=== PATIENT | female | born 1940 | race Caucasian/White ===

== ENCOUNTER → 2016-07-20 | Outpatient (CLI) | payer MEDICARE ==
--- NOTE | 2016-07-20 09:31 | REPMRS ---
Patient History The patient states she has not had a clinical breast exam in over a year. Patient is postmenopausal and is nulliparous. Family history of breast cancer in sister at age 63. Digital Woman Screen Mammo: July 20, 2016 - Exam #: [id number] Bilateral CC and MLO view(s) were taken. Technologist: Azra Louis, Technologist Prior study comparison: July 12, 2015, digital woman screen mammo performed at [facility]. July 16, 2014, digital woman screen mammo performed at [facility]. July 16, 2013, digital bilateral screening mammo, performed at [facility]. June 16, 2012, digital woman screen mammo performed at [facility]. May 04, 2011, bilateral bilat screen digital mammo performed at [facility]. March 24, 2010, bilateral bilat screen digital mammo performed at [facility]. FINDINGS: There are scattered fibroglandular densities. There has been no change in the appearance of the mammogram from the prior studies. There is a mild amount of residual fibroglandular tissue which is fairly symmetric. There is no interval development of dominant mass, architectural distortion, or clustered microcalcification suggestive of malignancy. There are benign arterial calcifications noted. There are scattered, small, benign calcifications of doubtful clinical significance. Large coarse benign appearing calcifications are present. Scattered lymph nodes are seen in the axilla. Stable minor areas of tissue asymmetry in right breast again seen and not changed over several years. No significant changes when compared with prior studies. ASSESSMENT: BI-RADS/ACR category 2 mammogram. Benign finding(s). Recommendation Routine screening mammogram in 1 year (for women over age 40). This mammogram was interpreted with the aid of an FDA-approved computer-aided dectection system. A. Negative x-ray reports should not delay biopsy if a dominant or clinically suspicious mass is present. B. Four to eight percent of cancers are not identified by mammography. C. Adenosis and dense breast may obscure an underlying neoplasm. Electronically Signed By: David Arevalo MD 07/20/16 [id number]
== END ==
LOC: M WHC 08:22
PROVIDERS: ATTEND Internal Medicine
DX: Z12.31 Encounter for screening mammogram for malignant neoplasm of breast (principal); Z78.0 Asymptomatic menopausal state; R92.8 Other abnormal and inconclusive findings on diagnostic imaging of breast

== ENCOUNTER 2017-02-01 13:35 | Emergency (ER) | payer MEDICARE ==
[2017-02-01] MEDS ORDERED: ALEV220C2 PO (13:53)
[2017-02-01] MEDS ORDERED: AMLO10TA2 PO (13:53)
[2017-02-01] MEDS ORDERED: ASPI325T PO (13:53)
[2017-02-01] MEDS ORDERED: DRIS50002 PO (14:03)
[2017-02-01] MEDS ORDERED: PHEN100C PO (14:03)
[2017-02-01] MEDS ORDERED: CALC600T9 PO (14:03)
[2017-02-01] MEDS ORDERED: HYDR12.55 PO (14:03)
[2017-02-01] MEDS ORDERED: OMEP20CA3 PO (14:03)
[2017-02-01] MEDS ORDERED: echinacea PO (14:03)
[2017-02-01] MEDS ORDERED: METO1TAB32 PO (14:03)
[2017-02-01] MEDS ORDERED: FOSA70TA PO (14:03)
[2017-02-01] MEDS ORDERED: ATOR80TA59 PO (14:03)
[2017-02-01] MEDS ORDERED: MULTLIQ7 PO (14:03)
[2017-02-01] MEDS ORDERED: FLUTISP (14:03)
[2017-02-01] MEDS ORDERED: PREVINJ2 IM (14:04)
[2017-02-01] MEDS ORDERED: REFR1DRO8 OP (14:04)
[2017-02-01] MEDS ORDERED: VITA200016 PO (14:04)
[2017-02-01] MEDS ORDERED: ZETI10TA30 PO (14:04)
[2017-02-01] MEDS ORDERED: RALO1TAB PO (14:04)
[2017-02-01 15:16] LABS: BASO # 0.1 K/mm3 (0.0-0.2); BASO % 0.6 % (0.0-1.0); EOS # 0.1 K/mm3 (0.0-0.50); EOS % 1.3 % (0.0-3.0); LARGE UNSTAINED CELL # 0.3 K/mm3 (0.0-0.4); LARGE UNSTAINED CELL % 2.6 % (0.0-4.0); LYMPH # 1.5 K/mm3 (1.5-4.5); LYMPH % 13.7 % (24.0-44.0); MEAN CORPUSCULAR HEMOGLOBIN 30.7 pg (27.0-33.0); MEAN CORPUSCULAR HGB CONC 34.9 g/dl (32.0-36.5); MONO # 1.1 K/mm3 (0.0-0.8); MONO % 9.9 % (0.0-5.0); NEUTROPHILS # 7.7 K/mm3 (1.8-7.7); NEUTROPHILS % 71.8 % (36.0-66.0); PLATELET COUNT, AUTOMATED 391 k/mm3 (150-450); RED CELL DISTRIBUTION WIDTH 12.4 % (11.5-14.5); WHITE BLOOD COUNT 10.8 K/mm3 (4.0-10.0)
[2017-02-01 15:24] LABS: ANION GAP 10 MEQ/L (8-16); BLOOD UREA NITROGEN 16 MG/DL (7-18); CARBON DIOXIDE LEVEL 27 MEQ/L (21-32); CHLORIDE LEVEL 101 MEQ/L (98-107); CREATININE FOR GFR 0.71 MG/DL (0.55-1.02); GLOMERULAR FILTRATION RATE > 60.0 (>39); GLUCOSE, FASTING 98 MG/DL (83-110); SODIUM LEVEL 138 MEQ/L (136-145)
--- NOTE | 2017-02-01 15:55 | REP ---
Chest two views HISTORY: Chest pain Comparison: None The lungs are clear. The heart is normal in size. The pulmonary vasculature is normal in appearance. The bony structure is intact. IMPRESSION: No acute disease. Signed by Remington Sin MD 02/01/2017 03:46 P
[2017-02-01 16:04] VITALS: BP 146/70
--- NOTE | 2017-02-05 05:58 | ECGEPIP ---
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
== END 2017-02-01 16:17 | disposition home or self-care (01) ==
LOC: M ED 13:35 → EDBD 13:35 → M ED 16:17
DX: M94.0 Chondrocostal junction syndrome [Tietze] (principal); E11.9 Type 2 diabetes mellitus without complications; I10 Essential (primary) hypertension; E78.5 Hyperlipidemia, unspecified; Z79.899 Other long term (current) drug therapy; Z79.82 Long term (current) use of aspirin; Z79.51 Long term (current) use of inhaled steroids

== ENCOUNTER → 2017-07-18 | Outpatient (CLI) | payer MEDICARE | LOC: M WHC 08:13 | DX: Z12.31 Encounter for screening mammogram for malignant neoplasm of breast (principal) | CPT/HCPCS: 77067 ==

== ENCOUNTER 2018-05-31 23:26 | Inpatient (IN) | payer MEDICARE, MEDICAID, BC ==
[~2018-05-31] VITALS: Ht 157.5 cm; Wt 56.5 kg
[~2018-05-31 23:26] MED LIST: ALEV220C2 PO; AMLO10TA5 PO; ASPI325T PO; ATOR80TA59 PO; CALC600T9 PO; DRIS50003 PO; FLUTISP; FOSA70TA PO; HYDR12.55 PO; METO1TAB32 PO; MULTLIQ7 PO; OMEP20CA3 PO; PHEN100C PO; PREVINJ2 IM; RALO1TAB PO; REFR1DRO8 OU; VITA200016 PO; ZETI10TA30 PO; echinacea PO
[2018-06-01 00:51] LABS: BASO # 0.1 10^3/uL (0.0-0.2); BASO % 0.4 % (0.0-1.0); EOS # 0.2 10^3/uL (0.0-0.50); EOS % 0.6 % (0.0-3.0); HEMATOCRIT 35.3 % (36.0-47.0); HEMOGLOBIN 12.2 g/dl (12.0-15.5); LYMPH # 1.2 10^3/uL (1.5-4.5); LYMPH % 4.5 % (24.0-44.0); MEAN CORPUSCULAR HEMOGLOBIN 29.4 pg (27.0-33.0); MEAN CORPUSCULAR HGB CONC 34.6 g/dl (32.0-36.5); MEAN CORPUSCULAR VOLUME 85.1 fl (80.0-96.0); MONO % 8.7 % (0.0-5.0); NEUTROPHILS # 22.5 10^3/uL (1.8-7.7); NEUTROPHILS % 83.1 % (36.0-66.0); PLATELET COUNT, AUTOMATED 365 10^3/uL (150-450); RED BLOOD COUNT 4.15 10^6/uL (4.00-5.40)
[2018-06-01 01:17] LABS: MONO # 2.4 10^3/uL (0.0-0.8)
[2018-06-01 01:27] LABS: ALBUMIN 1.9 GM/DL (3.2-5.2); BILIRUBIN,DIRECT 0.4 MG/DL (0.0-0.2); BILIRUBIN,TOTAL 0.7 MG/DL (0.2-1.0); CALCIUM LEVEL 8.2 MG/DL (8.8-10.2); CREATININE FOR GFR 4.84 MG/DL (0.55-1.30); GLOMERULAR FILTRATION RATE 9.3 (>39); PHENYTOIN (DILANTIN) 3.8 UG/ML (10.0-20.0); POTASSIUM SERUM 4.6 MEQ/L (3.5-5.1); THYROID STIMULATING HORMONE 2.9 uIU/ML (0.358-3.740); THYROXINE (T4) 7.8 UG/DL (4.5-12.0); TOTAL PROTEIN 5.9 GM/DL (6.4-8.2)
[2018-06-01] MEDS ORDERED: NS 1,000 ML IV ONE ×2 (03:45→19:30)
[2018-06-01] MEDS ORDERED: CALC500C16 PO (04:01)
[2018-06-01] MEDS ORDERED: PATIENT COMMENTS (04:23)
[2018-06-01] MEDS ORDERED: PHENYTOIN ER 100 MG CAP PO ONE (04:45)
--- NOTE | 2018-06-01 07:02 | REPVR ---
EXAM: US Right Duplex Extracranial Arteries, Unilateral EXAM DATE/TIME: 06/01/2018 4:52 AM CLINICAL HISTORY: 77 years old, female; Pain and condition or disease; Other: S/P endartectomy ~2 years and recent lump in neck; Neck pain; Prior surgery; Surgery date: 6+ months; Surgery type: RT endartectomy approx. 2 years ago, now pain and large palp area; Patient HX: Patient poor historian d/t AMS; Additional info: Eval r carotid TECHNIQUE: Real-time Duplex ultrasound scan of the Right carotid, 2-D kemp scale, with color Doppler flow and spectral waveform analysis. A limited examination was performed, focused on the right carotid artery in the area of pain. COMPARISON: CR Soft Tissue Neck 06/01/2018 3:52 AM FINDINGS: Right common carotid: The right common carotid artery is patent. There is irregular echogenic plaque through the right common carotid artery. There is aneurysmal dilation of the mid right common carotid artery, measuring approximate 2.0 x 1.6 cm in diameter. They right common carotid artery is patent. Normal arterial waveforms are seen with sharp upstrokes. The peak systolic velocity in the proximal right common carotid artery is 70 cm/s. The peak systolic velocity is in the mid right common carotid artery is 59 cm/s. The peak systolic velocity in the distal right common carotid artery is 53 cm/s. On color flow imaging, turbulent flow is seen in the mid common carotid artery. Right internal carotid artery: The carotid bulb and carotid bifurcation could not be visualized. Soft tissues: No masses are seen adjacent to the carotid artery and the right side of the neck. IMPRESSION: 1. 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 2. Patency of the right common carotid artery, with no stenosis. COMMENT: Carotid Stenosis Reference using SRU criteria: Mild: <50% stenosis. ICA PSV is less than 125 cm/second and plaque or intimal thickening is visible. Moderate: 50-69% stenosis. ICA PSV is 125 to 230 cm/second and plaque is visible. Severe: 70-94% stenosis. ICA PSV is more than 230 cm/second and visible plaque and lumen narrowing are seen. Near occlusion: 95-99% stenosis. ICA PSV is variable and significant plaque and luminal narrowing are seen. Occluded: 100% stenosis. No flow identified. Electronically signed by: Ivette Rajan On 06/01/2018 07:02:37 AM
--- NOTE | 2018-06-01 08:13 | REP ---
Chest two views HISTORY: Neck pain Comparison: 02/01/2017 The lungs are clear. The heart is normal in size. The pulmonary vasculature is normal in appearance. The bony structure is intact. IMPRESSION: No acute disease. Electronically Signed by Remington Sin MD 06/01/2018 08:04 A
--- NOTE | 2018-06-01 08:50 | REP ---
SOFT TISSUE NECK, THREE VIEWS: HISTORY: Neck pain. There is no acute fracture or subluxation. The C4-5 through C6-7 intervertebral discs are decreased in height consistent with disc degeneration. Osteophytes are present on C4 through C7. Soft tissues of the neck are unremarkable. Surgical clips are present in the right neck at the C2-3 level. IMPRESSION: Degenerative change, as described above. Electronically Signed by Remington Sin MD 06/01/2018 08:59 A
[2018-06-01] MEDS: SENOKOT S TAB PO SCH ×2 (09:00→20:44)
[2018-06-01] MEDS ORDERED: METOPROLOL SUCC *XL* 25MG TAB (TopROL *XL*) PO SCH (09:00)
--- NOTE | 2018-06-01 09:36 | REP ---
CT ABDOMEN AND PELVIS WITHOUT CONTRAST: HISTORY: Pyelonephritis. The right adrenal gland is calcified. Several calcifications are present in the left adrenal gland. Calcification is present in the left kidney, consistent with nephrolithiasis. A small amount of edema or scarring is present surrounding the left kidney. The liver, gallbladder, pancreas, spleen, and right kidney are normal in appearance. There is no mass or adenopathy. The visualized lungs are clear. The urinary bladder and uterus are normal in appearance. Diverticula are present in the descending, sigmoid, and ascending colons. Degenerative change is present in the spine. IMPRESSION: 1. The right adrenal gland is calcified. Several calcifications are present in the left adrenal gland. This may be secondary to previous trauma. 2. Left nephrolithiasis. 3. There is a small amount of edema or scarring surrounding the left kidney. 4. Diverticulosis. Electronically Signed by Remington Sin MD 06/01/2018 09:38 A
--- NOTE | 2018-06-01 10:40 | REP ---
MRA CAROTIDS WITHOUT AND WITH CONTRAST: HISTORY: Aneurysm. Unenhanced 2D and 3D [id number] MR angiography were performed at the level of the carotid bifurcations. The examination is very limited secondary to motion. The patient is status post right carotid endarterectomy. Surgical clips are present. Metal artifact obscures the distal right common carotid artery and origins of the right external and internal carotid artery. There is mild stenosis of 25% of the left internal carotid artery at its origin. The origin of the left external carotid artery is normal. The vertebral arteries are equal in size and patent. IMPRESSION: 1. The patient is status post right carotid endarterectomy. The right common carotid bifurcation and origins of the right external and internal carotid artery are not seen secondary to metal artifact. 2. Mild stenosis of 25% of the left internal carotid artery at its origin. Electronically Signed by Remington Sin MD 06/01/2018 11:15 A
[2018-06-01] MEDS ORDERED: VANCOMYCIN HCL 1,000 MG, VIAL MATE ADAPTER 1 EACH in D5W 250 ML IV ONE (12:15)
[2018-06-01] MEDS ORDERED: NS 1,000 ML IV SCH (12:30)
--- NOTE | 2018-06-01 12:34 | REP ---
CT Head without contrast HISTORY: Altered mental status COMPARISON: None Areas of decreased attenuation are present in the periventricular white matter. This represents small-vessel ischemic disease. There is no intraparenchymal hemorrhage, acute infarct, mass or midline shift. The ventricular system and cortical sulci are dilated consistent with minimal volume loss. There is no extra cerebral collection. There is no fracture. The visualized sinuses are clear. IMPRESSION: 1. Small vessel ischemic disease. 2. Minimal volume loss. Electronically Signed by Remington Sin MD 06/01/2018 12:26 P
[2018-06-01] MEDS ORDERED: ONDANSETRON 4MG/2ML VIAL (J2405) IV PRN (12:45)
[2018-06-01] MEDS ORDERED: CEFEPIME HCL 1 GM in D5W MINI-BAG PLUS 50 ML IV SCH (13:00)
[2018-06-01 13:07] LABS: CPK CREATINE PHOSPHOKINASE 53 U/L (26-192); MB/CK RELATIVE INDEX 6.23 (< OR =4); TROPONIN I < 0.02 NG/ML (< 0.10)
[2018-06-01 13:15] LABS: CREATININE,RANDOM URINE 64.9 MG/DL; TOTAL PROTEIN,RANDOM URINE 106.6 MG/DL (0.0-12.0)
[2018-06-01] MEDS ORDERED: LORazepam 2 MG/ML VIAL (J2060) As Ordered ONE (15:14)
[2018-06-01] MEDS ORDERED: LORazepam 2 MG/ML VIAL (J2060) IV STA ×2 (15:27→17:03)
[2018-06-01 15:43] LABS: CALCIUM LEVEL 8.5 MG/DL (8.8-10.2); CREATININE FOR GFR 4.5 MG/DL (0.55-1.30); GLOMERULAR FILTRATION RATE 10.1 (>39); POTASSIUM SERUM 4.4 MEQ/L (3.5-5.1)
[2018-06-01] MEDS: EZETIMIBE 10 MG TAB (ZETIA) PO SCH (16:00)
[2018-06-01] MEDS: OMEPRAZOLE 20 MG CAP PO SCH ×2 (16:00→20:43)
[2018-06-01] MEDS: CALCIUM CARBONATE 500 MG CHEW U/D PO SCH (16:00)
[2018-06-01] MEDS: CLOPIDOGREL 75 MG TAB PO SCH (16:00)
[2018-06-01] MEDS: amLODIPine 10 MG TAB PO SCH (16:00)
[2018-06-01] MEDS ORDERED: PHENYTOIN ER 100 MG CAP PO SCH (16:00)
[2018-06-01] MEDS: POLYVINYL ALCOHOL OPHTH SOLN 15 ML(LIQUITEARS) OU SCH (16:00)
[2018-06-01] MEDS: FLUTICASONE PROP 0.05% NASAL SPRAY 16 GM (FLONASE) SCH (16:00)
[2018-06-01] MEDS: ASPIRIN 81 MG ENTERIC TAB PO SCH (16:00)
[2018-06-01] MEDS: ATORVASTATIN 20 MG TAB PO SCH (16:00)
[2018-06-01 16:25] LABS: APPEARANCE, CSF CLEAR (CLEAR); COLOR, CSF COLORLESS (COLORLESS); CSF TUBE# CELL CNT TUBE 1; CSF TUBE# GLU TUBE 2; CSF TUBE# TP TUBE 2; GLUCOSE CSF 57 MG/DL (40-75); TOTAL PROTEIN,CSF 48 MG/DL (15-45)
[2018-06-01 16:27] LABS: APPEARANCE, CSF CLEAR (CLEAR); COLOR, CSF COLORLESS (COLORLESS); CSF TUBE# CELL CNT TUBE 4
[2018-06-01] MEDS ORDERED: HALOPERIDOL 5 MG/ML VIAL (J1630) IM PRN (16:45)
[2018-06-01] MEDS ORDERED: HALOPERIDOL 5 MG/ML VIAL (J1630) IV ONE (17:15)
[2018-06-01] MEDS ORDERED: LORazepam 2 MG/ML VIAL (J2060) IM ONE (17:30)
[2018-06-01] MEDS ORDERED: HALOPERIDOL 5 MG/ML VIAL (J1630) IM ONE (17:30)
--- NOTE | 2018-06-01 17:44 | REPVR ---
EXAM: US Bilateral Duplex Bilateral Extracranial Arteries EXAM DATE/TIME: 06/01/2018 2:45 PM CLINICAL HISTORY: 77 years old, female; Pain; Other: RT neck pain; Prior surgery; Surgery date: 6+ months; Surgery type: RT endarterectomy TECHNIQUE: Bilateral Real-time Duplex ultrasound scan of the carotid and vertebral arteries combining kemp scale, color Doppler and spectral waveform analysis. COMPARISON: Thyroid, ST head+neck US 06/01/2018 4:39 AM FINDINGS: There is very severe irregular atherosclerotic plaque formation throughout the right and left ICA, carotid bifurcation and right and left CCA. There is prominent aneurysmal dilatation of the right common carotid artery measuring 2.2 CM in greatest transverse dimension. The length of this aneurysmal segment is 3.7 CM. Right-sided: The right ratio is 0.80 and the peak velocity of the right internal carotid artery 87. The amount of narrowing would be less than 50%. The right vertebral artery is antegrade. Left-sided: The ratio on the left is 0.9 with a peak velocity of 98. There was one reading of the left internal carotid artery at 123 cm/s. The amount of narrowing of the left internal carotid artery may be 50-69%. There is mild narrowing of the left external carotid artery. The left vertebral artery is antegrade. IMPRESSION: 1. Aneurysmal dilatation of the right common carotid artery with the lumen 2.2 CM. No significant stenosis right internal carotid artery. 2. 50-69% narrowing of the left internal carotid artery. 3. There is severe irregular atherosclerotic plaque formation at both the right and left carotid bifurcations. COMMENT: Carotid Stenosis Reference using SRU criteria: Mild: <50% stenosis. ICA PSV is less than 125 cm/second and plaque or intimal thickening is visible. Moderate: 50-69% stenosis. ICA PSV is 125 to 230 cm/second and plaque is visible. Severe: 70-94% stenosis. ICA PSV is more than 230 cm/second and visible plaque and lumen narrowing are seen. Near occlusion: 95-99% stenosis. ICA PSV is variable and significant plaque and luminal narrowing are seen. Occluded: 100% stenosis. No flow identified. Electronically signed by: Clifton Mcgrath On 06/01/2018 17:44:05 PM
[2018-06-01] MEDS ORDERED: HALOPERIDOL 5 MG/ML VIAL (J1630) IM STA (17:49)
[2018-06-01] MEDS ORDERED: LORazepam 2 MG/ML VIAL (J2060) IM STA (17:49)
[2018-06-01] MEDS ORDERED: diphenhydrAMINE INJ 50MG/ML VIAL (J1200) IM ONE (18:00)
--- NOTE | 2018-06-01 18:01 | HPE ---
DATE OF ADMISSION: 06/01/2018 PRIMARY CARE PROVIDER: Dr. Johnson Valdovinos CHIEF COMPLAINT: Neck pain and altered mental status. HISTORY OF PRESENT ILLNESS: This is a 77-year-old female patient with underlying medical history of hiatal hernia, gastroesophageal reflux disease (GERD), dyslipidemia, hypertension, seizure disorder, osteopenia, from [facility] who presented with a 3 day history of neck pain, was seen at [facility], discharged on ibuprofen. Patient has been taking ibuprofen every 3-4 hours, 400 mg, presented to the hospital with worsening pain. Patient is a very poor historian. Denies any vision change or hearing change. Denies any chest pain, coughing. No other complaints. Patient's history is extremely limited, at baseline patient has dementia, is a very poor historian. PAST MEDICAL HISTORY: Patient has history of hiatal hernia, dementia, dyslipidemia, hypertension, seizure disorder, osteopenia. ALLERGIES: LEVAQUIN causes nausea and vomiting and leg muscle pain. PAST SURGICAL HISTORY: Appendectomy, left foot and left knee surgery, bilateral carotid endarterectomy many years ago. SOCIAL HISTORY: Patient does not drink and does not smoke cigarettes, works as [employer] before she retired. FAMILY HISTORY: Father at age 48 from heart disease. Mother at age 65 from lung cancer and emphysema. REVIEW OF SYSTEMS: Reported neck pain, altered mental status as noted above, dementia. All other review of systems are negative. HOME MEDICATIONS: - hydrochlorothiazide 12.5 mg by mouth daily - vitamin D 50,000 units by mouth weekly - alendronate 70 mg by mouth weekly - Refresh eye drops four times a day as needed - raloxifene 60 mg by mouth daily - Norvasc 10 mg by mouth daily - aspirin 325 mg by mouth daily - Lipitor 80 mg by mouth daily - calcium bicarbonate 1500 mg by mouth daily - Zetia 10 mg by mouth daily - fluticasone nasal spray daily - metoprolol succinate 25 mg by mouth daily - omeprazole 20 mg by mouth twice a day - phenytoin 100 mg by mouth three times a day PHYSICAL EXAMINATION: VITAL SIGNS: Temperature 99.1, pulse 73, respirations 18, blood pressure 138/62, pulse oximetry 98% on room air. GENERAL: Patient alert, agitated, in no acute distress. HEENT: Normocephalic, atraumatic. NECK: Tenderness to palpation, pulsatile mass right side of the neck. Cervical lymphadenopathy. PULMONARY: Bilateral clear. CARDIAC: Regular, S1, S2. ABDOMEN: Soft, nontender, positive bowel sounds. EXTREMITIES: No clubbing, cyanosis, or edema. NEUROLOGIC: Patient confused, agitated, not cooperating with exam. Able to move bilateral upper and lower extremities symmetrically. Pupils bilaterally equal, round, and reactive. Facial muscles symmetrical. LABORATORY DATA: WBC 27, hemoglobin and hematocrit 12.2/35.3, platelets 365. Chemistry: Sodium 134, potassium 4.4, chloride 101, bicarbonate 16, BUN 77, creatinine 4.5, cardiac enzymes negative times one, C-reactive protein 49. ASSESSMENT AND PLAN: This is a 77-year-old female patient with underlying medical history of dementia, hiatal hernia, dyslipidemia, hypertension, seizure disorder, osteopenia, presented with neck pain, acute renal failure, confusion. 1. Altered mental status, possibly encephalopathy due to underlying infection. One-to-one sitter. Supportive care. Will get MRI of the brain and EEG. Neurology on consult. Frequent neurologic checks. 2. Neck pain. Patient has a right neck aneurysm, likely incidental finding, vascular surgery has been consulted. Possible infectious source cannot be excluded. Will get CT of the neck. Ear, nose, and throat (ENT) consultation. Broad-spectrum antibiotics escalated to meropenem and vancomycin. Followup blood cultures. Lumbar puncture has been done to exclude meningitis which preliminarily has been negative. 3. Leukocytosis, likely secondary to underlying infection, unknown origin. CT of the abdomen appreciated. Urinalysis (UA) appreciated. CT of the head appreciated. Lumbar puncture has been done. Patient on meropenem and vancomycin. Consider infectious disease consultation. Ear, nose, and throat (ENT) has been consulted. 4. Right neck carotid artery aneurysm. Consulted vascular surgery. Likely incidental finding. Recommending baby aspirin and Plavix as per Dr. Whitehead. Will monitor closely. 5. Acute renal failure, likely secondary to ibuprofen overdose. Patient has been taking ibuprofen every 3-4 hours for the last 3 days. Consulted nephrology. IV fluids. Urine study. Renal ultrasound has been done. Will monitor kidney function. Avoid nephrotoxic agents. Avoid nonsteroidal anti-inflammatory drugs (NSAIDs). 6. History of seizure. Neurology consulted. EEG ordered. Seizure precautions. Dilantin switched to IV given patient is not tolerating much oral. 7. Hypertension. Blood pressure medication as tolerated. Followup blood pressure. Holding hydrochlorothiazide given patient is in renal failure. Will continue Norvasc and metoprolol as tolerated. Will switch to IV if patient does not tolerate oral. 8. Dyslipidemia. Statin as tolerated. Zetia as tolerated. 9. Deep venous thrombosis (DVT) prophylaxis. Heparin subcutaneous. DISPOSITION: Possible infectious disease consultation tomorrow. Ear, nose, and throat (ENT) has been consulted. Clinical improvement. Patient with multiple comorbidities and severe disease. Prognosis guarded. Case discussed with patient's health care proxy. As per health care proxy, patient does not want extraordinary measures but wants to be certain if patient's condition is terminal or not. If so, then the patient will be made comfort care, but if not the health care proxy will continue to want to pursue aggressive treatment at this point given uncertain whether the underlying disease is reversible. Will continue to monitor.
[2018-06-01 18:10] LABS: MONO SCRN NEGATIVE (NEGATIVE)
[2018-06-01 18:11] LABS: CPK CREATINE PHOSPHOKINASE 83 U/L (26-192); MB/CK RELATIVE INDEX 4.82 (< OR =4); TROPONIN I < 0.02 NG/ML (< 0.10)
[2018-06-01] MEDS ORDERED: VANCOMYCIN INTERMITTENT/PULSE DOSING BY CLINICAL PHARMACIST PER DOSING PROTOCOL XX SCH (18:30)
--- NOTE | 2018-06-01 18:52 | RO ---
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 POSTPROCEDURE DIAGNOSIS: Laminitis encephalopathy and leukocytosis. PHYSICIAN PERFORMING PROCEDURE: Dr. Geni Brennan LEASING DIRECTOR: Dr. Mikayla Salcido PROCEDURE PERFORMED: Diagnostic lumbar puncture. SEDATION: 2 mg of IV Ativan. Anesthetic was 1% local lidocaine. ESTIMATED BLOOD LOSS: Minimal. VENTILATION: None. CONSENT: Obtained from patient's healthcare proxy. Risks and benefits had been explained. DESCRIPTION OF PROCEDURE: Time-out was done. The patient was placed in right lateral decubitus position. Nursing assistance was elicited to hold the patient in place. [place] was palpated, including the patient's superior iliac crest and spinous process region, between patient's L4-5 was palpated. The patient was cleaned with Betadine three times. Site was covered in the usual manner. 1% lidocaine was injected subcutaneously and then deep. Lumbar puncture needle was inserted between the patient's L4-5, checking for fluid return every time the needle was advanced. Fluid was collected and needle was removed. A total of around 10 mL of fluid was collected. Needle was removed. Dressing was placed. The patient tolerated the procedure with no complications.
[2018-06-01] MEDS: PHENYTOIN 100 MG/2 ML VIAL (J1165) IV SCH (19:05)
[2018-06-01] MEDS ORDERED: METOPROLOL 5 MG/5 ML VIAL As Ordered ONE (19:55)
[2018-06-01] MEDS: METOPROLOL 5 MG/5 ML VIAL IV SCH ×3 (20:05→20:24)
--- NOTE | 2018-06-01 20:29 | REPVR ---
EXAM: CT Neck Without Contrast EXAM DATE/TIME: 06/01/2018 7:47 PM CLINICAL HISTORY: 77 years old, female; Pain; Neck pain TECHNIQUE: Axial computed tomography images of the neck without contrast. All CT scans at this facility use at least one of these dose optimization techniques: automated exposure control; mA and/or kV adjustment per patient size (includes targeted exams where dose is matched to clinical indication); or iterative reconstruction. Coronal and sagittal reformatted images were created and reviewed. COMPARISON: CR Soft Tissue Neck 06/01/2018 3:52 AM FINDINGS: The cervical vertebra appear in alignment. There is no evidence of fracture. There is anterior osteophyte formation mid cervical region. There is moderate narrowing of the disc spaces C4 through C7. The dens appears intact and the lateral masses of C1 appear symmetric. Right carotid artery There are multiple surgical clips along the anterior surface of the right carotid artery aneurysm. There is severe calcification of the margins of the aneurysmal segment of the common carotid artery. This aneurysm measures approximately 2.2 CM in greatest transverse dimension. If there is pain specifically in this area correlation with a CT angiogram should be considered. The apical portions of the lung appear clear. There is calcification of the carotid siphon and consistent with atherosclerotic change there is severe calcification also of the left carotid bifurcation. There is no evidence of retropharyngeal soft tissue swelling. There is a moderate central posterior osteophyte C4-C5 causing moderate impression on the thecal sac. There is a left paracentral posterior osteophyte C5-C6 causing impression on the thecal sac and severe left C6 neural foramina narrowing. IMPRESSION: 1. Aneurysmal dilatation of the right common carotid artery measuring 2.2 CM in transverse dimension with surgical clips superiorly. If there is localized pain to this area correlation with a CT angiogram or MRI angiogram should be considered. 2. Degenerative changes of the cervical spine with posterior osteophyte formation at C4-C5 and C5-C6 and also neural foramina narrowing. Electronically signed by: Clifton Mcgrath On 06/01/2018 20:29:21 PM
[2018-06-01] MEDS: MEROPENEM INJ 1 GM in APPROPRIATE DILUENT 1 EA IV SCH (20:53)
[2018-06-01] MEDS: SODIUM BICARBONATE 75 MEQ in NS 0.45% 1,000 ML IV SCH (20:54)
[2018-06-01 22:00] VITALS: BP 157/90
[2018-06-01 23:26] LABS: ABG HCO3 15.7 MEQ/L (22.0-26.0); ABG O2 SATURATION 97.3 % (95.0-99.0); ABG PARTIAL PRESSURE CO2 26.9 mmHg (35.0-45.0); ABG PARTIAL PRESSURE O2 93.3 mmHg (75.0-100.0); ABG TOTAL CO2 16.5 MEQ/L (23.0-31.0); ABG pH (ARTERIAL) 7.383 UNITS (7.350-7.450)
[2018-06-02] VITALS: BP 113/59
[2018-06-02 00:47] LABS: CPK CREATINE PHOSPHOKINASE 117 U/L (26-192); MB/CK RELATIVE INDEX 3.16 (< OR =4); TROPONIN I < 0.02 NG/ML (< 0.10)
[2018-06-02] MEDS: HEPARIN SOD (PORCINE) 5000 UNITS/ML VIAL SQ SCH ×3 (00:54→21:29)
[2018-06-02] MEDS: POLYVINYL ALCOHOL OPHTH SOLN 15 ML(LIQUITEARS) OU SCH ×4 (00:57→21:28)
[2018-06-02] MEDS: PHENYTOIN 100 MG/2 ML VIAL (J1165) IV SCH ×3 (02:44→18:25)
[2018-06-02 04:00] VITALS: BP 140/65
[2018-06-02 05:23] LABS: BASO # 0.1 10^3/uL (0.0-0.2); BASO % 0.3 % (0.0-1.0); EOS # 0.1 10^3/uL (0.0-0.50); EOS % 0.3 % (0.0-3.0); HEMATOCRIT 33.7 % (36.0-47.0); HEMOGLOBIN 11.8 g/dl (12.0-15.5); LYMPH # 0.7 10^3/uL (1.5-4.5); LYMPH % 3.2 % (24.0-44.0); MEAN CORPUSCULAR HEMOGLOBIN 29.4 pg (27.0-33.0); MEAN CORPUSCULAR VOLUME 83.8 fl (80.0-96.0); MONO # 1.9 10^3/uL (0.0-0.8); MONO % 8.7 % (0.0-5.0); NEUTROPHILS # 19.1 10^3/uL (1.8-7.7); NEUTROPHILS % 85.7 % (36.0-66.0); PLATELET COUNT, AUTOMATED 359 10^3/uL (150-450); RED BLOOD COUNT 4.02 10^6/uL (4.00-5.40); WHITE BLOOD COUNT 22.3 10^3/uL (4.0-10.0)
[2018-06-02] MEDS: METOPROLOL 5 MG/5 ML VIAL IV SCH ×4 (05:43→18:25)
[2018-06-02 05:44] LABS: ALBUMIN 1.8 GM/DL (3.2-5.2); BILIRUBIN,TOTAL 0.5 MG/DL (0.2-1.0); C REACTIVE PROTEIN QUANTITATIV 40.3 MG/DL (0.00-0.30); CALCIUM LEVEL 8.2 MG/DL (8.8-10.2); CREATININE FOR GFR 3.34 MG/DL (0.55-1.30); GLOMERULAR FILTRATION RATE 14.3 (>39); MAGNESIUM LEVEL 2.4 MG/DL (1.8-2.4); POTASSIUM SERUM 4.2 MEQ/L (3.5-5.1); TOTAL PROTEIN 5.5 GM/DL (6.4-8.2); VANCOMYCIN RANDOM 12.6 UG/ML
--- NOTE | 2018-06-02 05:57 | PHACANCOPD ---
PHARMACY VANCOMYCIN DOSING Pt Demographics Demographics Patient Age:77 , Weight:72.730 , Gender: female Adjusted Body Weight Date: 06/02/18, Adjusted Body Weight: [72] Kg Events Past 24 Hours Events Past 24 Hours: NO: Dialysis, Diuretic Therapy, Change in CrCl, Fever, Elevation in WBC, Pending Diagnostics, Pending Procedures, Other Vancomycin Vancomycin indication: SEPSIS Vancomycin Target Ranges: 15-20 mcg/ml Vancomycin Load Y/N: No Load Dose Date Time Vancomycin Load Dose: Date: Time: Vancomycin Dose Date: 06/02/18. Current Vancomycin Dose: [1G IV @ 07] Intermittent Dosing?: Yes Labs Labs Item Value Date Time White Blood Count 27.0 10^3/uL H 06/01/18 0037 White Blood Count 22.3 10^3/uL H 06/02/18 0421 Creatinine 4.50 MG/DL H 06/01/18 1505 Creatinine 3.34 MG/DL H 06/02/18 0421 Random Vancomycin Level 12.6 UG/ML 06/02/18 0421 Vital Signs Label Value Date Time Patient Temperature 98.4 degrees F 06/01/18 2200 Temperature Source Temporal 06/01/18 2200 Patient Temperature 98.8 degrees F 06/02/18 0000 Temperature Source Temporal 06/02/18 0000 Patient Temperature 99.9 degrees F 06/02/18 0400 Temperature Source Temporal 06/02/18 0400 Micro Microbiology 06/01/18 Blood Culture, Received Pending 06/01/18 Blood Culture, Received Pending 06/01/18 Gram Stain - Final, Resulted 06/01/18 CSF Culture, Resulted Pending 06/01/18 - Final, Complete 06/01/18 Urine Culture, Received Pending Creatinine Clearance Date:06/02/18. Creatinine Clearance: [12.2ML/MIN]. Pending Labs VANCOMYCIN LEVEL 06/03/18 AM Assessment and Plan Maintaining Current Dose?: Yes Reason for dose change: No Dose Change Pharmacist Note Pharmacist Note Date: 06/02/18. Pharmacist note: PT is a 77 year old female being intermittently dosed with vancomycin for sepsis. Vancomycin level came in this am @ 12.6mcg/ml. A 1g vancomycin dose is scheduled today at 07:00. Another vancomycin level will be drawn 06/03/18 with am labs. We will continue to monitor and adjust the dose as needed. [facility] Jun 02, 2018 05:57
--- NOTE | 2018-06-02 06:28 | REP ---
RENAL ULTRASOUND: HISTORY: Acute kidney disease. The kidneys are hyperechoic. The right kidney measures 5.4 cm in transverse by 4.8 cm in AP by 10.3 cm in cephalocaudal dimensions. The left kidney measures 5.1 cm in transverse by 4.7 cm in AP by 11 cm in cephalocaudal dimensions. There is no hydronephrosis or mass. There are no filling defects in the urinary bladder. Pre-void bladder volume is 180.7 cubic centimeters. IMPRESSION: The kidneys are hyperechoic consistent with medical renal disease. Electronically Signed by Remington Sin MD 06/02/2018 08:40 A
[2018-06-02] MEDS ORDERED: VANCOMYCIN HCL 1,000 MG, VIAL MATE ADAPTER 1 EACH in D5W 250 ML IV ONE (07:00)
[2018-06-02] MEDS: SODIUM BICARBONATE 75 MEQ in NS 0.45% 1,000 ML IV SCH (07:08)
--- NOTE | 2018-06-02 07:13 | CR ---
DATE OF CONSULTATION: 06/01/2018 REASON FOR ADMISSION: Altered mental status. The patient is a 77-year-old female with underlying medical history of gastroesophageal reflux disease, hiatal hernia, dyslipidemia, hypertension, seizure disorder, osteopenia. The patient presents with a three day history of neck pain and confusion. The patient in the emergency department was noted to have an elevated white count of 27.0. The patient is afebrile. The patient did not have a source of infection. Urinalysis was negative. Dilantin level was 3.8. It is unclear if the patient is noncompliant or has had a seizure. The patient did have a head CT which was negative. There is evidence of small vessel ischemic disease and interval volume loss. The patient is quite agitated and aggressive in the emergency department. She was reported by nursing staff to try to bite them. The patient has received Haldol and Ativan. She is quite obtunded and lethargic and sleepy. At one point she had to have four-point restraints. 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 Dr. Whitehead has been asked for consultation it seems. The patient was using aspirin 325 mg every day but has now been asked to increase that to 81 mg aspirin plus Plavix 75 mg daily. The patient is unable to provide any history. REVIEW OF SYSTEMS: Unable to pay to obtained as the patient is quite obtunded. SOCIAL HISTORY: The patient does not use tobacco, alcohol or illicit drugs. PAST SURGICAL HISTORY: 1. Appendectomy. 2. Left foot and left knee surgery. 3. Bilateral carotid endarterectomy seven years ago. ALLERGIES: LEVAQUIN. PAST MEDICAL HISTORY: 1. Hypertension. 2. Hyperlipidemia. 3. Seizure disorder. 4. Osteopenia. 5. Hiatal hernia. 6. Dementia. FAMILY HISTORY: Noncontributory. HOME MEDICATIONS: - hydrochlorothiazide - vitamin D - alendronate - Refresh - raloxifene - Norvasc - aspirin - Lipitor - calcium bicarbonate - Zetia - fluticasone - metoprolol - omeprazole - phenytoin 100 mg three times daily PHYSICAL EXAMINATION: Vital signs: Blood pressure is 127/62, pulse rate is 145, respiratory rate is 19, oxygenation is 95% on room air, temperature is 98.4 degrees Fahrenheit. Current height is 5 foot 2 inches, current weight is 72 kilograms. The patient is unable to provide any history. She is unable to wake up. She opens her eyes very briefly. She responds by withdrawing all four extremities to noxious stimuli. Pupils appear to be reactive, doll's eye is present. The tongue appears to be midline. The patient has a cough. She can speak some words. She does have normal tone of the arms and legs. The patient has deep tendon reflexes that are 2+ in all four extremities. Babinski signs are absent. No nuchal rigidity is present. ASSESSMENT: 1. Altered mental status likely delirium with baseline dementia. 2. Elevated white blood cell count suspect underlying infection, unknown source. 3. Cerebrospinal fluid (CSF) analysis does not reveal central nervous system ([employer]) etiology. 4. Obtain electroencephalogram (EEG) rule out seizures. 5. The patient is now on Dilantin 100 mg intravenous at every eight hour periods. Recommend checking Dilantin level and recommend obtaining EEG.
[2018-06-02 08:00] VITALS: BP 161/74
[2018-06-02 08:04] LABS: PHENYTOIN (DILANTIN) 5.6 UG/ML (10.0-20.0)
--- NOTE | 2018-06-02 08:56 | CR ---
DATE OF CONSULTATION: 06/01/2018 CONSULTATION REPORT FOR: Geni Brennan MD REASON FOR CONSULTATION: Acute renal failure. 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, who presented with a 3-day history of neck pain. She was prior to this seen at [facility] and was discharged on ibuprofen. She did have a CT scan there and was told about aneurysm in right carotid artery. Apparently, she was taking ibuprofen 400 mg every 4 hours, though she is a poor historian and very weak in answering questions. Her friend from [employer] is present on the bedside at the time of my visit and she reported that patient was not eating or drinking for last couple of days and was taking her pain pills frequently. In any event, at presentation to emergency room at [facility] today, her creatinine was found to be significantly elevated 4.5 and BUN was 77 while she is known to have normal kidney function at baseline. A nephrology consultation was requested and patient is seen in the emergency room. PAST MEDICAL AND SURGICAL HISTORY: Significant for: 1. History of hypertension. 2. Seizure disorder. 3. History of hyperlipidemia. 4. Gastroesophageal reflux disease. 5. History of hiatal hernia. 6. History of osteopenia. 7. History of dementia. Past surgical history is significant for appendectomy, left foot surgery and left knee surgery, bilateral carotid endarterectomy many years ago. PERSONAL AND SOCIAL HISTORY: Patient has no history of smoking, alcohol or drug use. MEDICATIONS: Her home medications included: - hydrochlorothiazide 12.5 mg daily - vitamin D 50,000 units weekly - Fosamax 70 mg weekly - raloxifene 60 mg daily - Norvasc 10 mg daily - aspirin 325 mg daily - Lipitor 80 mg daily - calcium carbonate 1500 mg daily - Zetia 10 mg daily - metoprolol 25 mg daily - omeprazole 20 mg twice a day - Dilantin 100 mg three times a day ALLERGIES: She has allergy to LEVAQUIN, which causes nausea and vomiting. FAMILY HISTORY: Father at age 48 from heart disease and mother at age 65 from lung cancer and emphysema. REVIEW OF SYSTEMS: Patient is quite vague and somewhat confused at times. She is complaining of pain and difficulty swallowing in her neck. She denies any fever or chills. There is no history of nosebleed or ear problems. She does complain of sore throat. Cardiovascular system is significant for hypertension. She denies any chest pain, palpitations or leg edema. Respiratory system is negative for cough or hemoptysis. Gastrointestinal (GI) system is significant for poor oral intake for a few days. She denies any abdominal pain, vomiting or diarrhea. Genitourinary () system is negative for dysuria or hematuria. She denies any history of kidney stones. Musculoskeletal system is significant for chronic degenerative arthritis and osteopenia. She is complaining of pain in her neck. Endocrine system is negative for diabetes or thyroid problems. Hematological system is negative for anticoagulation. She has no known history of anemia. Psychosocial system is negative for depression or anxiety. She does have some dementia. Neurological system is significant for seizure disorder. Skin is negative for rash or ulcers. PHYSICAL EXAMINATION: At the time of my visit, patient is lying in the stretcher in the emergency room. Blood pressure 130/66 mmHg and heart rate about 80 per minute. Temperature is 98.5 degrees Fahrenheit and oxygen saturation 94% on room air. Her head is atraumatic. Pupils are equal and reactive to light and sclera is anicteric. There is no oral thrush or ulcers. Her oral mucosa somewhat dry. Nose and throat are unremarkable. She has tenderness in the right side of her neck. I do not hear a carotid bruit. Thyroid is not abnormally enlarged. Heart sounds are regular. Lungs have good bilateral air entry without any wheezing or rales. Abdomen: Soft and nontender. Bowel sounds are normal. Extremities have no leg edema, cyanosis or clubbing. Neurologically, she is confused and somewhat vague in answering questions. She is moving all her four limbs. LABORATORY DATA: Her WBC count is 27,000, hemoglobin 12.2 and hematocrit 35.3. Platelets 365. Sodium 135, potassium 4.6, CO2 18, BUN 71 and creatinine 4.84. Calcium is 8.2, AST 27, ALT 22 and alkaline phosphatase 319. A repeat chemistry this afternoon showed BUN of 77 and creatinine 4.5. CO2 is now 16 and sodium 134. Ammonia level was less than 10. Urinalysis showed 2+ protein and 1+ blood. 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 CT scan of abdomen and pelvis is done without IV contrast which showed calcification of right adrenal gland and several calcifications in the left adrenal gland also. There were kidney stones in the left kidney without any hydronephrosis. Diverticulosis was also noted. PROBLEMS: 1. Acute renal failure. Probably a combination of dehydration and acute analgesic nephropathy. She has been taking ibuprofen for the last few days every 3-4 hours. She was not on any nephrotoxic antibiotic at home and has not been on angiotensin-converting enzyme (YUE) inhibitor or angiotensin receptor andreas. At present, I would recommend to start with IV fluid hydration and hydrate her aggressively. Her ibuprofen has already been stopped. 2. Metabolic acidosis related to acute renal failure and patient is being switched to sodium bicarbonate infusion in half normal saline. Her chemistry should be repeated again tomorrow morning. 3. Hypertension. She was taking hydrochlorothiazide at home, which should be stopped and [id number] or beta-andreas will be appropriate for use as needed. I would suggest and recommend to avoid blood pressure below 120 mmHg. Thank you for involving me in the care of Ms. Bunch. I will follow her along with you.
[2018-06-02] MEDS: amLODIPine 10 MG TAB PO SCH (09:46)
[2018-06-02] MEDS: CLOPIDOGREL 75 MG TAB PO SCH (09:53)
[2018-06-02] MEDS: EZETIMIBE 10 MG TAB (ZETIA) PO SCH (09:53)
[2018-06-02] MEDS: ASPIRIN 81 MG ENTERIC TAB PO SCH (09:58)
[2018-06-02] MEDS: ATORVASTATIN 20 MG TAB PO SCH (09:59)
[2018-06-02] MEDS: OMEPRAZOLE 20 MG CAP PO SCH ×3 (10:03→21:28)
[2018-06-02] MEDS: SENOKOT S TAB PO SCH ×3 (10:05→21:28)
[2018-06-02] MEDS: CALCIUM CARBONATE 500 MG CHEW U/D PO SCH (10:06)
[2018-06-02] MEDS: FLUTICASONE PROP 0.05% NASAL SPRAY 16 GM (FLONASE) SCH (10:06)
--- NOTE | 2018-06-02 12:03 | IPN ---
DATE OF VISIT: 06/02/2018 Ms. Bunch is seen this morning on her bedside. She has a sitter on the bedside and currently sleeping. Sitter reports that patient did not wakeup and has been somewhat confused and moaning at times. We woke her up and she complained of back pain, but not fully awake. There is no vomiting or diarrhea reported. She has been receiving IV fluid and there is no dyspnea or leg edema. PHYSICAL EXAMINATION: Temperature 99 degrees Fahrenheit, heart rate is 74 per minute, and respiratory rate 18 per minute. Blood pressure 161/74 mmHg and oxygen saturation 95% on room air. Head is atraumatic. Oral mucosa is somewhat dry. Neck is supple and jugular venous distention (JVD) is minimally elevated. Heart sounds are regular and lungs with slightly diminished breath sounds. There is no wheezing or rales. Abdomen and mild tenderness in lower abdomen. Bowel sounds are normal. Extremities have no cyanosis or clubbing. Neurologically she is lethargic and sleepy and had difficulty waking up. Today's lab show a WBC count down to 22.3, hemoglobin 11.8, and hematocrit 33.7. Sodium 141, potassium 4.2, CO2 19, BUN 71, and creatinine 3.34. C reactive protein was 49.1 yesterday and it is down to 40.3 today. PROBLEMS: 1. Acute renal failure. Kidney function has started to improve. We will continue with IV fluid at present and monitor her renal function on a daily basis. She was taking frequent nonsteroidal anti-inflammatory drugs (NSAIDs) at home which have already been stopped. 2. Metabolic acidosis related to acute renal failure and seems to be improving. We will continue with current sodium bicarbonate. 3. Hyponatremia. Her sodium level has already improved with current IV fluid and will continue with same. 4. Sepsis with leukocytosis. She is to remain antibiotics and cultures are negative so far. There is no obvious source. All other issues are being addressed by the hospitalist service.
[2018-06-02 13:20] VITALS: BP 159/72
--- NOTE | 2018-06-02 14:21 | REP ---
MR CERVICAL SPINE WITHOUT CONTRAST: HISTORY: Neck pain. The examination is limited and incomplete secondary to motion as only sagittal T1- and T2-weighted sequences were obtained. Disc bulges are present at the C4-5 through C6-7 levels. There is no definite spinal cord compression. The C4-5 through C6-7 intervertebral discs are decreased in height consistent with disc degeneration. Normal signal intensity is present in the cervical vertebral bodies. IMPRESSION: Limited incomplete examination with degenerative change as described above. Electronically Signed by Remington Sin MD 06/02/2018 02:49 P
[2018-06-02] MEDS: ACETAMINOPHEN TAB 650MG DOSE (2X325MG) PO PRN (14:27)
[2018-06-02] MEDS ORDERED: LIDOCAINE 1% MDV 20ML VIAL As Ordered ONE (14:31)
--- NOTE | 2018-06-02 14:35 | REP ---
MR BRAIN WITHOUT CONTRAST: HISTORY: Altered mental status. COMPARISON CT: 06/01/2018. The examination is very limited secondary to motion. Areas of increased signal intensity on T2 weighted images are present in the periventricular and subcortical white matter. This represents small vessel ischemic disease. There is no intraparenchymal hemorrhage, mass, or midline shift. The ventricular system and cortical sulci are dilated consistent with minimal volume loss. There is no extracerebral collection. Mucosal thickening is present in the maxillary sinuses. IMPRESSION: 1. Limited examination demonstrating small vessel ischemic disease. 2. Minimal volume loss. Electronically Signed by Remington Sin MD 06/02/2018 02:49 P
[2018-06-02 16:00] VITALS: BP 142/77
[2018-06-02] MEDS: ACETAMINOPHEN 650 MG SUPP PR PRN (16:40)
--- NOTE | 2018-06-02 17:20 | CR ---
DATE OF CONSULTATION: 06/02/2018 REQUESTING PHYSICIAN: Geni Brennan MD Initially Dr. Akhil Li was consulted on 06/01/2016; he asked me to see this patient on his behalf on June 02, 2018. 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 Apparently she has a history of hiatal hernia, gastroesophageal reflux disease, dyslipidemia, hypertension, seizure disorder, osteopenia. She apparently reported a 3-day history of neck pain and was seen at [facility], was discharged on ibuprofen. The patient started taking ibuprofen every 3-4 hours 400 mg and presented to the hospital with worsening pain. The patient has dementia, according to previous notes, she is a very poor historian, unable to get any significant information from her at this time. She had what seems to be an altered mental status as well. She does have an underlying medical history of dementia, but it appears that her confusion may have gotten worse. She was noted on admission to have an elevated white count but unable to find the source. She is unable to give any useful information and most of the information is obtained from the chart and other consultants. The nursing notes and other doctor's notes yesterday noted that the patient had pain on the right side of the neck. Today when she has come back from MRI, she is complaining to the nurse about pain on the left side of the neck. She does seem to respond, but does not open her eyes, does localize to sound if you try to get her to move. She does appear to be moving all four extremities. Again, the rest of a history is documented in the chart and was reviewed. PAST MEDICAL HISTORY: As mentioned above. SOCIAL HISTORY: No history of tobacco, alcohol or illicit drug use. 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 REVIEW OF SYSTEMS: Unobtainable. CURRENT MEDICATIONS: Include vancomycin, which was initially started but then discontinued, changed to meropenem. Sodium bicarbonate, metoprolol, phenytoin 100 mg every 8 hours, acetaminophen, Norvasc, Lipitor, Flonase, Zetia, Plavix. PHYSICAL EXAMINATION: The patient had just come back to her room in room 3230, bed 1 in progressive care. She does appear to be slightly obtunded but is responding to stimulus. The pinna, external canals, tympanic membranes are unremarkable bilaterally. External nasal pyramid is unremarkable. Nasal exam and mucosa shows no purulent discharge. No inflammation, no erythema. Oral exam reveals dry oral mucosa. There is no obvious dental abscess or dental lesions noted. Floor of the mouth is soft and supple. Tongue is dry. Posterior oropharynx is dry but no lesions. No erythema. No signs of infection. Posterior oropharynx is clear. Neck is supple. Today she has more tenderness on the left lower portion of the neck but is nonerythematous, nonindurated. The right internal carotid aneurysm is palpable. She is slightly tender to palpation in that area as well. The rest of the neck exam is unremarkable. She had multiple imaging studies that were performed, including a CT of the neck, which did not show any signs of cellulitis or abscess. She also has had head CT scan, which did not show any significant lesions. She did have a brain MRI, and she also had cerebrospinal fluid (CSF) spinal tap last night. Currently no significant findings were noted to suggest why the patient would have an elevated white count for source of infection. Thyroid ultrasound showed no evidence of any significant thyroid lesion as well as a CT scan; however, again she does have significant plaque in both internal carotid arteries, more on the right than the left, and there is aneurysmal dilation of the right common carotid artery, which is also noted on the CT scan. IMPRESSION: Patient with neck pain, also patient with failure to thrive, dementia, acute renal failure likely secondary to use of ibuprofen, currently managed by the truck hop and the hospitalist. Also, I have been told that the vascular surgeon has seen the patient, does not feel there is any indications for any vascular surgery for the carotid aneurysm at this time. Currently no signs or sources of infections have been identified. The head and neck in the anterior regions appear to be clear of any nidus or source of infections. She does have finding of aneurysm - the right internal carotid artery. She does have MRI of the cervical spine that does show disc bulges at C4-C5 and C6-C7. No definite spinal cord compression. Also, the intervals between C4-C5 through C6-C7 the intervertebral discs are decreased in height consistent with disc degeneration but was reported as limited and incomplete evaluation with degenerative changes as described. PLAN: At this point, from an Ear, Nose and Throat (ENT) point of view, there is no obvious source of infection but if one certainly develops, we will be happy to help with this patient with regards to that. At this point, however, no source of infection can be identified. Hopefully the patient's mental status will improve, and she could be a little bit more helpful with locating other sources, but at this time, no signs of infection or sources are identified. Thank you for involving the ENT service in the care of this patient. If there are any other issues, feel free to reconsult us and we will be happy to help.
--- NOTE | 2018-06-02 17:41 | IPNPDOC ---
Text Note Date of Service The patient was seen on 06/02/18. NOTE patient sedated. history not obtainable. withdrawal from pain. confused. irritable when aroused. GENERAL: Patient alert, agitated, in no acute distress. HEENT: Normocephalic, atraumatic. NECK: Left neck tenderness to palpation, pulsatile mass right side of the neck. Cervical lymphadenopathy. PULMONARY: Bilateral clear. CARDIAC: Regular, S1, S2. ABDOMEN: Soft, nontender, positive bowel sounds. EXTREMITIES: No clubbing, cyanosis, or edema. NEUROLOGIC: Patient confused, agitated, not cooperating with exam. Able to move bilateral upper and lower extremities symmetrically. Pupils bilaterally equal, round, and reactive. Facial muscles symmetrical. ASSESSMENT AND PLAN: This is a 77-year-old female patient with underlying medical history of dementia, hiatal hernia, dyslipidemia, hypertension, seizure disorder, osteopenia, presented with neck pain, acute renal failure, confusion. 1. Altered mental status, possibly encephalopathy due to underlying infection. One-to-one sitter. Supportive care. MRI of the brain and EEG. Neurology on consult. Frequent neurologic checks. 2. Neck pain. Patient has a right neck aneurysm, likely incidental finding, vascular surgery has been consulted. Possible infectious source cannot be excluded. Will get CT of the neck. MRI cervical spine. Ear, nose, and throat (ENT) consultation. Broad-spectrum antibiotics escalated to meropenem and vancomycin. Followup blood cultures. Lumbar puncture neg. ID consulted. 3. Leukocytosis, likely secondary to underlying infection, unknown origin. CT of the abdomen appreciated. Urinalysis (UA) appreciated. CT of the head appreciated. Lumbar puncture has been done. Patient on meropenem and vancomycin. ID consulted. Ear, nose, and throat (ENT) has been consulted. f/u cultures 4. Right neck carotid artery aneurysm. Consulted vascular surgery. Likely incidental finding. Recommending baby aspirin and Plavix as per Dr. Whitehead. Will monitor closely. 5. Acute renal failure, likely secondary to ibuprofen overdose. Patient has been taking ibuprofen every 3-4 hours for the last 3 days. Consulted nephrology. IV fluids. Urine study. Renal ultrasound has been done. Will monitor kidney function. Avoid nephrotoxic agents. Avoid nonsteroidal anti-inflammatory drugs (NSAIDs). Torres I and O 6. History of seizure. Neurology consulted. EEG ordered. Seizure precautions. Dilantin switched to IV given patient is not tolerating much oral. 7. Hypertension. Blood pressure medication as tolerated. Followup blood pressure. Holding hydrochlorothiazide given patient is in renal failure. Will continue Norvasc , Lopressor IV 8. New onset a fib. tele thyroid function. TTE. cardiology consulted lorpessor IV. avoid anticoagulation until further diagnosis is made. back in sinus. likely 2/2 acute illness 9. Dyslipidemia. Statin as tolerated. Zetia as tolerated. 10. Deep venous thrombosis (DVT) prophylaxis. Heparin subcutaneous. DISPOSITION: further ID workup. Neurology workup, clinical improvement. cardiology consult. VS,Fishbone, I+O VS, Fishbone, I+O Laboratory Tests 06/02/18 04:21 Red Blood Count 4.02, Mean Corpuscular Volume 83.8, Mean Corpuscular Hemoglobin 29.4, Mean Corpuscular Hemoglobin Concent 35.0, Red Cell Distribution Width 14.6 H, Neutrophils (%) (Auto) 85.7 H, Lymphocytes (%) (Auto) 3.2 L, Monocytes (%) (Auto) 8.7 H, Eosinophils (%) (Auto) 0.3, Basophils (%) (Auto) 0.3, Neutrophils # (Auto) 19.1 H, Lymphocytes # (Auto) 0.7 L, Monocytes # (Auto) 1.9 H, Eo sinophils # (Auto) 0.1, Basophils # (Auto) 0.1, Calcium Level 8.2 L, Aspartate Amino Transf (AST/SGOT) 31, Alanine Aminotransferase (ALT/SGPT) 20, Alkaline Phosphatase 278 H, Total Bilirubin 0.5, Total Protein 5.5 L, Albumin 1.8 L Vital Signs Date Time Temp Pulse Resp B/P (MAP) Pulse Ox O2 Delivery O2 Flow Rate FiO2 06/02/18 16:00 100.7 105 18 142/77 (98) 95 Room Air I&O- Last 24 Hours up to 6 AM 06/02/18 06:00 Intake Total 1579 ml Output Total 1575 ml Balance 4 ml TRACY DOWNS MD Jun 02, 2018 17:41
[2018-06-02] MEDS: SODIUM CHLORIDE 0.9% INJ 10 ML SYR IV SCH (18:26)
--- NOTE | 2018-06-02 19:25 | REP ---
Procedure: Midline catheter insertion with Site-Rite The procedure was performed under the direct supervision of Dr. Matos. The risks and benefits of the procedure were explained to the patient and informed consent was obtained by the healthcare proxy. The right basilic vein was localized using ultrasound guidance. The skin was prepped and draped in a sterile fashion. 1% lidocaine was used as a local anesthetic. Using ultrasound guidance the basilic vein was cannulated and a 0.018 guidewire was inserted. The needle was removed and a 4.5 Cypriot dilator and peel-away sheath was inserted over the guide wire. A 4.5 Cypriot single lumen catheter was left at a length of 16.5 cm. The dilator was removed and the catheter was inserted over the guide wire. The peel-away sheath was removed and the catheter was flushed with heparinized saline as per Hospital protocol. The catheter was affixed to the skin and a sterile dressing was applied. The patient tolerated the procedure well and there were no immediate complications. Reviewed by ODNYA Nunez 06/02/2018 03:53 P Electronically Signed by Juan Matos MD 06/02/2018 07:16 P
[2018-06-02 20:00] VITALS: BP 109/55
--- NOTE | 2018-06-02 20:32 | ECGEPIP ---
Stationary ECG Study 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
[2018-06-02] MEDS: MEROPENEM INJ 1 GM in APPROPRIATE DILUENT 1 EA IV SCH (21:28)
[2018-06-03] VITALS: BP 140/70
[2018-06-03] MEDS: ACETAMINOPHEN 650 MG SUPP PR PRN ×3 (00:12→19:35)
[2018-06-03] MEDS: METOPROLOL 5 MG/5 ML VIAL IV SCH ×2 (00:12→06:09)
--- NOTE | 2018-06-03 00:27 | ECHO ---
DATE OF PROCEDURE: 06/02/2018 REFERRING PHYSICIAN: Dr. Geni Brennan INDICATION: Syncope. HEIGHT: 158 cm WEIGHT: 73 kg 2D MEASUREMENTS: Aortic root: 3.3 cm Ventricular septum: 1.02 cm Posterior wall: 1.06 cm Left ventricle diastole: 4.8 cm Left atrium: 3.6 cm Inferior vena cava: 2.5 cm with marked reduction of respiratory variation. DOPPLER MEASUREMENTS: Aortic valve velocity: 136 cm/s LVOT velocity: 73.9 cm/s LVOT VTI: 18.0 cm Very mild mitral regurgitation. Mitral E velocity: 94.6 cm/s Mitral A velocity: 65.0 cm/s Mitral deceleration time: 151 ms Very mild tricuspid regurgitation. Estimated right ventricle systolic pressure: At least 53 mmHg assuming a right atrial pressure of at least 20 mmHg based on a dilated inferior vena cava with marked reduction of respiratory variation. MITRAL ANNULAR TISSUE DOPPLER: E prime septal: 8.3 cm/s DESCRIPTION: Rhythm was sinus with frequent PACs. Image quality was fair. This was a 2D, M-mode, color flow Doppler and pulse wave Doppler examination and included mitral annular tissue Doppler. CONCLUSIONS: 1. Normal left ventricle internal dimensions and wall thickness. Normal regional left ventricular (LV) wall motion and wall thickening. Normal LV systolic function. Left ventricular ejection fraction (LVEF) 65%. Normal LV diastolic function. 2. Suggestive of moderate elevation of estimated right ventricle systolic pressure (at least 53 mmHg). Normal right ventricle size and systolic function. Very mild tricuspid regurgitation. 3. Inferior vena cava plethora. Suggestive of elevated central venous pressure of at least 20 mmHg. 4. Moderate aortic valve sclerosis of a 3-cusp aortic valve. No aortic stenosis or regurgitation. 5. Mild mitral annular calcification. Very mild mitral regurgitation. 6. Tiny pericardial effusion.
[2018-06-03] MEDS: SODIUM BICARBONATE 75 MEQ in NS 0.45% 1,000 ML IV SCH (01:37)
[2018-06-03] MEDS: PHENYTOIN 100 MG/2 ML VIAL (J1165) IV SCH ×3 (02:12→17:31)
[2018-06-03] MEDS: SODIUM CHLORIDE 0.9% INJ 10 ML SYR IV SCH ×2 (03:50→17:31)
[2018-06-03 04:00] VITALS: BP 153/74
[2018-06-03 06:46] LABS: ALBUMIN 1.6 GM/DL (3.2-5.2); BILIRUBIN,TOTAL 0.7 MG/DL (0.2-1.0); C REACTIVE PROTEIN QUANTITATIV 32.9 MG/DL (0.00-0.30); CALCIUM LEVEL 8.1 MG/DL (8.8-10.2); CREATININE FOR GFR 1.61 MG/DL (0.55-1.30); GLOMERULAR FILTRATION RATE 33.1 (>39); MAGNESIUM LEVEL 2.1 MG/DL (1.8-2.4); PHENYTOIN (DILANTIN) 4.8 UG/ML (10.0-20.0); POTASSIUM SERUM 3.7 MEQ/L (3.5-5.1); TOTAL PROTEIN 5.4 GM/DL (6.4-8.2); VANCOMYCIN RANDOM 13.7 UG/ML
[2018-06-03 06:58] LABS: BASO # 0.1 10^3/uL (0.0-0.2); BASO % 0.5 % (0.0-1.0); EOS # 0.1 10^3/uL (0.0-0.50); EOS % 0.7 % (0.0-3.0); HEMATOCRIT 31.3 % (36.0-47.0); HEMOGLOBIN 11.3 g/dl (12.0-15.5); LYMPH # 1.2 10^3/uL (1.5-4.5); LYMPH % 5.5 % (24.0-44.0); MEAN CORPUSCULAR HEMOGLOBIN 29.8 pg (27.0-33.0); MEAN CORPUSCULAR VOLUME 82.6 fl (80.0-96.0); MONO % 10.7 % (0.0-5.0); NEUTROPHILS # 16.7 10^3/uL (1.8-7.7); NEUTROPHILS % 78.7 % (36.0-66.0); PLATELET COUNT, AUTOMATED 383 10^3/uL (150-450); RED BLOOD COUNT 3.79 10^6/uL (4.00-5.40); WHITE BLOOD COUNT 21.3 10^3/uL (4.0-10.0)
[2018-06-03 06:59] LABS: MEAN CORPUSCULAR HGB CONC 36.1 g/dl (32.0-36.5); MONO # 2.3 10^3/uL (0.0-0.8)
--- NOTE | 2018-06-03 07:25 | PHACANCOPD ---
PHARMACY VANCOMYCIN DOSING Pt Demographics Demographics Patient Age:77 , Weight:57.600 , Gender: female Adjusted Body Weight Date: 06/02/18, Adjusted Body Weight: [72] Kg Vancomycin Vancomycin indication: SEPSIS Vancomycin Target Ranges: 15-20 mcg/ml Vancomycin Load Y/N: No Load Dose Date Time Vancomycin Load Dose: Date: Time: Vancomycin Dose Date: 06/02/18. Current Vancomycin Dose: [1G IV @ 07] Intermittent Dosing?: Yes Labs Micro Microbiology 06/01/18 Blood Culture - Preliminary, Resulted No growth after 24 hours . All specim... 06/01/18 Blood Culture - Preliminary, Resulted No growth after 24 hours . All specim... 06/01/18 Gram Stain - Final, Complete 06/01/18 CSF Culture - Final, Complete 06/01/18 - Final, Complete 06/02/18 Respiratory Virus Panel (PCR) ([facility]) - Final, Complete 06/01/18 Urine Culture - Final, Complete Creatinine Clearance Date:06/02/18. Creatinine Clearance: [12.2ML/MIN]. Pending Labs VANCOMYCIN LEVEL 06/03/18 AM Assessment and Plan Maintaining Current Dose?: Yes Reason for dose change: No Dose Change Pharmacist Note Pharmacist Note 06/03/18: Day #3 vancomycin therapy. Random level this morning resulted at 13.7mcg/ml after 2 doses. We will re-dose with another 1g dose today, followed by another random level tomorrow morning. The patient's renal function appears to have improved greatly since start of therapy (scr 1.61 today vs 4.84 on admit) (BUN 54 today vs 77 on admit). WBC remains elevated but trending down (21.3 today from 27 on admit) as does CRP (32.9 today from 49 on admit). The patient has still been having fevers. A follow-up random level has been scheduled to be drawn tomorrow with morning labs. If tomorrow morning's random level and pts renal function remain ideal tomorrow will change from intermittent dosing to an Q24H regimen. We will continue to monitor and make further dose adjustments accordingly. Date: 06/02/18. Pharmacist note: PT is a 77 year old female being intermittently dosed with vancomycin for sepsis. Vancomycin level came in this am @ 12.6mcg/ml. A 1g vancomycin dose is scheduled today at 07:00. Another vancomycin level will be drawn 06/03/18 with am labs. We will continue to monitor and adjust the dose as needed. FREDI CROOK [facility]ARMAC[facility] Jun 03, 2018 07:25
[2018-06-03 08:00] VITALS: BP 148/68
[2018-06-03] MEDS ORDERED: VANCOMYCIN HCL 1,000 MG, VIAL MATE ADAPTER 1 EACH in D5W 250 ML IV ONE (08:00)
[2018-06-03] MEDS: ATORVASTATIN 20 MG TAB PO SCH (08:23)
[2018-06-03] MEDS: CALCIUM CARBONATE 500 MG CHEW U/D PO SCH (08:23)
[2018-06-03] MEDS: amLODIPine 10 MG TAB PO SCH (08:23)
[2018-06-03] MEDS: HEPARIN SOD (PORCINE) 5000 UNITS/ML VIAL SQ SCH ×2 (08:24→20:57)
[2018-06-03] MEDS: ASPIRIN 81 MG ENTERIC TAB PO SCH (08:24)
[2018-06-03] MEDS: FLUTICASONE PROP 0.05% NASAL SPRAY 16 GM (FLONASE) SCH (08:24)
[2018-06-03] MEDS: EZETIMIBE 10 MG TAB (ZETIA) PO SCH (08:24)
[2018-06-03] MEDS: OMEPRAZOLE 20 MG CAP PO SCH ×2 (08:24→20:56)
[2018-06-03] MEDS: CLOPIDOGREL 75 MG TAB PO SCH (08:24)
[2018-06-03] MEDS: SENOKOT S TAB PO SCH ×2 (08:24→20:56)
[2018-06-03] MEDS: POLYVINYL ALCOHOL OPHTH SOLN 15 ML(LIQUITEARS) OU SCH ×3 (08:25→20:57)
[2018-06-03] MEDS: METOPROLOL SUCC *XL* 25MG TAB (TopROL *XL*) PO SCH (09:44)
--- NOTE | 2018-06-03 10:43 | CR ---
DATE OF CONSULTATION: 06/02/2018 Asked to consult by hospitalist for evaluation of fever and confusion of unknown origin associated with leukocytosis. 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 The patient has not been feeling well for the past 3 days and complaining of neck pain. She went to the emergency room in [place] where she usually resides and was given ibuprofen with a diagnosis of musculoskeletal pain. The patient was taking ibuprofen every 4 hours 400 mg with worsening neck pain. She was having fever and had worsening confusion. They transferred her from her [place] home to [facility] where there is an [facility] to be closely monitored but she progressively got worse and therefore came to the hospital. The patient denies having any headache, visual changes. No chest pain, cough. Her only complaint is her neck pain and it is bilateral left as well as right. She is confused normally at baseline. Even though she has some dementia, she is very active. 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 PAST MEDICAL HISTORY: Significant for: Hiatus hernia. Dementia. Dyslipidemia. Hypertension. Seizure disorder. Osteopenia. ALLERGIES: LEVAQUIN causes nausea and vomiting. PAST SURGICAL HISTORY: Appendectomy. Foot surgery. Left knee surgery. Bilateral carotid endarterectomy. SOCIAL HISTORY: She does not drink, smoke. 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 FAMILY HISTORY: Father of heart disease in 48. Mother at 65 from lung cancer and emphysema. REVIEW OF SYSTEMS: Could not be obtained but the only complaint that she really had was neck pain. She is confused but follows commands appropriately. MEDICATIONS: - hydrochlorothiazide 12.5 mg daily - vitamin D 50,000 units daily - alendronate 70 mg weekly - raloxifene 60 mg daily - Norvasc 10 mg daily - aspirin 325 mg daily - Lipitor 80 mg daily - calcium 1500 mg daily - Zetia 10 mg daily - fluticasone nasal spray daily - metoprolol 25 mg daily - omeprazole 20 mg twice a day - Dilantin 100 mg by mouth three times a day - vancomycin 1 gram IV per renal dose - metoprolol 5 mg IV every 6 hours - meropenem 1 gram IV every 24 hours - bicarb drip - artificial tears 2 drops both eyes three times daily - amlodipine 10 mg by mouth daily -- Plavix 75 mg daily PHYSICAL EXAMINATION: She is a sick looking lady in no acute distress. Temperature is 100.7, pulse 105, respirations 18, blood pressure 142/77, O2 sat 95% on room air. Neck is supple. No JVD. No bruits. No adenopathy. She has severe tenderness along her carotids bilaterally. Oropharynx dry mucosa. Mild erythema of the pharynx. No adenopathy appreciated. Heart: Normal S1, S2 irregular with a systolic ejection murmur 2/6. Lungs: Clear. No wheezes, rales or rhonchi. Abdomen is soft, mildly tender in the right lower quadrant but no rebound. Back: No CVA tenderness. She has minimal tenderness along the lumbar spine where her LP was done but no significant point tenderness. Neck: Cervical area. No tenderness. Good range of motion. Neurologic exam: She is lethargic, confused but she follows commands appropriately. She has a difficulty to understanding command, but once she is asked to open her mouth, she does close her mouth. She swallowed her ice cream without aspiration. Moves all extremities. Musculoskeletal: Knees normal range of motion. Hips normal range of motion. No evidence of infection. LABORATORY DATA: White count was 27,000 yesterday. Today 22.3, hemoglobin 11.8, hematocrit 33.7, platelets 359, 85% neutrophils, 3% lymphocytes, 8% monocytes. Sodium 141, potassium 4.2, chloride 107, bicarb 19, BUN 71, creatinine 3.34 down from 4.8, calcium 8.2, magnesium 2.4, bilirubin 0.5, AST 31, ALT 20, alkaline phos 78, CPK 117, CRP 49.1 down to 40.3, albumin 1.8. TSH 2.9. Dilantin level was 5.6. Vancomycin level 12.6. Urinalysis had 30 white cells, five red cells. CSF 6 white cells, less than 2 red cells, glucose 57, total protein 48 which is slightly elevated with a normal being 45. Mclean screen was negative. Blood cultures on 06/01 two sets were negative. Urine culture is pending. CSF culture is pending. CSF multiplex PCR was negative for E-coli Haemophilus, Listeria, Neisseria, enterovirus, herpes simplex 1-2, HSV 6. Respiratory panel done tonight at 6:00 p.m. was also negative. IMAGING STUDIES: Chest x-ray showed no acute disease. Thyroid ultrasound shows aneurysmal dilatation of the right common carotid artery measuring 2 x 1.6 cm. Patency of the right carotid. Carotid artery MRI without and with contrast: Mild stenosis 25% of the left internal carotid artery status post right carotid endarterectomy with surgical clips present. CT abdomen and pelvis: Small amount of edema, scarring around the left kidney. Left nephrolithiasis. Right adrenal gland is calcified and several calcifications present in the left adrenal may be related to previous trauma. Neck CT soft tissue without contrast: Degenerative changes of the cervical spine with posterior osteophytes C4, C5 and C6. No evidence of retropharyngeal soft tissue swelling. Calcification of the carotid siphon consistent with atherosclerosis. Severe calcification around the aneurysm. PICC line was placed on June 02. Cervical spine MRI with limited brain MRI no acute changes. Minimal volume loss. No acute disease. 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 She has an aneurysm which does not seem to be the problem per se. She has evidence of infection based on leukocytosis, elevated CRP but bacterial workup so far has been negative. Viral PCR by multiplex is negative. There is no evidence of abscess by CT or MRI. ENT to see the patient and they did not see anything specific to explain the source of the fever. Lumbar puncture ruled out meningitis. The patient has developed acute renal failure secondary to ibuprofen over use and probably dehydration. Kidney function is improving. The patient has a history of seizure, although seizure seems to be under control. There has not been any recurrence. PLAN: Will continue with current antibiotic, IV vancomycin and meropenem. ENT note has been reviewed. There is no obvious source of infection there. Will continue to monitor and adjust antibiotics appropriately. Will review the images with Dr. Matos in the morning. ELIAZAR
[2018-06-03] MEDS ORDERED: FUROSEMIDE 40 MG/4 ML VIAL (J1940) IV ONE (10:45)
[2018-06-03 13:00] VITALS: BP 120/60
[2018-06-03] MEDS: ACETAMINOPHEN TAB 650MG DOSE (2X325MG) PO PRN (14:13)
--- NOTE | 2018-06-03 14:39 | IPNPDOC ---
Text Note Date of Service The patient was seen on 06/03/18. NOTE Subjective: Patient is more awake today, states that she has a left jaw pain, that is reproducible on palpation, and left lower tooth pain, that has been present for weeks. Patient knows that this is why she was taking ibuprofen. Objective: Vitals: (see below) General: No acute distress, laying comfortably in bed. HEENT: Moist mucous membranes. Left mandibular region tender to palpation. Left lower teeth with poor dentition and tender to palpation. No further signs of ab scess. Neck: No JVD or lymphadenopathy Cardiac: RRR, No murmurs Pulm: Clear to auscultation b/l. No wheezing, rhonchi Abd: NT/ND + BS Ext: No edema or cyanosis Labs (see below) CT head/neck reviewed. Assessment/Plan 1. Metabolic encephalopathy likely secondary to underlying infection, improving. ? Secondary to oral infection with mandibular pain and poor dentition. Antibiotics per Dr. Burrell. Dr Miles has reviewed the CT of the neck imaging, and does not believe that there is any significant changes in the left mandibular region, and does not recommend further imaging of the region. Patient is on meropenem/vanoco and improving., Leukocytosis trending down. Appreciate ENT input. 2. Right carotid aneurysm- appreciate Dr. Whitehead's input. On aspirin and Plavix. 3. Acute renal failure likely secondary to ibuprofen. Improving. Avoid nephrotoxins. Appreciate nephro input. 4. HTN controlled continue current meds. Hold HCTZ. 5. New onset AF - TTE. lopressor IV. Converted back to SSS. Likely 2/2 above. Cont to monitor. High risk for bleeding, especially in setting of carotid aneurysm. Cardiology consulted. 6. Hyperlipidemia statin DVT prophy: Heparin subcutaneous Overall prognosis guarded VS,Fishbone, I+O VS, Fishbone, I+O Laboratory Tests 06/03/18 05:40 Red Blood Count 3.79 L, Mean Corpuscular Volume 82.6, Mean Corpuscular Hemoglobin 29.8, Mean Corpuscular Hemoglobin Concent 36.1, Red Cell Distribution Width 14.2, Neutrophils (%) (Auto) 78.7 H, Lymphocytes (%) (Auto) 5.5 L, Monocytes (%) (Auto) 10.7 H, Eosinophils (%) (Auto) 0.7, Basophils (%) (Auto) 0.5, Neutrophils # (Auto) 16.7 H, Lymphocytes # (Auto) 1.2 L, Monocytes # (Auto) 2.3 H, Eosinophils # (Auto) 0.1, Basophils # (Auto) 0.1, Calcium Level 8.1 L, Aspartate Amino Transf (AST/SGOT) 58 H, Alanine Aminotransferase (ALT/SGPT) 25, Alkaline Phosphatase 280 H, Total Bilirubin 0.7, Total Protein 5.4 L, Albumin 1.6 L Vital Signs Date Time Temp Pulse Resp B/P (MAP) Pulse Ox O2 Delivery O2 Flow Rate FiO2 06/03/18 13:00 98.9 83 18 120/60 (80) 94 Room Air I&O- Last 24 Hours up to 6 AM 06/03/18 06:00 Intake Total 1680 ml Output Total 1875 ml Balance -195 ml RANCHO RICH MD Jun 03, 2018 14:39
[2018-06-03 16:00] VITALS: BP 144/70
[2018-06-03] MEDS: traMADol 50 MG TAB PO PRN (17:30)
--- NOTE | 2018-06-03 18:11 | IPN ---
DATE: 06/03/2018 SUBJECTIVE: The patient is much more awake and alert today. She is seen at bedside. She is pleasant and conversive and keeps pointing to her throat and saying that it hurts. She points to both sides, and when asked where the worst of her pain is she actually points to the anterior part of her left ear along the hairline. She denies nausea, vomiting, diarrhea, fever, or chills. She states that home is [place], however, she is currently living in [place]. OBJECTIVE: Vitals: Temperature 99.4, pulse 76, respiratory rate 20, blood pressure 144/70, 94% on room air. General: Pleasant, awake and alert. HEENT: The patient has slightly dry mucous membranes. Palpation of the floor of the mouth reveals tenderness along the left side of the floor of the mouth. She is tender to palpation of the anterior part of the left ear up along the forehead. She has tenderness to palpation of the superior neck bilaterally just inferior to the jaw. No adenopathy is appreciated, however she does have significant pain to palpation of these areas. Heart: Irregular rhythm, rate controlled. Systolic ejection murmur 2/6 heard. No rubs or gallops. Lungs: Clear to auscultation bilaterally. No wheezes, rhonchi or rales. Abdomen: Soft, no tenderness to palpation. Back: No CVA tenderness. LABORATORY DATA: CBC: WBC 21.3, hemoglobin 11.3, hematocrit 31.3, platelets 383, neutrophils 79%, lymphocytes 6%, monocytes 11%. Chemistry: Sodium 146, potassium 3.7, chloride 110, carbon dioxide 25, BUN 54, creatinine 1.61, fasting glucose 116, calcium 8.1, magnesium 2.1, total bilirubin 0.7, AST 58, ALT 25, alkaline phosphatase 280, total protein 5.4, albumin 1.6. CRP is trending down and is now 32.90 instead of 40.30, this was 49.10 on admission. Microbiology: Blood cultures times two have been negative, urine cultures negative. CSF PCR was negative, CSF gram stain and culture was negative, and respiratory virus panel was negative. 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 Bacterial workup for her elevated C-reactive protein (CRP) and leukocytosis has been negative thus far. There is no evidence of abscess by CT or MRI. Today on physical exam, the patient was much more alert and oriented and was able to vocalize more where her pain was. Because she pointed to the area of the left temporal artery, I think that temporal arteritis should be considered in our differential. She will be evaluated by oral surgery for a painful tooth, and ENT is on board as well. We have ordered an ESR for the morning. At this point as there is no identifiable bacterial source of infection, I have stopped her antibiotics. My faculty preceptor for this patient encounter was physically present during the encounter and was fully available. All aspects of the patient interview, examination, medical decision making process, and medical care plan development were reviewed and approved by the faculty preceptor. The faculty preceptor is aware and concurs with the plan as stated in the body of this note and will attest to such by his/her cosignature. ELIAZAR
[2018-06-03 20:00] VITALS: BP 110/56
--- NOTE | 2018-06-03 21:35 | IPN ---
DATE: 06/03/2018 Mrs. Bunch is seen this morning on her bedside. She remains confused, though she is much more awake today and able to answer questions. She still has a sitter in the room. Yesterday she was very sleepy and more confused. She has been receiving intravenous (IV) sodium bicarbonate drip due to acute renal failure and metabolic acidosis. She has a Torres catheter, which is draining clear urine. She reports improved back pain, and she is able to turn in the bed and sit up. PHYSICAL EXAMINATION: Temperature 98.9 degrees Fahrenheit, heart rate 83 per minute, respiratory rate 18 per minute, blood pressure 148/68 mm of mercury, and oxygen saturation 94% on room air. Head is atraumatic. She has no oral thrush or ulcers. Neck is supple, and she complains of pain and tenderness in right side of her neck. Neck veins are moderately distended today. Heart sounds are regular, and lungs with slightly diminished breath sounds at bases. Abdomen is soft and nontender. Bowel sounds are present. Extremities have no cyanosis or clubbing. Neurologically, she is much more alert and able to answer questions. Today's labs show WBC count down to 21.3, hemoglobin 11.3, hematocrit 31.3. Sodium 146, potassium 3.7, CO2 of 25, BUN 54, and creatinine 1.61. Calcium is 8.1. Her C-reactive protein is down to 32.9 from 40.3 yesterday. PROBLEMS: 1. Acute renal failure. Kidney function has improved significantly with intravenous (IV) fluid hydration. She took multiple doses of ibuprofen over several days but was also dehydrated. 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 In any event, her kidney function is improving nicely, and she is now very well hydrated or slightly overhydrated. I am going to stop her IV fluid today, and we will monitor her kidney function. 2. Metabolic acidosis. Acidosis has corrected, and sodium bicarbonate drip is being stopped. Her kidney function is improving, so we hope that she will not have recurrence of metabolic acidosis. 3. Hypernatremia. Sodium level is slightly higher than normal range. This is related to IV fluids given. Currently her IV fluid is being stopped. She had no oral intake for a couple of days, and now she is able to swallow and drink, so her hypernatremia is likely to correct over next 24 hours. 4. Leukocytosis and neck pain. She is being treated with antibiotics, though I am not sure about the source of her leukocytosis. 5. Right carotid artery aneurysm. The patient will need vascular surgery evaluation once she is medically improved.
[2018-06-03] MEDS: MORPHINE 4 MG/ML 1ML VIAL/SYRINGE (J2270) IV PRN (22:35)
[2018-06-04] VITALS: BP_SYST 144; BP_SYST 150; BP_DIAS 70; BP_DIAS 71
--- NOTE | 2018-06-04 00:38 | CR ---
DATE OF CONSULTATION: 06/03/2018 REFERRING PHYSICIAN: Dr. Brennan INDICATION: Atrial fibrillation. HISTORY OF THE PRESENT ILLNESS: Ms. Bunch is previously unknown to me. 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 The diagnosis so far has been elusive. She has very elevated WBC count but a lumbar puncture and numerous imaging techniques failed to reveal any obvious source of fever. She has been treated with wide-spectrum antibiotics, and it looks like her condition is slowly improving. She was taking high doses of Motrin for pain and fever control and probably as a consequence of this administration, developed acute renal failure that is improving as well. I was asked to see Ms. Bunch by Dr. Brennan because she developed episodes of paroxysmal atrial fibrillation and during the episode of tachycardia, her heart rate was relatively fast. I initially attempted to see the patient on 06/02/2018, but when I entered the room, she was completely confused and no history was possible to obtain. This morning she was better but still only limited history was provided. To best of her recollection, she does not have any history of cardiac problems. She denies any sensation of palpitations or chest discomfort, and the only significant complaint she had is some back localized to the posterior and both sides of her neck, and to a lesser degree to the posterior aspects of her head. PAST MEDICAL HISTORY: 1. Hypertension. 2. Dyslipidemia. 3. Osteopenia. 4. History of carotid disease with right carotid endarterectomy. She has been followed in [place]. 5. History of seizure disorder, chronically on phenytoin. 6. Dementia. 7. Hiatal hernia. SURGICAL HISTORY: Positive for appendectomy, left knee surgery and right carotid endarterectomy. ALLERGIES: She has allergies to levofloxacin. OUTPATIENT MEDICATIONS: She has been on Fosamax 70 mg once a week, amlodipine 10 mg a day, aspirin 325 mg a day, calcium carbonate 500 mg three pills a day, ezetimibe 10 mg a day, fluticasone nasal spray, hydrochlorothiazide 12.5 mg a day, metoprolol succinate 25 mg a day, omeprazole 20 mg daily, phenytoin 100 mg, three times a day, raloxifene 60 mg a day, vitamin B 50,000 units once a week. CURRENT MEDICATIONS: Include morphine 2 mg as needed for pain, tramadol 50 mg as needed for pain, metoprolol succinate 25 mg daily, heparin for flushing her line and 5000 units twice a day, phenytoin 100 mg every 8 hours, Tylenol as needed for pain control, amlodipine 10 mg a day, atorvastatin 80 mg a day, ezetimibe 10 mg a day, omeprazole 20 mg twice a day, aspirin 81 mg a day, Senokot as needed and Plavix 75 mg daily. FAMILY HISTORY: Positive for coronary artery disease. Her father of myocardial infarction relatively young. Her mother of lung cancer. 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 There is no history of alcohol and smoking. Apparently at her baseline she has been quite active. REVIEW OF SYSTEMS: Very limited due to her mental status but basically is addressed in the HPI and otherwise negative. 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 She is alert. She is oriented times two. She was not oriented with time, but she realizes that she is in the hospital and named the location accurately. Her jugular venous pressure (JVP) is not high. There is a scar after right carotid endarterectomy. There are faint bruits on both sides of her neck. Lungs are clear. Her neck is supple and I do not appreciate any rigidity. Heart: Exam reveals regular rhythm. There is a murmur over the aortic valve that is not overly impressive, maybe 1/6 intensity, radiates towards her neck. I do not appreciate any diastolic murmur. Abdomen is soft. No tenderness. I do not appreciate any hepatosplenomegaly. Extremities are free of edema. Peripheral pulses are palpable on both sides. Neurologically, her speech is intact even though it is somewhat hesitant. There is relatively limited information provided; I suspect mostly due to underlying dementia. I do not appreciate any motor deficit or sensory deficit. LABORATORY DATA: Her CBC as of today revealed WBC count 21.3 thousand, which is down from 27,000 on admission, hemoglobin 11.3, hematocrit 31, platelet count 383,000. Differential: On admission, there were 83% neutrophils, 4.5 lymphocytes and 8.7 monocytes; this is automatic not manual differential. Basic metabolic panel: As of today, sodium 146, potassium 3.7, BUN 54, creatinine 1.6, GFR 33 and glucose 116. Essentially normal liver function test other than mildly elevated alkaline phosphatase. Troponin has been negative and her protein is 5.4, albumin 1.6. Thyroid tests were normal. Phenytoin level is on the low side 4.8 as of today. Urinalysis revealed 2+ protein, otherwise was unremarkable, and serology mono screen was negative. CSF analysis revealed very marginally elevated protein. All the cultures have been negative. 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 An ECG on admission revealed presence of atrial fibrillation with ventricular rate 109 beats per minute, somewhat borderline R-wave progression in leads V1- V3, and borderline left axis deviation. An echocardiogram was interpreted by Dr. Piedra revealed preserved left ventricular systolic function, but elevated central venous pressure and elevated pulmonary artery pressure and aortic sclerosis. The echocardiogram was performed the day after admission in the setting of acute renal failure, which likely reflects this abnormality. 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 With just low dose beta-andreas, it looks like the frequency of episodes is decreasing and her heart rate is better controlled. At this point, I believe that the management of atrial fibrillation should remain the same. If she continues to have episodes in spite of otherwise improving status, she will need to be chronically anticoagulated and my choice would be one of the NOACs. It should be done at the point where there is a reasonable certainty that she will not need any further invasive procedures that requires punctures and stopping anticoagulation. Otherwise, if she continues to have episodes of atrial fibrillation after several more days, we can consider giving her some antiarrhythmics, but at this point I do not believe it is necessary. As far as the evidence for volume overloaded state on echocardiogram, I believe it is most likely related to her acute renal failure and I do expect spontaneous resolution with recovery of her renal function, which is already occurring. Obviously she should stay away from nonsteroidal anti-inflammatory drugs (NSAIDS) for near future. As far as the etiology of her central symptoms of fever and elevated white count, that remains mysterious. I will leave the evaluation to numerous other physicians involved in her care, but I would consider in differential diagnosis also drug-induced fever related to phenytoin. Even though she apparently has been on medication for a long time; theoretically the reaction can occur even after longer exposure even though it is certainly not common. But if there is no alternative, I think we should consider that, and I would make an argument to discontinue the medication. I will follow the patient with you. ELIAZAR
[2018-06-04] MEDS: PHENYTOIN 100 MG/2 ML VIAL (J1165) IV SCH ×3 (02:48→17:21)
[2018-06-04] MEDS: MORPHINE 4 MG/ML 1ML VIAL/SYRINGE (J2270) IV PRN ×2 (04:02→14:28)
[2018-06-04] MEDS: SODIUM CHLORIDE 0.9% INJ 10 ML SYR IV SCH ×2 (04:02→17:22)
[2018-06-04 06:10] LABS: HEMATOCRIT 32.2 % (36.0-47.0); HEMOGLOBIN 11.3 g/dl (12.0-15.5); MEAN CORPUSCULAR HGB CONC 35.1 g/dl (32.0-36.5); MEAN CORPUSCULAR VOLUME 82.8 fl (80.0-96.0); PLATELET COUNT, AUTOMATED 393 10^3/uL (150-450); RED BLOOD COUNT 3.89 10^6/uL (4.00-5.40); WHITE BLOOD COUNT 19.3 10^3/uL (4.0-10.0)
[2018-06-04 06:26] LABS: ALBUMIN 1.7 GM/DL (3.2-5.2); BILIRUBIN,TOTAL 0.7 MG/DL (0.2-1.0); C REACTIVE PROTEIN QUANTITATIV 36.6 MG/DL (0.00-0.30); CALCIUM LEVEL 8.1 MG/DL (8.8-10.2); GLOMERULAR FILTRATION RATE 57.4 (>39); MAGNESIUM LEVEL 1.8 MG/DL (1.8-2.4); PHENYTOIN (DILANTIN) 5.8 UG/ML (10.0-20.0); POTASSIUM SERUM 3.3 MEQ/L (3.5-5.1); TOTAL PROTEIN 5.7 GM/DL (6.4-8.2)
[2018-06-04 07:22] LABS: EOSINOPHILS 3 % (0-5); LYMPHOCYTES 6 % (16-52); MONOCYTES 14 % (0-8); NEUTROPHILS 77 % (35-75); PLATELET ESTIMATE NORMAL (NORMAL)
[2018-06-04] MEDS ORDERED: POTASSIUM CHLORIDE 10 MEQ SR TABLET PO ONE (07:45)
[2018-06-04 08:00] VITALS: BP 155/71
[2018-06-04 08:05] LABS: ERYTHROCYTE SEDIMENTATION RATE > 140 mm/hr (0-30)
[2018-06-04] MEDS: ATORVASTATIN 20 MG TAB PO SCH (08:28)
[2018-06-04] MEDS: CLOPIDOGREL 75 MG TAB PO SCH (08:29)
[2018-06-04] MEDS: SENOKOT S TAB PO SCH ×2 (08:29→21:08)
[2018-06-04] MEDS: OMEPRAZOLE 20 MG CAP PO SCH ×2 (08:29→21:06)
[2018-06-04] MEDS: ASPIRIN 81 MG ENTERIC TAB PO SCH (08:29)
[2018-06-04] MEDS: CALCIUM CARBONATE 500 MG CHEW U/D PO SCH (08:29)
[2018-06-04] MEDS: traMADol 50 MG TAB PO PRN ×2 (08:30→22:12)
[2018-06-04] MEDS: METOPROLOL SUCC *XL* 25MG TAB (TopROL *XL*) PO SCH (08:31)
[2018-06-04] MEDS: amLODIPine 10 MG TAB PO SCH (08:31)
[2018-06-04] MEDS: FLUTICASONE PROP 0.05% NASAL SPRAY 16 GM (FLONASE) SCH (08:34)
[2018-06-04] MEDS: POLYVINYL ALCOHOL OPHTH SOLN 15 ML(LIQUITEARS) OU SCH ×3 (08:34→21:09)
[2018-06-04] MEDS: HEPARIN SOD (PORCINE) 5000 UNITS/ML VIAL SQ SCH ×2 (08:36→21:16)
[2018-06-04] MEDS: EZETIMIBE 10 MG TAB (ZETIA) PO SCH (08:36)
--- NOTE | 2018-06-04 12:22 | IPNPDOC ---
Text Note Date of Service The patient was seen on 06/04/18. NOTE Subjective: Patient notes she has pain with swallowing solids. Has neck pain l eft greater than the right, point tenderness. No chest pain or palpitations. No shortness of breath. Objective: Vitals: (see below) General: No acute distress, laying comfortably in bed. HEENT: Moist mucous membranes. Left mandibular region tender to palpation. Left lower teeth with poor dentition and tender to palpation. No further signs of abscess. Neck: No JVD. + tender cervical lymphadenopathy Cardiac: RRR, No murmurs Pulm: Clear to auscultation b/l. No wheezing, rhonchi Abd: NT/ND + BS Ext: No edema or cyanosis Labs (see below) CT head/neck reviewed. Assessment/Plan 1. Metabolic encephalopathy likely secondary to underlying infection, improving. ? Secondary to oral infection with mandibular pain and poor dentition. Antibiotics per Dr. Burrell. Dr Miles has reviewed the CT of the neck imaging, and does not believe that there is any significant changes in the left mandibular region, and does not recommend further imaging of the region. Patient was on meropenem/vanoco and improving; defer abx to Dr. Burrell., Leukocytosis trending down. Appreciate ENT input. 2. Right carotid aneurysm- appreciate Dr. Whitehead's input. On aspirin and Plavix. 3. Acute renal failure likely secondary to ibuprofen. Improving. Avoid nephrotoxins. Appreciate nephro input. 4. HTN controlled continue current meds. Hold HCTZ. 5. New onset AF - TTE. lopressor IV. Converted back to SSS. Likely 2/2 above. Cont to monitor. Cardiology consulted. 6. Hyperlipidemia statin 7. Dysphagia/odynophagia- esophagram pending DVT prophy: Heparin subcutaneous Overall prognosis guarded VS,Fishbone, I+O VS, Fishbone, I+O Laboratory Tests 06/04/18 05:20 Red Blood Count 3.89 L, Mean Corpuscular Volume 82.8, Mean Corpuscular Hemoglobin 29.0, Mean Corpuscular Hemoglobin Concent 35.1, Red Cell Distribution Width 14.4, Monocytes # (Auto) , Calcium Level 8.1 L, Aspartate Amino Transf (AST/SGOT) 73 H, Alanine Aminotransferase (ALT/SGPT) 30, Alkaline Phosphatase 282 H, Total Bilirubin 0.7, Total Protein 5.7 L, Albumin 1.7 L Vital Signs Date Time Temp Pulse Resp B/P (MAP) Pulse Ox O2 Delivery O2 Flow Rate FiO2 06/04/18 09:00 18 Room Air 06/04/18 08:31 73 155/71 06/04/18 08:00 99.2 96 I&O- Last 24 Hours up to 6 AM 06/04/18 06:00 Intake Total 1130 ml Output Total 2425 ml Balance -1295 ml RANCHO RICH MD Jun 04, 2018 12:22
--- NOTE | 2018-06-04 13:46 | IPN ---
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 As per Dr. Burrell of Infectious Disease yesterday felt that the patient had some specific tenderness in the temporal artery and asked for me to reassess for possible biopsy in the area. 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 Last night I was consulted by Dr. Burrell over the phone stating that the patient had discrete pain over the temporalis artery. Today the patient reports no pain in this area. Nurse who was present also notes that she has not been complaining of that area all and now is complaining of both sides of the neck inferiorly more in the supraclavicular area as opposed to the sides of the neck at this time where as before it has been in the right midneck. The first day and then the left lower portion of the neck the second day. Today she is not complaining of any pain in the left or right temporal artery regions of the temporalis muscles regions but she is not feeling comfortable. There is no further subjective information that can be obtained from the patient has she his demented. She seems more alert today than she has been previously. OBJECTIVE: Currently her temperature this morning was 99.2, blood pressure is 125/71, respiration rate is 18 on room air. Head at this point there is absolutely no tenderness on palpation of the left temporal artery region or the right temporal artery region. She does not respond and she continues to complain of pain in the lower aspect supraclavicular regions on both sides of the neck even when palpating the temporal artery regions. The pinna are within normal limits. External canals are within normal limits. TMs show no evidence of any inflammation or fluid behind them. External nasal pyramid is unremarkable. Intranasal exam shows no signs of purulent discharge or inflammation. Lips are less dried than before. Oral cavity is less dry than before but still dry. No evidence of any issues with dental disease or posterior oropharynx with inflammation or redness is present. She does have some tenderness on palpation of the right carotid aneurysm. She also reports of a little tenderness inferiorly at the base of the neck in the supraclavicular region and also inferiorly on the base of neck on the left side as well. She is not complaining of any pain in any other aspect of the area but she is not focused, it is more of a generalized waving of the hands overlying the generalized pain but not specifically any particular place. It is unfortunate that a given her neurological status we could not be a little bit more specific. White count has significantly decreased, it is down to 19 as opposed to 3 days ago of 27. Her CT showed no significant issues except for mild inflammation of the sinus mucosa which is extremely mild which is nonocclusive and is not the source of any infection or inflammation at this magnitude. ASSESSMENT/PLAN: 1. According to the history the patient has had a history of dementia, may have been exacerbated by metabolic encephalopathy with acute renal failure. 2. Right carotid aneurysm. The patient is on aspirin and Plavix there seems to be consistent tenderness to palpation on the side but not always the focus of the patient's reported pain as this seems to rotate from the right lower neck to the left lower neck and apparently last night to the temporal artery with Dr. Burrell's assessment. There was the possibility that the patient may be having some carotidynia and we will defer that to the vascular surgeon. 3. CT scan of the head showed minimal maxillary inflammation and no other nidus or source of infection noted. 4. Acute renal failure being followed by nephrology. 5. Dysphagia / without aphagia. The patient already had an esophagram pending. At this point it appears from the neck point of view and the patient's pain this may be present and may be her way of communicating discomfort as it goes from right to left inferiorly to superiorly and according to the history of the sisters in the [facility] states that this has been going on for a long period time that it had randomly goes this may be her way of communicating that she does not feel well. I believe that the pain is likely real however, the focus of the infection may not be in this area. She does have other reasons to potentially explain some of pain including carotidynia, possible chance of dissection of the carotid also possibly ear thrombus formation on the right side but does not explain why she would have the same were rotating inflammation present. At this point I would doubt that the patient requires a biopsy of the superficial temporal artery as she has absolutely no tenderness to this area today and with the history obtained from the nuns, it appears that her complaints of pain kind of rotate consistently for quite sometime and do not stay in one area. At this point unfortunately I do not find a source of potential infection but other potential sources could be osteomyelitis of some of the cervical discs but another possibility could be sub carotidynia with thrombus and potentially embolus that may be a source of the fevers. At this point I will be happy to assist but will sign off again, please feel free to contact me if there is any other issues present. ELIAZAR
[2018-06-04] MEDS: ACETAMINOPHEN TAB 650MG DOSE (2X325MG) PO PRN ×2 (14:28→23:44)
[2018-06-04 16:00] VITALS: BP 120/58
[2018-06-04 20:00] VITALS: BP 102/66
--- NOTE | 2018-06-04 20:23 | IPN ---
DATE: 06/04/2018 I saw Mrs. Bunch during my rounds this morning. This morning she looks much more alert and appropriate. She was able to get small history but unfortunately her memory remains rather poor. She denies any chest pain or shortness of breath and she does not recall any awareness of palpitations. Vital signs: Blood pressure 155/71, heart rate has been mostly in 70s. She is afebrile. Saturation 96% on room air. Her fluid balance yesterday was about 1300 negative. Review of telemetry tracing reveals ongoing maintenance of sinus rhythm in last 24 hours. She is alert and oriented times three and her jugular venous pressure is not up. Lungs are clear. Heart: Exam reveals regular rhythm. I do not appreciate any gallop. Abdomen is soft, nontender. Extremities are free of edema. Neurologically she seems rather intact. I do not appreciate any focal symptoms. LABORATORY WBC count 98.3, hemoglobin 11.3, hematocrit 32, platelet count 393,000. Basic metabolic panel: Sodium 142, potassium 3.3, BUN 40, creatinine 1 and glucose 126. 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 The etiology of her principal problem remains undetermined. I was asked to see her because of initially paroxysmal atrial fibrillation. On small dose of beta-andreas, she currently has been maintaining sinus rhythm for at least 24 hours. Her echocardiogram reveals preserved left ventricular systolic function. I have to assume that the atrial fibrillation was triggered by her current illness. Encouragingly she has been in sinus rhythm consistently for last approximately 24 hours. If that continue I would not pursue any further evaluation and leave her on beta-blockers only if there is additional recurrence. I think she will need to be chronically anticoagulated as per my prior note my choice would be probably Ta. As far as the etiology of her principal presentation with fever, elevated white count and altered mental status, I do not have much to contribute. I still would like to point out though that drug reaction should be considered in differential diagnosis. Please contact me if you desire further assistance. I am going to sign off her care.
--- NOTE | 2018-06-04 23:08 | IPN ---
DATE: 06/04/2018 Ms. Bunch is seen this morning on her bedside. She is sitting in the bed and feels much better. She still has a sitter in the room. The patient has no fever, chills, dyspnea or chest pain at the time of my visit. PHYSICAL EXAMINATION Temperature 98.2 degrees Fahrenheit, heart rate 72 per minute and respiratory rate 18 per minute. Blood pressure 155/70 mmHg and oxygen saturation 96%. Head is atraumatic. Neck is supple and jugular venous distention (JVD) is not elevated today. Heart: Sounds are regular. Lungs: Clear to auscultation. Abdomen: Soft and benign and bowel sounds are present. Extremities: Have no cyanosis or clubbing. Neurologically, she is awake and almost at her baseline mentation today. Today's labs show WBC count 19.3, hemoglobin 11.3 and hematocrit 32.2. Sodium 142, potassium 3.3, BUN 40 and creatinine 1.0. PROBLEMS: 1. Acute renal failure superimposed on chronic kidney disease. She probably has mild chronic kidney disease at baseline. Kidney function has improved significantly. She is not currently receiving any IV fluid and I have encouraged for her to take oral intake. 2. Hypokalemia. This is related to IV fluids and poor oral intake. She is being given one dose of potassium chloride 40 mEq and electrolytes will be checked again tomorrow morning. 3. Leukocytosis and possible infection. The patient has been on broad-spectrum antibiotics empirically. Being investigated further by hospitalist service. From a renal standpoint, the patient is doing well with improved kidney function and I am signing off her case. Please do not hesitate to call me should you need any further assistance.
[2018-06-05] VITALS: BP 153/76
[2018-06-05] MEDS: PHENYTOIN 100 MG/2 ML VIAL (J1165) IV SCH ×3 (02:33→18:56)
[2018-06-05 06:19] LABS: HEMATOCRIT 31.8 % (36.0-47.0); HEMOGLOBIN 11.1 g/dl (12.0-15.5); MEAN CORPUSCULAR HEMOGLOBIN 28.9 pg (27.0-33.0); MEAN CORPUSCULAR HGB CONC 34.9 g/dl (32.0-36.5); MEAN CORPUSCULAR VOLUME 82.8 fl (80.0-96.0); PLATELET COUNT, AUTOMATED 353 10^3/uL (150-450); RED BLOOD COUNT 3.84 10^6/uL (4.00-5.40); WHITE BLOOD COUNT 18.9 10^3/uL (4.0-10.0)
[2018-06-05] MEDS: SODIUM CHLORIDE 0.9% INJ 10 ML SYR IV SCH ×2 (06:33→18:57)
[2018-06-05] MEDS: MORPHINE 4 MG/ML 1ML VIAL/SYRINGE (J2270) IV PRN (06:34)
[2018-06-05 06:50] LABS: ALBUMIN 1.6 GM/DL (3.2-5.2); ALT/SGPT 33 U/L (12-78); BILIRUBIN,TOTAL 0.6 MG/DL (0.2-1.0); BLOOD UREA NITROGEN 35 MG/DL (7-18); CALCIUM LEVEL 8.3 MG/DL (8.8-10.2); CARBON DIOXIDE LEVEL 26 MEQ/L (21-32); CHLORIDE LEVEL 102 MEQ/L (98-107); CPK CREATINE PHOSPHOKINASE 56 U/L (26-192); CREATININE FOR GFR 0.92 MG/DL (0.55-1.30); GLOMERULAR FILTRATION RATE > 60.0 (>39); GLUCOSE, FASTING 120 MG/DL (70-100); MAGNESIUM LEVEL 1.7 MG/DL (1.8-2.4); MB/CK RELATIVE INDEX 2.14 (< OR =4); POTASSIUM SERUM 3.4 MEQ/L (3.5-5.1); SODIUM LEVEL 137 MEQ/L (136-145); TOTAL PROTEIN 6.6 GM/DL (6.4-8.2); TROPONIN I < 0.02 NG/ML (< 0.10)
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
[2018-06-05 07:17] LABS: BASOPHILS 2 % (0-4); EOSINOPHILS 2 % (0-5); LYMPHOCYTES 7 % (16-52); METAMYELOCYTES 2 % (0-0); MONOCYTES 7 % (0-8); NEUTROPHILS 79 % (35-75); PLATELET ESTIMATE NORMAL (NORMAL)
[2018-06-05 08:00] VITALS: BP 154/72
[2018-06-05] MEDS ORDERED: POTASSIUM CHLORIDE 10 MEQ SR TABLET PO ONE (08:15)
[2018-06-05] MEDS ORDERED: MAG SULF 1GM/100ML (MAG RUN) 1 GM in APPROPRIATE DILUENT 1 EA IV ONE (08:15)
[2018-06-05] MEDS ORDERED: E-Z-PAQUE 96% w/w SUSP 176GM BTL As Ordered ONE (08:41)
[2018-06-05] MEDS ORDERED: E-Z-HD 98% w/w 340GM SUSP BTL As Ordered ONE (08:41)
[2018-06-05] MEDS: CALCIUM CARBONATE 500 MG CHEW U/D PO SCH (09:10)
[2018-06-05] MEDS: ATORVASTATIN 20 MG TAB PO SCH (09:10)
[2018-06-05] MEDS: ASPIRIN 81 MG ENTERIC TAB PO SCH (09:11)
[2018-06-05] MEDS: METOPROLOL SUCC *XL* 25MG TAB (TopROL *XL*) PO SCH (09:11)
[2018-06-05] MEDS: EZETIMIBE 10 MG TAB (ZETIA) PO SCH (09:11)
[2018-06-05] MEDS: CLOPIDOGREL 75 MG TAB PO SCH (09:11)
[2018-06-05] MEDS: amLODIPine 10 MG TAB PO SCH (09:11)
[2018-06-05] MEDS: SENOKOT S TAB PO SCH ×2 (09:11→20:03)
[2018-06-05] MEDS: traMADol 50 MG TAB PO PRN ×2 (09:11→17:44)
[2018-06-05] MEDS: OMEPRAZOLE 20 MG CAP PO SCH ×2 (09:12→20:03)
[2018-06-05] MEDS: HEPARIN SOD (PORCINE) 5000 UNITS/ML VIAL SQ SCH ×2 (09:13→20:03)
[2018-06-05] MEDS: POLYVINYL ALCOHOL OPHTH SOLN 15 ML(LIQUITEARS) OU SCH ×3 (09:13→20:04)
[2018-06-05] MEDS: FLUTICASONE PROP 0.05% NASAL SPRAY 16 GM (FLONASE) SCH (09:17)
[2018-06-05] MEDS ORDERED: PILL CRUSHER/CUTTER 1 EACH XX PRN (09:30)
[2018-06-05] MEDS: SODIUM CHLORIDE 0.9% INJ 10 ML SYR IV PRN (10:55)
[2018-06-05 12:00] VITALS: BP 159/69
[2018-06-05] MEDS ORDERED: methylPREDNISolone INJ 125 MG/2 ML VIAL (J2930) IV SCH (13:00)
--- NOTE | 2018-06-05 13:48 | IPNPDOC ---
Text Note Date of Service The patient was seen on 06/05/18. NOTE Subjective: Patient notes she dysphagia to solids. Has neck pain left greater than the right, point tenderness unchanged. No chest pain or palpitations. No shortness of breath. Objective: Vitals: (see below) General: No acute distress, laying comfortably in bed. HEENT: Moist mucous membranes. Tenderness to palpation of neck bilateral. Neck: No JVD. Cardiac: RRR, No murmurs Pulm: Clear to auscultation b/l. No wheezing, rhonchi Abd: NT/ND + BS Ext: No edema or cyanosis Labs (see below) CT head/neck reviewed. Assessment/Plan 1. Metabolic encephalopathy ? Etiology. improving. ? Secondary to oral infection with mandibular pain and poor dentition. Antibiotics per Dr. Burrell. Dr Miles has reviewed the CT of the neck imaging, and does not believe that there is any significant changes in the left mandibular region, and does not recommend further imaging of the region. Patient was on meropenem/vanoco and improving; defer abx to Dr. Burrell., Leukocytosis trending down. Appreciate ENT input. 2. Neck pain- patient gives a limited history however this looks like it's been progressive over the last few months to obtain a year, and his periodic. Patient had extensive workup, including MRI cervical spine, MRA carotids, CT neck, LP, MRI brain, evaluation by ENT/infectious disease/vascular surgery/cardiology. At this time, given the patient's ESR greater than 140, there is suspicion of vasculitis, especially in the setting of carotid aneurysm. I have started the patient on Solu-Medrol, sent for vasculitis workup including complements, SAGAR, ANCA, and rheumatology has been consulted. ENT has recommended carotidynia as a possible diagnosis. Patient is currently on metoprolol. Esophagram pending. 3. Right carotid aneurysm- appreciate Dr. Whitehead's input. On aspirin and Plavix. 4. Acute renal failure likely secondary to ibuprofen. Improving. Avoid nephrotoxins. Appreciate nephro input. 5. New onset AF - TTE. lopressor IV. Converted back to SSS. Likely 2/2 above. Cont to monitor. Cardiology consulted. 6. Hyperlipidemia statin 7. Dysphagia/odynophagia- esophagram pending 8. HTN controlled continue current meds. Hold HCTZ. DVT prophy: Heparin subcutaneous Overall prognosis guarded VS,Fishbone, I+O VS, Fishbone, I+O Laboratory Tests 06/05/18 05:58 Red Blood Count 3.84 L, Mean Corpuscular Volume 82.8, Mean Corpuscular Hemoglobin 28.9, Mean Corpuscular Hemoglobin Concent 34.9, Red Cell Distribution Width 14.5, Monocytes # (Auto) , Calcium Level 8.3 L, Aspartate Amino Transf (AST/SGOT) 80 H, Alanine Aminotransferase (ALT/SGPT) 33, Total Creatine Kinase 56, Alkaline Phosphatase 259 H, Total Bilirubin 0.6, Total Protein 6.6, Albumin 1.6 L Vital Signs Date Time Temp Pulse Resp B/P (MAP) Pulse Ox O2 Delivery O2 Flow Rate FiO2 06/05/18 10:00 20 06/05/18 09:11 Room Air 06/05/18 09:11 71 129/69 06/05/18 08:00 98.5 97 I&O- Last 24 Hours up to 6 AM 06/05/18 06:00 Intake Total 3200 ml Output Total 2925 ml Balance 275 ml RANCHO RICH MD Jun 05, 2018 13:48
[2018-06-05] MEDS: ACETAMINOPHEN TAB 650MG DOSE (2X325MG) PO PRN ×2 (13:51→20:10)
[2018-06-05] MEDS: MAGIC MOUTHWASH SUSPENSION BTL SS PRN (13:59)
[2018-06-05 16:00] VITALS: BP 128/68
--- NOTE | 2018-06-05 16:32 | IPN ---
DATE: 06/05/2018 SUBJECTIVE: Patient is seen at bedside. She is much more awake and alert today. She is alert and oriented to her self and the state that she lives in, however, it not certain of the year. She thinks that Remington Botello II is still the beebe and does know that it is winter outside. She denies any fever, chills, diarrhea, nausea, or vomiting. She still says that she has got pain in her neck, today it is more the right side. OBJECTIVE: VITAL SIGNS: Temperature 98.5, pulse 71, respiratory rate 20, pulse oximetry 97% on room air. Blood pressure 129/69. GENERAL: Pleasant, awake, conversant. HEENT: Patient has slightly dry mucous membranes. NECK: Tenderness to palpation of the right side of her neck just inferior to the jaw. No adenopathy is appreciated. However, she does have a little bit of swelling just over the right carotid. HEART: Irregular rhythm, rate controlled. Systolic ejection murmur 2/6 heard. No rubs or gallops. LUNGS: Clear to auscultation bilaterally in the apices with faint crackles in the bases. No wheezes or rhonchi. ABDOMEN: Soft. No tenderness to palpation. BACK: No costovertebral angle (CVA) tenderness. LABORATORY DATA: CBC: WBC 18.9, hemoglobin 11.1, hematocrit 31.8, platelets 353. Erythrocyte sedimentation rate from yesterday was over 140. Chemistry: Sodium 137, potassium 3.4, chloride 102. Carbon dioxide 26. BUN 35, creatinine 0.92. Fasting glucose 120. Calcium 8.3. Magnesium 1.7. Total bilirubin 0.6. AST 80, ALT 33, alkaline phosphatase 259. Total creatine kinase 56. CK-MB 1.0. Troponin less than 0.02. CRP 32.4. Total protein 6.6. Albumin 1.6. 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 Bacterial workup has been negative thus far. She does have elevated inflammatory markers. At this point there is no identifiable bacterial source of infection. Rheumatology will be doing further workup. My faculty preceptor for this patient encounter was physically present during the encounter and was fully available. All aspects of the patient interview, examination, medical decision making process, and medical care plan development were reviewed and approved by the faculty preceptor. The faculty preceptor is aware and concurs with the plan as stated in the body of this note and will attest to such by his/her co-signature.
--- NOTE | 2018-06-05 16:37 | REP ---
Esophagram The procedure was performed under the direct supervision of Dr. Matos. The images were reviewed with Dr. Matos. A single view PA chest x-ray is submitted as a silver plater film. The silver plater film was done supine on the table. There is poor inspiratory effort. Otherwise essentially unchanged from the previous chest x-ray performed on 06/01/2018. Liquid barium was given in the supine oblique position. Exam is limited due to patient mobility and cooperation. The esophagus is grossly normal. There is no evidence of laryngeal penetration or aspiration. There is free flow of contrast into the stomach. There is no evidence of stricture or mass effect on the esophagus. Impression: Limited exam due to patient condition. The esophagus is grossly normal. There is no evidence of laryngeal penetration or aspiration. 1.5 minutes of fluoro time was utilized for this procedure. Reviewed by DONYA Nunez 06/05/2018 03:58 P Electronically Signed by Juan Matos MD 06/05/2018 04:28 P
[2018-06-05 20:00] VITALS: BP 128/60
[2018-06-06] VITALS (7 sets, daily range): BP systolic 116–190; BP diastolic 58–83
[2018-06-06] MEDS: PHENYTOIN 100 MG/2 ML VIAL (J1165) IV SCH ×3 (01:44→18:43)
[2018-06-06] MEDS: SODIUM CHLORIDE 0.9% INJ 10 ML SYR IV PRN (01:49)
[2018-06-06] MEDS: ACETAMINOPHEN TAB 650MG DOSE (2X325MG) PO PRN ×4 (02:23→20:18)
[2018-06-06] MEDS: MAGIC MOUTHWASH SUSPENSION BTL SS PRN ×4 (02:28→18:42)
[2018-06-06 02:31] LABS: APPEARANCE, URINE HAZY (CLEAR); BACTERIA, URINE AUTO NEGATIVE (NEGATIVE); BILIRUBIN, URINE AUTO NEGATIVE (NEGATIVE); BLOOD, URINE BLOOD NEGATIVE (NEGATIVE); COLOR, URINE YELLOW (YELLOW); GLUCOSE, URINE (UA) AUTO NEGATIVE (NEGATIVE); KETONE, URINE AUTO NEGATIVE (NEGATIVE); LEUKOCYTE ESTERASE, URINE AUTO NEGATIVE (NEGATIVE); NITRITE, URINE AUTO NEGATIVE (NEGATIVE); PROTEIN, URINE AUTO NEGATIVE (NEGATIVE); RBC, URINE AUTO 2 /HPF (0-3); SPECIFIC GRAVITY URINE AUTO 1.019 (1.002-1.035); SQUAMOUS EPITHELIAL CELL UR AU 2 /HPF (0-6); UROBILINOGEN, URINE AUTO 0.2 mg/dL (0.0-2.0); WBC, URINE AUTO 9 /HPF (0-3)
[2018-06-06 02:44] LABS: TOTAL PROTEIN,RANDOM URINE 40.4 MG/DL (0.0-12.0)
[2018-06-06] MEDS: SODIUM CHLORIDE 0.9% INJ 10 ML SYR IV SCH ×2 (05:04→18:43)
[2018-06-06 06:39] LABS: HEMATOCRIT 27.4 % (36.0-47.0); HEMOGLOBIN 9.8 g/dl (12.0-15.5); MEAN CORPUSCULAR HEMOGLOBIN 29.3 pg (27.0-33.0); MEAN CORPUSCULAR HGB CONC 35.8 g/dl (32.0-36.5); PLATELET COUNT, AUTOMATED 329 10^3/uL (150-450); RED BLOOD COUNT 3.34 10^6/uL (4.00-5.40); WHITE BLOOD COUNT 18.7 10^3/uL (4.0-10.0)
[2018-06-06 07:11] LABS: ALBUMIN 1.6 GM/DL (3.2-5.2); ALT/SGPT 32 U/L (12-78); BILIRUBIN,TOTAL 0.5 MG/DL (0.2-1.0); BLOOD UREA NITROGEN 32 MG/DL (7-18); CALCIUM LEVEL 8.1 MG/DL (8.8-10.2); CARBON DIOXIDE LEVEL 27 MEQ/L (21-32); CHLORIDE LEVEL 103 MEQ/L (98-107); CREATININE FOR GFR 0.87 MG/DL (0.55-1.30); GLOMERULAR FILTRATION RATE > 60.0 (>39); GLUCOSE, FASTING 99 MG/DL (70-100); MAGNESIUM LEVEL 1.9 MG/DL (1.8-2.4); POTASSIUM SERUM 3.4 MEQ/L (3.5-5.1); SODIUM LEVEL 139 MEQ/L (136-145); TOTAL PROTEIN 6.4 GM/DL (6.4-8.2); URIC ACID 5.3 MG/DL (2.6-6.0)
[2018-06-06 07:13] LABS: ERYTHROCYTE SEDIMENTATION RATE 106 mm/hr (0-30)
[2018-06-06] MEDS: traMADol 50 MG TAB PO PRN ×2 (07:46→15:55)
[2018-06-06 08:06] LABS: ATYPICAL LYMPH 4 % (0-5); BASOPHILS 2 % (0-4); LYMPHOCYTES 8 % (16-52); MONOCYTES 5 % (0-8); NEUTROPHILS 74 % (35-75)
[2018-06-06 08:08] LABS: PLATELET ESTIMATE NORMAL (NORMAL); TARGET CELLS 1+
[2018-06-06] MEDS ORDERED: POTASSIUM CHLORIDE 10 MEQ SR TABLET PO ONE (10:00)
[2018-06-06] MEDS: ATORVASTATIN 20 MG TAB PO SCH (10:02)
[2018-06-06] MEDS: SENOKOT S TAB PO SCH ×2 (10:02→20:13)
[2018-06-06] MEDS: CALCIUM CARBONATE 500 MG CHEW U/D PO SCH (10:02)
[2018-06-06] MEDS: EZETIMIBE 10 MG TAB (ZETIA) PO SCH (10:03)
[2018-06-06] MEDS: amLODIPine 10 MG TAB PO SCH (10:03)
[2018-06-06] MEDS: CLOPIDOGREL 75 MG TAB PO SCH (10:03)
[2018-06-06] MEDS: MORPHINE 4 MG/ML 1ML VIAL/SYRINGE (J2270) IV PRN ×3 (10:03→18:42)
[2018-06-06] MEDS: OMEPRAZOLE 20 MG CAP PO SCH ×2 (10:03→20:13)
[2018-06-06] MEDS: ASPIRIN 81 MG ENTERIC TAB PO SCH (10:03)
[2018-06-06] MEDS: POLYVINYL ALCOHOL OPHTH SOLN 15 ML(LIQUITEARS) OU SCH ×3 (10:04→20:14)
[2018-06-06] MEDS: METOPROLOL SUCC *XL* 25MG TAB (TopROL *XL*) PO SCH (10:04)
[2018-06-06] MEDS: HEPARIN SOD (PORCINE) 5000 UNITS/ML VIAL SQ SCH ×2 (10:04→20:13)
[2018-06-06] MEDS: FLUTICASONE PROP 0.05% NASAL SPRAY 16 GM (FLONASE) SCH (10:05)
[2018-06-06 12:45] LABS: CRYOGLOBULINS NEGATIVE (NEGATIVE)
--- NOTE | 2018-06-06 13:14 | CR.PDOC ---
General Date of Consultation: Jun 05, 2018 Referring Provider: RANCHO RICH MD Consultation REASON FOR CONSULTATION/CHIEF COMPLAINT: Dr. Rich is requesting consult to evaluate for suspecting vasculitis. 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 Patient has been admitted for fever, and altered mental status on 06/01/18. Patient reports she has not been feeling well for at least few weeks, then 3 days prior to this admission, she has increased anterior neck pain especially the right side. She was prescribed ibuprofen from emergency room in [place], for musculoskeletal pain. The patient was taking ibuprofen 400 mg every 4 hours with worsening neck pain. Then, she had fevers and altered mental status. Patient progressively got worse and therefore came to [facility]. She was found to have acute renal injury, with proteinuria, leukocytosis, elevated inflammatory markers. Patient has been confused and unable to provide any history since admission. Extensive infectious work up has been done including negative cultures and lumbar puncture. She has been evaluated by ENT, neurology, infectious diseases and nephrology services. Patient had MRI, MRA brain and carotid arteries, vascular ultrasound, showing right common carotid aneurysm dilatation of 2.2cm with a length of 3.7cm. Patient denies having any headache, visual changes, jaw claudication, chest pain, shortness of breath, joint pain, rash, pain, cough. Her only complaint is her neck pain and it is bilateral per primary team and other doctors who have seen her day prior, but today (06/05/18) she is only complaining of her right side. As per nurse, patient has been confused and today is the first time seeing her alert. She has dementia at baseline, but she is usually very active as per the other sisters who have lived with her. PAST MEDICAL HISTORY: Significant for: Hiatus hernia. Dementia. Dyslipidemia. Hypertension. Seizure disorder. Osteopenia. ALLERGIES: LEVAQUIN causes nausea and vomiting. PAST SURGICAL HISTORY: Appendectomy. Foot surgery. Left knee surgery. Bilateral carotid endarterectomy. SOCIAL HISTORY: She does not drink, smoke. 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 FAMILY HISTORY: Father of heart disease in 48. Mother at 65 from lung cancer and emphysema. MEDICATIONS: - hydrochlorothiazide 12.5 mg daily - vitamin D 50,000 units daily - alendronate 70 mg weekly - raloxifene 60 mg daily - Norvasc 10 mg daily - aspirin 325 mg daily - Lipitor 80 mg daily - calcium 1500 mg daily - Zetia 10 mg daily - fluticasone nasal spray daily - metoprolol 25 mg daily - omeprazole 20 mg twice a day - Dilantin 100 mg by mouth three times a day. REVIEW OF SYSTEMS: Constitutional: Denies fever or weight loss. + fatigue Eyes: Denies acute vision changes, eye pain, dry eyes or red eyes. ENT: Denies hearing changes, dysphagia, sore throat, runny nose, dry mouth. Cardiac: Denies chest pain, edema or orthopnea. Respiratory: Denies dyspnea, cough or wheeze. Gastroenterology: Denies abdominal pain, nausea and vomiting. Genitourinary: Denies dysuria or hematuria. Neurologic: Denies seizures, blackout, numbness or focal weakness. Psychiatric: No depression, denies confusion. Endocrine: Denies polyuria or polydipsia. Hematologic: Denies blood clots or easy bleeding. Skin: no rash. Musculoskeletal: See HPI. PHYSICAL EXAMINATION: VITAL SIGNS: Please see below. GENERAL: The patient was lying in bed without acute distress, was able to answer all questions, holding her hands around her neck. HEENT: Normocephalic, atraumatic. Extraocular movements intact. No sinus tenderness. Oropharynx clear. Mucous membranes are moist. NECK: Supple without lymph node. Right neck with palpable nodule, soft, tender CHEST: +rales both bases. No wheezing. No rhonchi. HEART: S1, S2. Regular rate and rhythm. ABDOMEN: Soft, nontender. No organomegaly. EXTREMITIES: No clubbing, cyanosis or edema. NEUROLOGIC: Patient is alert and oriented x2. No gross focal deficit. No sensory deficit. PSYCHOSOCIAL: Patient is in a good mood. INTEGUMENT: Moist mucous membranes. Good skin turgor, intact. No visible active rash. MUSCULOSKELETAL: Hands: There is no synovitis and no swelling with full range of motion in the hands, no deformities. Wrist: There is full range of motion with no tender points or instability in both wrists. Elbows: Full range of motion no synovitis and no pain on extension in both elbows. Shoulders: Full range of motion without the discomfort including abduction and internal rotation in both shoulders. Knees: There is no tenderness to palpation along the joint line in both knees with full range of motion and no effusion or palpable synovitis. Hips: There is no pain in the groin with internal or external rotation. Legs: no pain and swelling. Ankles: Full range of motion with no tenderness or swelling in the ankles Feet: no pain and swelling of toes with normal range of motion. Back: no tenderness in the spine and paraspinal muscles, straight leg raise negative. LABORATORY DATA: Please see below. Remarkable for ESR 140 down 106, CRP 40 down to 32, Cr 3.34 down to 0.92, Alk phos 259, Albumin 1.6 ASSESSMENT/PLAN: Neck pain: previous endarterectomy right carotid artery. The diagnosis of giant cell arthritis to be considered in this patient was over 89 years old and is complaining of "not feeling well", low grade fevers since admission, high ESR and CRP, negative infectious work up. Recommendations: She has received steroids yesterday. I would recommend to decrease dose of steroids. To give prednisone 60 mg daily if patient is able to swallow. Otherwise, Solu- Medrol 50 mg IV daily is enough. I discussed with Dr. Miles to see if we can repeat MRA or MRI to assess temporal and carotid arteries for vasculitis, but he says it's very low yield. Atypical presentation of GCA can have no temporal pain, nor headaches. If there is an alternative to explain her symptoms, then I would not do biopsy. However, she has had an extensive work up and multiple services consultation, and there is no actual answers of her symptoms. I would recommend to get a temporal artery biopsy as soon as possible. Monitor ESR and CRP every 3 days Get procalcitonin to make sure no underlying infection is present even cultures are negative. Follow up the rest of the vasculitis panel. Please let me know if any new events. Thank you for the consult request. Vital Signs/I&O Vital Signs Date Time Temp Pulse Resp B/P (MAP) Pulse Ox O2 Delivery O2 Flow Rate FiO2 06/05/18 10:00 20 06/05/18 09:11 Room Air 06/05/18 09:11 71 129/69 06/05/18 08:00 98.5 97 I&O- Last 24 Hours up to 6 AM 06/05/18 06:00 Intake Total 3200 ml Output Total 2925 ml Balance 275 ml Laboratory Data Labs 24H Laboratory Tests 2 06/05/18 05:58: Immature Granulocyte % (Auto) , White Blood Count 18.9H, Red Blood Count 3.84L, Hemoglobin 11.1L, Hematocrit 31.8L, Mean Corpuscular Volume 82.8, Mean Corpuscular Hemoglobin 28.9, Mean Corpuscular Hemoglobin Concent 34.9, Red Cell Distribution Width 14.5, Platelet Count 353, Monocytes # (Auto) , Nucleated Red Blood Cells % (auto) 0.0, Neutrophils 79H, Band Neutrophils 1, Lymphocytes (Manual) 7L, Monocytes (Manual) 7, Eosinophils (Manual) 2, Basophils (Manual) 2, Metamyelocytes 2H, Platelet Estimate NORMAL, Red Blood Cell Morphology NORMAL, Anion Gap 9, Glomerular Filtration Rate > 60.0, Blood Urea Nitrogen 35H, C reatinine 0.92, Sodium Level 137, Potassium Level 3.4L, Chloride Level 102, Carbon Dioxide Level 26, Calcium Level 8.3L, Aspartate Amino Transf (AST/SGOT) 80H, Alanine Aminotransferase (ALT/SGPT) 33, Total Creatine Kinase 56, Alkaline Phosphatase 259H, Total Bilirubin 0.6, Total Protein 6.6, Albumin 1.6L, Magnesium Level 1.7L, Creatine Kinase MB 1.0, Creatine Kinase MB Relative Index 2.14, Troponin I < 0.02, C-Reactive Protein, Quantitative 32.40H, Albumin/Globulin Ratio 0.32L, Phenytoin (Dilantin) Level 6.0L 06/05/18 12:19: CBC/BMP Laboratory Tests 06/05/18 05:58 Red Blood Count 3.84 L, Mean Corpuscular Volume 82.8, Mean Corpuscular Hemoglobin 28.9, Mean Corpuscular Hemoglobin Concent 34.9, Red Cell Distribution Width 14.5, Monocytes # (Auto) , Calcium Level 8.3 L, Aspartate Amino Transf (AST/SGOT) 80 H, Alanine Aminotransferase (ALT/SGPT) 33, Total Creatine Kinase 56, Alkaline Phosphatase 259 H, Total Bilirubin 0.6, Total Protein 6.6, Albumin 1.6 L Microbiology Microbiology 06/01/18 Blood Culture - Preliminary, Resulted No Growth after 72 hours. All specime... 06/01/18 Blood Culture - Preliminary, Resulted No Growth after 72 hours. All specime... 06/01/18 Gram Stain - Final, Complete 06/01/18 CSF Culture - Final, Complete 06/01/18 - Final, Complete 06/04/18 Group A Streptococcus Screen ([facility]) - Final, Complete 06/04/18 Group A Streptococcus Screen ([facility]) - Final, Complete 06/02/18 Respiratory Virus Panel (PCR) ([facility]) - Final, Complete 06/01/18 Urine Culture - Final, Complete Allergies Coded Allergies: Levofloxacin (Verified Adverse Reaction, Unknown, NAUSEA, VOMITING, LEG MUSCLE PAIN, 06/02/18) Home Medications Scheduled Alendronate Sodium (Fosamax) 70 Mg Tab, 70 MG PO 1XWK, (Reported) Amlodipine Besylate (Amlodipine Besylate) 10 Mg Tab, 10 MG PO DAILY, (Reported) Aspirin (Aspirin) 325 Mg Tab, 325 MG PO DAILY, (Reported) Atorvastatin Calcium (Atorvastatin Calcium) 80 Mg Tab, 80 MG PO DAILY, (Reported) Calcium Carbonate (Calcium Carbonate) 500 Mg Chw, 1,500 MG PO DAILY, (Reported) Ezetimibe (Zetia) 10 Mg Tab, 10 MG PO DAILY, (Reported) Fluticasone Propionate (Fluticasone Propionate) 50 Mcg/Act Spr, 1 SPRAY NA DAILY, (Reported) Hydrochlorothiazide (Hydrochlorothiazide) 12.5 Mg Tab, 12.5 MG PO DAILY, (Reported) Metoprolol Succinate (Metoprolol Succinate ER) 25 Mg Tab, 25 MG PO DAILY, (Rep orted) Omeprazole (Omeprazole) 20 Mg Cap, 20 MG PO BID, (Reported) Phenytoin Sodium (Phenytoin Sodium Extended) 100 Mg Cap, 100 MG PO TID, (Reported) Raloxifene Hydrochloride (Raloxifene Hydrochloride) 60 Mg Tab, 60 MG PO DAILY, (Reported) Vitamin D (Drisdol) 50,000 Unit Cap, 50,000 UNIT PO 1XWK, (Reported) Scheduled PRN Carboxymethylcellulose Sod (Refresh 1.4-0.6 %) 1 Ea Stacy, 1 DROP OU QID PRN for DRY EYES, (Reported) Miscellaneous Medications [Patient Comments] , (Reported) PATIENT IS UNABLE TO SUPPLY ANY INFORMATION TO WHEN SHE LAST TOOK ANY OF HER MEDICATIONS. MEDICATIONS LISTED ARE TAKEN MOST RECENT D[facility] OFFICE VISIT 05/26/2018. FAMILY MEMBERS PRESENT ARE NOT ABLE TO TTELL WHETHER SHE TOOK ANY MEDICATIONS YESTERDAY. AUDREY CHU MD Jun 05, 2018 16:18
[2018-06-06] MEDS ORDERED: predniSONE 20 MG TAB PO ONE (13:15)
[2018-06-06] MEDS ORDERED: **hydrALAZINE HCL** 25 MG TAB PO ONE (13:15)
[2018-06-06 13:49] LABS: HEPATITIS A ANTIBODY IGM NEGATIVE (NEGATIVE); HEPATITIS B CORE ANTIBODY IGM NEGATIVE (NEGATIVE); HEPATITIS B SURFACE ANTIGEN NEGATIVE (NEGATIVE); HEPATITIS C VIRUS ABY INDEX 0.2 INDEX (<0.8)
[2018-06-06 14:43] LABS: COMPLEMENT C3 85 MG/DL (90-180); COMPLEMENT C4 6 MG/DL (10-40)
--- NOTE | 2018-06-06 15:07 | IPNPDOC ---
Text Note Date of Service The patient was seen on 06/06/18. NOTE Subjective: Patient notes she dysphagia to solids. Has neck pain left greater than the right, point tenderness improved. No chest pain or palpitations. No shortness of breath. Objective: Vitals: (see below) General: No acute distress, laying comfortably in bed. HEENT: Moist mucous membranes. Tenderness to palpation of neck bilateral. Neck: No JVD. Cardiac: RRR, No murmurs Pulm: Clear to auscultation b/l. No wheezing, rhonchi Abd: NT/ND + BS Ext: No edema or cyanosis Labs (see below) CT head/neck reviewed. Assessment/Plan 1. s/p Metabolic encephalopathy resolved. ?2/2 initial renal failure. Antibiotics per Dr. Burrell. Dr Miles has reviewed the CT of the neck imaging, and does not believe that there is any significant changes in the left mandibular region, and does not recommend further imaging of the region. Patient was on meropenem/vanoco and improving; defer abx to Dr. Burrell., Leukocytosis trending down. Appreciate ENT input. 2. Neck pain- patient gives a limited history however this looks like it's been progressive over the last few months to obtain a year, and his periodic. Patient had extensive workup, including MRI cervical spine, MRA carotids, CT neck, LP, MRI brain, evaluation by ENT/infectious disease/vascular surgery/cardiology. At this time, given the patient's ESR greater than 140, there is suspicion of vasculitis, especially in the setting of carotid aneurysm.Pt on prednisone with vasculitis workup pending, including complements, SAGAR, ANCA, and rheumatology has been consulted. ENT has recommended carotidynia as a possible diagnosis. Patient is currently on metoprolol. Esophagram wnl. 3. Right carotid aneurysm- appreciate Dr. Whitehead's input. On aspirin and Plavix. Dr. Whitehead does not believe that the carotid disease is a cause of neck pain. 4. s/p Acute renal failure likely secondary to ibuprofen. Improving. Avoid nephrotoxins. Appreciate nephro input. 5. New onset AF - TTE. lopressor IV. Converted back to SSS. Likely 2/2 above. Cont to monitor. Cardiology consulted. 6. Hyperlipidemia statin 7. Dysphagia/odynophagia- esophagram pending 8. HTN controlled continue current meds. Hold HCTZ. DVT prophy: Heparin subcutaneous Overall prognosis guarded VS,Fishbone, I+O VS, Fishbone, I+O Laboratory Tests 06/06/18 06:21 Red Blood Count 3.34 L, Mean Corpuscular Volume 82.0, Mean Corpuscular Hemoglobin 29.3, Mean Corpuscular Hemoglobin Concent 35.8, Red Cell Distribution Width 14.8 H, Calcium Level 8.1 L, Aspartate Amino Transf (AST/SGOT) 79 H, Alanine Aminotransferase (ALT/SGPT) 32, Alkaline Phosphatase 246 H, Total Bilirubin 0.5, Uric Acid 5.3, Total Protein 6.4, Albumin 1.6 L Vital Signs Date Time Temp Pulse Resp B/P (MAP) Pulse Ox O2 Delivery O2 Flow Rate FiO2 06/06/18 13:47 18 06/06/18 13:24 190/81 06/06/18 12:00 98.2 67 95 Room Air I&O- Last 24 Hours up to 6 AM 06/06/18 06:00 Intake Total 720 ml Output Total 800 ml Balance -80 ml RANCHO RICH MD Jun 06, 2018 15:07
[2018-06-06] MEDS: **hydrALAZINE HCL** 25 MG TAB PO SCH (20:13)
--- NOTE | 2018-06-06 21:32 | ECGEPIP ---
Stationary ECG Study [facility] Test Date: 2018-06-05 Pat Name: RHETT SHIELDS Department: Room: [place] [address] Gender: F Service Support Representative: : 1940 Requested By: SOREN Shaw Order Number: [id number] Reading MD: Sundeep Piedra Measurements Intervals [place] Rate: 94 P: [place]: 0 QRS: -28 QRSD: 90 T: -1 QT: 372 QTc: 465 Interpretive Statements ATRIAL FIBRILLATION Poor R wave progression Leftward axis POSSIBLE INFERIOR MYOCARDIAL INFARCTION, PROBABLY OLD Nonspecific ST-T abnormalities. Decrease heart rate compared with 06/01/2018. Electronically Signed On 06-06-2018 21:32:28 EST by Sundeep Piedra
--- NOTE | 2018-06-06 21:35 | ECGEPIP ---
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 No longer in atrial fibrillation compared with 06/05/2018 at 00:14 hours Electronically Signed On 06-06-2018 21:35:02 EST by Sundeep Piedra
[2018-06-07] MEDS: PHENYTOIN 100 MG/2 ML VIAL (J1165) IV SCH ×3 (01:23→17:26)
[2018-06-07] MEDS: MORPHINE 4 MG/ML 1ML VIAL/SYRINGE (J2270) IV PRN ×4 (01:24→17:26)
[2018-06-07] MEDS: SODIUM CHLORIDE 0.9% INJ 10 ML SYR IV PRN (01:24)
[2018-06-07] MEDS: MAGIC MOUTHWASH SUSPENSION BTL SS PRN ×2 (01:24→06:21)
[2018-06-07 04:00] VITALS: BP 131/65
[2018-06-07 05:28] LABS: BASO # 0.1 10^3/uL (0.0-0.2); BASO % 0.4 % (0.0-1.0); EOS # 0.1 10^3/uL (0.0-0.50); EOS % 0.7 % (0.0-3.0); HEMOGLOBIN 10.2 g/dl (12.0-15.5); LYMPH # 2.1 10^3/uL (1.5-4.5); LYMPH % 11.1 % (24.0-44.0); MEAN CORPUSCULAR HEMOGLOBIN 28.9 pg (27.0-33.0); MEAN CORPUSCULAR HGB CONC 35.2 g/dl (32.0-36.5); MEAN CORPUSCULAR VOLUME 82.2 fl (80.0-96.0); MONO # 1.7 10^3/uL (0.0-0.8); MONO % 8.9 % (0.0-5.0); NEUTROPHILS # 14.1 10^3/uL (1.8-7.7); NEUTROPHILS % 74.7 % (36.0-66.0); PLATELET COUNT, AUTOMATED 367 10^3/uL (150-450); RED BLOOD COUNT 3.53 10^6/uL (4.00-5.40); WHITE BLOOD COUNT 18.8 10^3/uL (4.0-10.0)
[2018-06-07] MEDS: SODIUM CHLORIDE 0.9% INJ 10 ML SYR IV SCH ×2 (05:42→17:25)
[2018-06-07 06:03] LABS: ALBUMIN 1.7 GM/DL (3.2-5.2); ALT/SGPT 31 U/L (12-78); BILIRUBIN,TOTAL 0.4 MG/DL (0.2-1.0); BLOOD UREA NITROGEN 28 MG/DL (7-18); CALCIUM LEVEL 8.3 MG/DL (8.8-10.2); CARBON DIOXIDE LEVEL 25 MEQ/L (21-32); CHLORIDE LEVEL 104 MEQ/L (98-107); CREATININE FOR GFR 0.77 MG/DL (0.55-1.30); GLOMERULAR FILTRATION RATE > 60.0 (>39); GLUCOSE, FASTING 78 MG/DL (70-100); POTASSIUM SERUM 3.6 MEQ/L (3.5-5.1); SODIUM LEVEL 140 MEQ/L (136-145); TOTAL PROTEIN 6.6 GM/DL (6.4-8.2)
[2018-06-07] MEDS: traMADol 50 MG TAB PO PRN ×2 (06:17→14:05)
[2018-06-07] MEDS: ACETAMINOPHEN TAB 650MG DOSE (2X325MG) PO PRN (07:36)
[2018-06-07 07:39] VITALS: BP 148/96
[2018-06-07] MEDS: predniSONE 20 MG TAB PO SCH (08:44)
[2018-06-07] MEDS: CLOPIDOGREL 75 MG TAB PO SCH (08:44)
[2018-06-07] MEDS: OMEPRAZOLE 20 MG CAP PO SCH ×2 (08:44→21:17)
[2018-06-07] MEDS: METOPROLOL SUCC *XL* 25MG TAB (TopROL *XL*) PO SCH (08:44)
[2018-06-07] MEDS: EZETIMIBE 10 MG TAB (ZETIA) PO SCH (08:44)
[2018-06-07] MEDS: ASPIRIN 81 MG ENTERIC TAB PO SCH (08:44)
[2018-06-07] MEDS: ATORVASTATIN 20 MG TAB PO SCH (08:45)
[2018-06-07] MEDS: SENOKOT S TAB PO SCH ×2 (08:45→21:17)
[2018-06-07] MEDS: **hydrALAZINE HCL** 25 MG TAB PO SCH ×3 (08:45→21:18)
[2018-06-07] MEDS: amLODIPine 10 MG TAB PO SCH (08:45)
[2018-06-07] MEDS: HEPARIN SOD (PORCINE) 5000 UNITS/ML VIAL SQ SCH ×2 (09:00→21:17)
[2018-06-07] MEDS: CALCIUM CARBONATE 500 MG CHEW U/D PO SCH (09:00)
[2018-06-07 11:53] VITALS: BP 136/63
[2018-06-07] MEDS: FLUTICASONE PROP 0.05% NASAL SPRAY 16 GM (FLONASE) SCH (13:29)
[2018-06-07] MEDS: POLYVINYL ALCOHOL OPHTH SOLN 15 ML(LIQUITEARS) OU SCH ×3 (13:29→21:18)
[2018-06-07 14:00] VITALS: BP 130/61
[2018-06-07] MEDS ORDERED: GABAPENTIN 100 MG CAP PO ONE (14:00)
--- NOTE | 2018-06-07 17:20 | IPNPDOC ---
Text Note Date of Service The patient was seen on 06/07/18. NOTE Subjective: Patient notes she dysphagia to solids. Has neck pain left greater than the right, point tenderness improved. No chest pain or palpitations. No shortness of breath. Objective: Vitals: (see below) General: No acute distress, laying comfortably in bed. HEENT: Moist mucous membranes. Tenderness to palpation of neck bilateral. Neck: No JVD. Cardiac: RRR, No murmurs Pulm: Clear to auscultation b/l. No wheezing, rhonchi Abd: NT/ND + BS Ext: No edema or cyanosis Labs (see below) CT head/neck reviewed. Assessment/Plan 1. s/p Metabolic encephalopathy resolved. ?2/2 initial renal failure. Antibiotics per Dr. Burrell. Dr Miles has reviewed the CT of the neck imaging, and does not believe that there is any significant changes in the left mandibular region, and does not recommend further imaging of the region. Patient was on meropenem/vanoco and improving; defer abx to Dr. Burrell., Leukocytosis trending down. Appreciate ENT input. 2. Neck pain- patient gives a limited history however this looks like it's been progressive over the last few months to obtain a year, and his periodic. Patient had extensive workup, including MRI cervical spine, MRA carotids, CT neck, LP, MRI brain, evaluation by ENT/infectious disease/vascular surgery/cardiology. At this time, given the patient's ESR greater than 140, there is suspicion of vasculitis, especially in the setting of carotid aneurysm.Pt on prednisone with vasculitis workup pending, including complements, SAGAR, ANCA, and rheumatology has been consulted. ENT has recommended carotidynia as a possible diagnosis. Patient is currently on metoprolol. Esophagram wnl. I discussed with Dr. Tamez, who believes the patient is high risk to be taken off her Plavix for temporal artery biopsy, and the patient is unlikely to have this given the absence of pain in the region. Patient has also been started on gabapentin. 3. Right carotid aneurysm- appreciate Dr. Whitehead's input. On aspirin and Plavix. Dr. Whitehead does not believe that the carotid disease is a cause of neck pain. 4. s/p Acute renal failure likely secondary to ibuprofen. Improving. Avoid nephrotoxins. Appreciate nephro input. 5. New onset AF - TTE. lopressor IV. Converted back to SSS. Likely 2/2 above. Cont to monitor. Cardiology consulted, no recommendations for anti-coagulation at this time. 6. Hyperlipidemia statin 7. Dysphagia/odynophagia- esophagram pending 8. HTN controlled continue current meds. Hold HCTZ. 9. Underlying dementia DVT prophy: Heparin subcutaneous Overall prognosis guarded Patient is DNR/DNI. MOLST form updated. Will likely need halfway placement. VS,Fishbone, I+O VS, Fishbone, I+O Laboratory Tests 06/07/18 04:34 Red Blood Count 3.53 L, Mean Corpuscular Volume 82.2, Mean Corpuscular Hemoglobin 28.9, Mean Corpuscular Hemoglobin Concent 35.2, Red Cell Distribution Width 15.1 H, Neutrophils (%) (Auto) 74.7 H, Lymphocytes (%) (Auto) 11.1 L, Monocytes (%) (Auto) 8.9 H, Eosinophils (%) (Auto) 0.7, Basophils (%) (Auto) 0.4, Neutrophils # (Auto) 14.1 H, Lymphocytes # (Auto) 2.1, Monocytes # (Auto) 1.7 H, Eosinophils # (Auto) 0.1, Basophils # (Auto) 0.1, Calcium Level 8.3 L, Aspartate Amino Transf (AST/SGOT) 67 H, Alanine Aminotransferase (ALT/SGPT) 31, Alkaline Phosphatase 246 H, Total Bilirubin 0.4, Total Protein 6.6, Albumin 1.7 L Vital Signs Date Time Temp Pulse Resp B/P (MAP) Pulse Ox O2 Delivery O2 Flow Rate FiO2 06/07/18 16:51 122/59 06/07/18 14:35 17 06/07/18 14:00 98.0 62 96 Room Air I&O- Last 24 Hours up to 6 AM 06/07/18 06:00 Intake Total 800 ml Output Total 1425 ml Balance -625 ml RANCHO RICH MD Jun 07, 2018 17:20
[2018-06-07 18:21] LABS: ANCA-ATYPICAL <1:20 titer (Neg:<1:20); ANTINUCLEAR ANTIBODIES DIRECT Negative (Negative); CYTOPLASMIC NEUTROP AB ANCA-C <1:20 titer (Neg:<1:20); PERINUCLEAR AB ANCA-P <1:20 titer (Neg:<1:20)
[2018-06-07 20:00] VITALS: BP 111/58
[2018-06-07] MEDS: GABAPENTIN 100 MG CAP PO SCH (21:18)
[2018-06-07 23:59] VITALS: BP 123/58
[2018-06-08] MEDS: SODIUM CHLORIDE 0.9% INJ 10 ML SYR IV PRN (02:03)
[2018-06-08] MEDS: PHENYTOIN 100 MG/2 ML VIAL (J1165) IV SCH ×3 (02:03→18:26)
[2018-06-08] MEDS: traMADol 50 MG TAB PO PRN ×3 (02:04→18:26)
[2018-06-08] MEDS: MORPHINE 4 MG/ML 1ML VIAL/SYRINGE (J2270) IV PRN ×4 (03:21→15:16)
[2018-06-08] MEDS: SODIUM CHLORIDE 0.9% INJ 10 ML SYR IV SCH ×2 (03:22→18:27)
[2018-06-08 04:00] VITALS: BP 131/60
[2018-06-08 05:32] LABS: BASO # 0.1 10^3/uL (0.0-0.2); BASO % 0.4 % (0.0-1.0); EOS # 0.1 10^3/uL (0.0-0.50); EOS % 0.6 % (0.0-3.0); HEMATOCRIT 27.2 % (36.0-47.0); HEMOGLOBIN 9.6 g/dl (12.0-15.5); LYMPH % 11.5 % (24.0-44.0); MEAN CORPUSCULAR HEMOGLOBIN 29.4 pg (27.0-33.0); MEAN CORPUSCULAR HGB CONC 35.3 g/dl (32.0-36.5); MEAN CORPUSCULAR VOLUME 83.2 fl (80.0-96.0); MONO # 1.6 10^3/uL (0.0-0.8); MONO % 9.3 % (0.0-5.0); NEUTROPHILS % 75.6 % (36.0-66.0); PLATELET COUNT, AUTOMATED 372 10^3/uL (150-450); RED BLOOD COUNT 3.27 10^6/uL (4.00-5.40); WHITE BLOOD COUNT 17.2 10^3/uL (4.0-10.0)
[2018-06-08 06:10] LABS: ALBUMIN 1.7 GM/DL (3.2-5.2); ALT/SGPT 34 U/L (12-78); BILIRUBIN,TOTAL 0.4 MG/DL (0.2-1.0); BLOOD UREA NITROGEN 28 MG/DL (7-18); CALCIUM LEVEL 8.1 MG/DL (8.8-10.2); CARBON DIOXIDE LEVEL 25 MEQ/L (21-32); CHLORIDE LEVEL 106 MEQ/L (98-107); CREATININE FOR GFR 0.79 MG/DL (0.55-1.30); GLOMERULAR FILTRATION RATE > 60.0 (>39); GLUCOSE, FASTING 84 MG/DL (70-100); MAGNESIUM LEVEL 1.9 MG/DL (1.8-2.4); POTASSIUM SERUM 3.5 MEQ/L (3.5-5.1); SODIUM LEVEL 140 MEQ/L (136-145); TOTAL PROTEIN 6.6 GM/DL (6.4-8.2)
[2018-06-08 08:00] VITALS: BP 128/66
[2018-06-08] MEDS: CALCIUM CARBONATE 500 MG CHEW U/D PO SCH (09:00)
[2018-06-08 09:09] LABS: ERYTHROCYTE SEDIMENTATION RATE 126 mm/hr (0-30)
[2018-06-08] MEDS: GABAPENTIN 100 MG CAP PO SCH ×2 (09:57→20:16)
[2018-06-08] MEDS: ASPIRIN 81 MG ENTERIC TAB PO SCH (09:57)
[2018-06-08] MEDS: EZETIMIBE 10 MG TAB (ZETIA) PO SCH (09:57)
[2018-06-08] MEDS: CLOPIDOGREL 75 MG TAB PO SCH (09:57)
[2018-06-08] MEDS: HEPARIN SOD (PORCINE) 5000 UNITS/ML VIAL SQ SCH ×2 (09:58→20:17)
[2018-06-08] MEDS: SENOKOT S TAB PO SCH ×2 (09:58→20:16)
[2018-06-08] MEDS: FLUTICASONE PROP 0.05% NASAL SPRAY 16 GM (FLONASE) SCH (09:58)
[2018-06-08] MEDS: predniSONE 20 MG TAB PO SCH (09:58)
[2018-06-08] MEDS: ATORVASTATIN 20 MG TAB PO SCH (09:58)
[2018-06-08] MEDS: **hydrALAZINE HCL** 25 MG TAB PO SCH ×3 (09:58→20:17)
[2018-06-08] MEDS: POLYVINYL ALCOHOL OPHTH SOLN 15 ML(LIQUITEARS) OU SCH ×3 (09:58→20:16)
[2018-06-08] MEDS: amLODIPine 10 MG TAB PO SCH (09:59)
[2018-06-08] MEDS: METOPROLOL SUCC *XL* 25MG TAB (TopROL *XL*) PO SCH (09:59)
[2018-06-08] MEDS: OMEPRAZOLE 20 MG CAP PO SCH ×2 (09:59→20:16)
[2018-06-08] MEDS: MAGIC MOUTHWASH SUSPENSION BTL SS PRN (10:00)
--- NOTE | 2018-06-08 11:30 | IPNPDOC ---
Text Note Date of Service The patient was seen on 06/08/18. NOTE Subjective: No dysphagia. Neck pain improved, patient denies any pain today. No chest pain or palpitations. No shortness of breath. Objective: Vitals: (see below) General: No acute distress, laying comfortably in bed. HEENT: Moist mucous membranes. No tenderness on palpation. Neck: No JVD. Cardiac: RRR, No murmurs Pulm: Clear to auscultation b/l. No wheezing, rhonchi Abd: NT/ND + BS Ext: No edema or cyanosis Labs (see below) CT head/neck reviewed. Assessment/Plan 1. s/p Metabolic encephalopathy resolved. ?2/2 initial renal failure. Antibiotics per Dr. Burrell. Dr Miles has reviewed the CT of the neck imaging, and does not believe that there is any significant changes in the left mandibular region, and does not recommend further imaging of the region. Patient was on meropenem/vanoco and improving; defer abx to Dr. Burrell., Leukocytosis trending down. Appreciate ENT input. 2. Neck pain- improved. patient gives a limited history however this looks like it's been progressive over the last few months to obtain a year, and his periodic. Patient had extensive workup, including MRI cervical spine, MRA carotids, CT neck, LP, MRI brain, evaluation by ENT/infectious disease/vascular surgery/cardiology. At this time, given the patient's ESR greater than 140, the re is suspicion of vasculitis, especially in the setting of carotid aneurysm.Pt on prednisone with vasculitis workup pending, including complements, SAGAR, ANCA, and rheumatology has been consulted. ENT has recommended carotidynia as a possible diagnosis. Patient is currently on metoprolol. Esophagram wnl. I discussed with Dr. Tamez, who believes the patient is high risk to be taken off her Plavix for temporal artery biopsy, and the patient is unlikely to have this given the absence of pain in the region. Patient has also been started on gabapentin, which has helped with her pain. 3. Right carotid aneurysm- appreciate Dr. Whitehead's input. On aspirin and Plavix. Dr. Whitehead does not believe that the carotid disease is a cause of neck pain. 4. s/p Acute renal failure likely secondary to ibuprofen. Improving. Avoid nephrotoxins. Appreciate nephro input. 5. New onset AF - TTE. lopressor IV. Converted back to SSS. Likely 2/2 above. Cont to monitor. Cardiology consulted, no recommendations for anti-coagulation at this time. 6. Hyperlipidemia statin 7. Dysphagia/odynophagia- esophagram pending 8. HTN controlled continue current meds. Hold HCTZ. 9. Underlying dementia DVT prophy: Heparin subcutaneous Overall prognosis guarded Patient is DNR/DNI. MOLST form updated. Will likely need residential placement. VS,Fishbone, I+O VS, Fishbone, I+O Laboratory Tests 06/08/18 05:17 Red Blood Count 3.27 L, Mean Corpuscular Volume 83.2, Mean Corpuscular Hemoglobin 29.4, Mean Corpuscular Hemoglobin Concent 35.3, Red Cell Distribution Width 15.4 H, Neutrophils (%) (Auto) 75.6 H, Lymphocytes (%) (Auto) 11.5 L, Monocytes (%) (Auto) 9.3 H, Eosinophils (%) (Auto) 0.6, Basophils (%) (Auto) 0.4, Neutrophils # (Auto) 13.0 H, Lymphocytes # (Auto) 2.0, Monocytes # (Auto) 1.6 H, Eosinophils # (Auto) 0.1, Basophils # (Auto) 0.1, Calcium Level 8.1 L, Aspartate Amino Transf (AST/SGOT) 71 H, Alanine Aminotransferase (ALT/SGPT) 34, Alkaline Phosphatase 274 H, Total Bilirubin 0.4, Total Protein 6.6, Albumin 1.7 L Vital Signs Date Time Temp Pulse Resp B/P (MAP) Pulse Ox O2 Delivery O2 Flow Rate FiO2 06/08/18 11:01 20 06/08/18 09:59 67 128/66 06/08/18 08:00 97.4 96 Room Air I&O- Last 24 Hours up to 6 AM 06/08/18 06:00 Intake Total 480 ml Output Total 600 ml Balance -120 ml RANCHO RICH MD Jun 08, 2018 11:30
[2018-06-08 12:00] VITALS: BP 164/86
[2018-06-08 16:00] VITALS: BP 130/66
[2018-06-08] MEDS: ACETAMINOPHEN TAB 650MG DOSE (2X325MG) PO PRN (16:44)
[2018-06-08 20:00] VITALS: BP 136/62
[2018-06-08 23:59] VITALS: BP 145/70
[2018-06-09 00:06] LABS: ANA (HEP2) Negative (.); ANTI DOUBLE STRAND-DNA AB 1 IU/mL (0-9); CYCLIC CITRULLINATED PEPTIDE 8 units (0-19); RNP ANTIBODY < 0.2 AI (0.0-0.9); SMITHS ANTIBODY 0.2 AI (0.0-0.9); SSA SJOGRENS A <0.2 AI (0.0-0.9); SSB SJOGRENS B <0.2 AI (0.0-0.9)
[2018-06-09] MEDS: PHENYTOIN 100 MG/2 ML VIAL (J1165) IV SCH ×3 (03:06→18:48)
[2018-06-09] MEDS: SODIUM CHLORIDE 0.9% INJ 10 ML SYR IV PRN (03:07)
[2018-06-09 04:00] VITALS: BP 150/72
[2018-06-09] MEDS: ACETAMINOPHEN TAB 650MG DOSE (2X325MG) PO PRN ×2 (04:21→13:34)
[2018-06-09] MEDS: SODIUM CHLORIDE 0.9% INJ 10 ML SYR IV SCH ×2 (05:32→18:48)
[2018-06-09 08:00] VITALS: BP 133/62
[2018-06-09 08:29] LABS: BASO # 0.1 10^3/uL (0.0-0.2); BASO % 0.5 % (0.0-1.0); EOS # 0.1 10^3/uL (0.0-0.50); HEMATOCRIT 30.8 % (36.0-47.0); HEMOGLOBIN 10.4 g/dl (12.0-15.5); LYMPH # 2.1 10^3/uL (1.5-4.5); MEAN CORPUSCULAR HEMOGLOBIN 29.5 pg (27.0-33.0); MEAN CORPUSCULAR HGB CONC 33.8 g/dl (32.0-36.5); MEAN CORPUSCULAR VOLUME 87.3 fl (80.0-96.0); MONO # 1.4 10^3/uL (0.0-0.8); MONO % 9.8 % (0.0-5.0); NEUTROPHILS # 10.1 10^3/uL (1.8-7.7); NEUTROPHILS % 71.5 % (36.0-66.0); PLATELET COUNT, AUTOMATED 440 10^3/uL (150-450); RED BLOOD COUNT 3.53 10^6/uL (4.00-5.40); WHITE BLOOD COUNT 14.1 10^3/uL (4.0-10.0)
[2018-06-09] MEDS: predniSONE 20 MG TAB PO SCH (08:29)
[2018-06-09] MEDS: amLODIPine 10 MG TAB PO SCH (08:30)
[2018-06-09] MEDS: HEPARIN SOD (PORCINE) 5000 UNITS/ML VIAL SQ SCH ×2 (08:30→21:01)
[2018-06-09] MEDS: ASPIRIN 81 MG ENTERIC TAB PO SCH (08:30)
[2018-06-09] MEDS: CLOPIDOGREL 75 MG TAB PO SCH (08:31)
[2018-06-09] MEDS: OMEPRAZOLE 20 MG CAP PO SCH ×2 (08:31→21:01)
[2018-06-09] MEDS: METOPROLOL SUCC *XL* 25MG TAB (TopROL *XL*) PO SCH (08:31)
[2018-06-09] MEDS: ATORVASTATIN 20 MG TAB PO SCH (08:32)
[2018-06-09] MEDS: POLYVINYL ALCOHOL OPHTH SOLN 15 ML(LIQUITEARS) OU SCH ×3 (08:32→21:01)
[2018-06-09] MEDS: CALCIUM CARBONATE 500 MG CHEW U/D PO SCH (08:32)
[2018-06-09] MEDS: **hydrALAZINE HCL** 25 MG TAB PO SCH ×3 (08:32→21:00)
[2018-06-09] MEDS: FLUTICASONE PROP 0.05% NASAL SPRAY 16 GM (FLONASE) SCH (08:33)
[2018-06-09] MEDS: EZETIMIBE 10 MG TAB (ZETIA) PO SCH (08:34)
[2018-06-09] MEDS: GABAPENTIN 100 MG CAP PO SCH ×2 (08:34→21:01)
[2018-06-09] MEDS: SENOKOT S TAB PO SCH ×2 (08:35→21:01)
[2018-06-09 08:46] LABS: ALBUMIN 1.9 GM/DL (3.2-5.2); ALT/SGPT 38 U/L (12-78); BILIRUBIN,TOTAL 0.4 MG/DL (0.2-1.0); BLOOD UREA NITROGEN 21 MG/DL (7-18); CALCIUM LEVEL 8.4 MG/DL (8.8-10.2); CARBON DIOXIDE LEVEL 26 MEQ/L (21-32); CHLORIDE LEVEL 105 MEQ/L (98-107); CREATININE FOR GFR 0.84 MG/DL (0.55-1.30); GLOMERULAR FILTRATION RATE > 60.0 (>39); GLUCOSE, FASTING 100 MG/DL (70-100); POTASSIUM SERUM 3.6 MEQ/L (3.5-5.1); SODIUM LEVEL 140 MEQ/L (136-145); TOTAL PROTEIN 6.9 GM/DL (6.4-8.2)
[2018-06-09 09:05] LABS: ERYTHROCYTE SEDIMENTATION RATE > 140 mm/hr (0-30)
--- NOTE | 2018-06-09 10:59 | IPNPDOC ---
Text Note Date of Service The patient was seen on 06/09/18. NOTE Subjective: No dysphagia. Neck pain improving after steroids/gabapentin started. No chest pain or palpitations. No shortness of breath. Objective: Vitals: (see below) General: No acute distress, laying comfortably in bed. HEENT: Moist mucous membranes. No tenderness on palpation. Neck: No JVD. Cardiac: RRR, No murmurs Pulm: Clear to auscultation b/l. No wheezing, rhonchi Abd: NT/ND + BS Ext: No edema or cyanosis Labs (see below) CT head/neck reviewed. Assessment/Plan 1. s/p Metabolic encephalopathy resolved. ?2/2 initial renal failure. Antibiotics per Dr. Burrell. Dr Miles has reviewed the CT of the neck imaging, and does not believe that there is any significant changes in the left mandibular region, and does not recommend further imaging of the region. Patient was on meropenem/vanoco and improving; defer abx to Dr. Burrell., Leukocytosis trending down. Appreciate ENT input. 2. Neck pain- improved. patient gives a limited history however this looks like it's been progressive over the last few months to obtain a year, and his periodic. Patient had extensive workup, including MRI cervical spine, MRA carotids, CT neck, LP, MRI brain, evaluation by ENT/infectious disease/vascular surgery/cardiology. At this time, given the patient's ESR greater than 140, there is suspicion of vasculitis, especially in the setting of carotid aneurysm.Pt on prednisone with vasculitis workup pending, including complements, SAGAR, ANCA, and rheumatology has been consulted. ENT has recommended carotidynia as a possible diagnosis. Patient is currently on metoprolol. Esophagram wnl. I discussed with Dr. Tamez, who believes the patient is high risk to be taken off her Plavix for temporal artery biopsy, and the patient is unlikely to have this given the absence of pain in the region. Patient has also been started on gabapentin, which has helped with her pain. Discussed with Dr. Whitehead who will set her up for a temporal artery biopsy. Cont steroids in the meantime. 3. Right carotid aneurysm- appreciate Dr. Whitehead's input. On aspirin and Plavix. Dr. Whitehead does not believe that the carotid disease is a cause of neck pain. 4. s/p Acute renal failure likely secondary to ibuprofen. Improving. Avoid nephrotoxins. Appreciate nephro input. 5. New onset AF - TTE. lopressor IV. Converted back to SSS. Likely 2/2 above. Cont to monitor. Cardiology consulted, no recommendations for anti-coagulation at this time. 6. Hyperlipidemia statin 7. Dysphagia/odynophagia- esophagram pending 8. HTN controlled continue current meds. Hold HCTZ. 9. Underlying dementia DVT prophy: Heparin subcutaneous Overall prognosis guarded Patient is DNR/DNI. MOLST form updated. Will likely need fpc placement. VS,Fishbone, I+O VS, Fishbone, I+O Laboratory Tests 06/09/18 08:02 Red Blood Count 3.53 L, Mean Corpuscular Volume 87.3, Mean Corpuscular Hemoglobin 29.5, Mean Corpuscular Hemoglobin Concent 33.8, Red Cell Distribution Width 15.3 H, Neutrophils (%) (Auto) 71.5 H, Lymphocytes (%) (Auto) 15.0 L, Monocytes (%) (Auto) 9.8 H, Eosinophils (%) (Auto) 1.0, Basophils (%) (Auto) 0.5, Neutrophils # (Auto) 10.1 H, Lymphocytes # (Auto) 2.1, Monocytes # (Auto) 1.4 H, Eosinophils # (Auto) 0.1, Basophils # (Auto) 0.1, Calcium Level 8.4 L, Aspartate Amino Transf (AST/SGOT) 71 H, Alanine Aminotransferase (ALT/SGPT) 38, Alkaline Phosphatase 294 H, Total Bilirubin 0.4, Total Protein 6.9, Albumin 1.9 L Vital Signs Date Time Temp Pulse Resp B/P (MAP) Pulse Ox O2 Delivery O2 Flow Rate FiO2 06/09/18 08:31 66 133/62 06/09/18 08:00 98.5 18 99 Room Air I&O- Last 24 Hours up to 6 AM 06/09/18 05:59 Intake Total 960 ml Output Total 1700 ml Balance -740 ml RANCHO RICH MD Jun 09, 2018 10:59
[2018-06-09] MEDS: traMADol 50 MG TAB PO PRN (11:21)
[2018-06-09 12:00] VITALS: BP 160/73
[2018-06-09 13:08] LABS: GAMMA GLUTAMYLTRANSPEPTIDASE 354 U/L (5-55)
[2018-06-09 15:40] VITALS: BP 130/62
[2018-06-09 20:00] VITALS: BP 123/60
--- NOTE | 2018-06-09 21:04 | IPN ---
DATE: 06/09/2018 Ms. Bunch is irritable this afternoon. She wants to go home. She does not understand why we are keeping her against she wishes. She feels well. She has had no fever or chills. No nausea, vomiting, or diarrhea. This morning she was complaining of some neck pain but this afternoon she feels better. She has no headache, no neck stiffness, no joint pain, no temporal headaches. Temperature is 98.1, pulse 65, respirations 20, blood pressure 130/62, oxygen saturation 100% on room air. Heart normal S1, S2, no murmurs. Lungs are clear, no wheezes, rales, or rhonchi. Abdomen is soft, nontender. Extremities: No edema. Joints nontender. No temporal artery tenderness on exam. LABORATORY DATA: White count is 14.1, hemoglobin 10.4, hematocrit 30.8, platelets 440, ESR more than 140, sodium 140, potassium 3.6, chloride 105, bicarbonate 26, BUN 21, creatinine 0.84, glucose 100, calcium 8.4, GGT 354, AST 71, ALT 38, alkaline phosphatase 294, CRP 16.9 down from 49. Cultures have all been negative; blood cultures, urine cultures, throat culture, respiratory panel, lumbar puncture. IMPRESSION: 1. Neck pain of unclear etiology. Work of vasculitis so far complement level C3 and C4 have been low, erythrocyte sedimentation rate (ESR) elevated, C-reactive protein (CRP) improving on steroids. Antinuclear antibodies (SAGAR), antineutrophil cytoplasmic antibody (ANCA) have been negative. Temporal artery biopsy was not done due to the fact that she is on Plavix. At this point, patient is being empirically treated with prednisone 60 mg daily with improvement. 2. Right carotid aneurysm, not the cause of pain. 3. Acute renal failure, has resolved, that was related to ibuprofen. PLAN: At this point, patient would like to be discharged home. I do not see any indication for her to stay in the hospital at this point. Infectious diseases have been ruled out. Infectious disease (ID) signing off. Case has been discussed with Dr. Jhaveri who felt if she is being treated with prednisone, she should have a temporal artery biopsy done to rule out that diagnosis. [facility]
[2018-06-09 23:59] VITALS: BP 140/65
[2018-06-10] MEDS: PHENYTOIN 100 MG/2 ML VIAL (J1165) IV SCH (03:37)
[2018-06-10] MEDS: traMADol 50 MG TAB PO PRN (03:47)
[2018-06-10 04:00] VITALS: BP 136/64
[2018-06-10] MEDS: MORPHINE 4 MG/ML 1ML VIAL/SYRINGE (J2270) IV PRN (05:08)
[2018-06-10] MEDS: SODIUM CHLORIDE 0.9% INJ 10 ML SYR IV SCH ×2 (05:08→17:23)
[2018-06-10 05:43] LABS: BASO # 0.1 10^3/uL (0.0-0.2); BASO % 0.5 % (0.0-1.0); EOS # 0.1 10^3/uL (0.0-0.50); EOS % 0.7 % (0.0-3.0); HEMATOCRIT 30.2 % (36.0-47.0); HEMOGLOBIN 10.2 g/dl (12.0-15.5); LYMPH # 2.9 10^3/uL (1.5-4.5); LYMPH % 19.4 % (24.0-44.0); MEAN CORPUSCULAR HEMOGLOBIN 28.6 pg (27.0-33.0); MEAN CORPUSCULAR HGB CONC 33.8 g/dl (32.0-36.5); MEAN CORPUSCULAR VOLUME 84.6 fl (80.0-96.0); MONO # 1.6 10^3/uL (0.0-0.8); MONO % 10.5 % (0.0-5.0); NEUTROPHILS # 10.2 10^3/uL (1.8-7.7); NEUTROPHILS % 67.4 % (36.0-66.0); PLATELET COUNT, AUTOMATED 521 10^3/uL (150-450); RED BLOOD COUNT 3.57 10^6/uL (4.00-5.40); WHITE BLOOD COUNT 15.1 10^3/uL (4.0-10.0)
[2018-06-10 06:11] LABS: ALBUMIN 2.1 GM/DL (3.2-5.2); ALT/SGPT 37 U/L (12-78); BILIRUBIN,TOTAL 0.4 MG/DL (0.2-1.0); BLOOD UREA NITROGEN 17 MG/DL (7-18); CALCIUM LEVEL 8.3 MG/DL (8.8-10.2); CARBON DIOXIDE LEVEL 23 MEQ/L (21-32); CHLORIDE LEVEL 109 MEQ/L (98-107); GLOMERULAR FILTRATION RATE > 60.0 (>39); GLUCOSE, FASTING 98 MG/DL (70-100); POTASSIUM SERUM 3.7 MEQ/L (3.5-5.1); SODIUM LEVEL 142 MEQ/L (136-145); TOTAL PROTEIN 7.3 GM/DL (6.4-8.2)
[2018-06-10] MEDS: ACETAMINOPHEN TAB 650MG DOSE (2X325MG) PO PRN (07:22)
[2018-06-10 08:00] VITALS: BP 172/71
[2018-06-10] MEDS: GABAPENTIN 100 MG CAP PO SCH ×2 (09:47→20:15)
[2018-06-10] MEDS: SENOKOT S TAB PO SCH ×2 (09:47→20:16)
[2018-06-10] MEDS: ATORVASTATIN 20 MG TAB PO SCH (09:47)
[2018-06-10] MEDS: ASPIRIN 81 MG ENTERIC TAB PO SCH (09:47)
[2018-06-10] MEDS: CALCIUM CARBONATE 500 MG CHEW U/D PO SCH (09:47)
[2018-06-10] MEDS: predniSONE 20 MG TAB PO SCH (09:47)
[2018-06-10] MEDS: EZETIMIBE 10 MG TAB (ZETIA) PO SCH (09:47)
[2018-06-10] MEDS: OMEPRAZOLE 20 MG CAP PO SCH ×2 (09:48→20:15)
[2018-06-10] MEDS: amLODIPine 10 MG TAB PO SCH (09:48)
[2018-06-10] MEDS: **hydrALAZINE HCL** 25 MG TAB PO SCH ×3 (09:48→20:15)
[2018-06-10] MEDS: METOPROLOL SUCC *XL* 25MG TAB (TopROL *XL*) PO SCH (09:48)
[2018-06-10] MEDS: FLUTICASONE PROP 0.05% NASAL SPRAY 16 GM (FLONASE) SCH (09:49)
[2018-06-10] MEDS: POLYVINYL ALCOHOL OPHTH SOLN 15 ML(LIQUITEARS) OU SCH ×3 (09:49→20:16)
[2018-06-10] MEDS: HEPARIN SOD (PORCINE) 5000 UNITS/ML VIAL SQ SCH ×2 (09:49→20:16)
[2018-06-10] MEDS: PHENYTOIN ER 100 MG CAP PO SCH ×3 (10:00→22:00)
[2018-06-10 12:00] VITALS: BP 130/61
[2018-06-10 17:20] VITALS: BP 153/71
--- NOTE | 2018-06-10 18:36 | IPN ---
DATE: 06/10/2018 Patient seen and examined. No acute events overnight. Reported right-sided neck pain with no exacerbating or relieving factor. Denies any chest pain, pressure, or discomfort. VITAL SIGNS: Temperature 98.4, pulse 72, respirations 18, blood pressure 153/71, pulse oximetry 97% on room air. LABORATORY DATA: WBC 15.1, hemoglobin and hematocrit 10.2 over 30.2, platelets 521. Chemistry: Sodium 142, potassium 3.7, chloride 109, bicarbonate 23, BUN 17, creatinine 0.9. PHYSICAL EXAMINATION: GENERAL: Patient comfortable, in no acute distress. HEENT: Normocephalic, atraumatic. Moist mucous membranes. NECK: Pulsating right carotid aneurysm palpated. CARDIAC: Regular, S1, S2. PULMONARY: Bilaterally clear. ABDOMEN: Soft, nontender. Positive bowel sounds. EXTREMITIES: No clubbing, cyanosis or edema. ASSESSMENT AND PLAN: This is a 77-year-old female patient with underlying medical history of dementia, hiatal hernia, dyslipidemia, hypertension, seizure disorder, osteopenia, presented with altered mental status, acute renal failure, and neck pain. PROBLEMS: 1. Acute metabolic encephalopathy, resolving, secondary to renal failure versus worsening dementia, versus underlying infection. Patient was treated with meropenem, vancomycin. Infectious disease was consulted. Currently back to baseline. Supportive care. Workup including MRIs and EEG were done. 2. Neck pain, improved. Extensive workup including MRIs, MRI of the carotids, CT of the neck, lumbar puncture, MRI of the brain, Ear, Nose, Throat (ENT) consult, infectious disease (ID) consult, vascular consult and cardiology consult was done. Given significantly elevated ESR and CRP, suspicion for vasculitis. Rheumatology was consulted, especially with carotid aneurysm. Patient placed on prednisone pending vasculitis workup including complements, SAGAR, ANCA. Patient will need a temporal artery biopsy by vascular. Esophagram was within normal limits. Plavix on hold for temporal artery biopsy. Continue gabapentin. Continue steroid. 3. Right carotid aneurysm. Vascular consulted, initially on aspirin, Plavix initially has been added. Will restart Plavix after temporal artery biopsy. Vascular surgery does not believe the carotid artery disease is the cause of the patient's neck pain. 3. Acute renal failure, resolved. Likely secondary to nonsteroidal anti-inflammatory drug (NSAID). Avoid nephrotoxic agent. Nephrology input appreciated. 4. New onset atrial fibrillation. Echo appreciated. Currently back to sinus rhythm. Cardiology consulted. Not recommending anticoagulation at this time. Continue beta andreas as ordered. 5. History of seizure. Continue current medication. 6. Dyslipidemia. Continue statin. 7. Dysphagia. Esophagram appreciated. 8. Hypertension. Continue metoprolol, Norvasc. Continue aspirin. Hydralazine 25 mg by mouth three times a day. Adjust medication as needed. 9. Leukocytosis. Possibly steroid induced. Culture has been appreciated. Will continue to monitor. Follow CRP. 10. Dementia. Supportive care. Likely need placement. 11. Deep vein thrombosis (DVT) prophylaxis. Heparin subcu. DISPOSITION: Pending usp placement as well as temporal artery biopsy.
[2018-06-10 19:43] VITALS: BP 158/78
[2018-06-10 23:22] VITALS: BP 152/71
[2018-06-11 00:09] LABS: ANTI-MITOCHONDRIAL ANTIBODY 18.6 Units (0.0-20.0)
[2018-06-11 03:36] VITALS: BP 158/64
[2018-06-11] MEDS: ACETAMINOPHEN TAB 650MG DOSE (2X325MG) PO PRN (03:47)
[2018-06-11] MEDS: traMADol 50 MG TAB PO PRN ×2 (04:30→20:10)
[2018-06-11] MEDS: SODIUM CHLORIDE 0.9% INJ 10 ML SYR IV SCH ×2 (05:29→18:47)
[2018-06-11] MEDS: SODIUM CHLORIDE 0.9% INJ 10 ML SYR IV PRN (08:09)
[2018-06-11 08:28] LABS: BASO # 0.1 10^3/uL (0.0-0.2); BASO % 0.8 % (0.0-1.0); EOS # 0.1 10^3/uL (0.0-0.50); EOS % 0.9 % (0.0-3.0); HEMATOCRIT 30.2 % (36.0-47.0); LYMPH % 21.4 % (24.0-44.0); MEAN CORPUSCULAR HEMOGLOBIN 29.2 pg (27.0-33.0); MEAN CORPUSCULAR HGB CONC 33.1 g/dl (32.0-36.5); MONO # 1.5 10^3/uL (0.0-0.8); MONO % 10.4 % (0.0-5.0); NEUTROPHILS # 9.1 10^3/uL (1.8-7.7); NEUTROPHILS % 65.1 % (36.0-66.0); PLATELET COUNT, AUTOMATED 544 10^3/uL (150-450); RED BLOOD COUNT 3.43 10^6/uL (4.00-5.40); WHITE BLOOD COUNT 14.1 10^3/uL (4.0-10.0)
[2018-06-11 08:44] VITALS: BP 134/64
[2018-06-11] MEDS: CALCIUM CARBONATE 500 MG CHEW U/D PO SCH (08:48)
[2018-06-11] MEDS: PHENYTOIN ER 100 MG CAP PO SCH ×3 (08:48→20:10)
[2018-06-11] MEDS: HEPARIN SOD (PORCINE) 5000 UNITS/ML VIAL SQ SCH ×2 (08:48→20:11)
[2018-06-11] MEDS: FLUTICASONE PROP 0.05% NASAL SPRAY 16 GM (FLONASE) SCH (08:48)
[2018-06-11] MEDS: ASPIRIN 81 MG ENTERIC TAB PO SCH (08:49)
[2018-06-11] MEDS: predniSONE 20 MG TAB PO SCH (08:50)
[2018-06-11] MEDS: SENOKOT S TAB PO SCH ×2 (08:50→20:11)
[2018-06-11] MEDS: EZETIMIBE 10 MG TAB (ZETIA) PO SCH (08:51)
[2018-06-11] MEDS: GABAPENTIN 100 MG CAP PO SCH ×2 (08:51→20:11)
[2018-06-11] MEDS: ATORVASTATIN 20 MG TAB PO SCH (08:51)
[2018-06-11] MEDS: OMEPRAZOLE 20 MG CAP PO SCH ×2 (08:51→20:11)
[2018-06-11] MEDS: METOPROLOL SUCC *XL* 25MG TAB (TopROL *XL*) PO SCH (08:52)
[2018-06-11] MEDS: POLYVINYL ALCOHOL OPHTH SOLN 15 ML(LIQUITEARS) OU SCH ×3 (08:52→20:12)
[2018-06-11] MEDS: amLODIPine 10 MG TAB PO SCH (08:52)
[2018-06-11] MEDS: **hydrALAZINE HCL** 25 MG TAB PO SCH ×3 (08:53→20:11)
[2018-06-11 08:57] LABS: ALBUMIN 2.1 GM/DL (3.2-5.2); ALT/SGPT 39 U/L (12-78); BILIRUBIN,TOTAL 0.3 MG/DL (0.2-1.0); BLOOD UREA NITROGEN 15 MG/DL (7-18); C REACTIVE PROTEIN QUANTITATIV 9.57 MG/DL (0.00-0.30); CALCIUM LEVEL 8.5 MG/DL (8.8-10.2); CARBON DIOXIDE LEVEL 24 MEQ/L (21-32); CHLORIDE LEVEL 110 MEQ/L (98-107); CREATININE FOR GFR 0.87 MG/DL (0.55-1.30); GLOMERULAR FILTRATION RATE > 60.0 (>39); GLUCOSE, FASTING 130 MG/DL (70-100); MAGNESIUM LEVEL 1.6 MG/DL (1.8-2.4); POTASSIUM SERUM 3.6 MEQ/L (3.5-5.1); SODIUM LEVEL 142 MEQ/L (136-145); TOTAL PROTEIN 6.9 GM/DL (6.4-8.2)
[2018-06-11] MEDS ORDERED: POTASSIUM CHLORIDE 10 MEQ SR TABLET PO ONE (10:00)
[2018-06-11] MEDS ORDERED: MAG SULF 1GM/100ML (MAG RUN) 1 GM in APPROPRIATE DILUENT 1 EA IV ONE (10:00)
[2018-06-11 16:00] VITALS: BP 125/61
--- NOTE | 2018-06-11 18:01 | IPNPDOC ---
Text Note Date of Service The patient was seen on 06/11/18. NOTE Patient seen and examined. No acute events overnight. Reported right-sided neck pain with no exacerbating or relieving factor. Denies any chest pain, pressure, or discomfort. PHYSICAL EXAMINATION: GENERAL: Patient comfortable, in no acute distress. HEENT: Normocephalic, atraumatic. Moist mucous membranes. NECK: Pulsating right carotid aneurysm palpated. CARDIAC: Regular, S1, S2. PULMONARY: Bilaterally clear. ABDOMEN: Soft, nontender. Positive bowel sounds. EXTREMITIES: No clubbing, cyanosis or edema. ASSESSMENT AND PLAN: This is a 77-year-old female patient with underlying medical history of dementia, hiatal hernia, dyslipidemia, hypertension, seizure disorder, osteopenia, presented with altered mental status, acute renal failure, and neck pain. PROBLEMS: 1. Acute metabolic encephalopathy, resolving, secondary to renal failure versus worsening dementia, versus underlying infection. Patient was treated with meropenem, vancomycin. Infectious disease was consulted. Currently back to baseline. Supportive care. Workup including MRIs and EEG were done. 2. Neck pain, improved. Extensive workup including MRIs, MRI of the carotids, CT of the neck, lumbar puncture, MRI of the brain, Ear, Nose, Throat (ENT) consult, infectious disease (ID) consult, vascular consult and cardiology consult was done. Given significantly elevated ESR and CRP, suspicion for vasculitis. Rheumatology was consulted, especially with carotid aneurysm. Patient placed on prednisone pending vasculitis workup including complements, SAGAR, ANCA. Patient will need a temporal artery biopsy by vascular, schedule for 06/12. Esophagram was within normal limits. Plavix on hold for temporal artery biopsy, restart tomorrow. Continue gabapentin. Continue steroid. 3. Right carotid aneurysm. Vascular consulted, initially on aspirin, Plavix initially has been added. Will restart Plavix after temporal artery biopsy. Vascular surgery does not believe the carotid artery disease is the cause of the patient's neck pain. 3. Acute renal failure, resolved. Likely secondary to nonsteroidal anti-inflammatory drug (NSAID). Avoid nephrotoxic agent. Nephrology input appreciated. 4. New onset atrial fibrillation. Echo appreciated. Currently back to sinus rhythm. Cardiology consulted. Not recommending anticoagulation at this time. Continue beta andreas as ordered. 5. History of seizure. Continue current medication. 6. Dyslipidemia. Continue statin. 7. Dysphagia. Esophagram appreciated. 8. Hypertension. Continue metoprolol, Norvasc. Continue aspirin. Hydralazine 25 mg by mouth three times a day. Adjust medication as needed. 9. Leukocytosis. Possibly steroid induced. Culture has been appreciated. Will continue to monitor. Follow CRP. 10. Dementia. Supportive care. Likely need placement. 11. Deep vein thrombosis (DVT) prophylaxis. Heparin subcu. DISPOSITION: Pending snf placement as well as temporal artery biopsy. VS,Fishbone, I+O VS, Fishbone, I+O Laboratory Tests 06/11/18 08:08 Red Blood Count 3.43 L, Mean Corpuscular Volume 88.0, Mean Corpuscular Hemoglobin 29.2, Mean Corpuscular Hemoglobin Concent 33.1, Red Cell Distribution Width 15.7 H, Neutrophils (%) (Auto) 65.1, Lymphocytes (%) (Auto) 21.4 L, Monocytes (%) (Auto) 10.4 H, Eosinophils (%) (Auto) 0.9, Basophils (%) (Auto) 0.8, Neutrophils # (Auto) 9.1 H, Lymphocytes # (Auto) 3.0, Monocytes # (Auto) 1.5 H, Eosinophils # (Auto) 0.1, Basophils # (Auto) 0.1, Calcium Level 8.5 L, Aspartate Amino Transf (AST/SGOT) 50 H, Alanine Aminotransferase (ALT/SGPT) 39, Alkaline Phosphatase 255 H, Total Bilirubin 0.3, Total Protein 6.9, Albumin 2.1 L Vital Signs Date Time Temp Pulse Resp B/P (MAP) Pulse Ox O2 Delivery O2 Flow Rate FiO2 06/11/18 16:06 130/60 06/11/18 08:52 77 06/11/18 08:44 98.8 18 98 Room Air I&O- Last 24 Hours up to 6 AM 06/11/18 06:00 Intake Total 2190 ml Output Total 3600 ml Balance -1410 ml TRACY DOWNS MD Jun 11, 2018 18:01
[2018-06-11 20:00] VITALS: BP 121/58
[2018-06-11 23:59] VITALS: BP 138/62
[2018-06-12] MEDS: MORPHINE 4 MG/ML 1ML VIAL/SYRINGE (J2270) IV PRN ×2 (01:47→06:44)
[2018-06-12 04:00] VITALS: BP 143/65
[2018-06-12] MEDS: SODIUM CHLORIDE 0.9% INJ 10 ML SYR IV SCH ×2 (06:02→18:31)
[2018-06-12 06:10] LABS: BASO # 0.1 10^3/uL (0.0-0.2); BASO % 0.5 % (0.0-1.0); EOS # 0.2 10^3/uL (0.0-0.50); EOS % 1.4 % (0.0-3.0); HEMOGLOBIN 9.1 g/dl (12.0-15.5); LYMPH # 3.7 10^3/uL (1.5-4.5); LYMPH % 27.8 % (24.0-44.0); MEAN CORPUSCULAR HEMOGLOBIN 28.9 pg (27.0-33.0); MEAN CORPUSCULAR HGB CONC 33.7 g/dl (32.0-36.5); MEAN CORPUSCULAR VOLUME 85.7 fl (80.0-96.0); MONO # 1.4 10^3/uL (0.0-0.8); MONO % 10.4 % (0.0-5.0); NEUTROPHILS # 7.7 10^3/uL (1.8-7.7); NEUTROPHILS % 58.8 % (36.0-66.0); PLATELET COUNT, AUTOMATED 530 10^3/uL (150-450); RED BLOOD COUNT 3.15 10^6/uL (4.00-5.40); WHITE BLOOD COUNT 13.1 10^3/uL (4.0-10.0)
[2018-06-12 06:26] LABS: ALBUMIN 1.9 GM/DL (3.2-5.2); ALT/SGPT 33 U/L (12-78); BILIRUBIN,TOTAL 0.2 MG/DL (0.2-1.0); BLOOD UREA NITROGEN 15 MG/DL (7-18); C REACTIVE PROTEIN QUANTITATIV 5.96 MG/DL (0.00-0.30); CALCIUM LEVEL 7.7 MG/DL (8.8-10.2); CARBON DIOXIDE LEVEL 24 MEQ/L (21-32); CHLORIDE LEVEL 111 MEQ/L (98-107); CREATININE FOR GFR 0.74 MG/DL (0.55-1.30); GLOMERULAR FILTRATION RATE > 60.0 (>39); GLUCOSE, FASTING 88 MG/DL (70-100); MAGNESIUM LEVEL 1.9 MG/DL (1.8-2.4); POTASSIUM SERUM 4.2 MEQ/L (3.5-5.1); SODIUM LEVEL 145 MEQ/L (136-145)
[2018-06-12 08:00] VITALS: BP 138/77
[2018-06-12] MEDS: traMADol 50 MG TAB PO PRN ×2 (08:28→18:30)
[2018-06-12] MEDS: EZETIMIBE 10 MG TAB (ZETIA) PO SCH (08:28)
[2018-06-12] MEDS: amLODIPine 10 MG TAB PO SCH (08:28)
[2018-06-12] MEDS: SENOKOT S TAB PO SCH ×2 (08:29→20:10)
[2018-06-12] MEDS: predniSONE 20 MG TAB PO SCH (08:29)
[2018-06-12] MEDS: GABAPENTIN 100 MG CAP PO SCH ×2 (08:29→20:09)
[2018-06-12] MEDS: METOPROLOL SUCC *XL* 25MG TAB (TopROL *XL*) PO SCH (08:29)
[2018-06-12] MEDS: ASPIRIN 81 MG ENTERIC TAB PO SCH (08:29)
[2018-06-12] MEDS: OMEPRAZOLE 20 MG CAP PO SCH ×2 (08:30→20:09)
[2018-06-12] MEDS: **hydrALAZINE HCL** 25 MG TAB PO SCH ×3 (08:30→20:10)
[2018-06-12] MEDS: ATORVASTATIN 20 MG TAB PO SCH (08:30)
[2018-06-12] MEDS: CALCIUM CARBONATE 500 MG CHEW U/D PO SCH (08:30)
[2018-06-12] MEDS: FLUTICASONE PROP 0.05% NASAL SPRAY 16 GM (FLONASE) SCH (08:31)
[2018-06-12] MEDS: HEPARIN SOD (PORCINE) 5000 UNITS/ML VIAL SQ SCH ×2 (08:31→20:09)
[2018-06-12] MEDS: POLYVINYL ALCOHOL OPHTH SOLN 15 ML(LIQUITEARS) OU SCH ×3 (08:32→20:10)
[2018-06-12] MEDS: PHENYTOIN ER 100 MG CAP PO SCH ×3 (08:34→20:09)
[2018-06-12] MEDS ORDERED: LIDOCAINE 2% INJ 100 MG/5 ML SDV (FOR ANES.) As Ordered ONE (12:37)
[2018-06-12] MEDS ORDERED: MIDAZOLAM INJ 2 MG/2 ML VIAL (J2250) As Ordered ONE (12:37)
[2018-06-12] MEDS ORDERED: PROPOFOL 200 MG/20 ML VIAL As Ordered ONE (12:37)
[2018-06-12] MEDS ORDERED: ONDANSETRON 4MG/2ML VIAL (J2405) As Ordered ONE (12:37)
[2018-06-12] MEDS ORDERED: fentaNYL 100 MCG/2 ML INJECTION (J3010) As Ordered ONE (12:37)
[2018-06-12] MEDS ORDERED: LIDOCAINE 1% SDV INJ 30 ML VIAL As Ordered ONE (13:03)
[2018-06-12] MEDS ORDERED: BUPIVACAINE HCL 0.5% 30 ML VIAL As Ordered ONE (13:03)
[2018-06-12] MEDS ORDERED: PERCOCET 5MG/325MG TAB PO PRN (14:15)
[2018-06-12] MEDS ORDERED: ONDANSETRON 4MG/2ML VIAL (J2405) IV PRN (14:15)
[2018-06-12] MEDS ORDERED: LR 1,000 ML IV SCH (14:15)
[2018-06-12 14:50] VITALS: BP 149/68
[2018-06-12] MEDS: SODIUM CHLORIDE 0.9% INJ 10 ML SYR IV PRN (15:11)
--- NOTE | 2018-06-12 18:02 | IPNPDOC ---
Text Note Date of Service The patient was seen on 06/12/18. NOTE Patient seen and examined. No acute events overnight. Reported right-sided neck pain with no exacerbating or relieving factor. Denies any chest pain, pressure, or discomfort. poor historian. asked same questions multiple times. PHYSICAL EXAMINATION: GENERAL: Patient comfortable, in no acute distress. HEENT: Normocephalic, atraumatic. Moist mucous membranes. NECK: Pulsating right carotid aneurysm palpated. CARDIAC: Regular, S1, S2. PULMONARY: Bilaterally clear. ABDOMEN: Soft, nontender. Positive bowel sounds. EXTREMITIES: No clubbing, cyanosis or edema. ASSESSMENT AND PLAN: This is a 77-year-old female patient with underlying medical history of dementia, hiatal hernia, dyslipidemia, hypertension, seizure disorder, osteopenia, presented with altered mental status, acute renal failure, and neck pain. PROBLEMS: 1. Acute metabolic encephalopathy, resolving, secondary to renal failure versus worsening dementia, versus underlying infection. Patient was treated with meropenem, vancomycin. Infectious disease was consulted. Currently back to baseline. antibiotics stopped Supportive care. Workup including MRIs and EEG were done. 2. Neck pain, improved. Extensive workup including MRIs, MRI of the carotids, CT of the neck, lumbar puncture, MRI of the brain, Ear, Nose, Throat (ENT) consult, infectious disease (ID) consult, vascular consult and cardiology consult was done. Given significantly elevated ESR and CRP, suspicion for vasculitis. Rheumatology was consulted, especially with carotid aneurysm. Patient placed on prednisone pending vasculitis workup including complements, SAGAR, ANCA. Patient temporal artery biopsy by vascular, schedule for 06/12. Esophagram was within normal limits. aspirin and plavix. Continue gabapentin. Continue steroid. 3. Right carotid aneurysm. Vascular consulted, initially on aspirin, Plavix f/u vascular surgery 4. Acute renal failure, resolved. Likely secondary to nonsteroidal anti-inflammatory drug (NSAID). Avoid nephrotoxic agent. Nephrology input appreciated. 4. New onset atrial fibrillation. Echo appreciated. Currently back to sinus rhythm. Cardiology consulted. Not recommending anticoagulation at this time. Continue beta andreas as ordered. 5. History of seizure. Continue current medication. 6. Dyslipidemia. Continue statin. 7. Dysphagia. Esophagram appreciated. 8. Hypertension. Continue metoprolol, Norvasc. Continue aspirin. Hydralazine 25 mg by mouth three times a day. Adjust medication as needed. 9. Leukocytosis. Possibly steroid induced. Culture has been appreciated. Will continue to monitor. Follow CRP. 10. Dementia. Supportive care. Likely need placement. 11. Deep vein thrombosis (DVT) prophylaxis. Heparin subcu. DISPOSITION: Pending halfway placement as well as temporal artery biopsy. VS,Fishbone, I+O VS, Fishbone, I+O Laboratory Tests 06/12/18 05:49 Red Blood Count 3.15 L, Mean Corpuscular Volume 85.7, Mean Corpuscular Hemoglobin 28.9, Mean Corpuscular Hemoglobin Concent 33.7, Red Cell Distribution Width 15.9 H, Neutrophils (%) (Auto) 58.8, Lymphocytes (%) (Auto) 27.8, Monocytes (%) (Auto) 10.4 H, Eosinophils (%) (Auto) 1.4, Basophils (%) (Auto) 0.5, Neutrophils # (Auto) 7.7, Lymphocytes # (Auto) 3.7, Monocytes # (Auto) 1.4 H, Eosinophils # (Auto) 0.2, Basophils # (Auto) 0.1, Calcium Level 7.7 L, Aspartate Amino Transf (AST/SGOT) 36, Alanine Aminotransferase (ALT/SGPT) 33, Alkaline Phosphatase 217 H, Total Bilirubin 0.2, Total Protein 6.0 L, Albumin 1.9 L Vital Signs Date Time Temp Pulse Resp B/P (MAP) Pulse Ox O2 Delivery O2 Flow Rate FiO2 06/12/18 14:50 99.3 69 20 149/68 (95) 96 Room Air 06/12/18 14:00 2 I&O- Last 24 Hours up to 6 AM 06/12/18 05:59 Intake Total 1180 ml Output Total 2000 ml Balance -820 ml TRACY DOWNS MD Jun 12, 2018 18:02
[2018-06-12] MEDS: CLOPIDOGREL 75 MG TAB PO SCH (18:29)
[2018-06-12 20:00] VITALS: BP 139/64
[2018-06-12] MEDS: ACETAMINOPHEN TAB 650MG DOSE (2X325MG) PO PRN (23:17)
[2018-06-12 23:59] VITALS: BP 123/60
[2018-06-13 06:00] LABS: BASO # 0.1 10^3/uL (0.0-0.2); BASO % 0.9 % (0.0-1.0); EOS # 0.2 10^3/uL (0.0-0.50); EOS % 1.4 % (0.0-3.0); HEMATOCRIT 28.3 % (36.0-47.0); HEMOGLOBIN 9.3 g/dl (12.0-15.5); LYMPH # 3.8 10^3/uL (1.5-4.5); LYMPH % 33.5 % (24.0-44.0); MEAN CORPUSCULAR HGB CONC 32.9 g/dl (32.0-36.5); MEAN CORPUSCULAR VOLUME 88.2 fl (80.0-96.0); MONO # 1.1 10^3/uL (0.0-0.8); MONO % 9.9 % (0.0-5.0); NEUTROPHILS % 53.5 % (36.0-66.0); PLATELET COUNT, AUTOMATED 546 10^3/uL (150-450); RED BLOOD COUNT 3.21 10^6/uL (4.00-5.40); WHITE BLOOD COUNT 11.3 10^3/uL (4.0-10.0)
[2018-06-13] MEDS: SODIUM CHLORIDE 0.9% INJ 10 ML SYR IV SCH ×2 (06:00→17:08)
[2018-06-13 06:25] LABS: ALBUMIN 1.9 GM/DL (3.2-5.2); ALT/SGPT 34 U/L (12-78); BILIRUBIN,TOTAL 0.2 MG/DL (0.2-1.0); BLOOD UREA NITROGEN 16 MG/DL (7-18); C REACTIVE PROTEIN QUANTITATIV 3.97 MG/DL (0.00-0.30); CALCIUM LEVEL 8.1 MG/DL (8.8-10.2); CARBON DIOXIDE LEVEL 25 MEQ/L (21-32); CHLORIDE LEVEL 111 MEQ/L (98-107); CREATININE FOR GFR 0.74 MG/DL (0.55-1.30); GLOMERULAR FILTRATION RATE > 60.0 (>39); GLUCOSE, FASTING 85 MG/DL (70-100); MAGNESIUM LEVEL 1.8 MG/DL (1.8-2.4); POTASSIUM SERUM 3.9 MEQ/L (3.5-5.1); SODIUM LEVEL 142 MEQ/L (136-145)
[2018-06-13] MEDS: traMADol 50 MG TAB PO PRN (06:56)
[2018-06-13] MEDS: SENOKOT S TAB PO SCH ×2 (08:11→21:21)
[2018-06-13] MEDS: HEPARIN SOD (PORCINE) 5000 UNITS/ML VIAL SQ SCH ×2 (08:11→21:21)
[2018-06-13] MEDS: ASPIRIN 81 MG ENTERIC TAB PO SCH (08:12)
[2018-06-13] MEDS: CLOPIDOGREL 75 MG TAB PO SCH (08:12)
[2018-06-13] MEDS: amLODIPine 10 MG TAB PO SCH (08:12)
[2018-06-13] MEDS: ATORVASTATIN 20 MG TAB PO SCH (08:12)
[2018-06-13] MEDS: GABAPENTIN 100 MG CAP PO SCH ×2 (08:12→21:21)
[2018-06-13] MEDS: METOPROLOL SUCC *XL* 25MG TAB (TopROL *XL*) PO SCH (08:12)
[2018-06-13] MEDS: EZETIMIBE 10 MG TAB (ZETIA) PO SCH (08:12)
[2018-06-13] MEDS: **hydrALAZINE HCL** 25 MG TAB PO SCH ×3 (08:13→21:21)
[2018-06-13] MEDS: CALCIUM CARBONATE 500 MG CHEW U/D PO SCH (08:14)
[2018-06-13] MEDS: OMEPRAZOLE 20 MG CAP PO SCH ×2 (08:14→21:21)
[2018-06-13] MEDS: predniSONE 20 MG TAB PO SCH (08:14)
[2018-06-13 09:00] VITALS: BP 130/68
[2018-06-13] MEDS: FLUTICASONE PROP 0.05% NASAL SPRAY 16 GM (FLONASE) SCH (09:00)
[2018-06-13] MEDS: POLYVINYL ALCOHOL OPHTH SOLN 15 ML(LIQUITEARS) OU SCH ×3 (09:00→21:23)
[2018-06-13] MEDS: ACETAMINOPHEN TAB 650MG DOSE (2X325MG) PO PRN (09:50)
[2018-06-13] MEDS: PHENYTOIN ER 100 MG CAP PO SCH ×3 (09:50→21:20)
[2018-06-13 14:00] VITALS: BP 161/70
--- NOTE | 2018-06-13 20:01 | IPNPDOC ---
Text Note Date of Service The patient was seen on 06/13/18. NOTE Patient seen and examined. No acute events overnight. Reported right-sided neck resolved. Denies any chest pain, pressure, or discomfort. poor historian. asked same questions multiple times. PHYSICAL EXAMINATION: GENERAL: Patient comfortable, in no acute distress. HEENT: Normocephalic, atraumatic. Moist mucous membranes. NECK: Pulsating right carotid aneurysm palpated. CARDIAC: Regular, S1, S2. PULMONARY: Bilaterally clear. ABDOMEN: Soft, nontender. Positive bowel sounds. EXTREMITIES: No clubbing, cyanosis or edema. ASSESSMENT AND PLAN: This is a 77-year-old female patient with underlying medical history of dementia, hiatal hernia, dyslipidemia, hypertension, seizure disorder, osteopenia, presented with altered mental status, acute renal failure, and neck pain. PROBLEMS: 1. Acute metabolic encephalopathy, resolving, secondary to renal failure versus worsening dementia, versus underlying infection. Patient was treated with meropenem, vancomycin. Infectious disease was consulted. Currently back to baseline. antibiotics stopped Supportive care. Workup including LP, MRIs and EEG were done. 2. Neck pain, improved. Extensive workup including MRIs, MRI of the carotids, CT of the neck, lumbar puncture, MRI of the brain, Ear, Nose, Throat (ENT) consult, infectious disease (ID) consult, vascular consult and cardiology consult was done. Given significantly elevated ESR and CRP, suspicion for vasculitis. Rheumatology was consulted, especially with carotid aneurysm. Patient placed on prednisone pending vasculitis workup including complements, SAGAR, ANCA. Patient temporal artery biopsy by vascular. Esophagram was within normal limits. aspirin and plavix. Continue gabapentin. Continue steroid. 3. Right carotid aneurysm. Vascular consulted, on aspirin, Plavix as per vascular surgery, f.u vascular as outpatient 4. Acute renal failure, resolved. Likely secondary to nonsteroidal anti-inflammatory drug (NSAID). Avoid nephrotoxic agent. Nephrology input appreciated. 4. New onset atrial fibrillation. Echo appreciated. Currently back to sinus rhythm. Cardiology consulted. Not recommending anticoagulation at this time. Continue beta andreas as ordered. 5. History of seizure. Continue current medication. 6. Dyslipidemia. Continue statin. 7. Dysphagia. Esophagram appreciated. 8. Hypertension. Continue metoprolol, Norvasc. Continue aspirin. Hydralazine 25 mg by mouth three times a day. Adjust medication as needed. 9. Leukocytosis. Possibly steroid induced. Culture has been appreciated. Will continue to monitor. Follow CRP. 10. Dementia. Supportive care. Likely need placement. 11. Deep vein thrombosis (DVT) prophylaxis. Heparin subcu. DISPOSITION: Pending [facility] placement. VS,Fishbone, I+O VS, Fishbone, I+O Laboratory Tests 06/13/18 05:46 Red Blood Count 3.21 L, Mean Corpuscular Volume 88.2, Mean Corpuscular Hemoglobin 29.0, Mean Corpuscular Hemoglobin Concent 32.9, Red Cell Distribution Width 16.0 H, Neutrophils (%) (Auto) 53.5, Lymphocytes (%) (Auto) 33.5, Monocytes (%) (Auto) 9.9 H, Eosinophils (%) (Auto) 1.4, Basophils (%) (Auto) 0.9, Neutrophils # (Auto) 6.0, Lymphocytes # (Auto) 3.8, Monocytes # (Auto) 1.1 H, Eosinophils # (Auto) 0.2, Basophils # (Auto) 0.1, Calcium Level 8.1 L, Aspartate Amino Transf (AST/SGOT) 35, Alanine Aminotransferase (ALT/SGPT) 34, Alkaline Phosphatase 199 H, Total Bilirubin 0.2, Total Protein 6.0 L, Albumin 1.9 L Vital Signs Date Time Temp Pulse Resp B/P (MAP) Pulse Ox O2 Delivery O2 Flow Rate FiO2 06/13/18 17:08 168/74 06/13/18 14:00 98.3 78 18 98 Room Air 06/12/18 14:00 2 I&O- Last 24 Hours up to 6 AM 06/13/18 06:00 Intake Total 1125 ml Output Total 2475 ml Balance -1350 ml TRACY DOWNS MD Jun 13, 2018 20:01
[2018-06-13] MEDS: SODIUM CHLORIDE 0.9% INJ 10 ML SYR IV PRN (21:22)
[2018-06-14 06:00] VITALS: BP 167/68
[2018-06-14] MEDS: SODIUM CHLORIDE 0.9% INJ 10 ML SYR IV SCH ×2 (06:14→16:57)
[2018-06-14 06:35] LABS: BASO # 0.1 10^3/uL (0.0-0.2); BASO % 0.7 % (0.0-1.0); EOS # 0.2 10^3/uL (0.0-0.50); EOS % 1.2 % (0.0-3.0); HEMATOCRIT 30.3 % (36.0-47.0); HEMOGLOBIN 10.1 g/dl (12.0-15.5); LYMPH # 3.9 10^3/uL (1.5-4.5); LYMPH % 30.3 % (24.0-44.0); MEAN CORPUSCULAR HEMOGLOBIN 29.4 pg (27.0-33.0); MEAN CORPUSCULAR HGB CONC 33.3 g/dl (32.0-36.5); MEAN CORPUSCULAR VOLUME 88.1 fl (80.0-96.0); MONO # 1.3 10^3/uL (0.0-0.8); MONO % 10.4 % (0.0-5.0); NEUTROPHILS # 7.2 10^3/uL (1.8-7.7); NEUTROPHILS % 56.6 % (36.0-66.0); PLATELET COUNT, AUTOMATED 601 10^3/uL (150-450); RED BLOOD COUNT 3.44 10^6/uL (4.00-5.40); WHITE BLOOD COUNT 12.7 10^3/uL (4.0-10.0)
[2018-06-14 07:01] LABS: ALBUMIN 2.2 GM/DL (3.2-5.2); ALT/SGPT 39 U/L (12-78); BILIRUBIN,TOTAL 0.2 MG/DL (0.2-1.0); BLOOD UREA NITROGEN 15 MG/DL (7-18); CALCIUM LEVEL 8.2 MG/DL (8.8-10.2); CARBON DIOXIDE LEVEL 26 MEQ/L (21-32); CHLORIDE LEVEL 111 MEQ/L (98-107); GLOMERULAR FILTRATION RATE > 60.0 (>39); GLUCOSE, FASTING 83 MG/DL (70-100); MAGNESIUM LEVEL 1.6 MG/DL (1.8-2.4); POTASSIUM SERUM 3.9 MEQ/L (3.5-5.1); SODIUM LEVEL 144 MEQ/L (136-145); TOTAL PROTEIN 6.2 GM/DL (6.4-8.2)
[2018-06-14] MEDS ORDERED: MAG SULF 1GM/100ML (MAG RUN) 1 GM in APPROPRIATE DILUENT 1 EA IV ONE (08:15)
[2018-06-14] MEDS: ASPIRIN 81 MG ENTERIC TAB PO SCH (08:21)
[2018-06-14] MEDS: ACETAMINOPHEN TAB 650MG DOSE (2X325MG) PO PRN ×2 (08:22→21:59)
[2018-06-14] MEDS: CALCIUM CARBONATE 500 MG CHEW U/D PO SCH (08:22)
[2018-06-14] MEDS: predniSONE 20 MG TAB PO SCH (08:22)
[2018-06-14] MEDS: OMEPRAZOLE 20 MG CAP PO SCH ×2 (08:22→21:53)
[2018-06-14] MEDS: CLOPIDOGREL 75 MG TAB PO SCH (08:22)
[2018-06-14] MEDS: PHENYTOIN ER 100 MG CAP PO SCH ×3 (08:23→21:54)
[2018-06-14] MEDS: SENOKOT S TAB PO SCH ×2 (08:23→21:54)
[2018-06-14] MEDS: GABAPENTIN 100 MG CAP PO SCH ×2 (08:23→21:54)
[2018-06-14] MEDS: amLODIPine 10 MG TAB PO SCH (08:23)
[2018-06-14] MEDS: METOPROLOL SUCC *XL* 25MG TAB (TopROL *XL*) PO SCH (08:23)
[2018-06-14] MEDS: **hydrALAZINE HCL** 25 MG TAB PO SCH ×3 (08:23→21:53)
[2018-06-14] MEDS: EZETIMIBE 10 MG TAB (ZETIA) PO SCH (08:23)
[2018-06-14] MEDS: ATORVASTATIN 20 MG TAB PO SCH (08:24)
[2018-06-14] MEDS: HEPARIN SOD (PORCINE) 5000 UNITS/ML VIAL SQ SCH ×2 (08:24→21:54)
[2018-06-14] MEDS: FLUTICASONE PROP 0.05% NASAL SPRAY 16 GM (FLONASE) SCH (08:24)
[2018-06-14] MEDS: POLYVINYL ALCOHOL OPHTH SOLN 15 ML(LIQUITEARS) OU SCH ×3 (08:24→21:54)
[2018-06-14 14:00] VITALS: BP 135/63
--- NOTE | 2018-06-14 19:58 | IPNPDOC ---
Text Note Date of Service The patient was seen on 06/14/18. NOTE Patient seen and examined. No acute events overnight. Reported right-sided neck pain resolved. Denies any chest pain, pressure, or discomfort. poor historian. asked same questions multiple times. PHYSICAL EXAMINATION: GENERAL: Patient comfortable, in no acute distress. HEENT: Normocephalic, atraumatic. Moist mucous membranes. NECK: Pulsating right carotid aneurysm palpated. CARDIAC: Regular, S1, S2. PULMONARY: Bilaterally clear. ABDOMEN: Soft, nontender. Positive bowel sounds. EXTREMITIES: No clubbing, cyanosis or edema. ASSESSMENT AND PLAN: This is a 77-year-old female patient with underlying medical history of dementia, hiatal hernia, dyslipidemia, hypertension, seizure disorder, osteopenia, presented with altered mental status, acute renal failure, and neck pain. PROBLEMS: 1. Acute metabolic encephalopathy, resolving, secondary to renal failure versus worsening dementia, versus underlying infection. Patient was treated with meropenem, vancomycin. Infectious disease was consulted. Currently back to baseline. antibiotics stopped Supportive care. Workup including LP, MRIs and EEG were done. 2. Neck pain, improved. Extensive workup including MRIs, MRI of the carotids, CT of the neck, lumbar puncture, MRI of the brain, Ear, Nose, Throat (ENT) consult, infectious disease (ID) consult, vascular consult and cardiology consult was done. Given significantly elevated ESR and CRP, suspicion for vasculitis. Rheumatology was consulted, especially with carotid aneurysm. Patient placed on prednisone vasculitis workup including complements, SAGAR, ANCA. Patient temporal artery biopsy by vascular. Esophagram was within normal limits. aspirin and plavix. Continue gabapentin. Continue steroid. 3. Right carotid aneurysm. Vascular consulted, on aspirin, Plavix as per vascular surgery, f.u vascular as outpatient 4. suspected vasculitis s/p rheum consult, vascular consult for temporal artery biopsy prednisone 60mg daily for 2 weeks, then 50mg for 2 weeks, then 40 mg for 2 weeks furter taper as per Rheum 4. Acute renal failure, resolved. Likely secondary to nonsteroidal anti-inflammatory drug (NSAID). Avoid nephrotoxic agent. Nephrology input appreciated. 4. New onset atrial fibrillation. Echo appreciated. Currently back to sinus rhythm. Cardiology consulted. Not recommending anticoagulation at this time. Continue beta andreas as ordered. 5. History of seizure. Continue current medication. 6. Dyslipidemia. Continue statin. 7. Dysphagia. Esophagram appreciated. 8. Hypertension. Continue metoprolol, Norvasc. Continue aspirin. Hydralazine 25 mg by mouth three times a day. Adjust medication as needed. 9. Leukocytosis. Possibly steroid induced. Culture has been appreciated. Will continue to monitor. Follow CRP. 10. Dementia. Supportive care. Likely need placement. 11. Deep vein thrombosis (DVT) prophylaxis. Heparin subcu. DISPOSITION: Pending shelter placement. VS,Fishbone, I+O VS, Fishbone, I+O Laboratory Tests 06/14/18 06:13 Red Blood Count 3.44 L, Mean Corpuscular Volume 88.1, Mean Corpuscular Hemoglobin 29.4, Mean Corpuscular Hemoglobin Concent 33.3, Red Cell Distribution Width 16.0 H, Neutrophils (%) (Auto) 56.6, Lymphocytes (%) (Auto) 30.3, Monocytes (%) (Auto) 10.4 H, Eosinophils (%) (Auto) 1.2, Basophils (%) (Auto) 0.7, Neutrophils # (Auto) 7.2, Lymphocytes # (Auto) 3.9, Monocytes # (Auto) 1.3 H, Eosinophils # (Auto) 0.2, Basophils # (Auto) 0.1, Calcium Level 8.2 L, Aspartate Amino Transf (AST/SGOT) 34, Alanine Aminotransferase (ALT/SGPT) 39, Alkaline Phosphatase 212 H, Total Bilirubin 0.2, Total Protein 6.2 L, Albumin 2.2 L Vital Signs Date Time Temp Pulse Resp B/P (MAP) Pulse Ox O2 Delivery O2 Flow Rate FiO2 06/14/18 16:56 147/65 06/14/18 14:00 98.4 71 17 98 Room Air 06/12/18 14:00 2 I&O- Last 24 Hours up to 6 AM 06/14/18 06:00 Intake Total 1808 ml Output Total 950 ml Balance 858 ml TRACY DOWNS MD Jun 14, 2018 19:58
[2018-06-14 22:00] VITALS: BP 133/67
[2018-06-15 06:00] VITALS: BP 155/73
[2018-06-15] MEDS: SODIUM CHLORIDE 0.9% INJ 10 ML SYR IV SCH ×2 (06:27→17:51)
[2018-06-15 06:32] LABS: BASO # 0.1 10^3/uL (0.0-0.2); BASO % 0.9 % (0.0-1.0); EOS # 0.2 10^3/uL (0.0-0.50); EOS % 1.6 % (0.0-3.0); HEMATOCRIT 31.3 % (36.0-47.0); HEMOGLOBIN 10.6 g/dl (12.0-15.5); LYMPH # 4.3 10^3/uL (1.5-4.5); LYMPH % 39.1 % (24.0-44.0); MEAN CORPUSCULAR HEMOGLOBIN 29.4 pg (27.0-33.0); MEAN CORPUSCULAR HGB CONC 33.9 g/dl (32.0-36.5); MEAN CORPUSCULAR VOLUME 86.7 fl (80.0-96.0); MONO # 1.1 10^3/uL (0.0-0.8); MONO % 9.5 % (0.0-5.0); NEUTROPHILS # 5.3 10^3/uL (1.8-7.7); PLATELET COUNT, AUTOMATED 581 10^3/uL (150-450); RED BLOOD COUNT 3.61 10^6/uL (4.00-5.40)
[2018-06-15 06:53] LABS: ALBUMIN 2.3 GM/DL (3.2-5.2); ALT/SGPT 42 U/L (12-78); BILIRUBIN,TOTAL 0.3 MG/DL (0.2-1.0); BLOOD UREA NITROGEN 14 MG/DL (7-18); C REACTIVE PROTEIN QUANTITATIV 1.99 MG/DL (0.00-0.30); CALCIUM LEVEL 8.5 MG/DL (8.8-10.2); CARBON DIOXIDE LEVEL 26 MEQ/L (21-32); CHLORIDE LEVEL 110 MEQ/L (98-107); CREATININE FOR GFR 0.77 MG/DL (0.55-1.30); GLOMERULAR FILTRATION RATE > 60.0 (>39); GLUCOSE, FASTING 77 MG/DL (70-100); MAGNESIUM LEVEL 1.9 MG/DL (1.8-2.4); POTASSIUM SERUM 4.5 MEQ/L (3.5-5.1); SODIUM LEVEL 143 MEQ/L (136-145); TOTAL PROTEIN 6.3 GM/DL (6.4-8.2)
[2018-06-15] MEDS: CALCIUM CARBONATE 500 MG CHEW U/D PO SCH (08:20)
[2018-06-15] MEDS: METOPROLOL SUCC *XL* 25MG TAB (TopROL *XL*) PO SCH (08:21)
[2018-06-15] MEDS: EZETIMIBE 10 MG TAB (ZETIA) PO SCH (08:21)
[2018-06-15] MEDS: ASPIRIN 81 MG ENTERIC TAB PO SCH (08:21)
[2018-06-15] MEDS: **hydrALAZINE HCL** 25 MG TAB PO SCH ×3 (08:21→20:46)
[2018-06-15] MEDS: GABAPENTIN 100 MG CAP PO SCH ×2 (08:21→20:45)
[2018-06-15] MEDS: amLODIPine 10 MG TAB PO SCH (08:21)
[2018-06-15] MEDS: predniSONE 20 MG TAB PO SCH (08:22)
[2018-06-15] MEDS: SENOKOT S TAB PO SCH ×2 (08:22→20:45)
[2018-06-15] MEDS: ATORVASTATIN 20 MG TAB PO SCH (08:22)
[2018-06-15] MEDS: FLUTICASONE PROP 0.05% NASAL SPRAY 16 GM (FLONASE) SCH (08:22)
[2018-06-15] MEDS: CLOPIDOGREL 75 MG TAB PO SCH (08:22)
[2018-06-15] MEDS: PHENYTOIN ER 100 MG CAP PO SCH ×3 (08:22→20:45)
[2018-06-15] MEDS: HEPARIN SOD (PORCINE) 5000 UNITS/ML VIAL SQ SCH ×2 (08:22→20:46)
[2018-06-15] MEDS: POLYVINYL ALCOHOL OPHTH SOLN 15 ML(LIQUITEARS) OU SCH ×3 (08:23→20:46)
[2018-06-15] MEDS: OMEPRAZOLE 20 MG CAP PO SCH ×2 (08:25→20:45)
[2018-06-15 14:00] VITALS: BP 131/81
--- NOTE | 2018-06-15 14:35 | IPNPDOC ---
Text Note Date of Service The patient was seen on 06/15/18. NOTE Patient seen and examined. No acute events overnight. Denies any chest pain, pressure, or discomfort. poor historian. asked same questions multiple times. PHYSICAL EXAMINATION: GENERAL: Patient comfortable, in no acute distress. HEENT: Normocephalic, atraumatic. Moist mucous membranes. NECK: Pulsating right carotid aneurysm palpated. CARDIAC: Regular, S1, S2. PULMONARY: Bilaterally clear. ABDOMEN: Soft, nontender. Positive bowel sounds. EXTREMITIES: No clubbing, cyanosis or edema. ASSESSMENT AND PLAN: This is a 77-year-old female patient with underlying medical history of dementia, hiatal hernia, dyslipidemia, hypertension, seizure disorder, osteopenia, presented with altered mental status, acute renal failure, leucocytosis and neck pain. PROBLEMS: 1. Acute metabolic encephalopathy, resolving, secondary to renal failure versus worsening dementia, versus underlying infection. Patient was treated with meropenem, vancomycin. Infectious disease was consulted. Currently back to baseline. antibiotics stopped Supportive care. Workup including LP, MRIs and EEG were done. 2. Neck pain, improved. Extensive workup including MRIs, MRI of the carotids, CT of the neck, lumbar puncture, MRI of the brain, Ear, Nose, Throat (ENT) consult, infectious disease (ID) consult, vascular consult and cardiology consult was done. Given significantly elevated ESR and CRP, suspicion for vasculitis. Rheumatology was consulted, especially with carotid aneurysm. Patient placed on prednisone vasculitis workup including complements, SAGAR, ANCA. Patient temporal artery biopsy by vascular. Esophagram was within normal limits. aspirin and plavix. Continue gabapentin. Continue steroid. 3. Right carotid aneurysm. Vascular consulted, on aspirin, Plavix as per vascular surgery, f.u vascular as outpatient 4. suspected vasculitis s/p rheum consult, vascular consult for temporal artery biopsy, f/u pathology prednisone 60mg daily for 2 weeks, then 50mg for 2 weeks, then 40 mg for 2 weeks further taper as per Rheum 4. Acute renal failure, resolved. Likely secondary to nonsteroidal anti-inflammatory drug (NSAID). Avoid nephrotoxic agent. Nephrology input appreciated. 4. New onset atrial fibrillation. Echo appreciated. Currently back to sinus rhythm. Cardiology consulted. Not recommending anticoagulation at this time. Continue beta andreas as ordered. 5. History of seizure. Continue current medication. 6. Dyslipidemia. Continue statin. 7. Dysphagia. Esophagram appreciated. 8. Hypertension. Continue metoprolol, Norvasc. Continue aspirin. Hydralazine 25 mg by mouth three times a day. Adjust medication as needed. 9. Leukocytosis. Possibly steroid induced. Culture has been appreciated. Will continue to monitor. Follow CRP. 10. Dementia. Supportive care. Likely need placement. 11. Deep vein thrombosis (DVT) prophylaxis. Heparin subcu. DISPOSITION: Pending long-term placement. VS,Fishbone, I+O VS, Fishbone, I+O Laboratory Tests 06/15/18 05:43 Red Blood Count 3.61 L, Mean Corpuscular Volume 86.7, Mean Corpuscular Hemoglobin 29.4, Mean Corpuscular Hemoglobin Concent 33.9, Red Cell Distribution Width 16.2 H, Neutrophils (%) (Auto) 48.0, Lymphocytes (%) (Auto) 39.1, Monocytes (%) (Auto) 9.5 H, Eosinophils (%) (Auto) 1.6, Basophils (%) (Auto) 0.9, Neutrophils # (Auto) 5.3, Lymphocytes # (Auto) 4.3, Monocytes # (Auto) 1.1 H, Eosinophils # (Auto) 0.2, Basophils # (Auto) 0.1, Calcium Level 8.5 L, Aspartate Amino Transf (AST/SGOT) 35, Alanine Aminotransferase (ALT/SGPT) 42, Alkaline Phosphatase 201 H, Total Bilirubin 0.3, Total Protein 6.3 L, Albumin 2.3 L Vital Signs Date Time Temp Pulse Resp B/P (MAP) Pulse Ox O2 Delivery O2 Flow Rate FiO2 06/15/18 08:21 155/73 06/15/18 08:21 70 06/15/18 06:00 98.3 19 96 Room Air 06/12/18 14:00 2 I&O- Last 24 Hours up to 6 AM 06/15/18 06:00 Intake Total 1560 ml Balance 1560 ml TRACY DOWNS MD Jun 15, 2018 14:35
[2018-06-15] MEDS: ACETAMINOPHEN TAB 650MG DOSE (2X325MG) PO PRN (20:45)
[2018-06-15 22:00] VITALS: BP 140/70
[2018-06-16] MEDS: traMADol 50 MG TAB PO PRN (03:13)
[2018-06-16] MEDS: SODIUM CHLORIDE 0.9% INJ 10 ML SYR IV SCH ×2 (05:48→17:21)
[2018-06-16] MEDS: ACETAMINOPHEN TAB 650MG DOSE (2X325MG) PO PRN (05:57)
[2018-06-16 06:00] VITALS: BP 155/78
[2018-06-16 06:19] LABS: BASO # 0.1 10^3/uL (0.0-0.2); BASO % 0.8 % (0.0-1.0); EOS # 0.2 10^3/uL (0.0-0.50); EOS % 1.4 % (0.0-3.0); HEMATOCRIT 33.9 % (36.0-47.0); HEMOGLOBIN 11.1 g/dl (12.0-15.5); LYMPH # 3.7 10^3/uL (1.5-4.5); LYMPH % 34.5 % (24.0-44.0); MEAN CORPUSCULAR HEMOGLOBIN 29.2 pg (27.0-33.0); MEAN CORPUSCULAR HGB CONC 32.7 g/dl (32.0-36.5); MEAN CORPUSCULAR VOLUME 89.2 fl (80.0-96.0); MONO % 9.5 % (0.0-5.0); NEUTROPHILS # 5.7 10^3/uL (1.8-7.7); NEUTROPHILS % 52.8 % (36.0-66.0); PLATELET COUNT, AUTOMATED 564 10^3/uL (150-450); WHITE BLOOD COUNT 10.7 10^3/uL (4.0-10.0)
[2018-06-16 06:57] LABS: ALBUMIN 2.5 GM/DL (3.2-5.2); ALT/SGPT 45 U/L (12-78); BILIRUBIN,TOTAL 0.6 MG/DL (0.2-1.0); BLOOD UREA NITROGEN 16 MG/DL (7-18); CALCIUM LEVEL 8.6 MG/DL (8.8-10.2); CARBON DIOXIDE LEVEL 27 MEQ/L (21-32); CHLORIDE LEVEL 110 MEQ/L (98-107); CREATININE FOR GFR 0.88 MG/DL (0.55-1.30); GLOMERULAR FILTRATION RATE > 60.0 (>39); GLUCOSE, FASTING 83 MG/DL (70-100); POTASSIUM SERUM 3.9 MEQ/L (3.5-5.1); SODIUM LEVEL 143 MEQ/L (136-145); TOTAL PROTEIN 7.1 GM/DL (6.4-8.2)
[2018-06-16] MEDS: EZETIMIBE 10 MG TAB (ZETIA) PO SCH (09:21)
[2018-06-16] MEDS: ASPIRIN 81 MG ENTERIC TAB PO SCH (09:21)
[2018-06-16] MEDS: OMEPRAZOLE 20 MG CAP PO SCH ×2 (09:21→20:50)
[2018-06-16] MEDS: METOPROLOL SUCC *XL* 25MG TAB (TopROL *XL*) PO SCH (09:21)
[2018-06-16] MEDS: SENOKOT S TAB PO SCH ×2 (09:21→20:50)
[2018-06-16] MEDS: amLODIPine 10 MG TAB PO SCH (09:21)
[2018-06-16] MEDS: CLOPIDOGREL 75 MG TAB PO SCH (09:22)
[2018-06-16] MEDS: GABAPENTIN 100 MG CAP PO SCH ×2 (09:22→20:49)
[2018-06-16] MEDS: predniSONE 20 MG TAB PO SCH (09:22)
[2018-06-16] MEDS: **hydrALAZINE HCL** 25 MG TAB PO SCH ×3 (09:22→20:50)
[2018-06-16] MEDS: ATORVASTATIN 20 MG TAB PO SCH (09:22)
[2018-06-16] MEDS: CALCIUM CARBONATE 500 MG CHEW U/D PO SCH (09:22)
[2018-06-16] MEDS: FLUTICASONE PROP 0.05% NASAL SPRAY 16 GM (FLONASE) SCH (09:23)
[2018-06-16] MEDS: HEPARIN SOD (PORCINE) 5000 UNITS/ML VIAL SQ SCH ×2 (09:23→20:49)
[2018-06-16] MEDS: POLYVINYL ALCOHOL OPHTH SOLN 15 ML(LIQUITEARS) OU SCH ×3 (09:23→20:50)
[2018-06-16] MEDS: PHENYTOIN ER 100 MG CAP PO SCH ×3 (09:26→20:50)
[2018-06-16 14:00] VITALS: BP 134/74
--- NOTE | 2018-06-16 18:53 | IPNPDOC ---
Text Note Date of Service The patient was seen on 06/16/18. NOTE Patient seen and examined. No acute events overnight. Denies any chest pain, pressure, or discomfort. poor historian. asked same questions multiple times. reported pain over the area of temporal artery PHYSICAL EXAMINATION: GENERAL: Patient comfortable, in no acute distress. HEENT: Normocephalic, atraumatic. Moist mucous membranes. NECK: Pulsating right carotid aneurysm palpated. CARDIAC: Regular, S1, S2. PULMONARY: Bilaterally clear. ABDOMEN: Soft, nontender. Positive bowel sounds. EXTREMITIES: No clubbing, cyanosis or edema. ASSESSMENT AND PLAN: This is a 77-year-old female patient with underlying medical history of dementia, hiatal hernia, dyslipidemia, hypertension, seizure disorder, osteopenia, presented with altered mental status, acute renal failure, leucocy tosis and neck pain. PROBLEMS: 1. Acute metabolic encephalopathy, resolving, secondary to renal failure versus worsening dementia, versus vasculitis. Patient was initially treated as infection with meropenem, vancomycin. Infectious disease was consulted. Currently back to baseline. antibiotics stopped. Workup including LP, MRIs and EEG were done. condition improved after steroid 2. Neck pain, improved. Extensive workup including MRIs, MRI of the carotids, CT of the neck, lumbar puncture, MRI of the brain, Ear, Nose, Throat (ENT) consult, infectious disease (ID) consult, vascular consult and cardiology consult was done. Given significantly elevated ESR and CRP, suspicion for vasculitis. Rheumatology was consulted, especially with carotid aneurysm. Patient placed on prednisone vasculitis workup including complements, SAGAR, ANCA. Patient temporal artery biopsy by vascular. Esophagram was within normal limits. aspirin and plavix. Continue gabapentin. Continue steroid. 3. Right carotid aneurysm. Vascular consulted, on aspirin, Plavix as per vascular surgery, f.u vascular as outpatient 4. suspected vasculitis s/p rheum consult, vascular consult for temporal artery biopsy, f/u pathology prednisone 60mg daily for 2 weeks, then 50mg for 2 weeks, then 40 mg for 2 weeks further taper as per Rheum 5. Acute renal failure, resolved. Likely secondary to nonsteroidal anti-inflammatory drug (NSAID). Avoid nephrotoxic agent. Nephrology input appreciated. 6. New onset atrial fibrillation. Echo appreciated. Currently back to sinus rhythm. Cardiology consulted. Not recommending anticoagulation at this time. Continue beta andreas as ordered. 7. History of seizure. Continue current medication. 8. Dyslipidemia. Continue statin. 9. Dysphagia. Esophagram appreciated. 10. Hypertension. Continue metoprolol, Norvasc. Continue aspirin. Hydralazine 25 mg by mouth three times a day. Adjust medication as needed. 11. Leukocytosis. Possibly steroid induced. Culture has been appreciated. Will continue to monitor. Follow CRP. 12. Dementia. Supportive care. Likely need placement. 13. Deep vein thrombosis (DVT) prophylaxis. Heparin subcu. DISPOSITION: Pending snf placement. VS,Mariel, I+O VS, Epifanioe, I+O Laboratory Tests 06/16/18 05:35 Red Blood Count 3.80 L, Mean Corpuscular Volume 89.2, Mean Corpuscular Hemog lobin 29.2, Mean Corpuscular Hemoglobin Concent 32.7, Red Cell Distribution Width 16.3 H, Neutrophils (%) (Auto) 52.8, Lymphocytes (%) (Auto) 34.5, Monocytes (%) (Auto) 9.5 H, Eosinophils (%) (Auto) 1.4, Basophils (%) (Auto) 0.8, Neutrophils # (Auto) 5.7, Lymphocytes # (Auto) 3.7, Monocytes # (Auto) 1.0 H, Eosinophils # (Auto) 0.2, Basophils # (Auto) 0.1, Calcium Level 8.6 L, Aspartate Amino Transf (AST/SGOT) 43 H, Alanine Aminotransferase (ALT/SGPT) 45, Alkaline Phosphatase 196 H, Total Bilirubin 0.6 #, Total Protein 7.1, Albumin 2.5 L Vital Signs Date Time Temp Pulse Resp B/P (MAP) Pulse Ox O2 Delivery O2 Flow Rate FiO2 06/16/18 17:26 134/74 06/16/18 14:00 98.2 74 18 98 Room Air 06/12/18 14:00 2 I&O- Last 24 Hours up to 6 AM 06/16/18 06:00 Intake Total 1920 ml Output Total 650 ml Balance 1270 ml TRACY DOWNS MD Jun 16, 2018 18:53
--- NOTE | 2018-06-16 20:14 | IPNPDOC ---
Date Seen The patient was seen on 06/16/18. Progress Note SUBJECTIVE: Patient reports feeling well. She has no neck pain anymore. She doesn't remember when it stopped hurting. She was upset because some people came in today and said she "has dementia". She is worried she won't be able to go back home because of "dementia". She kept saying she doesn't have dementia. Denies fevers, headaches, chills, joint pain. She has pain at the right temporal area where the biopsy was taken, but other than that she has no pain. Denies jaw claudication, vision problems. REVIEW OF SYSTEMS: Constitutional: Denies fever or weight loss. Eyes: Denies acute vision changes, eye pain, dry eyes or red eyes. ENT: Denies hearing changes, dysphagia, sore throat, runny nose, dry mouth. Cardiac: Denies chest pain, edema or orthopnea. Respiratory: Denies dyspnea, cough or wheeze. Gastroenterology: Denies abdominal pain, nausea and vomiting. Genitourinary: Denies dysuria or hematuria. Neurologic: Denies seizures, blackout, numbness or focal weakness. Psychiatric: No depression, denies confusion. Endocrine: Denies polyuria or polydipsia. Hematologic: Denies blood clots or easy bleeding. Skin: no rash. Musculoskeletal: Denies joint pain or swelling. PHYSICAL EXAMINATION: VITAL SIGNS: Please see below. GENERAL: The patient was sitting in chair without acute distress, was able to answer all questions. HEENT: normocephalic, mild tenderness at the right temporal area with healing surgical scar. NECK: Right neck with palpable nodule, soft, non tender CHEST: clear both lungs. No wheezing. No rhonchi. HEART: S1, S2. Regular rate and rhythm. ABDOMEN: Soft, nontender. No organomegaly. EXTREMITIES: No clubbing, cyanosis or edema. NEUROLOGIC: Patient is alert and oriented x3. No gross focal deficit. No sensory deficit. INTEGUMENT: Moist mucous membranes. Good skin turgor, intact. No visible active rash. MUSCULOSKELETAL: Hands: There is no synovitis and no swelling with full range of motion in the hands, no deformities. Wrist: There is full range of motion with no tender points or instability in both wrists. Elbows: Full range of motion no synovitis and no pain on extension in both elbows. Shoulders: Full range of motion without the discomfort including abduction and internal rotation in both shoulders. Knees: There is no tenderness to palpation along the joint line in both knees with full range of motion and no effusion or palpable synovitis. Hips: There is no pain in the groin with internal or external rotation. Legs: no pain and swelling. Ankles: Full range of motion with no tenderness or swelling in the ankles Feet: no pain and swelling of toes with normal range of motion. Back: no tenderness in the spine and paraspinal muscles, straight leg raise negative. LABORATORY DATA: Please see below. CRP trending down, albumin trending up. 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 Recommendations: She has been receiving prednisone 60mg daily since 06/06/18. I would recommend to decrease dose of prednisone to 50mg daily at the end of this week (making sure she had two fully weeks of high dose of steroids) Repeat ESR with am labs Continue to monitor CRP every 2- 3 days. Follow up temporal artery biopsy results. Please repeat C3 and C4 level. I'm not sure why they were low. Complement levels can be low in cryoglobulinemia and lupus vasculitis, but it's very unusual in GCA Please let me know if any new events. I will follow up patient at the end of this week if she is still here. If she is getting discharged home, please let me know for final recommendations and follow up. VS, I&O, 24H, Fishbone Vital Signs/I&O Vital Signs Date Time Temp Pulse Resp B/P (MAP) Pulse Ox O2 Delivery O2 Flow Rate FiO2 06/16/18 17:26 134/74 06/16/18 14:00 98.2 74 18 98 Room Air 06/12/18 14:00 2 I&O- Last 24 Hours up to 6 AM 06/16/18 06:00 Intake Total 1920 ml Output Total 650 ml Balance 1270 ml Laboratory Data 24H LABS Laboratory Tests 2 06/16/18 05:35: Immature Granulocyte % (Auto) 1.0, White Blood Count 10.7H, Red Blood Count 3.80L, Hemoglobin 11.1L, Hematocrit 33.9L, Mean Corpuscular Volume 89.2, Mean Corpuscular Hemoglobin 29.2, Mean Corpuscular Hemoglobin Concent 32.7, Red Cell Distribution Width 16.3H, Platelet Count 564H, Neutrophils (%) (Auto) 52.8, Lymphocytes (%) (Auto) 34.5, Monocytes (%) (Auto) 9.5H, Eosinophils (%) (Auto) 1.4, Basophils (%) (Auto) 0.8, Neutrophils # (Auto) 5.7, Lymphocytes # (Auto) 3.7, Monocytes # (Auto) 1.0H, Eosinophils # (Auto) 0.2, Basophils # (Auto) 0.1, Nucleated Red Blood Cells % (auto) 0.0, Anion Gap 6L, Glomerular Filtration Rate > 60.0, Blood Urea Nitrogen 16, Creatinine 0.88, Sodium Level 143, Potassium Level 3.9, Chloride Level 110H, Carbon Dioxide Level 27, Calcium Level 8.6L, Aspartate Amino Transf (AST/SGOT) 43H, Alanine Aminotransferase (ALT/SGPT) 45, Alkaline Phosphatase 196H, Total Bilirubin 0.6#, Total Protein 7.1, Albumin 2.5L, Magnesium Level 2.0, C-Reactive Protein, Quantitative 1.50H, Albumin/Globulin Ratio 0.54L CBC/BMP Laboratory Tests 06/16/18 05:35 Red Blood Count 3.80 L, Mean Corpuscular Volume 89.2, Mean Corpuscular Hemoglobin 29.2, Mean Corpuscular Hemoglobin Concent 32.7, Red Cell Distribution Width 16.3 H, Neutrophils (%) (Auto) 52.8, Lymphocytes (%) (Auto) 34.5, Monocytes (%) (Auto) 9.5 H, Eosinophils (%) (Auto) 1.4, Basophils (%) (Auto) 0.8, Neutrophils # (Auto) 5.7, Lymphocytes # (Auto) 3.7, Monocytes # (Auto) 1.0 H, Eosinophils # (Auto) 0.2, Basophils # (Auto) 0.1, Calcium Level 8.6 L, Aspartate Amino Transf (AST/SGOT) 43 H, Alanine Aminotransferase (ALT/SGPT) 45, Alkaline Phosphatase 196 H, Total Bilirubin 0.6 #, Total Protein 7.1, Albumin 2.5 L AUDREY CHU MD Jun 16, 2018 20:14
[2018-06-16 22:00] VITALS: BP 140/72
[2018-06-17 06:00] VITALS: BP 126/60
[2018-06-17] MEDS: HEPARIN SOD (PORCINE) 5000 UNITS/ML VIAL SQ SCH ×2 (08:01→21:39)
[2018-06-17] MEDS: ACETAMINOPHEN TAB 650MG DOSE (2X325MG) PO PRN (08:02)
[2018-06-17] MEDS: predniSONE 20 MG TAB PO SCH (08:02)
[2018-06-17] MEDS: CALCIUM CARBONATE 500 MG CHEW U/D PO SCH (08:02)
[2018-06-17] MEDS: OMEPRAZOLE 20 MG CAP PO SCH ×2 (08:02→21:39)
[2018-06-17] MEDS: CLOPIDOGREL 75 MG TAB PO SCH (08:03)
[2018-06-17] MEDS: ASPIRIN 81 MG ENTERIC TAB PO SCH (08:03)
[2018-06-17] MEDS: GABAPENTIN 100 MG CAP PO SCH ×2 (08:03→21:38)
[2018-06-17] MEDS: PHENYTOIN ER 100 MG CAP PO SCH ×3 (08:03→21:38)
[2018-06-17] MEDS: SENOKOT S TAB PO SCH ×2 (08:03→21:38)
[2018-06-17] MEDS: amLODIPine 10 MG TAB PO SCH (08:03)
[2018-06-17] MEDS: EZETIMIBE 10 MG TAB (ZETIA) PO SCH (08:03)
[2018-06-17] MEDS: ATORVASTATIN 20 MG TAB PO SCH (08:03)
[2018-06-17] MEDS: METOPROLOL SUCC *XL* 25MG TAB (TopROL *XL*) PO SCH (08:04)
[2018-06-17] MEDS: POLYVINYL ALCOHOL OPHTH SOLN 15 ML(LIQUITEARS) OU SCH ×3 (08:04→21:39)
[2018-06-17] MEDS: **hydrALAZINE HCL** 25 MG TAB PO SCH ×3 (08:04→21:39)
[2018-06-17] MEDS: FLUTICASONE PROP 0.05% NASAL SPRAY 16 GM (FLONASE) SCH (08:04)
--- NOTE | 2018-06-17 10:13 | IPNPDOC ---
Date Seen The patient was seen on 06/17/18. Progress Note Patient seen and examined. No acute events overnight. Denies any chest pain, pressure, or discomfort. poor historian. anxious to go home back to the sisters home, but currently needs placement. Pt is repetitive and asks the same questions multiple times. no other issues per RN. PHYSICAL EXAMINATION: GENERAL: Patient comfortable, in no acute distress. HEENT: Normocephalic, atraumatic. Moist mucous membranes. NECK: Pulsating right carotid aneurysm palpated. CARDIAC: Regular, S1, S2. PULMONARY: Bilaterally clear. ABDOMEN: Soft, nontender. Positive bowel sounds. EXTREMITIES: No clubbing, cyanosis or edema. ASSESSMENT AND PLAN: This is a 77-year-old female patient with underlying medical history of dementia, hiatal hernia, dyslipidemia, hypertension, seizure disorder, osteopenia, presented with altered mental status, acute renal failure, leucocytosis and neck pain. PROBLEMS: 1. Acute metabolic encephalopathy, resolving, secondary to renal failure versus worsening dementia, versus vasculitis. Patient was initially treated as infection with meropenem, vancomycin. Infectious disease was consulted. Currently back to baseline. antibiotics stopped. Workup including LP, MRIs and EEG were done. condition improved after steroid 2. Neck pain, improved. Extensive workup including MRIs, MRI of the carotids, CT of the neck, lumbar puncture, MRI of the brain, Ear, Nose, Throat (ENT) consult, infectious disease (ID) consult, vascular consult and cardiology consult was done. Given significantly elevated ESR and CRP, suspicion for vasculitis. Rheumatology was consulted, especially with carotid aneurysm. Patient placed on prednisone vasculitis workup including complements, SAGAR, ANCA. Patient temporal artery biopsy by vascular. Esophagram was within normal limits. aspirin and plavix. Continue gabapentin. Continue steroid. 3. Right carotid aneurysm. Vascular consulted, on aspirin, Plavix as per vascular surgery, f.u vascular as outpatient 4. suspected vasculitis s/p rheum consult, vascular consult for temporal artery biopsy, f/u pathology prednisone 60mg daily for 2 weeks, then 50mg for 2 weeks, then 40 mg for 2 weeks further taper as per Rheum 5. Acute renal failure, resolved. Likely secondary to nonsteroidal anti-inflammatory drug (NSAID). Avoid nephrotoxic agent. Nephrology input appreciated. 6. New onset atrial fibrillation. Echo appreciated. Currently back to sinus rhythm. Cardiology consulted. Not recommending anticoagulation at this time. Continue beta andreas as ordered. 7. History of seizure. Continue current medication. 8. Dyslipidemia. Continue statin. 9. Dysphagia. Esophagram appreciated. 10. Hypertension. Continue metoprolol, Norvasc. Continue aspirin. Hydralazine 25 mg by mouth three times a day. Adjust medication as needed. 11. Leukocytosis. Possibly steroid induced. Culture has been appreciated. Will continue to monitor. Follow CRP. 12. Dementia. Supportive care. Likely need placement. 13. Deep vein thrombosis (DVT) prophylaxis. Heparin subcu. DISPOSITION: Pending intermediate placement. change to alc status. VS, I&O, 24H, Fishbone Vital Signs/I&O Vital Signs Date Time Temp Pulse Resp B/P (MAP) Pulse Ox O2 Delivery O2 Flow Rate FiO2 06/16/18 22:00 98.6 70 17 140/72 (94) 97 Room Air 06/12/18 14:00 2 I&O- Last 24 Hours up to 6 AM 06/17/18 06:00 Intake Total 1950 ml Output Total 1700 ml Balance 250 ml Laboratory Data 24H LABS Laboratory Tests 2 06/17/18 06:06: DEBBIE CABRERA MD Jun 17, 2018 06:47
[2018-06-17 14:00] VITALS: BP 147/92
[2018-06-18] MEDS: ACETAMINOPHEN TAB 650MG DOSE (2X325MG) PO PRN (00:55)
[2018-06-18 06:00] VITALS: BP 126/62
[2018-06-18 06:46] LABS: C REACTIVE PROTEIN QUANTITATIV 0.58 MG/DL (0.00-0.30)
[2018-06-18] MEDS: HEPARIN SOD (PORCINE) 5000 UNITS/ML VIAL SQ SCH (09:17)
[2018-06-18] MEDS: PHENYTOIN ER 100 MG CAP PO SCH (09:18)
[2018-06-18 09:19] VITALS: BP 126/62
[2018-06-18] MEDS: ASPIRIN 81 MG ENTERIC TAB PO SCH (09:19)
[2018-06-18] MEDS: predniSONE 20 MG TAB PO SCH (09:19)
[2018-06-18] MEDS: CALCIUM CARBONATE 500 MG CHEW U/D PO SCH (09:19)
[2018-06-18] MEDS: amLODIPine 10 MG TAB PO SCH (09:19)
[2018-06-18] MEDS: SENOKOT S TAB PO SCH (09:20)
[2018-06-18] MEDS: CLOPIDOGREL 75 MG TAB PO SCH (09:20)
[2018-06-18] MEDS: ATORVASTATIN 20 MG TAB PO SCH (09:21)
[2018-06-18] MEDS: OMEPRAZOLE 20 MG CAP PO SCH (09:21)
[2018-06-18] MEDS: **hydrALAZINE HCL** 25 MG TAB PO SCH (09:21)
[2018-06-18] MEDS: METOPROLOL SUCC *XL* 25MG TAB (TopROL *XL*) PO SCH (09:22)
[2018-06-18] MEDS: GABAPENTIN 100 MG CAP PO SCH (09:22)
[2018-06-18] MEDS: EZETIMIBE 10 MG TAB (ZETIA) PO SCH (09:22)
[2018-06-18] MEDS: FLUTICASONE PROP 0.05% NASAL SPRAY 16 GM (FLONASE) SCH (09:22)
[2018-06-18] MEDS: POLYVINYL ALCOHOL OPHTH SOLN 15 ML(LIQUITEARS) OU SCH (09:23)
[2018-06-18] MEDS ORDERED: HYDR25TA PO (11:38)
[2018-06-18] MEDS ORDERED: Docusate Sod/Senna PO (11:38)
[2018-06-18] MEDS ORDERED: PRED20TA PO (11:38)
[2018-06-18] MEDS ORDERED: GABA-1171 PO (11:38)
[2018-06-18] MEDS ORDERED: MAGICMW SS (11:38)
[2018-06-18] MEDS ORDERED: PRED50TA PO (11:40)
--- NOTE | 2018-06-23 10:52 | RO ---
DATE OF PROCEDURE: 06/12/2018 ATTENDING PHYSICIAN: Dr. Jackie Whitehead SPACE OFFICER: None. PREOPERATIVE DIAGNOSES: Bilateral neck pain status post right carotid endarterectomy with patch angioplasty and aneurysmal dilatation of the endarterectomy site. Elevated ESR and CRP. POSTOPERATIVE DIAGNOSES: Bilateral neck pain status post right carotid endarterectomy with patch angioplasty and aneurysmal dilatation of the endarterectomy site. Elevated ESR and CRP. PROCEDURE: Right temporal artery biopsy. INDICATION: The patient is a 77-year-old female who complains of multiple pains in her shoulders, neck who was evaluated and found to have elevated ESR and CRP and will undergo a right temporal artery biopsy to rule out temporal arteritis. Risks, benefits, and alternative options were discussed with the patient. ANESTHESIA: Local MAC. ESTIMATED BLOOD LOSS: 10 mL. IV FLUIDS: 300 mL. HEPARIN: None. COMPLICATIONS: None. DRAINS: None. SPECIMENS: Right temporal artery. DESCRIPTION OF PROCEDURE: The patient was taken to the operating room, placed on the operating room table and then prepped and draped in a standard surgical fashion. A time-out was conducted by myself and the team members in the room confirming the correct patient, procedure and laterality. The skin overlying the right temporal artery was anesthetized with 1% lidocaine mixed with 0.5% Marcaine. The incision was then made overlying the temporal artery, which was dissected free proximally and distally with removal of an approximate 5-cm piece of temporal artery with the proximal distal ends being ligated with #0 silk suture. Hemostasis was obtained, after which the incision was closed using #3-0 Monocryl in a running subcuticular fashion. Steri-Strips and dressings were applied. The patient tolerated the procedure well. All instrument, sponge, needle counts were correct at the end of the case. There were no complications. Dr. Whitehead was present for and directed the entire case. The patient was transferred to the recovery room awake, alert, extubated and in stable condition.
== END 2018-06-18 12:30 | DRG 673 ==
LOC: M ED 23:26 → M ED INP 06-01 12:37 → M PCU 06-01 22:08 → M MSPAV 06-13 08:32
PROVIDERS: ADMIT Hospitalist; ATTEND General Practice
PROC: 009U3ZX Drainage of Spinal Canal, Percutaneous Approach, Diagnostic (ICD-10-PCS; 2018-06-01)
PROC: 05HB33Z Insertion of Infusion Device into Right Basilic Vein, Percutaneous Approach (ICD-10-PCS; 2018-06-02)
PROC: 03BS0ZX Excision of Right Temporal Artery, Open Approach, Diagnostic (ICD-10-PCS; principal; 2018-06-12 13:00)
DX: N17.9 Acute kidney failure, unspecified (principal); G93.41 Metabolic encephalopathy; E87.2 Acidosis; E87.1 Hypo-osmolality and hyponatremia; E87.0 Hyperosmolality and hypernatremia; F03.91 Unspecified dementia, unspecified severity, with behavioral disturbance; K44.9 Diaphragmatic hernia without obstruction or gangrene; E78.5 Hyperlipidemia, unspecified; I48.0 Paroxysmal atrial fibrillation; Z66 Do not resuscitate; R13.10 Dysphagia, unspecified; I72.0 Aneurysm of carotid artery; I10 Essential (primary) hypertension; E87.6 Hypokalemia; M85.80 Other specified disorders of bone density and structure, unspecified site; M54.2 Cervicalgia; E86.0 Dehydration; D72.829 Elevated white blood cell count, unspecified; T39.315A Adverse effect of propionic acid derivatives, initial encounter; G40.909 Epilepsy, unspecified, not intractable, without status epilepticus; Z88.1 Allergy status to other antibiotic agents; Z90.49 Acquired absence of other specified parts of digestive tract; Z79.82 Long term (current) use of aspirin; Z79.899 Other long term (current) drug therapy

== ENCOUNTER → 2018-07-03 | Outpatient (REF) | payer MEDICARE, MEDICAID, BC ==
[~2018-07-03] MED LIST changes: +CALC500C16 PO; +Docusate Sod/Senna PO; +GABA-1171 PO; +HYDR25TA PO; +MAGICMW SS; +PATIENT COMMENTS; +PRED20TA PO; +PRED50TA PO
== END ==
LOC: SKLAB8 07:00
DX: I48.91 Unspecified atrial fibrillation (principal); E78.5 Hyperlipidemia, unspecified; R56.9 Unspecified convulsions; Z79.899 Other long term (current) drug therapy

== ENCOUNTER → 2018-07-23 | Outpatient (REF) | payer MEDICARE, MEDICAID, BC ==
[2018-07-23 07:17] LABS: HEMATOCRIT 38.5 % (36.0-47.0); HEMOGLOBIN 12.9 g/dl (12.0-15.5); MEAN CORPUSCULAR HEMOGLOBIN 29.9 pg (27.0-33.0); MEAN CORPUSCULAR HGB CONC 33.5 g/dl (32.0-36.5); MEAN CORPUSCULAR VOLUME 89.3 fl (80.0-96.0); PLATELET COUNT, AUTOMATED 238 10^3/uL (150-450); RED BLOOD COUNT 4.31 10^6/uL (4.00-5.40); WHITE BLOOD COUNT 9.1 10^3/uL (4.0-10.0)
[2018-07-23 07:39] LABS: ERYTHROCYTE SEDIMENTATION RATE 15 mm/hr (0-30)
== END ==
LOC: SKLAB8 07:00
DX: E78.5 Hyperlipidemia, unspecified (principal); I48.91 Unspecified atrial fibrillation; R56.9 Unspecified convulsions; Z79.899 Other long term (current) drug therapy

== ENCOUNTER → 2018-09-29 | Outpatient (REF) | payer MEDICARE, MEDICAID, BC ==
[~2018-09-29] MED LIST changes: +ASPI-1 PO; -ASPI325T PO; +CALC600T4 PO; -CALC600T9 PO
[2018-09-29 10:06] LABS: BASO # 0.1 10^3/uL (0.0-0.2); BASO % 0.9 % (0.0-1.0); EOS # 0.3 10^3/uL (0.0-0.50); EOS % 2.6 % (0.0-3.0); HEMATOCRIT 42.8 % (36.0-47.0); HEMOGLOBIN 14.2 g/dl (12.0-15.5); LYMPH # 2.6 10^3/uL (1.5-4.5); LYMPH % 25.9 % (24.0-44.0); MEAN CORPUSCULAR HEMOGLOBIN 29.8 pg (27.0-33.0); MEAN CORPUSCULAR HGB CONC 33.2 g/dl (32.0-36.5); MEAN CORPUSCULAR VOLUME 89.9 fl (80.0-96.0); MONO # 0.9 10^3/uL (0.0-0.8); MONO % 8.7 % (0.0-5.0); NEUTROPHILS # 6.1 10^3/uL (1.8-7.7); NEUTROPHILS % 61.2 % (36.0-66.0); PLATELET COUNT, AUTOMATED 212 10^3/uL (150-450); RED BLOOD COUNT 4.76 10^6/uL (4.00-5.40)
[2018-09-29 10:34] LABS: ALBUMIN 3.7 GM/DL (3.2-5.2); ALT/SGPT 41 U/L (12-78); BILIRUBIN,TOTAL 0.2 MG/DL (0.2-1.0); BLOOD UREA NITROGEN 17 MG/DL (7-18); CALCIUM LEVEL 8.8 MG/DL (8.8-10.2); CARBON DIOXIDE LEVEL 26 MEQ/L (21-32); CHLORIDE LEVEL 111 MEQ/L (98-107); CREATININE FOR GFR 0.85 MG/DL (0.55-1.30); GLOMERULAR FILTRATION RATE > 60.0 (>39); GLUCOSE, FASTING 116 MG/DL (70-100); PHENYTOIN (DILANTIN) 8.3 UG/ML (10.0-20.0); POTASSIUM SERUM 4.5 MEQ/L (3.5-5.1); SODIUM LEVEL 143 MEQ/L (136-145)
[2018-09-29 10:53] LABS: VITAMIN B12 LEVEL 641 PG/ML (247-911)
== END ==
LOC: SKLAB8 07:00
DX: E78.5 Hyperlipidemia, unspecified (principal); F03.90 Unspecified dementia, unspecified severity, without behavioral disturbance, psychotic disturbance, mood disturbance, and anxiety; I48.0 Paroxysmal atrial fibrillation; E56.9 Vitamin deficiency, unspecified; Z79.899 Other long term (current) drug therapy; I72.0 Aneurysm of carotid artery; Z90.49 Acquired absence of other specified parts of digestive tract

== ENCOUNTER → 2018-10-06 | Outpatient (REF) | payer MEDICARE, BC, MEDICAID | LOC: SKLAB8 07:00 | DX: E78.5 Hyperlipidemia, unspecified (principal); F03.90 Unspecified dementia, unspecified severity, without behavioral disturbance, psychotic disturbance, mood disturbance, and anxiety; R56.9 Unspecified convulsions ==

== ENCOUNTER → 2018-10-15 | Outpatient (REF) | payer MEDICARE, BC, MEDICAID ==
[2018-10-15 08:37] LABS: BLOOD UREA NITROGEN 17 MG/DL (7-18); CREATININE FOR GFR 0.77 MG/DL (0.55-1.30); GLOMERULAR FILTRATION RATE > 60.0 (>39)
== END ==
LOC: SKLAB8 07:18
DX: F03.90 Unspecified dementia, unspecified severity, without behavioral disturbance, psychotic disturbance, mood disturbance, and anxiety (principal)

== ENCOUNTER → 2018-10-22 | Outpatient (CLI) | payer MEDICARE, BC, MEDICAID ==
[~2018-10-22] MED LIST changes: +ISOVUE-370 76% 100ML VIAL (Q9967) As Ordered ONE
--- NOTE | 2018-10-22 09:31 | REP ---
CT ANGIO neck History: Carotid aneurysm Contrast: Isovue 370 75 ml Comparison: MR 06/01/2018 A partially calcified aneurysm is present in the distal right common carotid artery. There is superior extension into the proximal right internal carotid artery for approximately 1.6 cm. The aneurysm measures 1.9 cm in transverse x 2 cm in AP x 4 cm in cephalocaudal dimensions. The origin of the right external carotid artery is normal. Calcified atherosclerotic plaque is present at the origin of the left internal carotid artery. There is mild stenosis of 25% of the left internal carotid artery at its origin. There is severe stenosis of 80% of the left internal carotid artery 1.2 cm from its origin. The origin of the left external carotid artery is normal. Calcified atherosclerotic plaques are present in the proximal right common carotid artery. There is no significant stenosis. Calcified atherosclerotic plaques are present in the distal cervical internal carotid arteries. There is no significant stenosis. Calcified atherosclerotic plaques are present in the horizontal and vertical petrous segments as well as cavernous and supraclinoid internal carotid arteries. These produce mild to moderate stenosis. Calcified atherosclerotic plaque is present in the left vertebral artery at the C4-5 level. There is no significant stenosis. Calcified atherosclerotic plaques are present in the left vertebral artery at the C1-2 level and at the level of the foramen magnum. These produce at least mild stenosis. Calcified atherosclerotic plaques are present at the origins of the great vessels. There is no significant stenosis. IMPRESSION: 1. There is an aneurysm of the distal right common carotid artery with extension into the proximal right internal carotid artery as described above. 2. Mild stenosis of 25% of the left internal carotid artery at its origin. There is severe stenosis of 80% of the left internal carotid artery 1.2 cm from its origin. Electronically Signed by Remington Sin MD 10/22/2018 09:47 A
== END ==
LOC: M RAD 07:56
PROVIDERS: ATTEND Surgery Vascular Surgery
DX: I72.0 Aneurysm of carotid artery (principal); I65.22 Occlusion and stenosis of left carotid artery
CPT/HCPCS: 70498; Q9967

== ENCOUNTER → 2018-10-23 | Outpatient (REF) | payer MEDICARE, MEDICAID ==
[~2018-10-23] MED LIST changes: -ISOVUE-370 76% 100ML VIAL (Q9967) As Ordered ONE
[2018-10-23 10:07] LABS: THYROID STIMULATING HORMONE 2.52 uIU/ML (0.358-3.740); THYROXINE (T4) 6.7 UG/DL (4.5-12.0)
== END ==
LOC: SKLAB8 07:00
DX: R94.6 Abnormal results of thyroid function studies (principal); F03.90 Unspecified dementia, unspecified severity, without behavioral disturbance, psychotic disturbance, mood disturbance, and anxiety

== ENCOUNTER → 2019-05-06 | Outpatient (CLI) | payer MEDICARE, MEDICAID ==
[~2019-05-06] MED LIST changes: +OMEP-172 PO; -OMEP20CA3 PO; +ZETI10TA16 PO; -ZETI10TA30 PO
[2019-05-06 17:53] LABS: BASO # 0.1 10^3/uL (0.0-0.2); EOS # 0.6 10^3/uL (0.0-0.5); EOS % 5.2 % (0.0-3.0); HEMATOCRIT 44.4 % (36.0-47.0); HEMOGLOBIN 14.1 g/dl (12.0-15.5); LYMPH # 2.4 10^3/uL (1.5-5.0); LYMPH % 20.1 % (24.0-44.0); MEAN CORPUSCULAR HEMOGLOBIN 29.1 pg (27.0-33.0); MEAN CORPUSCULAR HGB CONC 31.8 g/dl (32.0-36.5); MEAN CORPUSCULAR VOLUME 91.5 fl (80.0-96.0); MONO # 1.2 10^3/uL (0.0-0.8); MONO % 10.3 % (0.0-5.0); NEUTROPHILS # 7.6 10^3/uL (1.5-8.5); NEUTROPHILS % 63.1 % (36.0-66.0); PLATELET COUNT, AUTOMATED 201 10^3/uL (150-450); RED BLOOD COUNT 4.85 10^6/uL (4.00-5.40)
[2019-05-06 22:36] LABS: ALBUMIN 4.1 GM/DL (3.2-5.2); ALT/SGPT 28 U/L (12-78); BILIRUBIN,TOTAL 0.6 MG/DL (0.2-1.0); BLOOD UREA NITROGEN 14 MG/DL (7-18); CALCIUM LEVEL 9.5 MG/DL (8.8-10.2); CARBON DIOXIDE LEVEL 27 MEQ/L (21-32); CHLORIDE LEVEL 109 MEQ/L (98-107); CREATININE FOR GFR 0.94 MG/DL (0.55-1.30); GLOMERULAR FILTRATION RATE > 60.0 (>39); GLUCOSE, FASTING 97 MG/DL (70-100); POTASSIUM SERUM 4.8 MEQ/L (3.5-5.1); SODIUM LEVEL 142 MEQ/L (136-145); TOTAL PROTEIN 7.4 GM/DL (6.4-8.2)
== END ==
LOC: M WUC 11:25
PROVIDERS: ATTEND Physician Assistant
DX: R21 Rash and other nonspecific skin eruption (principal)

== ENCOUNTER → 2019-06-19 | Outpatient (CLI) | payer MEDICARE, MEDICAID ==
[~2019-06-19] MED LIST changes: -OMEP-172 PO; +OMEP1CAP73 PO
--- NOTE | 2019-06-19 18:40 | REP ---
Right wrist series: Four views. History: Wrist contusion. Ulnar aspect pain x 3 days. Findings: There is diffuse osteopenia. There is moderate to advanced osteoarthritis at the articulation between the greater multangular and the navicular bone as well as spurring in the first carpometacarpal articulation. There is vascular calcification. Some osteoarthritic changes are seen in the first MCP joint. No fracture or subluxation is seen. Impression: Diffuse osteopenia. Osteoarthritic changes. No fracture noted. Electronically Signed by Juan Matos MD 06/19/2019 06:30 P
== END ==
LOC: M WUC 16:49
PROVIDERS: ATTEND Physician Assistant
DX: M19.031 Primary osteoarthritis, right wrist (principal); M85.841 Other specified disorders of bone density and structure, right hand

== ENCOUNTER → 2020-01-20 | Outpatient (REF) | payer MEDICARE, MEDICAID, BC ==
[~2020-01-20] MED LIST changes: -AMLO10TA5 PO; +AMLO1TAB25 PO
== END ==
LOC: M LAB REF 09:45
PROVIDERS: ATTEND Dermatology
DX: L82.1 Other seborrheic keratosis (principal); L81.4 Other melanin hyperpigmentation; L57.0 Actinic keratosis
CPT/HCPCS: 11102; 11103; 88305; G0463

== ENCOUNTER → 2020-06-02 | Outpatient (CLI) | payer MEDICARE, MEDICAID, BC ==
--- NOTE | 2020-06-02 11:46 | REP ---
INDICATION: PAIN. Redness and swelling over the anterior aspect of the elbow. COMPARISON: None. TECHNIQUE: Four views. FINDINGS: Four views of the right elbow demonstrate soft tissue swelling adjacent to the medial epicondyle with some medial epicondylar spurring. There is mild coronoid process spurring. No elbow joint effusion or erosive changes seen. No fracture or subluxation is seen. No soft tissue gas noted.. . No opaque foreign body noted. IMPRESSION: Periarticular soft tissue swelling. Osteoarthritic spurring and medial epicondylar spurring. No acute bony abnormality.. <Electronically signed by Leeroy Matos > 06/02/20 [id number]
[2020-06-02 13:09] LABS: HEMATOCRIT 45.3 % (36.0-47.0); HEMOGLOBIN 14.5 g/dl (12.0-15.5); MEAN CORPUSCULAR HEMOGLOBIN 28.6 pg (27.0-33.0); MEAN CORPUSCULAR VOLUME 89.3 fl (80.0-96.0); PLATELET COUNT, AUTOMATED 231 10^3/uL (150-450); RED BLOOD COUNT 5.07 10^6/uL (4.00-5.40); WHITE BLOOD COUNT 12.4 10^3/uL (4.0-10.0)
== END ==
LOC: M WUC 11:11
PROVIDERS: ATTEND Nurse Practitioner Family
DX: M25.721 Osteophyte, right elbow (principal); R22.31 Localized swelling, mass and lump, right upper limb

== ENCOUNTER 2020-06-23 14:25 | Emergency (ER) | payer MEDICARE, BC, MEDICAID ==
[~2020-06-23] VITALS: Ht 157.5 cm; Wt 75.9 kg
--- OUTSIDE RECORDS SUMMARY | 2020-06-23 14:33 | CCD | Continuity of Care Document ---
Author Author Kristyn [facility] [employer] Organization Unknown Address [address] [place] [address] [place] [address] Phone [phone] Care Team Providers Care Observation Nurse Name Role Phone Johnson Valdovinos MD AUTM [phone] Bon Fletcher MD AUTM [phone] Problems Description No Information Available Social History Type Date Description Comments Sex Unknown ETOH Use Denies alcohol use Tobacco Use Start: Unknown Patient has never smoked Smoking Status Reviewed: 06/02/20 Patient has never smoked Allergies, Adverse Reactions, Alerts Description No Known Drug Allergies Medications Active Medications SIG Qnty Indications Ordering Provide r Date Cetirizine HCL 10mg Tablets 1 tablet by mouth everyday 30tabs R21 Dane Knott JR., M.D. 03/2019 Aspir-Low 81mg Tablets DR Unknown Lipitor 80mg Tablets Unknown Eliquis 2.5mg Tablets Unknown Xalatan 0.005% Solution Unknown Toprol XL 25mg Tablets ER 24HR Unknown Norvasc 5mg Tablets 1 by mouth every day Unknown Preservision Areds Capsules Unknown Timolol Maleate 0.5% (Daily) Solution Unknown Tylenol 8 Hour Arthritis Pain 650mg Tablets ER as directed Unknown Fluticasone Propionate Nasal [place] 24- Hour Unknown Loratadine Unknown Mapap Unknown Ocuvite Adult 50+ Unknown 00 000 Clotrimazole Unknown Immunizations Description No Information Available Vital Signs Date Vital Result Comment 06/19/2019 4:26pm BP Systolic 161 mmHg BP Diastolic 70 mmHg Heart Rate 71 /min Respiratory Rate 17 /min O2 % BldC Oximetry 96 % Body Temperature 97.9 F Weight 145.00 lb Height 62 inches 5'2" BMI (Body Mass Index) 26.5 kg/m2 Pain Level 2 05/06/2019 10:43am BP Systolic 166 mmHg BP Diastolic 89 mmHg Heart Rate 64 /min Respiratory Rate 18 /min O2 % BldC Oximetry 97 % Body Temperature 97.7 F Weight 150.00 lb Height 62 inches 5'2" BMI (Body Mass Index) 27.4 kg/m2 Pain Level 0 Results Description No Information Available Procedures Description No Information Available Medical Devices Description No Information Available Encounters Type Date Location Provider Dx Diagnosis Office Visit 06/02/2020 9:30a Main Office Bren Hanson NP M79. 601 Pain in right arm S52.001A Unsp fracture of upper end o f right ulna, init for clos fx Assessments Date Code Description Provider 06/02/2020 M79.601 Pain in right arm Bren bautista NP 06/02/2020 S52.001A Unspecified fracture of upper end of right ulna, initial encounter for closed fracture Bren Hanson NP Plan of Treatment 06/02/2020 - Bren Hanson NP* M79.601 Pain in right arm* New Labs:* Complete Blood Count, Ordered: 06/02/20 * Comments:* wet read xray: avulsion fx at upper end of right ulnapending radiologist reportright UE YUE wrap appliedsling appliedRICE, alternate with heatCBC obtained, patient is on blood thinnerstylenol/motrin PRN for pain/swellingf/u PRN or with PCPpatient v/u & agrees to plan * S52.001A Unspecified fracture of upper end of right ulna, initial encounter for closed fracture * All * Referral:* Bon Fletcher MD, Surgery,Orthopedic Functional Status Description No Information Available Mental Status Description No Information Available Referrals Refer to Reason for Referral Status Appt Date Bon Fletcher MD ?avulsion fracture at proximal right ulna C reated [address] [id number] [phone]
--- OUTSIDE RECORDS SUMMARY | 2020-06-23 14:33 | CCD | Continuity of Care Document ---
Author Author Kristyn CARD P.A. Organization Unknown Address [address] [place] [address] Phone [phone] Care Team Providers Care Cupboard Builder Name Role Phone Rosa Krause AIRCRAFT ELECTRICIAN AUTM [phone] Problems Active Problems Provider Date Plantar fascial fibromatosis Onset: 02/25 Social History Type Date Description Comments Sex Unknown Allergies, Adverse Reactions, Alerts Description No Information Available Medications Active Medications SIG Qnty Indications Ordering Provide r Date Vicodin 5/500MG. 1 Or 2 Q6 HRS. prn/Pain 30units Krishna Ornelas MD 02/12/2006 Keflex 250MG 1 Q 6 Hours 20units Krishna Ornelas MD Immunizations Description No Information Available Vital Signs Description No Information Available Results Description No Information Available Procedures Date Code Description Status 06/06/2020 54759 X-Ray Shoulder Complete Complete d Medical Devices Description No Information Available Encounters Description No Information Available Assessments Date Code Description Provider 06/06/2020 M19.011 Primary oste[facility] Real 06/06/2020 M19.021 Primary osteoarthritis, right el bow Mary Real Plan of Treatment 06/06/2020 - Mary Real* M19.011 Primary osteoarthritis, right shoulder* Follow up:* 4-5 weeks with [facility] for right shoulder recheck * 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
--- OUTSIDE RECORDS SUMMARY | 2020-06-23 14:33 | CCD | Continuity of Care Document ---
Author Author Steffanie VALDOVINOS M.D. Organization Unknown Address [address] [place], [place] [address] Phone [phone] Problems Active Problems Provider Date Hyperlipidemia Johnson Valdovinos M.D. Onset: 3 Benign essential hypertension Johnson Valdovinos M.D. Onset: 04/22/2013 Gastroesophageal reflux disease Johnson Valdovinos M.D. Onse t: 04/22/2013 Senile osteoporosis Johnson Valdovinos M.D. Onset: 3 Generalized convulsive epilepsy Johnson Valdovinos M.D. Onse t: 04/22/2013 Essential hypertension Johnson Valdovinos M.D. Onset: 2015 Social History Type Date Description Comments Sex Unknown ETOH Use Never used alcohol Tobacco Use Start: Unknown Patient has never smoked Recreational Drug Use Never Used Drugs Allergies, Adverse Reactions, Alerts Active Allergies Reaction Severity Comments Date No Known Drug Allergy 2012 Medications Active Medications SIG Qnty Indications Ordering Provide r Date Clotrimazole 1% Cream apply under both breasts twice a day until clear 30gm Johnson Valdovinos M.D. 01/01/2020 Fluticasone Propionate 50mcg/Act Suspension Instill Two Sprays In Each Nostril Once Daily 48gm Johnson Valdovinos M.D. 03/16/2019 Ocuvite-Lutein Tablets Take One Tablet By Mouth @8Am and Take One Tablet By Mouth @7PM 60tabs Johnson Macias M.D. 01/29/2019 Loratadine 10mg Tablets take one tablet by mouth @8am 90tabs Johnson Valdovinos M.D. 12/25/[address] take one tablet by mouth @8am 30tabs Johnson Valdovinos M.D. 12/13/19 19 Amlodipine Besylate 5mg Tablets Take One Tablet By Mouth @8Am 90tabs Johnson Valdovinos M.D. Tylenol 8 Hour 650mg Tablets ER 1 by mouth every 4 hours as needed pain/fever 100tabs Josh Valdovinos M.D. 12/12/2018 Atorvastatin Calcium 80mg Tablets Take One Tablet By Mouth @8Am 90tabs Johnson Valdovinos M.D. Metoprolol Succinate ER 25mg Tablets ER 24HR Take One Tablet By Mouth @8Am 90tabs Valeria Valdovinos M.D. 04/22/2013 Timolol Maleate 0.5% (Daily) Solut ion 1 drop both eyes every day ( glaucoma) Unknown Saline Nasal [place] 0.65% Solution 2 spray each nostril twice a day prn Unknown Eliquis 5mg Tablets 1 by mouth twice a day Unknown Latanoprost 0.005% Solution 1 gtt OU QHS for glaucoma Unknown Triamcinolone Acetonide 0.1% Ointm ent apply locally to rash on hand bid as needed Unkn own Immunizations CPT Code Status Date Vaccine Lot # [id number] Given 04/08/2017 Influenza Virus Vaccine, Quadrivalent, Slit Virus, Im Use 3Y & Up [id number] 62761 Given 04/06/2016 Influenza Virus Vaccine, Quadrivalent, Slit Virus, Im Use 3Y & Up [id number] 13456 Given 07/15/2015 Pneumococcal Immunization L0 14580 Vital Signs Date Vital Result Comment 04/19/2020 10:11am BP Systolic 134 mmHg BP Diastolic 82 mmHg Body Temperature 97.4 F Heart Rate 72 /min Respiratory Rate 14 /min Height 62 inches 5'2" Weight 170.00 lb [place] Body Weight 110 lb BMI (Body Mass Index) 31.1 kg/m2 O2 % BldC Oximetry 97 % 10/28/2019 1:52pm BP Systolic 136 mmHg BP Diastolic 78 mmHg Body Temperature 97.7 F Heart Rate 72 /min Respiratory Rate 16 /min Height 62 inches 5'2" Weight 160.00 lb [place] Body Weight 110 lb BMI (Body Mass Index) 29.3 kg/m2 O2 % BldC Oximetry 97 % Results Test Acquired Date Facility Test Result H/L Range Note CMP 04/19/2020 [facility] Glu 88 mg/dL 70 - 110 1 BUN 20 mg/dL 8 - 23 Creat 0.8 mg/dL 0.5 - 1.0 BUN/Creatinine Ratio 24.7 CALC Na 140 mmol/L 136 - 145 K 4.7 mmol/L 3.5 - 5.1 CL 102.5 mmol/L 98.0 - 107.0 Co2 25.5 mmol/L 22.0 - 29.0 CA 9.8 mg/dL 8.6 - 10.2 TP 7.2 g/dL 6.6 - 8.7 Alb 4.6 g/dL 3.4 - 4.8 A/G Ratio 1.7 CALC Globulin 2.7 CALC Alp 128.6 U/L 35 - 129 Alt (SGPT) 21 U/L 0 - 41 Ast (Sgot) 20 U/L 0 - 40 Tbili 0.55 mg/dL 0.0 - 1.2 Osmolality-Calculated 282.2 CALC Anion Gap 17 mmol/L eGFR 82 # Calc 2 eGFR Non-Afr. [place] 71 # Calc 3 Lipid Panel 04/19/2020 [facility] Chol 196 mg/dL 0 - 200 Trig 207 mg/dL High 40 - 200 HDL 50 mg/dL 45 - 65 LDL_C 104 Calc 75 - 129 Cho/HDL Ratio 3.9 Calc 1 CHRONIC KIDNEY DISEASE STAGI NG PER NKF: MALE GFR INTERPRETATION: 20-49 YRS: >60 mL/min Normal 50-59 YRS: >56 mL/min Normal 60-69 YRS: >49 mL/min Normal 70-79 YRS: >42 mL/min Normal 80 and above >35 mL/min Normal FEMALE GRF INTERPRETATION: 20-39 YRS: >60 mL/min Normal 40-49 YRS: >58 mL/min Normal 50-59 YRS: >51 mL/min Normal 60-69 YRS: >45 mL/min Normal 70-79 YRS: >39 mL/min Normal 80 and above >32 mL/min NormalCLASSIFICATION CHOLESTEROL FOR ADULTS CHILDREN/ADOLESCENTS* DESIRABLE: <200 MG/DL <170 MG/DL BORDER-LINE HIGH RISK: 200-239 MG/DL 170-199 MG/DL HIGH RISK: >240 MG/DL >200 MG/DL CLASS. FOR PRIMARY LDL CHOL PREVENTION: LDL CHOL-CHILD/ADOLESCENTS* DESIRABLE: <130 MG/DL <110 MG/DL BORDERLINE-HIGH RISK: 130-159 MG/DL 110-129 MG/DL HIGH RISK: >160 MG/DL >130 MG/DL *CHILDREN AND ADOLESCENTS REPRESENTS INDIVIDUALA AGED 2-19 YEARS EXCLUSIVE. 2 CKD-EPI 3 CKD-EPI Procedures Date Code Description Status 07/18/2017 [id number] Mammogram Completed 07/20/2016 [id number] Mammogram Completed Medical Devices Description No Information Available Encounters Type Date Location Provider Dx Diagnosis Office Visit 04/19/2020 10:00a [facility] Johnson Valdovinos M. D. I10 Essential (primary) hypertension E78.5 Hyperlipidemia, unspecified G30.9 Alzheimer's disease, unspeci fied R73.01 Impaired fasting glucose Office Visit 10/28/2019 1:30p [facility] Johnson Valdovinos M. D. H61.23 Impacted cerumen, bilateral Assessments Date Code Description Provider 04/19/2020 I10 Essential (primary) hypertension Johnson Valdovinos M.D. 04/19/2020 E78.5 [facility], [facility] M.[facility] 04/19/2020 G30.9 Alzheimer's disease, unspecified Johnson Valdovinos M.D. 04/19/2020 R73.01 Impaired fasting glucose Johnson Ortiz M.D. 10/28/2019 H61.23 Impacted cerumen, bilateral [facility] Johnson schwartz M.D. Plan of Treatment Future Appointment(s):* 10/17/2020 8:30 am - Johnson Valdovinos M.D. at [facility] Functional Status Description No Information Available Mental Status Description No Information Available Referrals Description No Information Available
--- OUTSIDE RECORDS SUMMARY | 2020-06-23 14:33 | CCD | Continuity of Care Document ---
Author Author Kristyn CARD P.A. Organization Unknown Address [address] [facility] [place] [address] Phone [phone] Care Team Providers Care Pattern Checker Name Role Phone Rosa Krause AUTM [phone] Problems Active Problems Provider Date Plantar fascial [...] Available Procedures Date Code Description Status 06/06/2020 [id number] X-Ray Shoulder Complete Complete d 06/06/2020 [id number] Inject/Drain Joint/Bursa Major C ompleted Medical Devices Description No Information Available Encounters Type Date Location Provider Dx Diagnosis Office Visit 06/06/2020 1:00p [facility] M19.011 Primary osteoarthritis, right shoulder M19.021 Primary osteoarthritis, righ t elbow Assessments Date Code Description Provider 06/06/2020 M19.011 Primary osteoarthritis, right sh oulder Mary Real 06/06/2020 M19.021 Primary osteoarthritis, right el bow Mary Real Plan of Treatment 06/06/2020 - Khalida Real.* M19.011 Primary osteoarthritis, right shoulder* Follow up:* 4-5 weeks with [facility] for right shoulder recheck * 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
--- OUTSIDE RECORDS SUMMARY | 2020-06-23 14:33 | CCD | Continuity of Care Document ---
Author Author Steffanie VALDOVINOS M.D. Organization Unknown Address [address] [place], [place] [address] Phone [phone] Problems Active Problems Provider Date Hyperlipidemia Johnson [...] every day ( glaucoma) Unknown Saline Nasal [place] 0.65% Solution 2 spray each nostril twice a day prn Unknown Eliquis 5mg Tablets 1 by mouth twice a day Unknown Latanoprost 0.005% Solution 1 gtt OU QHS for glaucoma Unknown Triamcinolone Acetonide 0.1% Ointm ent apply locally to rash on hand bid as needed Unkn own Immunizations CPT Code Status Date Vaccine Lot # [id number] Given 04/08/2017 Influenza Virus Vaccine, Quadrivalent, Slit Virus, Im Use 3Y & Up [id number] 52520 Given 04/06/2016 Influenza Virus Vaccine, Quadrivalent, Slit Virus, Im Use 3Y & Up [id number] 69027 Given 07/15/2015 Pneumococcal Immunization L0 83021 Vital Signs Date Vital Result Comment 04/19/2020 10:11am BP Systolic 134 mmHg BP Diastolic 82 mmHg Body Temperature 97.4 F Heart Rate 72 /min Respiratory Rate 14 /min Height 62 inches 5'2" Weight 170.00 lb [place] Body Weight 110 lb BMI (Body Mass Index) 31.1 kg/m2 O2 % BldC Oximetry 97 % 10/28/2019 1:52pm BP Systolic 136 mmHg BP Diastolic 78 mmHg Body Temperature 97.7 F Heart Rate 72 /min Respiratory Rate 16 /min Height 62 inches 5'2" Weight 160.00 lb [place] Body Weight 110 lb BMI (Body Mass [...] eGFR 82 # Calc 2 eGFR Non-Afr. [place] 71 # Calc 3 Lipid Panel 04/19/2020 [facility] Chol 196 mg/dL 0 - 200 Trig 207 mg/dL High 40 - 200 HDL 50 mg/dL 45 - 65 LDL_C 104 Calc 75 - 129 Cho/HDL Ratio 3.9 Calc Hemoglobin A1c 04/19/2020 [facility] [place] Hemoglobin A1c 6.0 % High 4.8-5.6 4 1 CHRONIC KIDNEY DISEASE STAGI NG PER [...] 2-19 YEARS EXCLUSIVE. 2 CKD-EPI 3 CKD-EPI 4 Prediabetes: 5.7 - 6.4 Diabetes: >6.4 Glycemic control for adults with diabetes: <7.0 Procedures Date Code Description Status 07/18/2017 [id number] Mammogram Completed 07/20/2016 [id number] Mammogram Completed Medical Devices Description No Information Available Encounters Type Date Location Provider Dx Diagnosis Office Visit 04/19/2020 10:00a [place] [facility] Johnson Valdovinos M. D. I10 Essential (primary) hypertension E78.5 Hyperlipidemia, unspecified G30.9 Alzheimer's disease, unspeci fied R73.01 Impaired fasting glucose Office Visit 10/28/2019 1:30p [place] [facility] Johnson Valdovinos M. D. H61.23 Impacted cerumen, bilateral Assessments Date Code Description Provider 04/19/2020 I10 Essential (primary) hypertension Johnson Valdovinos M.D. 04/19/2020 E78.5 Hyperlipidemia, unspecified [facility] Johnson schwartz M.D. 04/19/2020 G30.9 Alzheimer's disease, unspecified Johnson Valdovinos M.D. 04/19/2020 R73.01 Impaired fasting glucose Johnson Ortiz M.D. 10/28/2019 H61.23 Impacted cerumen, bilateral [facility] Johnson schwartz M.D. Plan of Treatment Future Appointment(s):* 10/17/2020 8:30 am - Johnson Valdovinos M.D. at [facility] Functional Status Description No Information Available Mental Status Description No Information Available Referrals Description No Information Available
--- OUTSIDE RECORDS SUMMARY | 2020-06-23 14:33 | CCD | Continuity of Care Document ---
Author Author Steffanie VALDOVINOS M.D. Organization Unknown Address [address] [place], [place] [address] Phone [phone] Problems Active Problems Provider Date Hyperlipidemia Johnson [...] Take One Tablet By Mouth @7PM 60tabs Johsnon Macias M.D. 01/29/2019 Loratadine 10mg Tablets take [...] every day ( glaucoma) Unknown Saline Nasal [place] 0.65% Solution 2 spray each nostril twice a day prn Unknown Eliquis 5mg Tablets 1 by mouth twice a day Unknown Latanoprost 0.005% Solution 1 gtt OU QHS for glaucoma Unknown Triamcinolone Acetonide 0.1% Ointm ent apply locally to rash on hand bid as needed Unkn own Immunizations CPT Code Status Date Vaccine Lot # [id number] Given 04/08/2017 Influenza Virus Vaccine, Quadrivalent, Slit Virus, Im Use 3Y & Up [id number] 78315 Given 04/06/2016 Influenza Virus Vaccine, Quadrivalent, Slit Virus, Im Use 3Y & Up [id number] 43113 Given 07/15/2015 Pneumococcal Immunization L0 52523 Vital Signs Date Vital Result Comment 04/19/2020 10:11am BP Systolic 134 mmHg BP Diastolic 82 mmHg Body Temperature 97.4 F Heart Rate 72 /min Respiratory Rate 14 /min Height 62 inches 5'2" Weight 170.00 lb [place] Body Weight 110 lb BMI (Body Mass Index) 31.1 kg/m2 O2 % BldC Oximetry 97 % 10/28/2019 1:52pm BP Systolic 136 mmHg BP Diastolic 78 mmHg Body Temperature 97.7 F Heart Rate 72 /min Respiratory Rate 16 /min Height 62 inches 5'2" Weight 160.00 lb [place] Body Weight 110 lb BMI (Body [...] eGFR 82 # Calc 2 eGFR Non-Afr. [place] 71 # Calc 3 Lipid Panel 04/19/2020 [...] <7.0 Procedures Date Code Description Status 07/18/2017 [id number] Mammogram Completed 07/20/2016 [id number] Mammogram Completed Medical Devices Description No Information Available Encounters Type Date Location Provider Dx Diagnosis Office Visit 04/19/2020 10:00a [place] [facility] Johnson Valdovinos M. D. I10 Essential (primary) hypertension E78.5 Hyperlipidemia, unspecified G30.9 Alzheimer's disease, unspeci fied R73.01 Impaired fasting glucose Office Visit 10/28/2019 1:30p [facility] Johnson Valdovinos M. D. H61.23 Impacted cerumen, bilateral Assessments Date Code Description Provider 04/19/2020 I10 Essential (primary) hypertension Johnson Vladovinos M.D. 04/19/2020 E78.5 Hyperlipidemia, unspecified [facility] Johnson schwartz M.D. 04/19/2020 G30.9 Alzheimer's disease, unspecified Johnson Valdovinos M.D. 04/19/2020 R73.01 Impaired fasting glucose Johnson Ortiz M.D. 10/28/2019 H61.23 Impacted cerumen, bilateral [facility] Johnson schwartz M.D. Plan of Treatment Future Appointment(s):* 10/17/2020 8:30 am - Johnson Valdovinos M.D. at [facility] Functional Status Description No Information Available Mental Status Description No Information Available Referrals Description No Information Available
--- OUTSIDE RECORDS SUMMARY | 2020-06-23 14:33 | CCD | Continuity of Care Document ---
Author Author Steffanie VALDOVINOS M.D. Organization Unknown Address [address] [place], [place] [address] Phone [phone] Problems Active Problems Provider Date Hyperlipidemia Johnson [...] every day ( glaucoma) Unknown Saline Nasal [place] 0.65% Solution 2 spray each nostril twice a day prn Unknown Eliquis 5mg Tablets 1 by mouth twice a day Unknown Latanoprost 0.005% Solution 1 gtt OU QHS for glaucoma Unknown Triamcinolone Acetonide 0.1% Ointm ent apply locally to rash on hand bid as needed Unkn own Immunizations CPT Code Status Date Vaccine Lot # [id number] Given 04/08/2017 Influenza Virus Vaccine, Quadrivalent, Slit Virus, Im Use 3Y & Up [id number] 05720 Given 04/06/2016 Influenza Virus Vaccine, Quadrivalent, Slit Virus, Im Use 3Y & Up [id number] 51351 Given 07/15/2015 Pneumococcal Immunization L0 20930 Vital Signs Date Vital Result Comment 04/19/2020 10:11am BP Systolic 134 mmHg BP Diastolic 82 mmHg Body Temperature 97.4 F Heart Rate 72 /min Respiratory Rate 14 /min Height 62 inches 5'2" Weight 170.00 lb [place] Body Weight 110 lb BMI (Body Mass Index) 31.1 kg/m2 O2 % BldC Oximetry 97 % 10/28/2019 1:52pm BP Systolic 136 mmHg BP Diastolic 78 mmHg Body Temperature 97.7 F Heart Rate 72 /min Respiratory Rate 16 /min Height 62 inches 5'2" Weight 160.00 lb [place] Body Weight 110 lb BMI (Body Mass Index) 29.3 kg/m2 O2 % BldC Oximetry 97 % Results Description No Information Available Procedures Date Code Description Status 07/18/2017 [id number] Mammogram Completed 07/20/2016 [id number] Mammogram Completed Medical Devices Description No Information Available Encounters Type Date Location Provider Dx Diagnosis Office Visit 04/19/2020 10:00a [place] [facility] Johnson Valdovinos M. D. I10 Essential (primary) hypertension E78.5 Hyperlipidemia, unspecified G30.9 Alzheimer's disease, unspeci fied R73.01 Impaired fasting glucose Office Visit 10/28/2019 1:30p [place] [facility] Johnson Valdovinos M. D. H61.23 Impacted cerumen, bilateral Assessments Date Code Description Provider 04/19/2020 I10 Essential (primary) hypertension Johnson Valdovinos M.D. 04/19/2020 E78.5 Hyperlipidemia, unspecified [facility] Johnson schwartz M.D. 04/19/2020 G30.9 Alzheimer's disease, unspecified Johnson Valdovinos M.D. 04/19/2020 R73.01 Impaired fasting glucose Johnson Ortiz M.D. 10/28/2019 H61.23 Impacted cerumen, bilateral [facility] Johnson schwartz M.D. Plan of Treatment No Information Available Functional Status Description No Information Available Mental Status Description No Information Available Referrals Description No Information Available
--- OUTSIDE RECORDS SUMMARY | 2020-06-23 14:33 | CCD | Continuity of Care Document ---
Author Author Kristyn HANSON RETORT UNLOADER Organization Unknown Address [address] [place] [address] [place] [address] Phone [phone] Care Team Providers Care Tooth Polisher Name Role Phone Johnson Valdovinos MD AUTM [phone] Bon Fletcher MD AUTM [phone] Problems Description No Information Available Social History [...] ER as directed Unknown Fluticasone Propionate Nasal [place] 24- Hour Unknown Loratadine Unknown Mapap Unknown [...] Index) 27.4 kg/m2 Pain Level 0 Results Test Acquired Date Facility Test Result H/L Range Note Complete Blood Count 06/02/2020 [facility] [address] [id number] [phone] White Blood Count 12.4 10 High 4.0-10.0 Red Blood Count 5.07 10 Normal 4.00-5.40 Hemoglobin 14.5 g/dL Normal 12.0-15.5 Hematocrit 45.3 % Normal 36.0-47.0 Mean Corpuscular Volume 89.3 fl Normal 80.0-96.0 Mean Corpuscular Hemoglobin 28.6 pg Normal 27.0-33.0 Mean Corpuscular HGB Conc 32.0 g/dL Normal 32.0-36.5 Red Cell Distribution Width 14.7 % High 11.5-14.5 Platelet Count, Automated 231 10 Normal 150-450 Nucleated Red Blood Cell % 0.0 % Normal 0-0 Procedures Description No Information Available Medical Devices [...] Hanson NP* M79.601 Pain in right arm* Comments:* wet read xray: avulsion fx at upper end of right ulnapending radiologist reportr ight UE YUE wrap appliedsling appliedRICE, alternate with [...] at proximal right ulna C reated [address] [place], [place] [id number] [phone]
--- OUTSIDE RECORDS SUMMARY | 2020-06-23 14:34 | CCD ---
Author Author [facility] Address Unknown Phone Unavailable Care Team Providers Care Teller Vault Name Role Phone Santos SMITH MD Unavailable Unavailable Santos SMITH MD Unavailable Unavailable Santos SMITH MD Unavailable Unavailable Santos SMITH MD Unavailable Unavailable Santos SMITH MD Unavailable Unavailable Santos SMITH MD Unavailable Unavailable Santos SMITH MD Unavailable Unavailable Santos SMITH MD Unavailable Unavailable Santos SMITH MD Unavailable Unavailable Santos SMITH MD Unavailable Unavailable Santos SMITH MD Unavailable Unavailable Santos SMITH MD Unavailable Unavailable Santos SMITH MD Unavailable Unavailable Santos SMITH MD Unavailable Unavailable Santos SMITH MD Unavailable Unavailable Santos SMITH MD Unavailable Unavailable Santos SMITH MD Unavailable Unavailable Santos SMITH MD Unavailable Unavailable Santos SMITH MD Unavailable Unavailable Santos SMITH MD Unavailable Unavailable Santos SMITH MD Unavailable Unavailable Santos SMITH MD Unavailable Unavailable Santos SMITH MD Unavailable Unavailable Santos SMITH MD Unavailable Unavailable Santos SMITH MD Unavailable Unavailable Santos SMITH MD Unavailable Unavailable Santos SMITH MD Unavailable Unavailable Santos SMITH MD Unavailable Unavailable Santos SMITH MD Unavailable Unavailable Santos SMITH MD Unavailable Unavailable Santos SMITH MD Unavailable Unavailable Santos SMITH MD Unavailable Unavailable Santos SMITH MD Unavailable Unavailable Santos SMITH MD Unavailable Unavailable Santos SMITH MD Unavailable Unavailable Santos SMITH MD Unavailable Unavailable Santos SMITH MD Unavailable Unavailable Santos SMITH MD Unavailable Unavailable Santos SMITH MD Unavailable Unavailable Santos SMITH MD Unavailable Unavailable Santos SMITH MD Unavailable Unavailable LUIS H RYAN HUGHES Unavailable Unavailable Santos SMITH MD Unavailable Unavailable Santos SMITH MD Unavailable Unavailable LUIS H RYAN HUGHES Unavailable Unavailable Santos SMITH MD Unavailable Unavailable Santos SMITH MD Unavailable Unavailable Santos SMITH MD Unavailable Unavailable Santos SMITH MD Unavailable Unavailable Santos SMITH MD Unavailable Unavailable LUIS H RYAN HUGHES Unavailable Unavailable Santos SMITH MD Unavailable Unavailable Santos SMITH MD Unavailable Unavailable Santos SMITH MD Unavailable Unavailable Santos SMITH MD Unavailable Unavailable Santos SMITH MD Unavailable Unavailable Santos SMITH MD Unavailable Unavailable Santos SMITH MD Unavailable Unavailable Santos SMITH MD Unavailable Unavailable Santos SMITH MD Unavailable Unavailable Santos SMITH MD Unavailable Unavailable Santos SMITH MD Unavailable Unavailable Santos SMITH MD Unavailable Unavailable Santos SMITH MD Unavailable Unavailable Santos SMITH MD Unavailable Unavailable Santos SMITH MD Unavailable Unavailable Santos SMITH MD Unavailable Unavailable Santos SMITH MD Unavailable Unavailable Santos SMITH MD Unavailable Unavailable Santos SMITH MD Unavailable Unavailable Santos SMITH MD Unavailable Unavailable Santos SMITH MD Unavailable Unavailable Santos SMITH MD Unavailable Unavailable Santos SMITH MD Unavailable Unavailable Santos SMITH MD Unavailable Unavailable Santos SMITH MD Unavailable Unavailable MCELHERAN, SELWYN PA Unavailable Unavailable MCELHERAN, SELWYN PA Unavailable Unavailable MCELHERAN, SELWYN PA Unavailable Unavailable MCELHERAN, SELWYN PA Unavailable Unavailable MCELHERAN, SELWYN PA Unavailable Unavailable MCELHERAN, SELWYN PA Unavailable Unavailable MCELHERAN, SELWYN PA Unavailable Unavailable MCELHERAN, SELWYN PA Unavailable Unavailable MCELAN, SELWYN PA Unavailable Unavailable MCELAN, SELWYN PA Unavailable Unavailable MCELAN, SELWYN PA Unavailable Unavailable MCELAN, SELWYN PA Unavailable Unavailable MCELHERAN, SELWYN PA Unavailable Unavailable MCELAN, SELWYN PA Unavailable Unavailable MCELHERAN, SELWYN PA Unavailable Unavailable MCELHERAN, SELWYN PA Unavailable Unavailable MCELHERAN, SELWYN PA Unavailable Unavailable MCELHERAN, SELWYN PA Unavailable Unavailable MCELHERAN, SELWYN PA Unavailable Unavailable MCELHERAN, SELWYN PA Unavailable Unavailable MCELHERAN, SELWYN PA Unavailable Unavailable MCELHERAN, SELWYN PA Unavailable Unavailable MCELHERAN, SELWYN PA Unavailable Unavailable MCELHERAN, SELWYN PA Unavailable Unavailable MCELHERAN, SELWYN PA Unavailable Unavailable MCELHERAN, SELWYN PA Unavailable Unavailable MCELHERAN, SELWYN PA Unavailable Unavailable MCELHERAN, SELWYN PA Unavailable Unavailable KAYLIE, JANELLE PA Unavailable Unavailable KAYLIE, JANELLE PA Unavailable Unavailable KAYLIE, JANELLE PA Unavailable Unavailable KAYLIE, JANELLE PA Unavailable Unavailable KAYLIE, JANELLE PA Unavailable Unavailable KAYLIE, JANELLE PA Unavailable Unavailable KAYLIE, JANELLE PA Unavailable Unavailable KAYLIE, JANELLE PA Unavailable Unavailable KAYLIE, JANELLE PA Unavailable Unavailable KAYLIE, JANELLE PA Unavailable Unavailable KAYLIE, JANELLE PA Unavailable Unavailable KAYLIE, JANELLE PA Unavailable Unavailable KAYLIE, JANELLE PA Unavailable Unavailable KAYLIE, JANELLE PA Unavailable Unavailable KAYLIE, JANELLE PA Unavailable Unavailable KAYLIE, JANELLE PA Unavailable Unavailable KAYLIE, JANELLE PA Unavailable Unavailable KAYLIE, JANELLE PA Unavailable Unavailable KAYLIE, JANELLE PA Unavailable Unavailable KAYLIE, JANELLE PA Unavailable Unavailable KAYLIE, JANELLE PA Unavailable Unavailable KAYLIE, JANELLE PA Unavailable Unavailable KAYLIE, JANELLE PA Unavailable Unavailable KAYLIE, JANELLE PA Unavailable Unavailable KAYLIE, JANELLE PA Unavailable Unavailable KAYLIE, JANELLE PA Unavailable Unavailable KAYLIE, JANELLE PA Unavailable Unavailable KAYLIE, JANELLE PA Unavailable Unavailable KAYLIE, JANELLE PA Unavailable Unavailable KAYLIE, JANELLE PA Unavailable Unavailable KAYLIE, JANELLE PA Unavailable Unavailable KAYLIE, JANELLE PA Unavailable Unavailable KAYLIE, JANELLE PA Unavailable Unavailable KAYLIE, JANELLE PA Unavailable Unavailable KAYLIE, JANELLE PA Unavailable Unavailable KAYLIE, JANELLE PA Unavailable Unavailable KAYLIE, JANELLE PA Unavailable Unavailable KAYLIE, AJNELLE PA Unavailable Unavailable Sutherland, Bren SUPERINTENDENT DISTRIBUTION Unavailable Unavailable Sutherland, Bren SUPERINTENDENT DISTRIBUTION Unavailable Unavailable Sutherland, Bren SUPERINTENDENT DISTRIBUTION Unavailable Unavailable Sutherland, Bren SUPERINTENDENT DISTRIBUTION Unavailable Unavailable Sutherland, Bren SUPERINTENDENT DISTRIBUTION Unavailable Unavailable Sutherland, Bren SUPERINTENDENT DISTRIBUTION Unavailable Unavailable Sutherland, Bren SUPERINTENDENT DISTRIBUTION Unavailable Unavailable Sutherland, Bren SUPERINTENDENT DISTRIBUTION Unavailable Unavailable Sutherland, Bren SUPERINTENDENT DISTRIBUTION Unavailable Unavailable Sutherland, Bren SUPERINTENDENT DISTRIBUTION Unavailable Unavailable Sutherland, Bren SUPERINTENDENT DISTRIBUTION Unavailable Unavailable Santos SMITH MD Unavailable Unavailable Santos SMITH MD Unavailable Unavailable Santos SMITH MD Unavailable Unavailable Santos SMITH MD Unavailable Unavailable Santos SMITH MD Unavailable Unavailable Santos SMITH MD Unavailable Unavailable Santos SMITH MD Unavailable Unavailable Santos SMITH MD Unavailable Unavailable Santos SMITH MD Unavailable Unavailable Santos SMITH MD Unavailable Unavailable Santos SMITH MD Unavailable Unavailable Santos SMITH MD Unavailable Unavailable Santos SMITH MD Unavailable Unavailable Santos SMITH MD Unavailable Unavailable Santos SMITH MD Unavailable Unavailable Santos SMITH MD Unavailable Unavailable Santos SMITH MD Unavailable Unavailable Santos SMITH MD Unavailable Unavailable Santos SMITH MD Unavailable Unavailable Santos SMITH MD Unavailable Unavailable Santos SIMTH MD Unavailable Unavailable Santos SMITH MD Unavailable Unavailable Santos SMITH MD Unavailable Unavailable Santos SMITH MD Unavailable Unavailable Santos SMITH MD Unavailable Unavailable Santos SMITH MD Unavailable Unavailable Santos SMITH MD Unavailable Unavailable Santos SMITH MD Unavailable Unavailable Santos SMITH MD Unavailable Unavailable Santos SMITH MD Unavailable Unavailable Santos SMITH MD Unavailable Unavailable Santos SMITH MD Unavailable Unavailable Santos SMITH MD Unavailable Unavailable Santos SMITH MD Unavailable Unavailable Santos SMITH MD Unavailable Unavailable Santos SMITH MD Unavailable Unavailable Santos SMITH MD Unavailable Unavailable Santos SMITH MD Unavailable Unavailable Santos SMITH MD Unavailable Unavailable Santos SMITH MD Unavailable Unavailable Santos SMITH MD Unavailable Unavailable Santos SMITH MD Unavailable Unavailable Santos SMITH MD Unavailable Unavailable Santos SMITH MD Unavailable Unavailable Santos SMITH MD Unavailable Unavailable Santos SMITH MD Unavailable Unavailable Santos SMITH MD Unavailable Unavailable Santos SMITH MD Unavailable Unavailable Santos SMITH MD Unavailable Unavailable Santos SMITH MD Unavailable Unavailable Santos SMITH MD Unavailable Unavailable Santos SMITH MD Unavailable Unavailable Santos SMITH MD Unavailable Unavailable Santos SMITH MD Unavailable Unavailable Santos SMITH MD Unavailable Unavailable Santos SMITH MD Unavailable Unavailable Santos SMITH MD Unavailable Unavailable Santos SMITH MD Unavailable Unavailable Santos SMITH MD Unavailable Unavailable Santos SMITH MD Unavailable Unavailable Santos SMITH MD Unavailable Unavailable Santos SMITH MD Unavailable Unavailable Santos SMITH MD Unavailable Unavailable Santos SMITH MD Unavailable Unavailable Santos SMITH MD Unavailable Unavailable Santos SMITH MD Unavailable Unavailable Santos SMITH MD Unavailable Unavailable Santos SMITH MD Unavailable Unavailable Santos SMITH MD Unavailable Unavailable Santos SMITH MD Unavailable Unavailable LUIS, Santos DAVIS MD Unavailable Unavailable LUIS, Santos DAVIS MD Unavailable Unavailable LUIS, Santos DAVIS MD Unavailable Unavailable LUIS, Santos DAVIS MD Unavailable Unavailable LUIS, Santos DAVIS MD Unavailable Unavailable LUIS, Santos DAVIS MD Unavailable Unavailable LETTIERE, A SELWYN PA Unavailable Unavailable LETTIERE, A SELWYN PA Unavailable Unavailable LETTIERE, A SELWYN PA Unavailable Unavailable LETTIERE, A SELWYN PA Unavailable Unavailable LETTIERE, A SELWYN PA Unavailable Unavailable LETTIERE, A SELWYN PA Unavailable Unavailable LETTIERE, A SELWYN PA Unavailable Unavailable LETTIERE, A SELWYN PA Unavailable Unavailable LETTIERE, A SELWYN PA Unavailable Unavailable LETTIERE, A SELWYN PA Unavailable Unavailable LETTIERE, A SELWYN PA Unavailable Unavailable LETTIERE, A SELWYN PA Unavailable Unavailable LETTIERE, A SELWYN PA Unavailable Unavailable LETTIERE, A SELWYN PA Unavailable Unavailable LETTIERE, A SELWYN PA Unavailable Unavailable LETTIERE, A SELWYN PA Unavailable Unavailable LETTIERE, A SELWYN PA Unavailable Unavailable LETTIERE, A SELWYN PA Unavailable Unavailable LETTIERE, A SELWYN PA Unavailable Unavailable LETTIERE, A SELWYN PA Unavailable Unavailable LETTIERE, A SELWYN PA Unavailable Unavailable LETTIERE, A SELWYN PA Unavailable Unavailable LETTIERE, A SELWYN PA Unavailable Unavailable LETTIERE, A SELWYN PA Unavailable Unavailable LETTIERE, A SELWYN PA Unavailable Unavailable LETTIERE, A SELWYN PA Unavailable Unavailable LETTIERE, A SELWYN PA Unavailable Unavailable LETTIERE, A SELWYN PA Unavailable Unavailable LETTIERE, A SELWYN PA Unavailable Unavailable Esmond, V GRETEL PA-C Unavailable Unavailable Esmond, V GRETEL PA-C Unavailable Unavailable Esmond, V GRETEL PA-C Unavailable Unavailable Esmond, V GRETEL PA-C Unavailable Unavailable Timoteo, V GRETEL PA-C Unavailable Unavailable Esmond, V GRETEL PA-C Unavailable Unavailable Timoteo, V GRETEL PA-C Unavailable Unavailable Re-disclosure Warning The records that you are about to access may contain information from federally-assisted alcohol or drug abuse programs. If such information is present, then the following federally mandated warning applies: This information has been disclosed to you from records protected by federal confidentiality rules (42 CFR part 2). The federal rules prohibit you from making any further disclosure of this information unless further disclosure is expressly permitted by the written consent of the person to whom it pertains or as otherwise permitted by 42 CFR part 2. A general authorization for the release of medical or other information is NOT sufficient for this purpose. The Federal rules restrict any use of the information to criminally investigate or prosecute any alcohol or drug abuse patient.The records that you are about to access may contain highly sensitive health information, the redisclosure of which is protected by Article 27-F of the [facility] Public Health law. If you continue you may have access to information: Regarding HIV / AIDS; Provided by facilities licensed or operated by the [facility] Office of Mental Health; or Provided by the [facility] Office for People With Developmental Disabilities. If such information is present, then the following [facility] mandated warning applies: This information has been disclosed to you from confidential records which are protected by state law. State law prohibits you from making any further disclosure of this information without the specific written consent of the person to whom it pertains, or as otherwise permitted by law. Any unauthorized further disclosure in violation of state law may result in a fine or half-way sentence or both. A general authorization for the release of medical or other information is NOT sufficient authorization for further disc losure. Family History Family Member Name Family Member Gender Family Member Status Date o f Status Description Data Source(s) Unknown Unknown Problem MED[facility] ([facility]) Unknown Male Problem [facility] ([facility]) Encounters Encounter Providers Location Date Indications Data Source(s ) OFFICE OUTPATIENT NEW 30 MINUTES Attender: SELWYN KING Physical Therapy 06/06/2020 12:00:00 PM EST MEDENT ([facility]) Outpatient Attender: Bren chinchilla 06/02/2020 08:30:00 AM EST MEDENT ([facility]) Outpatient Attender: RYAN SMITH MD [place] Office 09:00:00 AM EST [facility] ([facility] Outpatient Attender: GRETEL RAO 04/2020 12:00:00 AM EST - 04/07/2020 02:31:34 PM EST [facility] [address] [place] [id number] 01/20/2020 12:00:00 AM EDT eCW1 ([facility]) Outpatient Attender: RYAN [place] Office 07/2019 01:30:00 PM EDT MEDENT ([facility] Outpatient Attender: RYAN [place] Office 01:15:00 PM EDT MEDENT ([facility] D[facility] [address] [place] [address] 09/15/2019 12:00:00 AM EDT eCW1 ([facility]) [facility] D[facility] [address] [place] [address] 07/29/2019 12:00:00 AM EST eCW1 ([facility]) Outpatient Referrer: RYAN SMITH MD 06/23/2019 01:32:00 PM EST [facility] Outpatient Attender: SELWYN eubanks 06/19/2019 03:15:00 PM EST MEDENT ([facility]) Outpatient Attender: JANELLE Mortona ry 05/06/2019 08:50:00 AM EST MEDENT ([facility]) Medications Medication Brand Name Start Date Product Form Dose Route Admi nistrative Instructions Pharmacy Instructions Status Indications Reaction Description Data Source(s) Clotrimazole 10 MG/ML Topical Cream Clotrimazole 01/01/2020 12:00:00 AM EDT active MEDENT ([facility] Betamethasone 0.0005 MG/MG Augmented Top ical Ointment Betamethasone Dipropionate Aug 0.05 % Betamethasone Dipropionate Aug 0.05 % 09/15/2019 12:00:00 AM EDT active 1 application eCW1 ( [facility]) Triamcinolone Acetonide 0.001 MG/MG Topi jaz Ointment Triamcinolone Acetonide 0.1 % Triamcinolone Acetonide 0.1 % 07/29/2019 12:00:00 AM EST active 1 application eCW1 ([facility]) Clotrimazole 10 MG/ML Topical Cream Clotrimazole 05/06/2019 12:00:00 AM EST completed MEDENT ([facility]) cetirizine hydrochloride 10 MG Oral Tablet Cetirizine HCL 05/06/2019 12:00:00 AM EST ORAL active MEDENT ([facility]) Prednisone 10 MG Oral Tablet Prednisone 05/06/2019 12:00:00 AM EST ORAL completed MEDENT ([facility]) Insurance Providers Payer name Policy type / Coverage type Policy ID Covered green party ID Covered green party's relationship to alexis Policy Alexis Plan Information [place] P[place] 302/307 [id number] SP [id number] MEDICARE BLUE PPO [id number] SP [id number] EMEDNY [id number] SP [id number] MEDICARE [id number] SP [id number] EXCELLUS BCBS [id number] Davina VYY [id number] MEDICARE [id number] Davina [id number] U05 BCBS EMPIRE [place]IN DIV MEDICAID [id number] SP [id number] MEDICARE [id number] SP [id number] U05 MEDICAID M [id number] S [id number] MEDICARE C [id number] S [id number] [id number] EXCELLUS BCBS MEDICARE [id number] Davina [id number] Medicare Part B Medicare Primary [id number] Self [id number] Medicaid Medigap Part B [id number] Self [id number] BCBS [facility] Maintenance Organization (HMO) [id number] Self [id number] Medicare Part B Medicare Primary [id number] Self [id number] [facility] Medicare Solutions Commercial [id number] Self [id number] MEDICAID [id number] SP [id number] MEDICARE COMPLETE [id number] SP [id number] [place] Medig[place] Part [place] [id number] Self [id number] BCBS/Excellus Medigap Part B [id number] Self [id number] Medicare Natl Gov't Servi Medicare Primary [id number] Self [id number] [place] P[place] 302/307 [id number] SP [id number] Medicare Part B Medicare Primary [id number] Self [id number] Medicaid Medigap Part B [id number] Self [id number] BCBS [employer] Maintenance Organization (HMO) [id number] Self [id number] Medicare Part B Medicare Primary [id number] Self [id number] [employer] [id number] S [id number] BLUE CROSS [id number] S [id number] MCRB [id number] S [id number] A MEDICARE [id number] A MEDICAID [id number] S [id number] MEDICAID PROF FEES UNAVAILABLE S UNAVAILABLE HUMANA CLAIMS MCR [id number] S [id number] MEDICARE COMPLETE [id number] SP [id number] SECURE HORIZONS [id number] S [id number] MEDICARE COMPLETE-[facility] O [id number] O [id number] MEDICARE/NATIONAL [employer]OVT SVCS [id number] A SP [id number] A MEDICARE COMPLETE [id number] S [id number] MEDICARE COMPLETE [id number] SP [id number] Problems, Conditions, and Diagnoses Code Display Name Description Problem Type Effective Dates Data Source(s) I48.91 Unspecified atrial fibrillation Unspecified atri al fibrillation Diagnosis 04/07/2020 01:28:[address] [facility] Surgeries/Procedures Procedure Description Date Indications Data Source(s) ARTHROCENTESIS ASPIR&/INJECTION MAJOR JT/BURSA 021 12:00:00 AM EST MEDENT ([facility] ) RADEX SHOULDER COMPLETE MINIMUM 2 VIEWS 06/06/2020 12: 00:00 AM EST MEDENT ([facility] ) DUPLEX SCAN EXTRACRANIAL ART COMPL BI STUDY 01/15/2020 12:00:00 AM EDT MEDENT ([facility]) Office Visit, Est Pt., Level 3 PC 09/15/2019 12:00:00 AM EDT eCW1 ([facility]) DESTRUCT LESION, 1-14 09/15/2019 12:00:00 AM EDT eCW1 ([facility]) DESTROY LESIONS, 2-14 07/29/2019 12:00:00 AM EST eCW1 ([facility]) DESTROY BENIGN/PREMLG LESION 07/29/2019 12:00:00 AM ES T eCW1 ([facility]) Office Visit, New Pt., Level 3 PC 07/29/2019 12:00:00 AM EST eCW1 ([facility]) DUPLEX SCAN EXTRACRANIAL ART COMPL BI STUDY 06/30/2019 12:00:00 AM EST MEDENT ([facility]) Results ID Date Data Source [id number] 06/02/2020 12:12:00 PM EST MEDENT ([facility]) Name Value Range Interpretation Code Description Data Chloe rce(s) Supporting Document(s) Red Blood Count 5.07 10 4.00-5.40 MEDENT ([facility]) White Blood Count 12.4 10 4.0-10.0 MEDENT ([facility]) Hematocrit 45.3 % 36.0-47.0 [facility] ([facility]) Mean Corpuscular Volume 89.3 fl 80.0-96.0 M EDENT ([facility]) Hemoglobin 14.5 g/dL 12.0-15.5 MED[facility] ([facility]) Red Cell Distribution Width 14.7 % 11.5-14.5 MEDENT ([facility], [facility]) Mean Corpuscular Hemoglobin 28.6 pg 27.0-33.0 MEDENT ([facility]) Mean Corpuscular HGB Conc 32.0 g/dL 32.0-36.5 MEDENT ([facility]) Nucleated Red Blood Cell % 0.0 % 0-0 MED ENT ([facility]) Platelet Count, Automated 231 10 150-450 MEDENT ([facility]) ID Date Data Source [id number] 04/19/2020 10:24:00 AM EST [facility] ([facility] Name Value Range Interpretation Code Description Data Chloe rce(s) Supporting Document(s) Trig 207 mg/dL 40-200 Above high normal MEDENT ([facility] CHRONIC KIDNEY DISEASE STAGING PER NKF: MALE GFR INTERPRETATION: 20-49 YRS: [...] ADOLESCENTS REPRESENTS INDIVIDUALA AGED 2-19 YEARS EXCLUSIVE. Chol 196 mg/dL 0-200 MEDENT ([facility] CHRONIC KIDNEY DISEASE STAGING PER NKF: MALE GFR INTERPRETATION: 20-49 YRS: [...] ADOLESCENTS REPRESENTS INDIVIDUALA AGED 2-19 YEARS EXCLUSIVE. Cholesterol in HDL [Mass/volume] in Serum or Plasma 50 mg/dL 45-65 MED[facility] ([facility] CHRONIC KIDNEY DISEASE STAGING PER NKF: MALE GFR INTERPRETATION: 20-49 YRS: [...] DESIRABLE: <130 MG/DL <110 MG/DL BORDERLINE-HIGH RISK: 130- 159 MG/DL 110-129 MG/DL HIGH RISK: >160 MG/DL >130 MG/DL *CHILDREN AND ADOLESCENTS REPRESENTS INDIVIDUALA AGED 2-19 YEARS EXCLUSIVE. Cho/HDL Ratio 3.9 Calc MEDENT ([facility] CHRONIC KIDNEY DISEASE STAGING PER NKF: MALE GFR INTERPRETATION: 20-49 YRS: [...] DESIRABLE: <130 MG/DL <110 MG/DL BORDERLINE-HIGH RISK: 130- 159 MG/DL 110-129 MG/DL HIGH RISK: >160 MG/DL >130 MG/DL *CHILDREN AND ADOLESCENTS REPRESENTS INDIVIDUALA AGED 2-19 YEARS EXCLUSIVE. LDL_C 104 Calc 75-129 [facility] CHRONIC KIDNEY DISEASE STAGING PER NKF: MALE GFR INTERPRETATION: 20-49 YRS: [...] DESIRABLE: <130 MG/DL <110 MG/DL BORDERLINE-HIGH RISK: 130- 159 MG/DL 110-129 MG/DL HIGH RISK: >160 MG/DL >130 MG/DL *CHILDREN AND ADOLESCENTS REPRESENTS INDIVIDUALA AGED 2-19 YEARS EXCLUSIVE. ID Date Data Source [id number] 04/19/2020 10:24:00 AM EST MEDENT ([facility] Name Value Range Interpretation Code Description Data Chloe rce(s) Supporting Document(s) Glu 88 mg/dL 70-110 [facility] CHRONIC KIDNEY DISEASE STAGING PER NKF: MALE GFR INTERPRETATION: 20-49 YRS: [...] DESIRABLE: <130 MG/DL <110 MG/DL BORDERLINE-HIGH RISK: 130- 159 MG/DL 110-129 MG/DL HIGH RISK: >160 MG/DL >130 MG/DL *CHILDREN AND ADOLESCENTS REPRESENTS INDIVIDUALA AGED 2-19 YEARS EXCLUSIVE. Creat 0.8 mg/dL 0.5-1.0 [facility] ([facility] CHRONIC KIDNEY DISEASE STAGING PER NKF: MALE GFR INTERPRETATION: 20-49 YRS: [...] DESIRABLE: <130 MG/DL <110 MG/DL BORDERLINE-HIGH RISK: 130- 159 MG/DL 110-129 MG/DL HIGH RISK: >160 MG/DL >130 MG/DL *CHILDREN AND ADOLESCENTS REPRESENTS INDIVIDUALA AGED 2-19 YEARS EXCLUSIVE. BUN 20 mg/dL 8- [facility] ([facility] CHRONIC KIDNEY DISEASE STAGING PER NKF: MALE GFR INTERPRETATION: 20-49 YRS: [...] DESIRABLE: <130 MG/DL <110 MG/DL BORDERLINE-HIGH RISK: 130- 159 MG/DL 110-129 MG/DL HIGH RISK: >160 MG/DL >130 MG/DL *CHILDREN AND ADOLESCENTS REPRESENTS INDIVIDUALA AGED 2-19 YEARS EXCLUSIVE. BUN/Creatinine Ratio 24.7 CALC MED[facility] ([facility] CHRONIC KIDNEY DISEASE STAGING PER NKF: MALE GFR INTERPRETATION: 20-49 YRS: [...] DESIRABLE: <130 MG/DL <110 MG/DL BORDERLINE-HIGH RISK: 130- 159 MG/DL 110-129 MG/DL HIGH RISK: >160 MG/DL >130 MG/DL *CHILDREN AND ADOLESCENTS REPRESENTS INDIVIDUALA AGED 2-19 YEARS EXCLUSIVE. Na 140 mmol/L 136-145 [facility] CHRONIC KIDNEY DISEASE STAGING PER NKF: MALE GFR INTERPRETATION: 20-49 YRS: [...] DESIRABLE: <130 MG/DL <110 MG/DL BORDERLINE-HIGH RISK: 130- 159 MG/DL 110-129 MG/DL HIGH RISK: >160 MG/DL >130 MG/DL *CHILDREN AND ADOLESCENTS REPRESENTS INDIVIDUALA AGED 2-19 YEARS EXCLUSIVE. CL 102.5 mmol/L 98.0-107.0 [facility] CHRONIC KIDNEY DISEASE STAGING PER NKF: MALE GFR INTERPRETATION: 20-49 YRS: [...] DESIRABLE: <130 MG/DL <110 MG/DL BORDERLINE-HIGH RISK: 130- 159 MG/DL 110-129 MG/DL HIGH RISK: >160 MG/DL >130 MG/DL *CHILDREN AND ADOLESCENTS REPRESENTS INDIVIDUALA AGED 2-19 YEARS EXCLUSIVE. K 4.7 mmol/L 3.5-5.1 [facility] CHRONIC KIDNEY DISEASE STAGING PER NKF: MALE GFR INTERPRETATION: 20-49 YRS: [...] DESIRABLE: <130 MG/DL <110 MG/DL BORDERLINE-HIGH RISK: 130- 159 MG/DL 110-129 MG/DL HIGH RISK: >160 MG/DL >130 MG/DL *CHILDREN AND ADOLESCENTS REPRESENTS INDIVIDUALA AGED 2-19 YEARS EXCLUSIVE. Co2 25.5 mmol/L 22.0-29.0 [facility] CHRONIC KIDNEY DISEASE STAGING PER NKF: MALE GFR INTERPRETATION: 20-49 YRS: [...] DESIRABLE: <130 MG/DL <110 MG/DL BORDERLINE-HIGH RISK: 130- 159 MG/DL 110-129 MG/DL HIGH RISK: >160 MG/DL >130 MG/DL *CHILDREN AND ADOLESCENTS REPRESENTS INDIVIDUALA AGED 2-19 YEARS EXCLUSIVE. CA 9.8 mg/dL 8.6-10.2 [facility] CHRONIC KIDNEY DISEASE STAGING PER NKF: MALE GFR INTERPRETATION: 20-49 YRS: [...] DESIRABLE: <130 MG/DL <110 MG/DL BORDERLINE-HIGH RISK: 130- 159 MG/DL 110-129 MG/DL HIGH RISK: >160 MG/DL >130 MG/DL *CHILDREN AND ADOLESCENTS REPRESENTS INDIVIDUALA AGED 2-19 YEARS EXCLUSIVE. TP 7.2 g/dL 6.6-8.7 [facility] ([facility] CHRONIC KIDNEY DISEASE STAGING PER NKF: MALE GFR INTERPRETATION: 20-49 YRS: [...] DESIRABLE: <130 MG/DL <110 MG/DL BORDERLINE-HIGH RISK: 130- 159 MG/DL 110-129 MG/DL HIGH RISK: >160 MG/DL >130 MG/DL *CHILDREN AND ADOLESCENTS REPRESENTS INDIVIDUALA AGED 2-19 YEARS EXCLUSIVE. Alb 4.6 g/dL 3.4-4.8 [facility] ([facility] CHRONIC KIDNEY DISEASE STAGING PER NKF: MALE GFR INTERPRETATION: 20-49 YRS: [...] DESIRABLE: <130 MG/DL <110 MG/DL BORDERLINE-HIGH RISK: 130- 159 MG/DL 110-129 MG/DL HIGH RISK: >160 MG/DL >130 MG/DL *CHILDREN AND ADOLESCENTS REPRESENTS INDIVIDUALA AGED 2-19 YEARS EXCLUSIVE. A/G Ratio 1.7 CALC [facility] ([facility] CHRONIC KIDNEY DISEASE STAGING PER NKF: MALE GFR INTERPRETATION: 20-49 YRS: [...] DESIRABLE: <130 MG/DL <110 MG/DL BORDERLINE-HIGH RISK: 130- 159 MG/DL 110-129 MG/DL HIGH RISK: >160 MG/DL >130 MG/DL *CHILDREN AND ADOLESCENTS REPRESENTS INDIVIDUALA AGED 2-19 YEARS EXCLUSIVE. Globulin 2.7 CALC [facility] ([facility] CHRONIC KIDNEY DISEASE STAGING PER NKF: MALE GFR INTERPRETATION: 20-49 YRS: [...] DESIRABLE: <130 MG/DL <110 MG/DL BORDERLINE-HIGH RISK: 130- 159 MG/DL 110-129 MG/DL HIGH RISK: >160 MG/DL >130 MG/DL *CHILDREN AND ADOLESCENTS REPRESENTS INDIVIDUALA AGED 2-19 YEARS EXCLUSIVE. Alt (SGPT) 21 U/L 0-41 [facility] CHRONIC KIDNEY DISEASE STAGING PER NKF: MALE GFR INTERPRETATION: 20-49 YRS: [...] DESIRABLE: <130 MG/DL <110 MG/DL BORDERLINE-HIGH RISK: 130- 159 MG/DL 110-129 MG/DL HIGH RISK: >160 MG/DL >130 MG/DL *CHILDREN AND ADOLESCENTS REPRESENTS INDIVIDUALA AGED 2-19 YEARS EXCLUSIVE. Ast (Sgot) 20 U/L 0-40 [facility] CHRONIC KIDNEY DISEASE STAGING PER NKF: MALE GFR INTERPRETATION: 20-49 YRS: [...] DESIRABLE: <130 MG/DL <110 MG/DL BORDERLINE-HIGH RISK: 130- 159 MG/DL 110-129 MG/DL HIGH RISK: >160 MG/DL >130 MG/DL *CHILDREN AND ADOLESCENTS REPRESENTS INDIVIDUALA AGED 2-19 YEARS EXCLUSIVE. Alp 128.6 U/L 35-129 [facility] CHRONIC KIDNEY DISEASE STAGING PER NKF: MALE GFR INTERPRETATION: 20-49 YRS: [...] DESIRABLE: <130 MG/DL <110 MG/DL BORDERLINE-HIGH RISK: 130- 159 MG/DL 110-129 MG/DL HIGH RISK: >160 MG/DL >130 MG/DL *CHILDREN AND ADOLESCENTS REPRESENTS INDIVIDUALA AGED 2-19 YEARS EXCLUSIVE. Osmolality-Calculated 282.2 CALC MED E[facility] ([facility] CHRONIC KIDNEY DISEASE STAGING PER NKF: MALE GFR INTERPRETATION: 20-49 YRS: [...] DESIRABLE: <130 MG/DL <110 MG/DL BORDERLINE-HIGH RISK: 130- 159 MG/DL 110-129 MG/DL HIGH RISK: >160 MG/DL >130 MG/DL *CHILDREN AND ADOLESCENTS REPRESENTS INDIVIDUALA AGED 2-19 YEARS EXCLUSIVE. Anion Gap 17 mmol/L [facility] CHRONIC KIDNEY DISEASE STAGING PER NKF: MALE GFR INTERPRETATION: 20-49 YRS: [...] DESIRABLE: <130 MG/DL <110 MG/DL BORDERLINE-HIGH RISK: 130- 159 MG/DL 110-129 MG/DL HIGH RISK: >160 MG/DL >130 MG/DL *CHILDREN AND ADOLESCENTS REPRESENTS INDIVIDUALA AGED 2-19 YEARS EXCLUSIVE. Tbili 0.55 mg/dL 0.0-1.2 [facility] CHRONIC KIDNEY DISEASE STAGING PER NKF: MALE GFR INTERPRETATION: 20-49 YRS: [...] DESIRABLE: <130 MG/DL <110 MG/DL BORDERLINE-HIGH RISK: 130- 159 MG/DL 110-129 MG/DL HIGH RISK: >160 MG/DL >130 MG/DL *CHILDREN AND ADOLESCENTS REPRESENTS INDIVIDUALA AGED 2-19 YEARS EXCLUSIVE. eGFR 82 # [facility] ( [facility] CHRONIC KIDNEY DISEASE STAGING PER NKF: MALE GFR INTERPRETATION: 20-49 YRS: [...] DESIRABLE: <130 MG/DL <110 MG/DL BORDERLINE-HIGH RISK: 130- 159 MG/DL 110-129 MG/DL HIGH RISK: >160 MG/DL >130 MG/DL *CHILDREN AND ADOLESCENTS REPRESENTS INDIVIDUALA AGED 2-19 YEARS EXCLUSIVE. eGFR Non-Afr. Mauritian 71 # [facility] ([facility] CHRONIC KIDNEY DISEASE STAGING PER NKF: MALE GFR INTERPRETATION: 20-49 YRS: [...] DESIRABLE: <130 MG/DL <110 MG/DL BORDERLINE-HIGH RISK: 130- 159 MG/DL 110-129 MG/DL HIGH RISK: >160 MG/DL >130 MG/DL *CHILDREN AND ADOLESCENTS REPRESENTS INDIVIDUALA AGED 2-19 YEARS EXCLUSIVE. ID Date Data Source [id number] 04/19/2020 10:22:00 AM EST [facility] ([facility] Name Value Range Interpretation Code Description Data Chloe rce(s) Supporting Document(s) Hemoglobin A1c/Hemoglobin.total in Blood 6.0 % 4.8-5.6 Above high normal [facility] ([facility] <content>Prediabetes: 5.7 - 6.4</content >
<content>Diabetes: >6.4</content>
<content>Glycemic control for adults with diabetes: <7.0</content>
<content></content> ID Date Data Source [id number] 01/15/2020 02:31:00 PM EDT [facility] ([facility]) Name Value Range Interpretation Code Description Data Chloe rce(s) Supporting Document(s) Carotid Ultrasound Bilateral Laboratory test result [facility] ([facility]) ID Date Data Source [id number] 10/12/2019 01:31:00 PM EDT [facility] ([facility] Name Value Range Interpretation Code Description Data Chloe rce(s) Supporting Document(s) BUN 15 mg/dL 8-23 [facility] ([facility] NORMAL RANGES Age WBC RBC HGB HCT MCV PLT Adult M 4.1-10.9 4.20-6.30 12.0-18.0 37.0-51.0 80-97 140-440 Adult F 4.1-10.9 4.04-5.48 12.0-18.0 37.0-51.0 80-97 140-440 0 -1 Yr 5.0-20.0 3.9-5.9 15-18 MV: 44 MV: 91 MV: 277 2-9 Yr. 6.0-17.0 3.8-5.4 11-13 MV: 37 MV: 78 MV: 300 10 Yrs. 5.0-13.0 3.8-5.4 12-15 MV: 39 MV: 80 MV: 250 NOTE: * FOR ADULT BLACK MALES AND FEMALES, NORMAL WBC IS 2.9-7.7 K/ML * FOR ADULT BLACK MALES AND FEMALES, NORMAL RBC,HGB, AND HCT IS 5% LESS SOURCE FOR DATA: [employer] 1800 OPERATION MANUAL( AUTOMATED BLOOD COUNTS AND DIFF.) APPENDIX B-3 CHRONIC KIDNEY DISEASE STAGING PER NKF: MALE GFR INTERPRETATION: 20-49 YRS: [...] DESIRABLE: <130 MG/DL <110 MG/DL BORDERLINE-HIGH RISK: 130- 159 MG/DL 110-129 MG/DL HIGH RISK: >160 MG/DL >130 MG/DL *CHILDREN AND ADOLESCENTS REPRESENTS INDIVIDUALA AGED 2-19 YEARS EXCLUSIVE. Glu 134 mg/dL 70-110 Above high normal [facility] ([facility] NORMAL RANGES Age WBC RBC HGB HCT MCV PLT Adult M 4.1-10.9 4.20-6.30 12.0-18.0 37.0-51.0 80-97 140-440 Adult F 4.1-10.9 4.04-5.48 12.0-18.0 37.0-51.0 80-97 140-440 0 -1 Yr 5.0-20.0 3.9-5.9 15-18 MV: 44 MV: 91 MV: 277 2-9 Yr. 6.0-17.0 3.8-5.4 11-13 MV: 37 MV: 78 MV: 300 10 Yrs. 5.0-13.0 3.8-5.4 12-15 MV: 39 MV: 80 MV: 250 NOTE: * FOR ADULT BLACK MALES AND FEMALES, NORMAL WBC IS 2.9-7.7 K/ML * FOR ADULT BLACK MALES AND FEMALES, NORMAL RBC,HGB, AND HCT IS 5% LESS SOURCE FOR DATA: [employer] OPERATION MANUAL( AUTOMATED BLOOD COUNTS AND DIFF.) APPENDIX B-3 CHRONIC KIDNEY DISEASE STAGING PER NKF: MALE GFR INTERPRETATION: 20-49 YRS: [...] DESIRABLE: <130 MG/DL <110 MG/DL BORDERLINE-HIGH RISK: 130- 159 MG/DL 110-129 MG/DL HIGH RISK: >160 MG/DL >130 MG/DL *CHILDREN AND ADOLESCENTS REPRESENTS INDIVIDUALA AGED 2-19 YEARS EXCLUSIVE. Creat 0.9 mg/dL 0.5-1.0 [facility] ([facility] NORMAL RANGES Age WBC RBC HGB HCT MCV PLT Adult M 4.1-10.9 4.20-6.30 12.0-18.0 37.0-51.0 80-97 140-440 Adult F 4.1-10.9 4.04-5.48 12.0-18.0 37.0-51.0 80-97 140-440 0 -1 Yr 5.0-20.0 3.9-5.9 15-18 MV: 44 MV: 91 MV: 277 2-9 Yr. 6.0-17.0 3.8-5.4 11-13 MV: 37 MV: 78 MV: 300 10 Yrs. 5.0-13.0 3.8-5.4 12-15 MV: 39 MV: 80 MV: 250 NOTE: * FOR ADULT BLACK MALES AND FEMALES, NORMAL WBC IS 2.9-7.7 K/ML * FOR ADULT BLACK MALES AND FEMALES, NORMAL RBC,HGB, AND HCT IS 5% LESS SOURCE FOR DATA: [employer] OPERATION MANUAL( AUTOMATED BLOOD COUNTS AND DIFF.) APPENDIX B-3 CHRONIC KIDNEY DISEASE STAGING PER NKF: MALE GFR INTERPRETATION: 20-49 YRS: [...] DESIRABLE: <130 MG/DL <110 MG/DL BORDERLINE-HIGH RISK: 130- 159 MG/DL 110-129 MG/DL HIGH RISK: >160 MG/DL >130 MG/DL *CHILDREN AND ADOLESCENTS REPRESENTS INDIVIDUALA AGED 2-19 YEARS EXCLUSIVE. Na 142 mmol/L 136-145 [facility] NORMAL RANGES Age WBC RBC HGB HCT MCV PLT Adult M 4.1-10.9 4.20-6.30 12.0-18.0 37.0-51.0 80-97 140-440 Adult F 4.1-10.9 4.04-5.48 12.0-18.0 37.0-51.0 80-97 140-440 0 -1 Yr 5.0-20.0 3.9-5.9 15-18 MV: 44 MV: 91 MV: 277 2-9 Yr. 6.0-17.0 3.8-5.4 11-13 MV: 37 MV: 78 MV: 300 10 Yrs. 5.0-13.0 3.8-5.4 12-15 MV: 39 MV: 80 MV: 250 NOTE: * FOR ADULT BLACK MALES AND FEMALES, NORMAL WBC IS 2.9-7.7 K/ML * FOR ADULT BLACK MALES AND FEMALES, NORMAL RBC,HGB, AND HCT IS 5% LESS SOURCE FOR DATA: [employer] OPERATION MANUAL( AUTOMATED BLOOD COUNTS AND DIFF.) APPENDIX B-3 CHRONIC KIDNEY DISEASE STAGING PER NKF: MALE GFR INTERPRETATION: 20-49 YRS: [...] DESIRABLE: <130 MG/DL <110 MG/DL BORDERLINE-HIGH RISK: 130- 159 MG/DL 110-129 MG/DL HIGH RISK: >160 MG/DL >130 MG/DL *CHILDREN AND ADOLESCENTS REPRESENTS INDIVIDUALA AGED 2-19 YEARS EXCLUSIVE. BUN/Creatinine Ratio 16.6 CALC [facility] NORMAL RANGES Age WBC RBC HGB HCT MCV PLT Adult M 4.1-10.9 4.20-6.30 12.0-18.0 37.0-51.0 80-97 140-440 Adult F 4.1-10.9 4.04-5.48 12.0-18.0 37.0-51.0 80-97 140-440 0 -1 Yr 5.0-20.0 3.9-5.9 15-18 MV: 44 MV: 91 MV: 277 2-9 Yr. 6.0-17.0 3.8-5.4 11-13 MV: 37 MV: 78 MV: 300 10 Yrs. 5.0-13.0 3.8-5.4 12-15 MV: 39 MV: 80 MV: 250 NOTE: * FOR ADULT BLACK MALES AND FEMALES, NORMAL WBC IS 2.9-7.7 K/ML * FOR ADULT BLACK MALES AND FEMALES, NORMAL RBC,HGB, AND HCT IS 5% LESS SOURCE FOR DATA: [employer] OPERATION MANUAL( AUTOMATED BLOOD COUNTS AND DIFF.) APPENDIX B-3 CHRONIC KIDNEY DISEASE STAGING PER NKF: MALE GFR INTERPRETATION: 20-49 YRS: [...] DESIRABLE: <130 MG/DL <110 MG/DL BORDERLINE-HIGH RISK: 130- 159 MG/DL 110-129 MG/DL HIGH RISK: >160 MG/DL >130 MG/DL *CHILDREN AND ADOLESCENTS REPRESENTS INDIVIDUALA AGED 2-19 YEARS EXCLUSIVE. K 4.6 mmol/L 3.5-5.1 [facility] ([facility] NORMAL RANGES Age WBC RBC HGB HCT MCV PLT Adult M 4.1-10.9 4.20-6.30 12.0-18.0 37.0-51.0 80-97 140-440 Adult F 4.1-10.9 4.04-5.48 12.0-18.0 37.0-51.0 80-97 140-440 0 -1 Yr 5.0-20.0 3.9-5.9 15-18 MV: 44 MV: 91 MV: 277 2-9 Yr. 6.0-17.0 3.8-5.4 11-13 MV: 37 MV: 78 MV: 300 10 Yrs. 5.0-13.0 3.8-5.4 12-15 MV: 39 MV: 80 MV: 250 NOTE: * FOR ADULT BLACK MALES AND FEMALES, NORMAL WBC IS 2.9-7.7 K/ML * FOR ADULT BLACK MALES AND FEMALES, NORMAL RBC,HGB, AND HCT IS 5% LESS SOURCE FOR DATA: [employer] OPERATION MANUAL( AUTOMATED BLOOD COUNTS AND DIFF.) APPENDIX B-3 CHRONIC KIDNEY DISEASE STAGING PER NKF: MALE GFR INTERPRETATION: 20-49 YRS: [...] DESIRABLE: <130 MG/DL <110 MG/DL BORDERLINE-HIGH RISK: 130- 159 MG/DL 110-129 MG/DL HIGH RISK: >160 MG/DL >130 MG/DL *CHILDREN AND ADOLESCENTS REPRESENTS INDIVIDUALA AGED 2-19 YEARS EXCLUSIVE. CL 105.8 mmol/L 98.0-107.0 [facility] ([facility] NORMAL RANGES Age WBC RBC HGB HCT MCV PLT Adult M 4.1-10.9 4.20-6.30 12.0-18.0 37.0-51.0 80-97 140-440 Adult F 4.1-10.9 4.04-5.48 12.0-18.0 37.0-51.0 80-97 140-440 0 -1 Yr 5.0-20.0 3.9-5.9 15-18 MV: 44 MV: 91 MV: 277 2-9 Yr. 6.0-17.0 3.8-5.4 11-13 MV: 37 MV: 78 MV: 300 10 Yrs. 5.0-13.0 3.8-5.4 12-15 MV: 39 MV: 80 MV: 250 NOTE: * FOR ADULT BLACK MALES AND FEMALES, NORMAL WBC IS 2.9-7.7 K/ML * FOR ADULT BLACK MALES AND FEMALES, NORMAL RBC,HGB, AND HCT IS 5% LESS SOURCE FOR DATA: [employer] 1800 OPERATION MANUAL( AUTOMATED BLOOD COUNTS AND DIFF.) APPENDIX B-3 CHRONIC KIDNEY DISEASE STAGING PER NKF: MALE GFR INTERPRETATION: 20-49 YRS: [...] DESIRABLE: <130 MG/DL <110 MG/DL BORDERLINE-HIGH RISK: 130- 159 MG/DL 110-129 MG/DL HIGH RISK: >160 MG/DL >130 MG/DL *CHILDREN AND ADOLESCENTS REPRESENTS INDIVIDUALA AGED 2-19 YEARS EXCLUSIVE. Co2 24.0 mmol/L 22.0-29.0 [facility] ([facility] NORMAL RANGES Age WBC RBC HGB HCT MCV PLT Adult M 4.1-10.9 4.20-6.30 12.0-18.0 37.0-51.0 80-97 140-440 Adult F 4.1-10.9 4.04-5.48 12.0-18.0 37.0-51.0 80-97 140-440 0 -1 Yr 5.0-20.0 3.9-5.9 15-18 MV: 44 MV: 91 MV: 277 2-9 Yr. 6.0-17.0 3.8-5.4 11-13 MV: 37 MV: 78 MV: 300 10 Yrs. 5.0-13.0 3.8-5.4 12-15 MV: 39 MV: 80 MV: 250 NOTE: * FOR ADULT BLACK MALES AND FEMALES, NORMAL WBC IS 2.9-7.7 K/ML * FOR ADULT BLACK MALES AND FEMALES, NORMAL RBC,HGB, AND HCT IS 5% LESS SOURCE FOR DATA: [employer] OPERATION MANUAL( AUTOMATED BLOOD COUNTS AND DIFF.) APPENDIX B-3 CHRONIC KIDNEY DISEASE STAGING PER NKF: MALE GFR INTERPRETATION: 20-49 YRS: [...] DESIRABLE: <130 MG/DL <110 MG/DL BORDERLINE-HIGH RISK: 130- 159 MG/DL 110-129 MG/DL HIGH RISK: >160 MG/DL >130 MG/DL *CHILDREN AND ADOLESCENTS REPRESENTS INDIVIDUALA AGED 2-19 YEARS EXCLUSIVE. CA 9.9 mg/dL 8.6-10.2 [facility] NORMAL RANGES Age WBC RBC HGB HCT MCV PLT Adult M 4.1-10.9 4.20-6.30 12.0-18.0 37.0-51.0 80-97 140-440 Adult F 4.1-10.9 4.04-5.48 12.0-18.0 37.0-51.0 80-97 140-440 0 -1 Yr 5.0-20.0 3.9-5.9 15-18 MV: 44 MV: 91 MV: 277 2-9 Yr. 6.0-17.0 3.8-5.4 11-13 MV: 37 MV: 78 MV: 300 10 Yrs. 5.0-13.0 3.8-5.4 12-15 MV: 39 MV: 80 MV: 250 NOTE: * FOR ADULT BLACK MALES AND FEMALES, NORMAL WBC IS 2.9-7.7 K/ML * FOR ADULT BLACK MALES AND FEMALES, NORMAL RBC,HGB, AND HCT IS 5% LESS SOURCE FOR DATA: [employer] OPERATION MANUAL( AUTOMATED BLOOD COUNTS AND DIFF.) APPENDIX B-3 CHRONIC KIDNEY DISEASE STAGING PER NKF: MALE GFR INTERPRETATION: 20-49 YRS: [...] DESIRABLE: <130 MG/DL <110 MG/DL BORDERLINE-HIGH RISK: 130- 159 MG/DL 110-129 MG/DL HIGH RISK: >160 MG/DL >130 MG/DL *CHILDREN AND ADOLESCENTS REPRESENTS INDIVIDUALA AGED 2-19 YEARS EXCLUSIVE. TP 6.5 g/dL 6.6-8.7 Below low normal [facility] ( [facility] NORMAL RANGES Age WBC RBC HGB HCT MCV PLT Adult M 4.1-10.9 4.20-6.30 12.0-18.0 37.0-51.0 80-97 140-440 Adult F 4.1-10.9 4.04-5.48 12.0-18.0 37.0-51.0 80-97 140-440 0 -1 Yr 5.0-20.0 3.9-5.9 15-18 MV: 44 MV: 91 MV: 277 2-9 Yr. 6.0-17.0 3.8-5.4 11-13 MV: 37 MV: 78 MV: 300 10 Yrs. 5.0-13.0 3.8-5.4 12-15 MV: 39 MV: 80 MV: 250 NOTE: * FOR ADULT BLACK MALES AND FEMALES, NORMAL WBC IS 2.9-7.7 K/ML * FOR ADULT BLACK MALES AND FEMALES, NORMAL RBC,HGB, AND HCT IS 5% LESS SOURCE FOR DATA: [employer] OPERATION MANUAL( AUTOMATED BLOOD COUNTS AND DIFF.) APPENDIX B-3 CHRONIC KIDNEY DISEASE STAGING PER NKF: MALE GFR INTERPRETATION: 20-49 YRS: [...] DESIRABLE: <130 MG/DL <110 MG/DL BORDERLINE-HIGH RISK: 130- 159 MG/DL 110-129 MG/DL HIGH RISK: >160 MG/DL >130 MG/DL *CHILDREN AND ADOLESCENTS REPRESENTS INDIVIDUALA AGED 2-19 YEARS EXCLUSIVE. A/G Ratio 1.6 CALC [facility] ([facility] NORMAL RANGES Age WBC RBC HGB HCT MCV PLT Adult M 4.1-10.9 4.20-6.30 12.0-18.0 37.0-51.0 80-97 140-440 Adult F 4.1-10.9 4.04-5.48 12.0-18.0 37.0-51.0 80-97 140-440 0 -1 Yr 5.0-20.0 3.9-5.9 15-18 MV: 44 MV: 91 MV: 277 2-9 Yr. 6.0-17.0 3.8-5.4 11-13 MV: 37 MV: 78 MV: 300 10 Yrs. 5.0-13.0 3.8-5.4 12-15 MV: 39 MV: 80 MV: 250 NOTE: * FOR ADULT BLACK MALES AND FEMALES, NORMAL WBC IS 2.9-7.7 K/ML * FOR ADULT BLACK MALES AND FEMALES, NORMAL RBC,HGB, AND HCT IS 5% LESS SOURCE FOR DATA: [employer] OPERATION MANUAL( AUTOMATED BLOOD COUNTS AND DIFF.) APPENDIX B-3 CHRONIC KIDNEY DISEASE STAGING PER NKF: MALE GFR INTERPRETATION: 20-49 YRS: [...] DESIRABLE: <130 MG/DL <110 MG/DL BORDERLINE-HIGH RISK: 130- 159 MG/DL 110-129 MG/DL HIGH RISK: >160 MG/DL >130 MG/DL *CHILDREN AND ADOLESCENTS REPRESENTS INDIVIDUALA AGED 2-19 YEARS EXCLUSIVE. Alb 4.0 g/dL 3.4-4.8 [facility] ([facility] NORMAL RANGES Age WBC RBC HGB HCT MCV PLT Adult M 4.1-10.9 4.20-6.30 12.0-18.0 37.0-51.0 80-97 140-440 Adult F 4.1-10.9 4.04-5.48 12.0-18.0 37.0-51.0 80-97 140-440 0 -1 Yr 5.0-20.0 3.9-5.9 15-18 MV: 44 MV: 91 MV: 277 2-9 Yr. 6.0-17.0 3.8-5.4 11-13 MV: 37 MV: 78 MV: 300 10 Yrs. 5.0-13.0 3.8-5.4 12-15 MV: 39 MV: 80 MV: 250 NOTE: * FOR ADULT BLACK MALES AND FEMALES, NORMAL WBC IS 2.9-7.7 K/ML * FOR ADULT BLACK MALES AND FEMALES, NORMAL RBC,HGB, AND HCT IS 5% LESS SOURCE FOR DATA: [employer] OPERATION MANUAL( AUTOMATED BLOOD COUNTS AND DIFF.) APPENDIX B-3 CHRONIC KIDNEY DISEASE STAGING PER NKF: MALE GFR INTERPRETATION: 20-49 YRS: [...] DESIRABLE: <130 MG/DL <110 MG/DL BORDERLINE-HIGH RISK: 130- 159 MG/DL 110-129 MG/DL HIGH RISK: >160 MG/DL >130 MG/DL *CHILDREN AND ADOLESCENTS REPRESENTS INDIVIDUALA AGED 2-19 YEARS EXCLUSIVE. Alp 112.6 U/L 35-129 [facility] ([facility] NORMAL RANGES Age WBC RBC HGB HCT MCV PLT Adult M 4.1-10.9 4.20-6.30 12.0-18.0 37.0-51.0 80-97 140-440 Adult F 4.1-10.9 4.04-5.48 12.0-18.0 37.0-51.0 80-97 140-440 0 -1 Yr 5.0-20.0 3.9-5.9 15-18 MV: 44 MV: 91 MV: 277 2-9 Yr. 6.0-17.0 3.8-5.4 11-13 MV: 37 MV: 78 MV: 300 10 Yrs. 5.0-13.0 3.8-5.4 12-15 MV: 39 MV: 80 MV: 250 NOTE: * FOR ADULT BLACK MALES AND FEMALES, NORMAL WBC IS 2.9-7.7 K/ML * FOR ADULT BLACK MALES AND FEMALES, NORMAL RBC,HGB, AND HCT IS 5% LESS SOURCE FOR DATA: [employer] 1800 OPERATION MANUAL( AUTOMATED BLOOD COUNTS AND DIFF.) APPENDIX B-3 CHRONIC KIDNEY DISEASE STAGING PER NKF: MALE GFR INTERPRETATION: 20-49 YRS: [...] DESIRABLE: <130 MG/DL <110 MG/DL BORDERLINE-HIGH RISK: 130- 159 MG/DL 110-129 MG/DL HIGH RISK: >160 MG/DL >130 MG/DL *CHILDREN AND ADOLESCENTS REPRESENTS INDIVIDUALA AGED 2-19 YEARS EXCLUSIVE. Globulin 2.5 [facility] ([facility] NORMAL RANGES Age WBC RBC HGB HCT MCV PLT Adult M 4.1-10.9 4.20-6.30 12.0-18.0 37.0-51.0 80-97 140-440 Adult F 4.1-10.9 4.04-5.48 12.0-18.0 37.0-51.0 80-97 140-440 0 -1 Yr 5.0-20.0 3.9-5.9 15-18 MV: 44 MV: 91 MV: 277 2-9 Yr. 6.0-17.0 3.8-5.4 11-13 MV: 37 MV: 78 MV: 300 10 Yrs. 5.0-13.0 3.8-5.4 12-15 MV: 39 MV: 80 MV: 250 NOTE: * FOR ADULT BLACK MALES AND FEMALES, NORMAL WBC IS 2.9-7.7 K/ML * FOR ADULT BLACK MALES AND FEMALES, NORMAL RBC,HGB, AND HCT IS 5% LESS SOURCE FOR DATA: [employer] 1800 OPERATION MANUAL( AUTOMATED BLOOD COUNTS AND DIFF.) APPENDIX B-3 CHRONIC KIDNEY DISEASE STAGING PER NKF: MALE GFR INTERPRETATION: 20-49 YRS: [...] DESIRABLE: <130 MG/DL <110 MG/DL BORDERLINE-HIGH RISK: 130- 159 MG/DL 110-129 MG/DL HIGH RISK: >160 MG/DL >130 MG/DL *CHILDREN AND ADOLESCENTS REPRESENTS INDIVIDUALA AGED 2-19 YEARS EXCLUSIVE. Ast (Sgot) 19 U/L 0-40 [facility] NORMAL RANGES Age WBC RBC HGB HCT MCV PLT Adult M 4.1-10.9 4.20-6.30 12.0-18.0 37.0-51.0 80-97 140-440 Adult F 4.1-10.9 4.04-5.48 12.0-18.0 37.0-51.0 80-97 140-440 0 -1 Yr 5.0-20.0 3.9-5.9 15-18 MV: 44 MV: 91 MV: 277 2-9 Yr. 6.0-17.0 3.8-5.4 11-13 MV: 37 MV: 78 MV: 300 10 Yrs. 5.0-13.0 3.8-5.4 12-15 MV: 39 MV: 80 MV: 250 NOTE: * FOR ADULT BLACK MALES AND FEMALES, NORMAL WBC IS 2.9-7.7 K/ML * FOR ADULT BLACK MALES AND FEMALES, NORMAL RBC,HGB, AND HCT IS 5% LESS SOURCE FOR DATA: [employer] 1800 OPERATION MANUAL( AUTOMATED BLOOD COUNTS AND DIFF.) APPENDIX B-3 CHRONIC KIDNEY DISEASE STAGING PER NKF: MALE GFR INTERPRETATION: 20-49 YRS: [...] DESIRABLE: <130 MG/DL <110 MG/DL BORDERLINE-HIGH RISK: 130- 159 MG/DL 110-129 MG/DL HIGH RISK: >160 MG/DL >130 MG/DL *CHILDREN AND ADOLESCENTS REPRESENTS INDIVIDUALA AGED 2-19 YEARS EXCLUSIVE. Alt (SGPT) 19 U/L 0-41 [facility] ([facility] NORMAL RANGES Age WBC RBC HGB HCT MCV PLT Adult M 4.1-10.9 4.20-6.30 12.0-18.0 37.0-51.0 80-97 140-440 Adult F 4.1-10.9 4.04-5.48 12.0-18.0 37.0-51.0 80-97 140-440 0 -1 Yr 5.0-20.0 3.9-5.9 15-18 MV: 44 MV: 91 MV: 277 2-9 Yr. 6.0-17.0 3.8-5.4 11-13 MV: 37 MV: 78 MV: 300 10 Yrs. 5.0-13.0 3.8-5.4 12-15 MV: 39 MV: 80 MV: 250 NOTE: * FOR ADULT BLACK MALES AND FEMALES, NORMAL WBC IS 2.9-7.7 K/ML * FOR ADULT BLACK MALES AND FEMALES, NORMAL RBC,HGB, AND HCT IS 5% LESS SOURCE FOR DATA: [employer] OPERATION MANUAL( AUTOMATED BLOOD COUNTS AND DIFF.) APPENDIX B-3 CHRONIC KIDNEY DISEASE STAGING PER NKF: MALE GFR INTERPRETATION: 20-49 YRS: [...] DESIRABLE: <130 MG/DL <110 MG/DL BORDERLINE-HIGH RISK: 130- 159 MG/DL 110-129 MG/DL HIGH RISK: >160 MG/DL >130 MG/DL *CHILDREN AND ADOLESCENTS REPRESENTS INDIVIDUALA AGED 2-19 YEARS EXCLUSIVE. Tbili 0.30 mg/dL 0.0-1.2 [facility] ([facility] NORMAL RANGES Age WBC RBC HGB HCT MCV PLT Adult M 4.1-10.9 4.20-6.30 12.0-18.0 37.0-51.0 80-97 140-440 Adult F 4.1-10.9 4.04-5.48 12.0-18.0 37.0-51.0 80-97 140-440 0 -1 Yr 5.0-20.0 3.9-5.9 15-18 MV: 44 MV: 91 MV: 277 2-9 Yr. 6.0-17.0 3.8-5.4 11-13 MV: 37 MV: 78 MV: 300 10 Yrs. 5.0-13.0 3.8-5.4 12-15 MV: 39 MV: 80 MV: 250 NOTE: * FOR ADULT BLACK MALES AND FEMALES, NORMAL WBC IS 2.9-7.7 K/ML * FOR ADULT BLACK MALES AND FEMALES, NORMAL RBC,HGB, AND HCT IS 5% LESS SOURCE FOR DATA: [employer] 1800 OPERATION MANUAL( AUTOMATED BLOOD COUNTS AND DIFF.) APPENDIX B-3 CHRONIC KIDNEY DISEASE STAGING PER NKF: MALE GFR INTERPRETATION: 20-49 YRS: [...] DESIRABLE: <130 MG/DL <110 MG/DL BORDERLINE-HIGH RISK: 130- 159 MG/DL 110-129 MG/DL HIGH RISK: >160 MG/DL >130 MG/DL *CHILDREN AND ADOLESCENTS REPRESENTS INDIVIDUALA AGED 2-19 YEARS EXCLUSIVE. Anion Gap 17 mmol/L [facility] ([facility] NORMAL RANGES Age WBC RBC HGB HCT MCV PLT Adult M 4.1-10.9 4.20-6.30 12.0-18.0 37.0-51.0 80-97 140-440 Adult F 4.1-10.9 4.04-5.48 12.0-18.0 37.0-51.0 80-97 140-440 0 -1 Yr 5.0-20.0 3.9-5.9 15-18 MV: 44 MV: 91 MV: 277 2-9 Yr. 6.0-17.0 3.8-5.4 11-13 MV: 37 MV: 78 MV: 300 10 Yrs. 5.0-13.0 3.8-5.4 12-15 MV: 39 MV: 80 MV: 250 NOTE: * FOR ADULT BLACK MALES AND FEMALES, NORMAL WBC IS 2.9-7.7 K/ML * FOR ADULT BLACK MALES AND FEMALES, NORMAL RBC,HGB, AND HCT IS 5% LESS SOURCE FOR DATA: [employer] 1800 OPERATION MANUAL( AUTOMATED BLOOD COUNTS AND DIFF.) APPENDIX B-3 CHRONIC KIDNEY DISEASE STAGING PER NKF: MALE GFR INTERPRETATION: 20-49 YRS: [...] DESIRABLE: <130 MG/DL <110 MG/DL BORDERLINE-HIGH RISK: 130- 159 MG/DL 110-129 MG/DL HIGH RISK: >160 MG/DL >130 MG/DL *CHILDREN AND ADOLESCENTS REPRESENTS INDIVIDUALA AGED 2-19 YEARS EXCLUSIVE. Osmolality-Calculated 285.8 [facility] ([facility] NORMAL RANGES Age WBC RBC HGB HCT MCV PLT Adult M 4.1-10.9 4.20-6.30 12.0-18.0 37.0-51.0 80-97 140-440 Adult F 4.1-10.9 4.04-5.48 12.0-18.0 37.0-51.0 80-97 140-440 0 -1 Yr 5.0-20.0 3.9-5.9 15-18 MV: 44 MV: 91 MV: 277 2-9 Yr. 6.0-17.0 3.8-5.4 11-13 MV: 37 MV: 78 MV: 300 10 Yrs. 5.0-13.0 3.8-5.4 12-15 MV: 39 MV: 80 MV: 250 NOTE: * FOR ADULT BLACK MALES AND FEMALES, NORMAL WBC IS 2.9-7.7 K/ML * FOR ADULT BLACK MALES AND FEMALES, NORMAL RBC,HGB, AND HCT IS 5% LESS SOURCE FOR DATA: [employer] 1800 OPERATION MANUAL( AUTOMATED BLOOD COUNTS AND DIFF.) APPENDIX B-3 CHRONIC KIDNEY DISEASE STAGING PER NKF: MALE GFR INTERPRETATION: 20-49 YRS: [...] DESIRABLE: <130 MG/DL <110 MG/DL BORDERLINE-HIGH RISK: 130- 159 MG/DL 110-129 MG/DL HIGH RISK: >160 MG/DL >130 MG/DL *CHILDREN AND ADOLESCENTS REPRESENTS INDIVIDUALA AGED 2-19 YEARS EXCLUSIVE. eGFR 71 # [facility] ( [facility] NORMAL RANGES Age WBC RBC HGB HCT MCV PLT Adult M 4.1-10.9 4.20-6.30 12.0-18.0 37.0-51.0 80-97 140-440 Adult F 4.1-10.9 4.04-5.48 12.0-18.0 37.0-51.0 80-97 140-440 0 -1 Yr 5.0-20.0 3.9-5.9 15-18 MV: 44 MV: 91 MV: 277 2-9 Yr. 6.0-17.0 3.8-5.4 11-13 MV: 37 MV: 78 MV: 300 10 Yrs. 5.0-13.0 3.8-5.4 12-15 MV: 39 MV: 80 MV: 250 NOTE: * FOR ADULT BLACK MALES AND FEMALES, NORMAL WBC IS 2.9-7.7 K/ML * FOR ADULT BLACK MALES AND FEMALES, NORMAL RBC,HGB, AND HCT IS 5% LESS SOURCE FOR DATA: [employer] 1800 OPERATION MANUAL( AUTOMATED BLOOD COUNTS AND DIFF.) APPENDIX B-3 CHRONIC KIDNEY DISEASE STAGING PER NKF: MALE GFR INTERPRETATION: 20-49 YRS: [...] DESIRABLE: <130 MG/DL <110 MG/DL BORDERLINE-HIGH RISK: 130- 159 MG/DL 110-129 MG/DL HIGH RISK: >160 MG/DL >130 MG/DL *CHILDREN AND ADOLESCENTS REPRESENTS INDIVIDUALA AGED 2-19 YEARS EXCLUSIVE. eGFR Non-Afr. Mauritian 61 # [facility] ([facility] NORMAL RANGES Age WBC RBC HGB HCT MCV PLT Adult M 4.1-10.9 4.20-6.30 12.0-18.0 37.0-51.0 80-97 140-440 Adult F 4.1-10.9 4.04-5.48 12.0-18.0 37.0-51.0 80-97 140-440 0 -1 Yr 5.0-20.0 3.9-5.9 15-18 MV: 44 MV: 91 MV: 277 2-9 Yr. 6.0-17.0 3.8-5.4 11-13 MV: 37 MV: 78 MV: 300 10 Yrs. 5.0-13.0 3.8-5.4 12-15 MV: 39 MV: 80 MV: 250 NOTE: * FOR ADULT BLACK MALES AND FEMALES, NORMAL WBC IS 2.9-7.7 K/ML * FOR ADULT BLACK MALES AND FEMALES, NORMAL RBC,HGB, AND HCT IS 5% LESS SOURCE FOR DATA: [employer] 1800 OPERATION MANUAL( AUTOMATED BLOOD COUNTS AND DIFF.) APPENDIX B-3 CHRONIC KIDNEY DISEASE STAGING PER NKF: MALE GFR INTERPRETATION: 20-49 YRS: [...] DESIRABLE: <130 MG/DL <110 MG/DL BORDERLINE-HIGH RISK: 130- 159 MG/DL 110-129 MG/DL HIGH RISK: >160 MG/DL >130 MG/DL *CHILDREN AND ADOLESCENTS REPRESENTS INDIVIDUALA AGED 2-19 YEARS EXCLUSIVE. ID Date Data Source [id number] 10/12/2019 01:31:00 PM EDT [facility] ([facility] Name Value Range Interpretation Code Description Data Chloe rce(s) Supporting Document(s) Trig 245 mg/dL 40-200 Above high normal [facility] ([facility] NORMAL RANGES Age WBC RBC HGB HCT MCV PLT Adult M 4.1-10.9 4.20-6.30 12.0-18.0 37.0-51.0 80-97 140-440 Adult F 4.1-10.9 4.04-5.48 12.0-18.0 37.0-51.0 80-97 140-440 0 -1 Yr 5.0-20.0 3.9-5.9 15-18 MV: 44 MV: 91 MV: 277 2-9 Yr. 6.0-17.0 3.8-5.4 11-13 MV: 37 MV: 78 MV: 300 10 Yrs. 5.0-13.0 3.8-5.4 12-15 MV: 39 MV: 80 MV: 250 NOTE: * FOR ADULT BLACK MALES AND FEMALES, NORMAL WBC IS 2.9-7.7 K/ML * FOR ADULT BLACK MALES AND FEMALES, NORMAL RBC,HGB, AND HCT IS 5% LESS SOURCE FOR DATA: [employer] 1800 OPERATION MANUAL( AUTOMATED BLOOD COUNTS AND DIFF.) APPENDIX B-3 CHRONIC KIDNEY DISEASE STAGING PER NKF: MALE GFR INTERPRETATION: 20-49 YRS: [...] DESIRABLE: <130 MG/DL <110 MG/DL BORDERLINE-HIGH RISK: 130- 159 MG/DL 110-129 MG/DL HIGH RISK: >160 MG/DL >130 MG/DL *CHILDREN AND ADOLESCENTS REPRESENTS INDIVIDUALA AGED 2-19 YEARS EXCLUSIVE. Chol 167 mg/dL 0-200 [facility] ([facility] NORMAL RANGES Age WBC RBC HGB HCT MCV PLT Adult M 4.1-10.9 4.20-6.30 12.0-18.0 37.0-51.0 80-97 140-440 Adult F 4.1-10.9 4.04-5.48 12.0-18.0 37.0-51.0 80-97 140-440 0 -1 Yr 5.0-20.0 3.9-5.9 15-18 MV: 44 MV: 91 MV: 277 2-9 Yr. 6.0-17.0 3.8-5.4 11-13 MV: 37 MV: 78 MV: 300 10 Yrs. 5.0-13.0 3.8-5.4 12-15 MV: 39 MV: 80 MV: 250 NOTE: * FOR ADULT BLACK MALES AND FEMALES, NORMAL WBC IS 2.9-7.7 K/ML * FOR ADULT BLACK MALES AND FEMALES, NORMAL RBC,HGB, AND HCT IS 5% LESS SOURCE FOR DATA: [employer] 1800 OPERATION MANUAL( AUTOMATED BLOOD COUNTS AND DIFF.) APPENDIX B-3 CHRONIC KIDNEY DISEASE STAGING PER NKF: MALE GFR INTERPRETATION: 20-49 YRS: [...] DESIRABLE: <130 MG/DL <110 MG/DL BORDERLINE-HIGH RISK: 130- 159 MG/DL 110-129 MG/DL HIGH RISK: >160 MG/DL >130 MG/DL *CHILDREN AND ADOLESCENTS REPRESENTS INDIVIDUALA AGED 2-19 YEARS EXCLUSIVE. Cholesterol in HDL [Mass/volume] in Serum or Plasma 46 mg/dL 45-65 [facility] ([facility] NORMAL RANGES Age WBC RBC HGB HCT MCV PLT Adult M 4.1-10.9 4.20-6.30 12.0-18.0 37.0-51.0 80-97 140-440 Adult F 4.1-10.9 4.04-5.48 12.0-18.0 37.0-51.0 80-97 140-440 0 -1 Yr 5.0-20.0 3.9-5.9 15-18 MV: 44 MV: 91 MV: 277 2-9 Yr. 6.0-17.0 3.8-5.4 11-13 MV: 37 MV: 78 MV: 300 10 Yrs. 5.0-13.0 3.8-5.4 12-15 MV: 39 MV: 80 MV: 250 NOTE: * FOR ADULT BLACK MALES AND FEMALES, NORMAL WBC IS 2.9-7.7 K/ML * FOR ADULT BLACK MALES AND FEMALES, NORMAL RBC,HGB, AND HCT IS 5% LESS SOURCE FOR DATA: [employer] 1800 OPERATION MANUAL( AUTOMATED BLOOD COUNTS AND DIFF.) APPENDIX B-3 CHRONIC KIDNEY DISEASE STAGING PER NKF: MALE GFR INTERPRETATION: 20-49 YRS: [...] DESIRABLE: <130 MG/DL <110 MG/DL BORDERLINE-HIGH RISK: 130- 159 MG/DL 110-129 MG/DL HIGH RISK: >160 MG/DL >130 MG/DL *CHILDREN AND ADOLESCENTS REPRESENTS INDIVIDUALA AGED 2-19 YEARS EXCLUSIVE. LDL_C 71 Calc 75-129 Below low normal [facility] ( [facility] NORMAL RANGES Age WBC RBC HGB HCT MCV PLT Adult M 4.1-10.9 4.20-6.30 12.0-18.0 37.0-51.0 80-97 140-440 Adult F 4.1-10.9 4.04-5.48 12.0-18.0 37.0-51.0 80-97 140-440 0 -1 Yr 5.0-20.0 3.9-5.9 15-18 MV: 44 MV: 91 MV: 277 2-9 Yr. 6.0-17.0 3.8-5.4 11-13 MV: 37 MV: 78 MV: 300 10 Yrs. 5.0-13.0 3.8-5.4 12-15 MV: 39 MV: 80 MV: 250 NOTE: * FOR ADULT BLACK MALES AND FEMALES, NORMAL WBC IS 2.9-7.7 K/ML * FOR ADULT BLACK MALES AND FEMALES, NORMAL RBC,HGB, AND HCT IS 5% LESS SOURCE FOR DATA: [employer] 1800 OPERATION MANUAL( AUTOMATED BLOOD COUNTS AND DIFF.) APPENDIX B-3 CHRONIC KIDNEY DISEASE STAGING PER NKF: MALE GFR INTERPRETATION: 20-49 YRS: [...] DESIRABLE: <130 MG/DL <110 MG/DL BORDERLINE-HIGH RISK: 130- 159 MG/DL 110-129 MG/DL HIGH RISK: >160 MG/DL >130 MG/DL *CHILDREN AND ADOLESCENTS REPRESENTS INDIVIDUALA AGED 2-19 YEARS EXCLUSIVE. Cho/HDL Ratio 3.6 CALC [facility] NORMAL RANGES Age WBC RBC HGB HCT MCV PLT Adult M 4.1-10.9 4.20-6.30 12.0-18.0 37.0-51.0 80-97 140-440 Adult F 4.1-10.9 4.04-5.48 12.0-18.0 37.0-51.0 80-97 140-440 0 -1 Yr 5.0-20.0 3.9-5.9 15-18 MV: 44 MV: 91 MV: 277 2-9 Yr. 6.0-17.0 3.8-5.4 11-13 MV: 37 MV: 78 MV: 300 10 Yrs. 5.0-13.0 3.8-5.4 12-15 MV: 39 MV: 80 MV: 250 NOTE: * FOR ADULT BLACK MALES AND FEMALES, NORMAL WBC IS 2.9-7.7 K/ML * FOR ADULT BLACK MALES AND FEMALES, NORMAL RBC,HGB, AND HCT IS 5% LESS SOURCE FOR DATA: [employer] 1800 OPERATION MANUAL( AUTOMATED BLOOD COUNTS AND DIFF.) APPENDIX B-3 CHRONIC KIDNEY DISEASE STAGING PER NKF: MALE GFR INTERPRETATION: 20-49 YRS: [...] DESIRABLE: <130 MG/DL <110 MG/DL BORDERLINE-HIGH RISK: 130- 159 MG/DL 110-129 MG/DL HIGH RISK: >160 MG/DL >130 MG/DL *CHILDREN AND ADOLESCENTS REPRESENTS INDIVIDUALA AGED 2-19 YEARS EXCLUSIVE. ID Date Data Source [id number] 10/12/2019 01:31:00 PM EDT [facility] ([facility] Name Value Range Interpretation Code Description Data Chloe rce(s) Supporting Document(s) RBC 4.67 10E6/uL [facility] ([facility] NORMAL RANGES Age WBC RBC HGB HCT MCV PLT Adult M 4.1-10.9 4.20-6.30 12.0-18.0 37.0-51.0 80-97 140-440 Adult F 4.1-10.9 4.04-5.48 12.0-18.0 37.0-51.0 80-97 140-440 0 -1 Yr 5.0-20.0 3.9-5.9 15-18 MV: 44 MV: 91 MV: 277 2-9 Yr. 6.0-17.0 3.8-5.4 11-13 MV: 37 MV: 78 MV: 300 10 Yrs. 5.0-13.0 3.8-5.4 12-15 MV: 39 MV: 80 MV: 250 NOTE: * FOR ADULT BLACK MALES AND FEMALES, NORMAL WBC IS 2.9-7.7 K/ML * FOR ADULT BLACK MALES AND FEMALES, NORMAL RBC,HGB, AND HCT IS 5% LESS SOURCE FOR DATA: [employer] 1800 OPERATION MANUAL( AUTOMATED BLOOD COUNTS AND DIFF.) APPENDIX B-3 CHRONIC KIDNEY DISEASE STAGING PER NKF: MALE GFR INTERPRETATION: 20-49 YRS: [...] DESIRABLE: <130 MG/DL <110 MG/DL BORDERLINE-HIGH RISK: 130- 159 MG/DL 110-129 MG/DL HIGH RISK: >160 MG/DL >130 MG/DL *CHILDREN AND ADOLESCENTS REPRESENTS INDIVIDUALA AGED 2-19 YEARS EXCLUSIVE. WBC 9.4 10E3/uL 4.1-10.9 [facility] ([facility] NORMAL RANGES Age WBC RBC HGB HCT MCV PLT Adult M 4.1-10.9 4.20-6.30 12.0-18.0 37.0-51.0 80-97 140-440 Adult F 4.1-10.9 4.04-5.48 12.0-18.0 37.0-51.0 80-97 140-440 0 -1 Yr 5.0-20.0 3.9-5.9 15-18 MV: 44 MV: 91 MV: 277 2-9 Yr. 6.0-17.0 3.8-5.4 11-13 MV: 37 MV: 78 MV: 300 10 Yrs. 5.0-13.0 3.8-5.4 12-15 MV: 39 MV: 80 MV: 250 NOTE: * FOR ADULT BLACK MALES AND FEMALES, NORMAL WBC IS 2.9-7.7 K/ML * FOR ADULT BLACK MALES AND FEMALES, NORMAL RBC,HGB, AND HCT IS 5% LESS SOURCE FOR DATA: [employer] 1800 OPERATION MANUAL( AUTOMATED BLOOD COUNTS AND DIFF.) APPENDIX B-3 CHRONIC KIDNEY DISEASE STAGING PER NKF: MALE GFR INTERPRETATION: 20-49 YRS: [...] DESIRABLE: <130 MG/DL <110 MG/DL BORDERLINE-HIGH RISK: 130- 159 MG/DL 110-129 MG/DL HIGH RISK: >160 MG/DL >130 MG/DL *CHILDREN AND ADOLESCENTS REPRESENTS INDIVIDUALA AGED 2-19 YEARS EXCLUSIVE. MCV 90.1 fL 80.0-97.0 [facility] NORMAL RANGES Age WBC RBC HGB HCT MCV PLT Adult M 4.1-10.9 4.20-6.30 12.0-18.0 37.0-51.0 80-97 140-440 Adult F 4.1-10.9 4.04-5.48 12.0-18.0 37.0-51.0 80-97 140-440 0 -1 Yr 5.0-20.0 3.9-5.9 15-18 MV: 44 MV: 91 MV: 277 2-9 Yr. 6.0-17.0 3.8-5.4 11-13 MV: 37 MV: 78 MV: 300 10 Yrs. 5.0-13.0 3.8-5.4 12-15 MV: 39 MV: 80 MV: 250 NOTE: * FOR ADULT BLACK MALES AND FEMALES, NORMAL WBC IS 2.9-7.7 K/ML * FOR ADULT BLACK MALES AND FEMALES, NORMAL RBC,HGB, AND HCT IS 5% LESS SOURCE FOR DATA: [employer] 1800 OPERATION MANUAL( AUTOMATED BLOOD COUNTS AND DIFF.) APPENDIX B-3 CHRONIC KIDNEY DISEASE STAGING PER NKF: MALE GFR INTERPRETATION: 20-49 YRS: [...] DESIRABLE: <130 MG/DL <110 MG/DL BORDERLINE-HIGH RISK: 130- 159 MG/DL 110-129 MG/DL HIGH RISK: >160 MG/DL >130 MG/DL *CHILDREN AND ADOLESCENTS REPRESENTS INDIVIDUALA AGED 2-19 YEARS EXCLUSIVE. HCT 42.1 % 37.0-51.0 [facility] NORMAL RANGES Age WBC RBC HGB HCT MCV PLT Adult M 4.1-10.9 4.20-6.30 12.0-18.0 37.0-51.0 80-97 140-440 Adult F 4.1-10.9 4.04-5.48 12.0-18.0 37.0-51.0 80-97 140-440 0 -1 Yr 5.0-20.0 3.9-5.9 15-18 MV: 44 MV: 91 MV: 277 2-9 Yr. 6.0-17.0 3.8-5.4 11-13 MV: 37 MV: 78 MV: 300 10 Yrs. 5.0-13.0 3.8-5.4 12-15 MV: 39 MV: 80 MV: 250 NOTE: * FOR ADULT BLACK MALES AND FEMALES, NORMAL WBC IS 2.9-7.7 K/ML * FOR ADULT BLACK MALES AND FEMALES, NORMAL RBC,HGB, AND HCT IS 5% LESS SOURCE FOR DATA: [employer] 1800 OPERATION MANUAL( AUTOMATED BLOOD COUNTS AND DIFF.) APPENDIX B-3 CHRONIC KIDNEY DISEASE STAGING PER NKF: MALE GFR INTERPRETATION: 20-49 YRS: [...] DESIRABLE: <130 MG/DL <110 MG/DL BORDERLINE-HIGH RISK: 130- 159 MG/DL 110-129 MG/DL HIGH RISK: >160 MG/DL >130 MG/DL *CHILDREN AND ADOLESCENTS REPRESENTS INDIVIDUALA AGED 2-19 YEARS EXCLUSIVE. HGB 13.9 g/dL 12.0-18.0 [facility] ([facility] NORMAL RANGES Age WBC RBC HGB HCT MCV PLT Adult M 4.1-10.9 4.20-6.30 12.0-18.0 37.0-51.0 80-97 140-440 Adult F 4.1-10.9 4.04-5.48 12.0-18.0 37.0-51.0 80-97 140-440 0 -1 Yr 5.0-20.0 3.9-5.9 15-18 MV: 44 MV: 91 MV: 277 2-9 Yr. 6.0-17.0 3.8-5.4 11-13 MV: 37 MV: 78 MV: 300 10 Yrs. 5.0-13.0 3.8-5.4 12-15 MV: 39 MV: 80 MV: 250 NOTE: * FOR ADULT BLACK MALES AND FEMALES, NORMAL WBC IS 2.9-7.7 K/ML * FOR ADULT BLACK MALES AND FEMALES, NORMAL RBC,HGB, AND HCT IS 5% LESS SOURCE FOR DATA: [employer] 1800 OPERATION MANUAL( AUTOMATED BLOOD COUNTS AND DIFF.) APPENDIX B-3 CHRONIC KIDNEY DISEASE STAGING PER NKF: MALE GFR INTERPRETATION: 20-49 YRS: [...] DESIRABLE: <130 MG/DL <110 MG/DL BORDERLINE-HIGH RISK: 130- 159 MG/DL 110-129 MG/DL HIGH RISK: >160 MG/DL >130 MG/DL *CHILDREN AND ADOLESCENTS REPRESENTS INDIVIDUALA AGED 2-19 YEARS EXCLUSIVE. MCHC 33.0 g/dL 31.0-36.0 [facility] ([facility] NORMAL RANGES Age WBC RBC HGB HCT MCV PLT Adult M 4.1-10.9 4.20-6.30 12.0-18.0 37.0-51.0 80-97 140-440 Adult F 4.1-10.9 4.04-5.48 12.0-18.0 37.0-51.0 80-97 140-440 0 -1 Yr 5.0-20.0 3.9-5.9 15-18 MV: 44 MV: 91 MV: 277 2-9 Yr. 6.0-17.0 3.8-5.4 11-13 MV: 37 MV: 78 MV: 300 10 Yrs. 5.0-13.0 3.8-5.4 12-15 MV: 39 MV: 80 MV: 250 NOTE: * FOR ADULT BLACK MALES AND FEMALES, NORMAL WBC IS 2.9-7.7 K/ML * FOR ADULT BLACK MALES AND FEMALES, NORMAL RBC,HGB, AND HCT IS 5% LESS SOURCE FOR DATA: [employer] 1800 OPERATION MANUAL( AUTOMATED BLOOD COUNTS AND DIFF.) APPENDIX B-3 CHRONIC KIDNEY DISEASE STAGING PER NKF: MALE GFR INTERPRETATION: 20-49 YRS: [...] DESIRABLE: <130 MG/DL <110 MG/DL BORDERLINE-HIGH RISK: 130- 159 MG/DL 110-129 MG/DL HIGH RISK: >160 MG/DL >130 MG/DL *CHILDREN AND ADOLESCENTS REPRESENTS INDIVIDUALA AGED 2-19 YEARS EXCLUSIVE. MCH 29.8 pg 26.0-32.0 [facility] ([facility] NORMAL RANGES Age WBC RBC HGB HCT MCV PLT Adult M 4.1-10.9 4.20-6.30 12.0-18.0 37.0-51.0 80-97 140-440 Adult F 4.1-10.9 4.04-5.48 12.0-18.0 37.0-51.0 80-97 140-440 0 -1 Yr 5.0-20.0 3.9-5.9 15-18 MV: 44 MV: 91 MV: 277 2-9 Yr. 6.0-17.0 3.8-5.4 11-13 MV: 37 MV: 78 MV: 300 10 Yrs. 5.0-13.0 3.8-5.4 12-15 MV: 39 MV: 80 MV: 250 NOTE: * FOR ADULT BLACK MALES AND FEMALES, NORMAL WBC IS 2.9-7.7 K/ML * FOR ADULT BLACK MALES AND FEMALES, NORMAL RBC,HGB, AND HCT IS 5% LESS SOURCE FOR DATA: [employer] 1800 OPERATION MANUAL( AUTOMATED BLOOD COUNTS AND DIFF.) APPENDIX B-3 CHRONIC KIDNEY DISEASE STAGING PER NKF: MALE GFR INTERPRETATION: 20-49 YRS: [...] DESIRABLE: <130 MG/DL <110 MG/DL BORDERLINE-HIGH RISK: 130- 159 MG/DL 110-129 MG/DL HIGH RISK: >160 MG/DL >130 MG/DL *CHILDREN AND ADOLESCENTS REPRESENTS INDIVIDUALA AGED 2-19 YEARS EXCLUSIVE. Lym% 25.8 % 10.0-58.5 [facility] ([facility] NORMAL RANGES Age WBC RBC HGB HCT MCV PLT Adult M 4.1-10.9 4.20-6.30 12.0-18.0 37.0-51.0 80-97 140-440 Adult F 4.1-10.9 4.04-5.48 12.0-18.0 37.0-51.0 80-97 140-440 0 -1 Yr 5.0-20.0 3.9-5.9 15-18 MV: 44 MV: 91 MV: 277 2-9 Yr. 6.0-17.0 3.8-5.4 11-13 MV: 37 MV: 78 MV: 300 10 Yrs. 5.0-13.0 3.8-5.4 12-15 MV: 39 MV: 80 MV: 250 NOTE: * FOR ADULT BLACK MALES AND FEMALES, NORMAL WBC IS 2.9-7.7 K/ML * FOR ADULT BLACK MALES AND FEMALES, NORMAL RBC,HGB, AND HCT IS 5% LESS SOURCE FOR DATA: [employer] 1800 OPERATION MANUAL( AUTOMATED BLOOD COUNTS AND DIFF.) APPENDIX B-3 CHRONIC KIDNEY DISEASE STAGING PER NKF: MALE GFR INTERPRETATION: 20-49 YRS: [...] DESIRABLE: <130 MG/DL <110 MG/DL BORDERLINE-HIGH RISK: 130- 159 MG/DL 110-129 MG/DL HIGH RISK: >160 MG/DL >130 MG/DL *CHILDREN AND ADOLESCENTS REPRESENTS INDIVIDUALA AGED 2-19 YEARS EXCLUSIVE. RDW-CV 14.5 % 11.5-14.5 [facility] ([facility] NORMAL RANGES Age WBC RBC HGB HCT MCV PLT Adult M 4.1-10.9 4.20-6.30 12.0-18.0 37.0-51.0 80-97 140-440 Adult F 4.1-10.9 4.04-5.48 12.0-18.0 37.0-51.0 80-97 140-440 0 -1 Yr 5.0-20.0 3.9-5.9 15-18 MV: 44 MV: 91 MV: 277 2-9 Yr. 6.0-17.0 3.8-5.4 11-13 MV: 37 MV: 78 MV: 300 10 Yrs. 5.0-13.0 3.8-5.4 12-15 MV: 39 MV: 80 MV: 250 NOTE: * FOR ADULT BLACK MALES AND FEMALES, NORMAL WBC IS 2.9-7.7 K/ML * FOR ADULT BLACK MALES AND FEMALES, NORMAL RBC,HGB, AND HCT IS 5% LESS SOURCE FOR DATA: [employer] 1800 OPERATION MANUAL( AUTOMATED BLOOD COUNTS AND DIFF.) APPENDIX B-3 CHRONIC KIDNEY DISEASE STAGING PER NKF: MALE GFR INTERPRETATION: 20-49 YRS: [...] DESIRABLE: <130 MG/DL <110 MG/DL BORDERLINE-HIGH RISK: 130- 159 MG/DL 110-129 MG/DL HIGH RISK: >160 MG/DL >130 MG/DL *CHILDREN AND ADOLESCENTS REPRESENTS INDIVIDUALA AGED 2-19 YEARS EXCLUSIVE. PLT 216 10E3/uL 140-440 [facility] ([facility] NORMAL RANGES Age WBC RBC HGB HCT MCV PLT Adult M 4.1-10.9 4.20-6.30 12.0-18.0 37.0-51.0 80-97 140-440 Adult F 4.1-10.9 4.04-5.48 12.0-18.0 37.0-51.0 80-97 140-440 0 -1 Yr 5.0-20.0 3.9-5.9 15-18 MV: 44 MV: 91 MV: 277 2-9 Yr. 6.0-17.0 3.8-5.4 11-13 MV: 37 MV: 78 MV: 300 10 Yrs. 5.0-13.0 3.8-5.4 12-15 MV: 39 MV: 80 MV: 250 NOTE: * FOR ADULT BLACK MALES AND FEMALES, NORMAL WBC IS 2.9-7.7 K/ML * FOR ADULT BLACK MALES AND FEMALES, NORMAL RBC,HGB, AND HCT IS 5% LESS SOURCE FOR DATA: [employer] 1800 OPERATION MANUAL( AUTOMATED BLOOD COUNTS AND DIFF.) APPENDIX B-3 CHRONIC KIDNEY DISEASE STAGING PER NKF: MALE GFR INTERPRETATION: 20-49 YRS: [...] DESIRABLE: <130 MG/DL <110 MG/DL BORDERLINE-HIGH RISK: 130- 159 MG/DL 110-129 MG/DL HIGH RISK: >160 MG/DL >130 MG/DL *CHILDREN AND ADOLESCENTS REPRESENTS INDIVIDUALA AGED 2-19 YEARS EXCLUSIVE. Lym# 2.4 10E3/uL 0.6-4.1 [facility] ([facility] NORMAL RANGES Age WBC RBC HGB HCT MCV PLT Adult M 4.1-10.9 4.20-6.30 12.0-18.0 37.0-51.0 80-97 140-440 Adult F 4.1-10.9 4.04-5.48 12.0-18.0 37.0-51.0 80-97 140-440 0 -1 Yr 5.0-20.0 3.9-5.9 15-18 MV: 44 MV: 91 MV: 277 2-9 Yr. 6.0-17.0 3.8-5.4 11-13 MV: 37 MV: 78 MV: 300 10 Yrs. 5.0-13.0 3.8-5.4 12-15 MV: 39 MV: 80 MV: 250 NOTE: * FOR ADULT BLACK MALES AND FEMALES, NORMAL WBC IS 2.9-7.7 K/ML * FOR ADULT BLACK MALES AND FEMALES, NORMAL RBC,HGB, AND HCT IS 5% LESS SOURCE FOR DATA: [employer] OPERATION MANUAL( AUTOMATED BLOOD COUNTS AND DIFF.) APPENDIX B-3 CHRONIC KIDNEY DISEASE STAGING PER NKF: MALE GFR INTERPRETATION: 20-49 YRS: [...] DESIRABLE: <130 MG/DL <110 MG/DL BORDERLINE-HIGH RISK: 130- 159 MG/DL 110-129 MG/DL HIGH RISK: >160 MG/DL >130 MG/DL *CHILDREN AND ADOLESCENTS REPRESENTS INDIVIDUALA AGED 2-19 YEARS EXCLUSIVE. Neut% 62.7 % 37.0-92.0 [facility] NORMAL RANGES Age WBC RBC HGB HCT MCV PLT Adult M 4.1-10.9 4.20-6.30 12.0-18.0 37.0-51.0 80-97 140-440 Adult F 4.1-10.9 4.04-5.48 12.0-18.0 37.0-51.0 80-97 140-440 0 -1 Yr 5.0-20.0 3.9-5.9 15-18 MV: 44 MV: 91 MV: 277 2-9 Yr. 6.0-17.0 3.8-5.4 11-13 MV: 37 MV: 78 MV: 300 10 Yrs. 5.0-13.0 3.8-5.4 12-15 MV: 39 MV: 80 MV: 250 NOTE: * FOR ADULT BLACK MALES AND FEMALES, NORMAL WBC IS 2.9-7.7 K/ML * FOR ADULT BLACK MALES AND FEMALES, NORMAL RBC,HGB, AND HCT IS 5% LESS SOURCE FOR DATA: [employer]PER[employer] MANUAL( AUTOMATED BLOOD COUNTS AND DIFF.) APPENDIX B-3 CHRONIC KIDNEY DISEASE STAGING PER NKF: MALE GFR INTERPRETATION: 20-49 YRS: [...] DESIRABLE: <130 MG/DL <110 MG/DL BORDERLINE-HIGH RISK: 130- 159 MG/DL 110-129 MG/DL HIGH RISK: >160 MG/DL >130 MG/DL *CHILDREN AND ADOLESCENTS REPRESENTS INDIVIDUALA AGED 2-19 YEARS EXCLUSIVE. MXD% 11.5 % 0.1-24.0 [facility] ([facility] NORMAL RANGES Age WBC RBC HGB HCT MCV PLT Adult M 4.1-10.9 4.20-6.30 12.0-18.0 37.0-51.0 80-97 140-440 Adult F 4.1-10.9 4.04-5.48 12.0-18.0 37.0-51.0 80-97 140-440 0 -1 Yr 5.0-20.0 3.9-5.9 15-18 MV: 44 MV: 91 MV: 277 2-9 Yr. 6.0-17.0 3.8-5.4 11-13 MV: 37 MV: 78 MV: 300 10 Yrs. 5.0-13.0 3.8-5.4 12-15 MV: 39 MV: 80 MV: 250 NOTE: * FOR ADULT BLACK MALES AND FEMALES, NORMAL WBC IS 2.9-7.7 K/ML * FOR ADULT BLACK MALES AND FEMALES, NORMAL RBC,HGB, AND HCT IS 5% LESS SOURCE FOR DATA: [employer] OPERATION MANUAL( AUTOMATED BLOOD COUNTS AND DIFF.) APPENDIX B-3 CHRONIC KIDNEY DISEASE STAGING PER NKF: MALE GFR INTERPRETATION: 20-49 YRS: [...] DESIRABLE: <130 MG/DL <110 MG/DL BORDERLINE-HIGH RISK: 130- 159 MG/DL 110-129 MG/DL HIGH RISK: >160 MG/DL >130 MG/DL *CHILDREN AND ADOLESCENTS REPRESENTS INDIVIDUALA AGED 2-19 YEARS EXCLUSIVE. Neut# 5.9 % 2.0-7.8 [facility] ([facility] NORMAL RANGES Age WBC RBC HGB HCT MCV PLT Adult M 4.1-10.9 4.20-6.30 12.0-18.0 37.0-51.0 80-97 140-440 Adult F 4.1-10.9 4.04-5.48 12.0-18.0 37.0-51.0 80-97 140-440 0 -1 Yr 5.0-20.0 3.9-5.9 15-18 MV: 44 MV: 91 MV: 277 2-9 Yr. 6.0-17.0 3.8-5.4 11-13 MV: 37 MV: 78 MV: 300 10 Yrs. 5.0-13.0 3.8-5.4 12-15 MV: 39 MV: 80 MV: 250 NOTE: * FOR ADULT BLACK MALES AND FEMALES, NORMAL WBC IS 2.9-7.7 K/ML * FOR ADULT BLACK MALES AND FEMALES, NORMAL RBC,HGB, AND HCT IS 5% LESS SOURCE FOR DATA: [employer]PERATION MANUAL( AUTOMATED BLOOD COUNTS AND DIFF.) APPENDIX B-3 CHRONIC KIDNEY DISEASE STAGING PER NKF: MALE GFR INTERPRETATION: 20-49 YRS: [...] DESIRABLE: <130 MG/DL <110 MG/DL BORDERLINE-HIGH RISK: 130- 159 MG/DL 110-129 MG/DL HIGH RISK: >160 MG/DL >130 MG/DL *CHILDREN AND ADOLESCENTS REPRESENTS INDIVIDUALA AGED 2-19 YEARS EXCLUSIVE. MXD# 1.1 10E3/uL 0.0-1.8 [facility] ([facility] NORMAL RANGES Age WBC RBC HGB HCT MCV PLT Adult M 4.1-10.9 4.20-6.30 12.0-18.0 37.0-51.0 80-97 140-440 Adult F 4.1-10.9 4.04-5.48 12.0-18.0 37.0-51.0 80-97 140-440 0 -1 Yr 5.0-20.0 3.9-5.9 15-18 MV: 44 MV: 91 MV: 277 2-9 Yr. 6.0-17.0 3.8-5.4 11-13 MV: 37 MV: 78 MV: 300 10 Yrs. 5.0-13.0 3.8-5.4 12-15 MV: 39 MV: 80 MV: 250 NOTE: * FOR ADULT BLACK MALES AND FEMALES, NORMAL WBC IS 2.9-7.7 K/ML * FOR ADULT BLACK MALES AND FEMALES, NORMAL RBC,HGB, AND HCT IS 5% LESS SOURCE FOR DATA: [employer]PER[employer] MANUAL( AUTOMATED BLOOD COUNTS AND DIFF.) APPENDIX B-3 CHRONIC KIDNEY DISEASE STAGING PER NKF: MALE GFR INTERPRETATION: 20-49 YRS: [...] DESIRABLE: <130 MG/DL <110 MG/DL BORDERLINE-HIGH RISK: 130- 159 MG/DL 110-129 MG/DL HIGH RISK: >160 MG/DL >130 MG/DL *CHILDREN AND ADOLESCENTS REPRESENTS INDIVIDUALA AGED 2-19 YEARS EXCLUSIVE. MPV 14.1 fL 9.0-13.0 Above high normal [facility] ([facility] NORMAL RANGES Age WBC RBC HGB HCT MCV PLT Adult M 4.1-10.9 4.20-6.30 12.0-18.0 37.0-51.0 80-97 140-440 Adult F 4.1-10.9 4.04-5.48 12.0-18.0 37.0-51.0 80-97 140-440 0 -1 Yr 5.0-20.0 3.9-5.9 15-18 MV: 44 MV: 91 MV: 277 2-9 Yr. 6.0-17.0 3.8-5.4 11-13 MV: 37 MV: 78 MV: 300 10 Yrs. 5.0-13.0 3.8-5.4 12-15 MV: 39 MV: 80 MV: 250 NOTE: * FOR ADULT BLACK MALES AND FEMALES, NORMAL WBC IS 2.9-7.7 K/ML * FOR ADULT BLACK MALES AND FEMALES, NORMAL RBC,HGB, AND HCT IS 5% LESS SOURCE FOR DATA: [employer]PER[employer] MANUAL( AUTOMATED BLOOD COUNTS AND DIFF.) APPENDIX B-3 CHRONIC KIDNEY DISEASE STAGING PER NKF: MALE GFR INTERPRETATION: 20-49 YRS: [...] DESIRABLE: <130 MG/DL <110 MG/DL BORDERLINE-HIGH RISK: 130- 159 MG/DL 110-129 MG/DL HIGH RISK: >160 MG/DL >130 MG/DL *CHILDREN AND ADOLESCENTS REPRESENTS INDIVIDUALA AGED 2-19 YEARS EXCLUSIVE. ID Date Data Source [id number] 06/30/2019 03:01:00 PM EST [facility] ([facility]) Name Value Range Interpretation Code Description Data Chloe rce(s) Supporting Document(s) Carotid Ultrasound Bilateral <pending> M [facility] ([facility]) ID Date Data Source [id number] 05/06/2019 11:27:00 AM EST [facility] ([facility]) Name Value Range Interpretation Code Description Data Chloe rce(s) Supporting Document(s) Glucose, Fasting 97 mg/dL 70-100 [facility] ([facility] [facility] Blood Urea Nitrogen 14 mg/dL 7-18 MEDENT ([facility], [facility]) Creatinine For GFR 0.94 mg/dL 0.55-1.30 MEDENT ([facility], [facility]) Glomerular Filtration Rate > 60.0 MED ENT ([facility], [facility]) <content>Units are mL/min/1.73 m2</content>
<content></content>
<content>Chronic Kidney Disease Staging per NKF:</content>
<content></content>
<content>Stage I & II GFR >=60 Normal to Mildly Decreased</content>
<content>Stage III GFR 30- 59 Moderately Decreased</content>
<content>Stage IV GFR 15-29 Severely Decreased</content>
<content>Stage V GFR <15 Very Little GFR Left</content>
<content>ESRD GFR <15 on [employer]</content>
<content></content> Sodium Level 142 meq/L 136-145 MEDENT ([facility], [facility]) Potassium Serum 4.8 meq/L 3.5-5.1 MEDENT ([facility], [facility]) Carbon Dioxide Level 27 meq/L 21-32 MEDENT ( [facility], [facility]) Chloride Level 109 meq/L 98-107 MEDENT ([facility], [facility]) Anion Gap 6 meq/L 8-16 MEDENT ([facility], [facility]) Calcium Level 9.5 mg/dL 8.8-10.2 MEDENT ([facility], [facility]) Alt/SGPT 28 U/L 12-78 MEDENT ([facility], [facility]) Ast/Sgot 18 U/L 7-37 MEDENT ([facility]) Alkaline Phosphatase 108 U/L 45-117 MED[facility] ( [facility]) Total Protein 7.4 GM/DL 6.4-8.2 MEDENT ([facility], [facility]) Bilirubin,Total 0.6 mg/dL 0.2-1.0 MEDENT ([facility], [facility]) Albumin 4.1 GM/DL 3.2-5.2 MEDENT ([facility], [facility]) Albumin/Globulin Ratio 1.24 1.00-1.93 MEDENT ([facility], [facility]) ID Date Data Source [id number] 05/06/2019 11:27:00 AM EST MEDENT ([facility], [facility]) Name Value Range Interpretation Code Description Data Chloe rce(s) Supporting Document(s) White Blood Count 12.0 10 4.0-10.0 MED[facility] ([facility], [facility]) Hemoglobin 14.1 g/dL 12.0-15.5 MEDENT ([facility], [facility]) Red Blood Count 4.85 10 4.00-5.40 MEDENT ([facility], [facility]) Hematocrit 44.4 % 36.0-47.0 MEDENT ([facility], [facility]) Mean Corpuscular Volume 91.5 fl 80.0-96.0 M EDENT ([facility], [facility]) Mean Corpuscular Hemoglobin 29.1 pg 27.0-33.0 MEDENT ([facility], [facility]) Mean Corpuscular HGB Conc 31.8 g/dL 32.0-36.5 MEDENT ([facility], [facility]) Platelet Count, Automated 201 10 150-450 MEDENT ([facility], [facility]) Red Cell Distribution Width 14.8 % 11.5-14.5 MEDENT ([facility], [facility]) Lymph % 20.1 % 24.0-44.0 MEDENT ([facility], [facility]) Neutrophils % 63.1 % 36.0-66.0 MEDENT ([facility], [facility]) [place] % 10.3 % 0.0-5.0 MEDENT ([facility], [facility]) Eos % 5.2 % 0.0-3.0 MEDENT ([facility], [facility]) Baso % 1.0 % 0.0-1.0 MEDENT ([facility], [facility]) Nucleated Red Blood Cell % 0.0 % 0-0 MED ENT ([facility], [facility]) Immature Granulocyte % 0.3 % 0-3.0 MEDENT ([facility], [facility]) Neutrophils # 7.6 10 1.5-8.5 MEDENT ([facility], [facility]) Lymph # 2.4 10 1.5-5.0 MEDENT ([facility], [facility]) [place] # 1.2 10 0.0-0.8 MEDENT ([facility], [facility]) Eos # 0.6 10 0.0-0.5 MEDENT ([facility], [facility]) Baso # 0.1 10 0.0-0.2 MEDENT ([facility], [facility]) Procedure Social History Code Duration Value Status Description Data Source(s ) Smoking 06/02/2020 12:00:00 AM EST Patient has never smoked co mpleted Patient has never smoked MEDENT ([facility], [facility]) Smoking 06/30/2019 12:00:00 AM EST Never Smoked Cigarettes com pleted Never Smoked Cigarettes MEDENT ([facility]) Vital Signs ID Date Data Source UNK Name Value Range Interpretation Code Description Data Source(s) Oxygen saturation in Arterial blood by Pulse oximetry 97 % 97 % MEDENT ([facility] Body mass index (BMI) [Ratio] 31.1 kg/m2 31.1 k g/m2 MEDENT ([facility] [place] body weight 110 [lb_av] 110 [lb_av] MEDEN T ([facility] Body weight 170.00 [lb_av] 170.00 [lb_av] MEDEN T ([facility] Body height 62 [in_i] 62 [in_i] MEDENT ([facility] 5'2" Respiratory rate 14 /min 14 /min MED[facility] ( [facility] Heart rate 72 /min 72 /min [facility] Body temperature 97.4 [degF] 97.4 [degF] MEDENT ([facility] Diastolic blood pressure 82 mm[Hg] 82 mm[Hg] MEDENT ([facility] Systolic blood pressure 134 mm[Hg] 134 mm[Hg] M EDENT ([facility] Body mass index (BMI) [Ratio] 23.8 kg/m2 23.8 k g/m2 MEDENT ([facility]) Body weight 58.968 kg 58.968 kg MEDENT ([facility] Body weight 130.00 [lb_av] 130.00 [lb_av] MEDEN T ([facility]) Body height 62 [in_i] 62 [in_i] MEDENT ([facility]) 5'2" Diastolic blood pressure 60 mm[Hg] 60 mm[Hg] [facility] ([facility] Systolic blood pressure 90 mm[Hg] 90 mm[Hg] M EDENT ([facility]) Diastolic blood pressure 60 mm[Hg] 60 mm[Hg] [facility] ([facility] Systolic blood pressure 90 mm[Hg] 90 mm[Hg] M EDENT ([facility]) Oxygen saturation in Arterial blood by Pulse oximetry 97 % 97 % MEDENT ([facility] Body mass index (BMI) [Ratio] 29.3 kg/m2 29.3 k g/m2 MEDENT ([facility] [place] body weight 110 [lb_av] 110 [lb_av] MEDEN T ([facility] Body weight 160.00 [lb_av] 160.00 [lb_av] MEDEN T ([facility] Body height 62 [in_i] 62 [in_i] MEDENT ([facility] 5'2" Respiratory rate 16 /min 16 /min MEDENT ( [facility] Heart rate 72 /min 72 /min MEDENT ([facility] Body temperature 97.7 [degF] 97.7 [degF] MEDENT ([facility] Diastolic blood pressure 78 mm[Hg] 78 mm[Hg] MEDENT ([facility] Systolic blood pressure 136 mm[Hg] 136 mm[Hg] M EDENT ([facility] Oxygen saturation in Arterial blood by Pulse oximetry 96 % 96 % MEDENT ([facility] Body mass index (BMI) [Ratio] 29.3 kg/m2 29.3 k g/m2 MEDENT ([facility] Body weight 160.38 [lb_av] 160.38 [lb_av] MEDEN T ([facility] Body height 62 [in_i] 62 [in_i] MEDENT ([facility] 5'2" Respiratory rate 14 /min 14 /min MEDENT ( [facility] Heart rate 68 /min 68 /min MEDENT ([facility] Body temperature 98.1 [degF] 98.1 [degF] MEDENT ([facility] Diastolic blood pressure 70 mm[Hg] 70 mm[Hg] MEDENT ([facility] Systolic blood pressure 116 mm[Hg] 116 mm[Hg] M EDENT ([facility] Systolic blood pressure 126 mm[Hg] 126 mm[Hg] e CW1 ([facility]) Body mass index (BMI) [Ratio] 27.70 kg/m2 27.70 kg/m2 eCW1 ([facility]) Body height [in_us] eCW1 ([facility]) Body weight Measured 161.4 [lb_av] 161.4 [lb_av ] eCW1 ([facility]) Diastolic blood pressure 74 mm[Hg] 74 mm[Hg] eCW1 ([facility]) Body weight Measured 164.2 [lb_av] 164.2 [lb_av ] eCW1 ([facility]) Body height [in_us] eCW1 ([facility]) Body mass index (BMI) [Ratio] 28.18 kg/m2 28.18 kg/m2 eCW1 ([facility]) Systolic blood pressure 134 mm[Hg] 134 mm[Hg] e CW1 ([facility]) Diastolic blood pressure 82 mm[Hg] 82 mm[Hg] eCW1 ([facility]) Body mass index (BMI) [Ratio] 24.7 kg/m2 24.7 k g/m2 MEDENT ([facility]) Body weight 61.236 kg 61.236 kg MED[facility] ([facility] Body weight 135.00 [lb_av] 135.00 [lb_av] MEDEN T ([facility]) Body height 62 [in_i] 62 [in_i] MEDENT ([facility] 5'2" Diastolic blood pressure 80 mm[Hg] 80 mm[Hg] MEDENT ([facility]) Systolic blood pressure 170 mm[Hg] 170 mm[Hg] M GLO ([facility]) Diastolic blood pressure 80 mm[Hg] 80 mm[Hg] MEDENT ([facility]) Systolic blood pressure 160 mm[Hg] 160 mm[Hg] M EDENT ([facility]) Body mass index (BMI) [Ratio] 26.5 kg/m2 26.5 k g/m2 MEDENT ([facility], [facility]) Body height 62 [in_i] 62 [in_i] [facility], [facility]) 5'2" Body weight 145.00 [lb_av] 145.00 [lb_av] MEDEN T ([facility], [facility]) Body temperature 97.9 [degF] 97.9 [degF] [facility] ([facility], [facility]) Oxygen saturation in Arterial blood by Pulse oximetry 96 % 96 % [facility] ([facility], [facility]) Respiratory rate 17 /min 17 /min [facility] ( [facility], [facility]) Heart rate 71 /min 71 /min [facility] ([facility], [facility]) Diastolic blood pressure 70 mm[Hg] 70 mm[Hg] [facility] ([facility], [facility]) Systolic blood pressure 161 mm[Hg] 161 mm[Hg] M [facility] ([facility], [facility]) Body mass index (BMI) [Ratio] 27.4 kg/m2 27.4 k g/m2 [facility] ([facility], [facility]) Body height 62 [in_i] 62 [in_i] [facility] ([facility], [facility]) 5'2" Body weight 150.00 [lb_av] 150.00 [lb_av] MEDEN T ([facility], [facility]) Body temperature 97.7 [degF] 97.7 [degF] [facility] ([facility], [facility]) Oxygen saturation in Arterial blood by Pulse oximetry 97 % 97 % [facility] ([facility], [facility]) Respiratory rate 18 /min 18 /min [facility] ( [facility], [facility]) Heart rate 64 /min 64 /min [facility] ([facility], [facility]) Diastolic blood pressure 89 mm[Hg] 89 mm[Hg] [facility] ([facility], [facility]) Systolic blood pressure 166 mm[Hg] 166 mm[Hg] [facility] Patient Treatment Plan of Care Planned Activity Planned Date Details Description Data Source (s) Betamethasone 0.0005 MG/MG Augmented Topical Ointment 09/15/2019 12:00:00 AM EDT eCW1 ([facility]) Triamcinolone Acetonide 0.001 MG/MG Topical Ointment 020 12:00:00 AM EST eCW1 ([facility])
[2020-06-23] MEDS ORDERED: ELIQ5TAB (14:55)
[2020-06-23] MEDS ORDERED: AMLO1TAB24 (14:55)
[2020-06-23] MEDS ORDERED: LATANOPROST (14:55)
[2020-06-23 15:15] LABS: BASO # 0.1 10^3/uL (0.0-0.2); BASO % 0.5 % (0.0-1.0); EOS # 0.2 10^3/uL (0.0-0.5); EOS % 1.5 % (0.0-3.0); HEMATOCRIT 44.4 % (36.0-47.0); HEMOGLOBIN 14.3 g/dl (12.0-15.5); LYMPH # 2.2 10^3/uL (1.5-5.0); LYMPH % 13.6 % (24.0-44.0); MEAN CORPUSCULAR HEMOGLOBIN 28.3 pg (27.0-33.0); MEAN CORPUSCULAR HGB CONC 32.2 g/dl (32.0-36.5); MEAN CORPUSCULAR VOLUME 87.9 fl (80.0-96.0); MONO % 12.7 % (0.0-5.0); NEUTROPHILS # 11.4 10^3/uL (1.5-8.5); NEUTROPHILS % 71.1 % (36.0-66.0); PLATELET COUNT, AUTOMATED 224 10^3/uL (150-450); RED BLOOD COUNT 5.05 10^6/uL (4.00-5.40)
--- NOTE | 2020-06-23 15:29 | REP ---
INDICATION: CHEST PAIN. COMPARISON: Comparison chest x-ray 01 June 2018. TECHNIQUE: Portable upright AP chest radiograph. FINDINGS: The lungs are exposed at a lesser level of inspiration today. Heart size is borderline unchanged allowing for differences in the inspire a zoila level. The pleural angles are sharp. No infiltrate is seen. Pulmonary vasculature is not felt to be increased. No significant bony abnormality. Monitoring electrodes are seen.. IMPRESSION: Lesser level of inspiration. No active disease.. <Electronically signed by Leeroy Matos > 06/23/20 1529
[2020-06-23 15:42] LABS: BLOOD UREA NITROGEN 19 MG/DL (7-18); CALCIUM LEVEL 9.7 MG/DL (8.8-10.2); CARBON DIOXIDE LEVEL 28 MEQ/L (21-32); CHLORIDE LEVEL 104 MEQ/L (98-107); CREATININE FOR GFR 0.78 MG/DL (0.55-1.30); GLOMERULAR FILTRATION RATE > 60.0 (>39); GLUCOSE, FASTING 102 MG/DL (70-100); SODIUM LEVEL 142 MEQ/L (136-145)
--- OUTSIDE RECORDS SUMMARY | 2020-06-23 15:54 | CCD ---
Author Author [facility] Organization [facility] Address Unknown Phone Unavailable Care Team Providers Care Watch Technician Name Role Phone Santos SMITH MD Unavailable [...] Unavailable LUIS H RYAN HUGHES Unavailable Unavailable LUIS H RYAN HUGHES Unavailable Unavailable Santos SMITH MD Unavailable Unavailable LUIS H RYAN HUGHES Unavailable Unavailable LUSI H RYAN HUGHES Unavailable Unavailable LUIS H RYAN HUGHES Unavailable Unavailable LUIS, H RYAN HUGHES Unavailable Unavailable LUIS, H RYAN MD Unavailable Unavailable LUIS, H RYAN HUGHES Unavailable Unavailable LUIS, H RYAN HUGHES Unavailable Unavailable LUIS H RYAN HUGHES Unavailable Unavailable LUIS H RYAN HUGHES Unavailable Unavailable LUIS H RYAN MD Unavailable Unavailable LUIS H RYAN MD Unavailable Unavailable LUIS H RYAN HUGHES Unavailable Unavailable LUIS, H RYAN MD Unavailable Unavailable LUIS, H RYAN HUGHES Unavailable Unavailable Santos SMITH [...] Unavailable LUIS H RYAN HUGHES Unavailable Unavailable MCELHERAN, SELWYN PA Unavailable Unavailable [...] Unavailable Unavailable KAYLIE, JANELLE PA Unavailable Unavailable Sutherland, Bren WIRE MACHINE OPERATOR Unavailable Unavailable Sutherland, Bren WIRE MACHINE OPERATOR Unavailable Unavailable Sutherland, Bren WIRE MACHINE OPERATOR Unavailable Unavailable Sutherland, Bren WIRE MACHINE OPERATOR Unavailable Unavailable Sutherland, Bren WIRE MACHINE OPERATOR Unavailable Unavailable Sutherland, Bren WIRE MACHINE OPERATOR Unavailable Unavailable Sutherland, Bren WIRE MACHINE OPERATOR Unavailable Unavailable Sutherland, Bren WIRE MACHINE OPERATOR Unavailable Unavailable Sutherland, Bren WIRE MACHINE OPERATOR Unavailable Unavailable Sutherland, Bren WIRE MACHINE OPERATOR Unavailable Unavailable Sutherland, Bren WIRE MACHINE OPERATOR Unavailable Unavailable Santos SMITH MD Unavailable Unavailable [...] Unavailable Santos SMITH MD Unavailable Unavailable Santos SMIHT MD Unavailable Unavailable Santos SMITH MD Unavailable [...] Unavailable Santos SMITH MD Unavailable Unavailable Santos SMIHT MD Unavailable Unavailable Santos SMITH MD Unavailable [...] Unavailable LETTIERE, A SELWYN PA Unavailable Unavailable [place], V GRETEL PA-C Unavailable Unavailable Timoteo, V GRETEL PA-C Unavailable Unavailable [place], V GRETEL PA-C Unavailable Unavailable Timoteo, V GRETEL PA-C Unavailable Unavailable [place], V GRETEL PA-C Unavailable Unavailable [place], V GRETEL PA-C Unavailable Unavailable [place], V GRETEL PA-C Unavailable Unavailable Re-disclosure Warning [...] is protected by Article 27-F of the [facility] Public Health law. If you continue you may have access to information: Regarding HIV / AIDS; Provided by facilities licensed or operated by the [facility] Office of Mental Health; or Provided by the [facility] Office for People With Developmental Disabilities. If such information is present, then the following [facility] mandated warning applies: This information has been [...] law may result in a fine or mcfp sentence or both. A general authorization for the release of medical or other information is NOT sufficient authorization for further disc losure. Family History Family Member Name Family Member Gender Family Member Status Date o f Status Description Data Source(s) Unknown Unknown Problem MED[facility] ([facility]) Unknown Male Problem MEDENT ([facility]) Encounters Encounter Providers Location Date Indications Data Source(s ) OFFICE OUTPATIENT NEW 30 MINUTES Attender: SELWYN KING Physical Therapy 06/06/2020 12:00:00 PM EST MEDENT ([facility]) Outpatient Attender: Bren chinchilla 06/02/2020 08:30:00 AM EST MED[facility] ([facility] Outpatient Attender: RYAN SMITH MD [place] Office 09:00:00 AM EST [facility] ([facility] Outpatient Attender: GRETEL CHAVEZ.LANDY-SJNunu.LANDY 04/2020 12:00:00 AM EST - 04/07/2020 02:31:34 PM EST [facility] [address] [place] [address] 01/20/2020 12:00:00 AM EDT eCW1 ([facility]) Outpatient Attender: RYAN SMITH MD [place] Office 07/2019 01:30:00 PM EDT MEDENT ([facility] Outpatient Attender: RYAN SMITH MD [place] Office 01:15:00 PM EDT MEDENT ([facility] D[facility] [address] [place] [address] 09/15/2019 12:00:00 AM EDT eCW1 ([facility]) [facility] Dermat[facility] [address] [place] [address] 07/29/2019 12:00:00 AM EST eCW1 ([facility]) Outpatient Referrer: RYAN SMITH MD 06/23/2019 01:32:00 PM EST [facility] Outpatient Attender: SELWYN knighty 06/19/2019 03:15:00 PM EST MEDENT ([facility]) Outpatient Attender: JANELLE Mortona ry 05/06/2019 08:50:00 AM EST MEDENT ([facility]) Medications Medication Brand Name Start Date Product Form Dose Route Admi nistrative Instructions Pharmacy Instructions Status Indications Reaction Description Data Source(s) Clotrimazole 10 MG/ML Topical Cream Clotrimazole 01/01/2020 12:00:00 AM EDT active MEDENT ([facility] Betamethasone 0.0005 MG/MG Augmented Top ical Ointment Betamethasone Dipropionate Aug 0.05 % Betamethasone Dipropionate Aug 0.05 % 09/15/2019 12:00:00 AM EDT active 1 application eCW1 ( [facility]) Triamcinolone Acetonide 0.001 MG/MG Topi jaz Ointment Triamcinolone Acetonide 0.1 % Triamcinolone Acetonide 0.1 % 07/29/2019 12:00:00 AM EST active 1 application eCW1 ([facility]) Clotrimazole 10 MG/ML Topical Cream Clotrimazole 05/06/2019 12:00:00 AM EST completed MEDENT ([facility]) cetirizine hydrochloride 10 MG Oral Tablet Cetirizine HCL 05/06/2019 12:00:00 AM EST ORAL active MEDENT ([facility]) Prednisone 10 MG Oral Tablet Prednisone 05/06/2019 12:00:00 AM EST ORAL completed MEDENT ([facility]) Insurance Providers Payer name Policy type / Coverage type Policy ID Covered constitution party ID Covered constitution party's relationship to alexis Policy Alexis Plan Information [place] P[place] 302/[phone] [id number] SP [id number] MEDICARE BLUE PPO [id number] SP [id number] [place] [id number] SP [id number] MEDICARE [id number] SP [id number] EXCELLUS BCBS [id number] Davina [id number] MEDICARE [id number] Davina [id number] U05 BCBS [facility] MEDICAID [id number] SP [id number] MEDICARE [id number] SP [id number] [id number] MEDICAID M [id number] S [id number] MEDICARE C [id number] S [id number] [id number] EXCELLUS BCBS MEDICARE [id number] Davina [id number] Medicare Part B Medicare Primary [id number] Self [id number] Medicaid Medigap Part B [id number] Self [id number] BCBS [facility] (HMO) [id number] Self [id number] Medicare Part B Medicare Primary [id number] Self [id number] [facility] Medicare Solutions Commercial [id number] Self [id number] MEDICAID [id number] SP [id number] MEDICARE COMPLETE [id number] SP [id number] [place] Medigap Part B [id number] Self [id number] BCBS/[place]cell[place] Medigap Part B [id number] Self [id number] Medicare Natl Gov't Servi Medicare Primary [id number] Self [id number] [place] PPO [id number] [id number] SP [id number] Medicare Part B Medicare Primary [id number] Self [id number] Medicaid Medigap Part B [id number] Self [id number] BCBS [facility] (HMO) [id number] Self [id number] Medicare Part B Medicare Primary [id number] Self [id number] [employer] [id number] S [id number] BLUE CROSS [id number] S [id number] MCRB [id number] S [id number] A MEDICARE [id number] S [id number] A MEDICAID [id number] S [id number] MEDICAID PROF FEES UNAVAILABLE S UNAVAILABLE HUMANA CLAIMS [facility] [id number] S [id number] MEDICARE COMPLETE [id number] SP [id number] SECURE HORIZONS [id number] S [id number] MEDICARE COMPLETE-[facility] O [id number] O [id number] MEDICARE/NATIONAL GOVT SVCS [id number] A SP [id number] A MEDICARE COMPLETE [id number] S [id number] MEDICARE COMPLETE [id number] SP [id number] 00 [id number] Problems, Conditions, and Diagnoses Code Display Name Description Problem Type Effective Dates Data Source(s) I48.91 Unspecified atrial fibrillation Unspecified atri al fibrillation Diagnosis 04/07/2020 01:28:[address] [facility] Surgeries/Procedures Procedure Description Date Indications Data Source(s) ARTHROCENTESIS ASPIR&/INJECTION MAJOR JT/BURSA 021 12:00:00 AM EST MEDENT ([facility]) RADEX SHOULDER COMPLETE MINIMUM 2 VIEWS 06/06/2020 12: 00:00 AM EST MEDENT ([facility] ) DUPLEX SCAN EXTRACRANIAL ART COMPL BI STUDY 01/15/2020 12:00:00 AM EDT MANE ([facility]) Office Visit, Est Pt., Level 3 PC 09/15/2019 12:00:00 AM EDT eCW1 ([facility]) DESTRUCT LESION, 1-14 09/15/2019 12:00:00 AM EDT eCW1 ([facility]) DESTROY LESIONS, 2-14 07/29/2019 12:00:00 AM EST eCW1 ([facility]) DESTROY BENIGN/PREMLG LESION 07/29/2019 12:00:00 AM ES T eCW1 ([facility]) Office Visit, New Pt., Level 3 PC 07/29/2019 12:00:00 AM EST eCW1 ([facility]) DUPLEX SCAN EXTRACRANIAL ART COMPL BI STUDY 06/30/2019 12:00:00 AM EST MEDENT ([facility]) Results ID Date Data Source [id number] 06/02/2020 12:12:00 PM EST MEDENT ([facility]) Name Value Range Interpretation Code Description Data Chloe rce(s) Supporting Document(s) Red Blood Count 5.07 10 4.00-5.40 MEDENT ([facility]) White Blood Count 12.4 10 4.0-10.0 MEDENT ([facility]) Hematocrit 45.3 % 36.0-47.0 [facility] Mean Corpuscular Volume 89.3 fl 80.0-96.0 M EDENT ([facility]) Hemoglobin 14.5 g/dL 12.0-15.5 [facility] Red Cell Distribution Width 14.7 % 11.5-14.5 MEDENT ([facility]) Mean Corpuscular Hemoglobin 28.6 pg 27.0-33.0 MEDENT ([facility]) Mean Corpuscular HGB Conc 32.0 g/dL 32.0-36.5 MEDENT ([facility]) Nucleated Red Blood Cell % 0.0 % 0-0 MED ENT ([facility]) Platelet Count, Automated 231 10 150-450 MEDENT ([facility]) ID Date Data Source [id number] 04/19/2020 10:24:00 AM EST MANE ([facility] Name Value Range Interpretation Code Description Data Chloe rce(s) Supporting Document(s) Trig 207 mg/dL 40-200 Above high normal MANE ([facility] CHRONIC KIDNEY DISEASE STAGING [...] 2-19 YEARS EXCLUSIVE. Chol 196 mg/dL 0-200 MANE ([facility] CHRONIC KIDNEY DISEASE STAGING [...] Serum or Plasma 50 mg/dL 45-65 MEDENT ([facility] CHRONIC KIDNEY DISEASE STAGING [...] YEARS EXCLUSIVE. Cho/HDL Ratio 3.9 Calc MEDENT ([facility] CHRONIC KIDNEY DISEASE STAGING PER [...] 2-19 YEARS EXCLUSIVE. LDL_C 104 Calc 75-129 [facility] ([facility] CHRONIC KIDNEY [...] 2-19 YEARS EXCLUSIVE. ID Date Data Source [id number] 04/19/2020 10:24:00 AM EST MEDCURTIS ([facility] Name Value Range Interpretation Code Description Data Chloe rce(s) Supporting Document(s) Glu 88 mg/dL 70-110 MANE ([facility] CHRONIC KIDNEY DISEASE STAGING PER NKF: [...] 2-19 YEARS EXCLUSIVE. Creat 0.8 mg/dL 0.5-1.0 MANE ([facility] CHRONIC KIDNEY DISEASE STAGING PER NKF: [...] AGED 2-19 YEARS EXCLUSIVE. BUN 20 mg/dL 8-23 MEDENT ([facility] CHRONIC KIDNEY DISEASE STAGING [...] YEARS EXCLUSIVE. BUN/Creatinine Ratio 24.7 CALC MEDENT ([facility] CHRONIC KIDNEY DISEASE STAGING [...] YEARS EXCLUSIVE. Na 140 mmol/L 136-145 [facility] CHRONIC KIDNEY DISEASE STAGING PER [...] EXCLUSIVE. CL 102.5 mmol/L 98.0-107.0 [facility] ([facility] CHRONIC KIDNEY DISEASE STAGING PER [...] YEARS EXCLUSIVE. K 4.7 mmol/L 3.5-5.1 [facility] ([facility] CHRONIC KIDNEY DISEASE STAGING PER [...] YEARS EXCLUSIVE. Co2 25.5 mmol/L 22.0-29.0 [facility] CHRONIC KIDNEY DISEASE STAGING [...] YEARS EXCLUSIVE. CA 9.8 mg/dL 8.6-10.2 [facility] CHRONIC KIDNEY DISEASE STAGING [...] YEARS EXCLUSIVE. Anion Gap 17 mmol/L [facility] ([facility] CHRONIC [...] 2-19 YEARS EXCLUSIVE. Tbili 0.55 mg/dL 0.0-1.2 [facility] ([facility] CHRONIC KIDNEY DISEASE STAGING PER [...] INDIVIDUALA AGED 2-19 YEARS EXCLUSIVE. eGFR Non-Afr. Eritrean 71 # MEDCURTIS ([facility] CHRONIC KIDNEY DISEASE [...] 2-19 YEARS EXCLUSIVE. ID Date Data Source [id number] 04/19/2020 10:22:00 AM EST MEDCURTIS ([facility] Name Value Range Interpretation Code Description Data Chloe rce(s) Supporting Document(s) Hemoglobin A1c/Hemoglobin.total in Blood 6.0 % 4.8-5.6 Above high normal [facility]TIS ([facility] <content>Prediabetes: 5.7 - 6.4</content >
<content>Diabetes: >6.4</content>
<content>Glycemic control for adults with diabetes: <7.0</content>
<content></content> ID Date Data Source [id number] 01/15/2020 02:31:00 PM EDT MEDENT ([facility]) Name Value Range Interpretation Code Description Data Chloe rce(s) Supporting Document(s) Carotid Ultrasound Bilateral Laboratory test result MEDENT ([facility]) ID Date Data Source [id number] 10/12/2019 01:31:00 PM EDT MEDENT ([facility] Name Value Range Interpretation Code Description Data Chloe rce(s) Supporting Document(s) BUN 15 mg/dL 8-23 MEDENT ([facility] NORMAL RANGES Age WBC RBC [...] HCT IS 5% LESS SOURCE FOR DATA: Plasty[employer] DYN 1800 OPERATION MANUAL( AUTOMATED BLOOD COUNTS [...] HCT IS 5% LESS SOURCE FOR DATA: [employer] 1800 OPERATION MANUAL( AUTOMATED BLOOD COUNTS AND [...] HCT IS 5% LESS SOURCE FOR DATA: [employer] 1800 OPERATION MANUAL( AUTOMATED BLOOD COUNTS AND [...] 2-19 YEARS EXCLUSIVE. Na 142 mmol/L 136-145 [facility] NORMAL RANGES [...] HCT IS 5% LESS SOURCE FOR DATA: [employer] 1800 OPERATION MANUAL( AUTOMATED BLOOD COUNTS AND [...] 2-19 YEARS EXCLUSIVE. BUN/Creatinine Ratio 16.6 CALC [facility] ([facility] NORMAL RANGES Age WBC [...] HCT IS 5% LESS SOURCE FOR DATA: [employer] 1800 OPERATION MANUAL( AUTOMATED BLOOD COUNTS AND [...] 2-19 YEARS EXCLUSIVE. K 4.6 mmol/L 3.5-5.1 [facility] ([facility] NORMAL RANGES Age WBC RBC HGB [...] HCT IS 5% LESS SOURCE FOR DATA: [employer] 1800 OPERATION MANUAL( AUTOMATED BLOOD COUNTS AND [...] 2-19 YEARS EXCLUSIVE. CL 105.8 mmol/L 98.0-107.0 [facility] ([facility] NORMAL RANGES Age WBC RBC [...] HCT IS 5% LESS SOURCE FOR DATA: [employer] 1800 OPERATION MANUAL( AUTOMATED BLOOD COUNTS AND [...] YEARS EXCLUSIVE. Co2 24.0 mmol/L 22.0-29.0 [facility] ([facility] NORMAL RANGES Age WBC RBC [...] HCT IS 5% LESS SOURCE FOR DATA: [employer] 1800 OPERATION MANUAL( AUTOMATED BLOOD COUNTS AND [...] 2-19 YEARS EXCLUSIVE. CA 9.9 mg/dL 8.6-10.2 [facility] ([facility] NORMAL RANGES Age WBC RBC [...] IS 5% LESS SOURCE FOR DATA: [employer] 1800 OPERATION MANUAL( AUTOMATED BLOOD COUNTS AND [...] HCT IS 5% LESS SOURCE FOR DATA: [employer] 1800 OPERATION MANUAL( AUTOMATED BLOOD COUNTS AND [...] HCT IS 5% LESS SOURCE FOR DATA: [employer] 1800 OPERATION MANUAL( AUTOMATED BLOOD COUNTS AND [...] 2-19 YEARS EXCLUSIVE. Alb 4.0 g/dL 3.4-4.8 [facility] NORMAL RANGES [...] HCT IS 5% LESS SOURCE FOR DATA: [employer] DYN 1800 OPERATION MANUAL( AUTOMATED BLOOD COUNTS [...] 2-19 YEARS EXCLUSIVE. Alp 112.6 U/L 35-129 [facility] NORMAL RANGES [...] HCT IS 5% LESS SOURCE FOR DATA: [employer] 1800 OPERATION MANUAL( AUTOMATED BLOOD COUNTS AND [...] HCT IS 5% LESS SOURCE FOR DATA: [employer] 1800 OPERATION MANUAL( AUTOMATED BLOOD COUNTS AND [...] YEARS EXCLUSIVE. Ast (Sgot) 19 U/L 0-40 [facility] ([facility] NORMAL RANGES Age WBC RBC [...] HCT IS 5% LESS SOURCE FOR DATA: [employer] 1800 OPERATION MANUAL( AUTOMATED BLOOD COUNTS AND [...] YEARS EXCLUSIVE. Alt (SGPT) 19 U/L 0-41 [facility] NORMAL RANGES Age WBC RBC [...] HCT IS 5% LESS SOURCE FOR DATA: [employer] 1800 OPERATION MANUAL( AUTOMATED BLOOD COUNTS AND [...] HCT IS 5% LESS SOURCE FOR DATA: [employer]YN 1800 OPERATION MANUAL( AUTOMATED BLOOD COUNTS [...] 2-19 YEARS EXCLUSIVE. Anion Gap 17 mmol/L [facility] NORMAL RANGES [...] HCT IS 5% LESS SOURCE FOR DATA: [employer]YN 1800 OPERATION MANUAL( AUTOMATED BLOOD COUNTS [...] HCT IS 5% LESS SOURCE FOR DATA: [employer] 1800 OPERATION MANUAL( AUTOMATED BLOOD COUNTS AND [...] YEARS EXCLUSIVE. eGFR 71 # MEDENT ( [facility] NORMAL RANGES Age WBC RBC [...] HCT IS 5% LESS SOURCE FOR DATA: [employer] 1800 OPERATION MANUAL( AUTOMATED BLOOD COUNTS AND [...] INDIVIDUALA AGED 2-19 YEARS EXCLUSIVE. eGFR Non-Afr. Eritrean 61 # [facility] ([facility] [...] HCT IS 5% LESS SOURCE FOR DATA: [employer] 1800 OPERATION MANUAL( AUTOMATED BLOOD COUNTS AND [...] 2-19 YEARS EXCLUSIVE. ID Date Data Source [id number] 10/12/2019 01:31:00 PM EDT MEDENT ([facility] Name Value Range Interpretation Code Description Data Chloe rce(s) Supporting Document(s) Trig 245 mg/dL 40-200 Above high normal [facility] ([facility] [...] HCT IS 5% LESS SOURCE FOR DATA: [employer] 1800 OPERATION MANUAL( AUTOMATED BLOOD COUNTS AND [...] 2-19 YEARS EXCLUSIVE. Chol 167 mg/dL 0-200 [facility] NORMAL RANGES Age WBC RBC [...] HCT IS 5% LESS SOURCE FOR DATA: [employer] 1800 OPERATION MANUAL( AUTOMATED BLOOD COUNTS AND [...] in Serum or Plasma 46 mg/dL 45-65 [facility] ([facility] NORMAL RANGES [...] HCT IS 5% LESS SOURCE FOR DATA: [employer] 1800 OPERATION MANUAL( AUTOMATED BLOOD COUNTS AND [...] HCT IS 5% LESS SOURCE FOR DATA: [employer] 1800 OPERATION MANUAL( AUTOMATED BLOOD COUNTS AND [...] 2-19 YEARS EXCLUSIVE. Cho/HDL Ratio 3.6 CALC [facility] ([facility] NORMAL RANGES Age WBC RBC HGB [...] HCT IS 5% LESS SOURCE FOR DATA: [employer] 1800 OPERATION MANUAL( AUTOMATED BLOOD COUNTS AND [...] 2-19 YEARS EXCLUSIVE. ID Date Data Source [id number] 10/12/2019 01:31:00 PM EDT MEDENT ([facility] Name Value Range Interpretation Code Description Data Chloe rce(s) Supporting Document(s) RBC 4.67 10E6/uL 4.20-6.30 MEDENT ([facility] NORMAL [...] HCT IS 5% LESS SOURCE FOR DATA: [employer] 1800 OPERATION MANUAL( AUTOMATED BLOOD COUNTS AND [...] 2-19 YEARS EXCLUSIVE. WBC 9.4 10E3/uL 4.1-10.9 MED[facility] ([facility] NORMAL RANGES Age WBC RBC [...] HCT IS 5% LESS SOURCE FOR DATA: [employer] 1800 OPERATION MANUAL( AUTOMATED BLOOD COUNTS AND [...] 2-19 YEARS EXCLUSIVE. MCV 90.1 fL 80.0-97.0 [facility]E ([facility] NORMAL [...] HCT IS 5% LESS SOURCE FOR DATA: [employer] 1800 OPERATION MANUAL( AUTOMATED BLOOD COUNTS AND [...] 2-19 YEARS EXCLUSIVE. HCT 42.1 % 37.0-51.0 [facility] ([facility] NORMAL [...] HCT IS 5% LESS SOURCE FOR DATA: [employer] 1800 OPERATION MANUAL( AUTOMATED BLOOD COUNTS AND [...] 2-19 YEARS EXCLUSIVE. HGB 13.9 g/dL 12.0-18.0 [facility] ([facility] NORMAL [...] HCT IS 5% LESS SOURCE FOR DATA: [employer] 1800 OPERATION MANUAL( AUTOMATED BLOOD COUNTS AND [...] 2-19 YEARS EXCLUSIVE. MCHC 33.0 g/dL 31.0-36.0 [facility] NORMAL RANGES [...] HCT IS 5% LESS SOURCE FOR DATA: [employer] 1800 OPERATION MANUAL( AUTOMATED BLOOD COUNTS AND [...] 2-19 YEARS EXCLUSIVE. MCH 29.8 pg 26.0-32.0 [facility] ([facility] NORMAL [...] HCT IS 5% LESS SOURCE FOR DATA: [employer] 1800 OPERATION MANUAL( AUTOMATED BLOOD COUNTS AND [...] 2-19 YEARS EXCLUSIVE. Lym% 25.8 % 10.0-58.5 [facility] ([facility] NORMAL RANGES Age WBC RBC [...] HCT IS 5% LESS SOURCE FOR DATA: [employer] 1800 OPERATION MANUAL( AUTOMATED BLOOD COUNTS AND [...] 2-19 YEARS EXCLUSIVE. RDW-CV 14.5 % 11.5-14.5 [facility] ([facility] NORMAL RANGES [...] HCT IS 5% LESS SOURCE FOR DATA: [employer] 1800 OPERATION MANUAL( AUTOMATED BLOOD COUNTS AND [...] YEARS EXCLUSIVE. PLT 216 10E3/uL 140-440 MEDENT ([facility] NORMAL RANGES Age WBC RBC [...] HCT IS 5% LESS SOURCE FOR DATA: [employer] 1800 OPERATION MANUAL( AUTOMATED BLOOD COUNTS AND [...] 2-19 YEARS EXCLUSIVE. Lym# 2.4 10E3/uL 0.6-4.1 [facility] NORMAL RANGES Age WBC RBC [...] HCT IS 5% LESS SOURCE FOR DATA: [employer] 1800 OPERATION MANUAL( AUTOMATED BLOOD COUNTS AND [...] 2-19 YEARS EXCLUSIVE. Neut% 62.7 % 37.0-92.0 [facility] ([facility] NORMAL RANGES [...] HCT IS 5% LESS SOURCE FOR DATA: [employer] 1800 OPERATION MANUAL( AUTOMATED BLOOD COUNTS AND [...] HCT IS 5% LESS SOURCE FOR DATA: [employer] 1800 OPERATION MANUAL( AUTOMATED BLOOD COUNTS AND [...] 2-19 YEARS EXCLUSIVE. Neut# 5.9 % 2.0-7.8 [facility] ([facility] NORMAL [...] HCT IS 5% LESS SOURCE FOR DATA: [employer] 1800 OPERATION MANUAL( AUTOMATED BLOOD COUNTS AND [...] 2-19 YEARS EXCLUSIVE. MXD# 1.1 10E3/uL 0.0-1.8 [facility] ([facility] NORMAL RANGES Age WBC RBC [...] HCT IS 5% LESS SOURCE FOR DATA: [employer] 1800 OPERATION MANUAL( AUTOMATED BLOOD COUNTS AND [...] HCT IS 5% LESS SOURCE FOR DATA: [employer] 1800 OPERATION MANUAL( AUTOMATED BLOOD COUNTS AND [...] 2-19 YEARS EXCLUSIVE. ID Date Data Source [id number] 06/30/2019 03:01:00 PM EST MEDENT ([facility]) Name Value Range Interpretation Code Description Data Chloe rce(s) Supporting Document(s) Carotid Ultrasound Bilateral <pending> M EDENT ([facility]) ID Date Data Source [id number] 05/06/2019 11:27:00 AM EST MEDENT ([facility], [facility]) Name Value Range Interpretation Code Description Data Chloe rce(s) Supporting Document(s) Glucose, Fasting 97 mg/dL 70-100 MEDENT ([facility], [facility]) Blood Urea Nitrogen 14 mg/dL 7-18 MEDENT ([facility], [facility]) Creatinine For GFR 0.94 mg/dL 0.55-1.30 MEDENT ([facility], [facility]) Glomerular Filtration Rate > 60.0 MED ENT ([facility], [facility]) <content>Units are mL/min/1.73 m2</content>
<content></content>
<content>Chronic Kidney Disease Staging per NKF:</content>
<content></content>
<content>Stage I & II GFR >=60 Normal to Mildly Decreased</content>
<content>Stage III GFR 30- 59 Moderately Decreased</content>
<content>Stage IV GFR 15-29 Severely Decreased</content>
<content>Stage V GFR <15 Very Little GFR Left</content>
<content>ESRD GFR <15 on RN BIRTHING</content>
<content></content> Sodium Level 142 meq/L 136-145 MEDENT ([facility], [facility]) Potassium Serum 4.8 meq/L 3.5-5.1 MEDENT ([facility], [facility]) Carbon Dioxide Level 27 meq/L 21-32 MEDENT ([facility], [facility]) Chloride Level 109 meq/L 98-107 MEDENT ([facility], [facility]) Anion Gap 6 meq/L 8-16 MEDENT ([facility], [facility]) Calcium Level 9.5 mg/dL 8.8-10.2 MEDENT ([facility], [facility]) Alt/SGPT 28 U/L 12-78 MEDENT ([facility], [facility]) Ast/Sgot 18 U/L 7-37 MEDENT ([facility], [facility]) Alkaline Phosphatase 108 U/L 45-117 MEDENT ([facility], [facility]) Total Protein 7.4 GM/DL 6.4-8.2 MEDENT ([facility], [facility]) Bilirubin,Total 0.6 mg/dL 0.2-1.0 MEDENT ([facility], [facility]) Albumin 4.1 GM/DL 3.2-5.2 MEDENT ([facility], [facility]) Albumin/Globulin Ratio 1.24 1.00-1.93 MEDENT ([facility], [facility]) ID Date Data Source [id number] 05/06/2019 11:27:00 AM EST MEDENT ([facility], [facility]) Name Value Range Interpretation Code Description Data Chloe rce(s) Supporting Document(s) White Blood Count 12.0 10 4.0-10.0 MEDENT ([facility], [facility]) Hemoglobin 14.1 g/dL 12.0-15.5 MEDENT ([facility]) Red Blood Count 4.85 10 4.00-5.40 MEDENT ([facility], [facility]) Hematocrit 44.4 % 36.0-47.0 [facility] ([facility]) Mean Corpuscular Volume 91.5 fl 80.0-96.0 M EDENT ([facility], [facility]) Mean Corpuscular Hemoglobin 29.1 pg 27.0-33.0 MEDENT ([facility]) Mean Corpuscular HGB Conc 31.8 g/dL 32.0-36.5 MEDENT ([facility]) Platelet Count, Automated 201 10 150-450 MEDENT ([facility]) Red Cell Distribution Width 14.8 % 11.5-14.5 MEDENT ([facility]) Lymph % 20.1 % 24.0-44.0 MEDENT ([facility], [facility]) Neutrophils % 63.1 % 36.0-66.0 MEDENT ([facility], [facility]) [place] % 10.3 % 0.0-5.0 MEDENT ([facility], [facility]) Eos % 5.2 % 0.0-3.0 MEDENT ([facility], [facility]) Baso % 1.0 % 0.0-1.0 MEDENT ([facility], [facility]) Nucleated Red Blood Cell % 0.0 % 0-0 MED ENT ([facility]) Immature Granulocyte % 0.3 % 0-3.0 MEDENT ([facility]) Neutrophils # 7.6 10 1.5-8.5 MEDENT ([facility], [facility]) Lymph # 2.4 10 1.5-5.0 MEDENT ([facility], [facility]) [place] # 1.2 10 0.0-0.8 MEDENT ([facility], [facility]) Eos # 0.6 10 0.0-0.5 MEDENT ([facility], [facility]) Baso # 0.1 10 0.0-0.2 MEDENT ([facility], [facility]) Procedure Social History Code Duration Value Status Description Data Source(s ) Smoking 06/02/2020 12:00:00 AM EST Patient has never smoked co mpleted Patient has never smoked MEDENT ([facility], [facility]) Smoking 06/30/2019 12:00:00 AM EST Never Smoked Cigarettes com pleted Never Smoked Cigarettes MEDENT ([facility]) Vital Signs ID Date Data Source UNK Name Value Range Interpretation Code Description Data Source(s) Oxygen saturation in Arterial blood by Pulse oximetry 97 % 97 % MEDENT ([facility] Body mass index (BMI) [Ratio] 31.1 kg/m2 31.1 k g/m2 MEDENT ([facility] [place] body weight 110 [lb_av] 110 [lb_av] MEDEN T ([facility] Body weight 170.00 [lb_av] 170.00 [lb_av] MEDEN T ([facility] Body height 62 [in_i] 62 [in_i] MEDENT ([facility] 5'2" Respiratory rate 14 /min 14 /min MEDENT ( [facility] Heart rate 72 /min 72 /min MEDENT ([facility] Body temperature 97.4 [degF] 97.4 [degF] MEDENT ([facility] Diastolic blood pressure 82 mm[Hg] 82 mm[Hg] MEDENT ([facility] Systolic blood pressure 134 mm[Hg] 134 mm[Hg] M EDENT ([facility] Body mass index (BMI) [Ratio] 23.8 kg/m2 23.8 k g/m2 MEDENT ([facility]) Body weight 58.968 kg 58.968 kg MEDENT ([facility] Body weight 130.00 [lb_av] 130.00 [lb_av] MEDEN T ([facility]) Body height 62 [in_i] 62 [in_i] MEDENT ([facility] 5'2" Diastolic blood pressure 60 mm[Hg] 60 mm[Hg] MEDENT ([facility]) Systolic blood pressure 90 mm[Hg] 90 mm[Hg] M EDENT ([facility]) Diastolic blood pressure 60 mm[Hg] 60 mm[Hg] MEDENT ([facility]) Systolic blood pressure 90 mm[Hg] 90 mm[Hg] M EDENT ([facility]) Oxygen saturation in Arterial blood by Pulse oximetry 97 % 97 % MEDENT ([facility] Body mass index (BMI) [Ratio] 29.3 kg/m2 29.3 k g/m2 MEDENT ([facility] [place] body weight 110 [lb_av] 110 [lb_av] MEDEN T ([facility] Body weight 160.00 [lb_av] 160.00 [lb_av] MEDEN T ([facility] Body height 62 [in_i] 62 [in_i] MEDENT ([facility] 5'2" Respiratory rate 16 [...] Body height 62 [in_i] 62 [in_i] MEDENT ([facility] 5'2" Respiratory rate 14 /min 14 /min MEDENT ( [facility] Heart rate 68 /min 68 /min MEDENT ([facility] Body temperature 98.1 [degF] 98.1 [degF] MEDENT ([facility] Diastolic blood pressure 70 mm[Hg] 70 mm[Hg] MEDENT ([facility] Systolic blood pressure 116 mm[Hg] 116 mm[Hg] M EDENT ([facility] Systolic blood pressure 126 mm[Hg] 126 mm[Hg] e CW1 ([facility]) Body mass index (BMI) [Ratio] 27.70 kg/m2 27.70 kg/m2 eCW1 ([facility]) Body height [in_us] eCW1 ([facility]) Body weight Measured 161.4 [lb_av] 161.4 [lb_av ] eCW1 ([facility]) Diastolic blood pressure 74 mm[Hg] 74 mm[Hg] eCW1 ([facility]) Body weight Measured 164.2 [lb_av] 164.2 [lb_av ] eCW1 ([facility]) Body height [in_us] eCW1 ([facility]) Body mass index (BMI) [Ratio] 28.18 kg/m2 28.18 kg/m2 eCW1 ([facility]) Systolic blood pressure 134 mm[Hg] 134 mm[Hg] e CW1 ([facility]) Diastolic blood pressure 82 mm[Hg] 82 mm[Hg] eCW1 ([facility]) Body mass index (BMI) [Ratio] 24.7 kg/m2 24.7 k g/m2 MEDENT ([facility] Body weight 61.236 kg 61.236 kg MEDENT ([facility] Body weight 135.00 [lb_av] 135.00 [lb_av] MEDEN T ([facility]) Body height 62 [in_i] 62 [in_i] MEDENT ([facility]) 5'2" Diastolic blood pressure 80 mm[Hg] 80 mm[Hg] MEDENT ([facility]) Systolic blood pressure 170 mm[Hg] 170 mm[Hg] M EDENT ([facility]) Diastolic blood pressure 80 mm[Hg] 80 mm[Hg] MEDENT ([facility]) Systolic blood pressure 160 mm[Hg] 160 mm[Hg] M EDENT ([facility]) Body mass index (BMI) [Ratio] 26.5 kg/m2 26.5 k g/m2 MEDENT ([facility]) Body height 62 [in_i] 62 [in_i] [facility] ([facility]) 5'2" Body weight 145.00 [lb_av] 145.00 [lb_av] MEDEN T ([facility]) Body temperature 97.9 [degF] 97.9 [degF] [facility]) Oxygen saturation in Arterial blood by Pulse oximetry 96 % 96 % [facility]) Respiratory rate 17 /min 17 /min [facility] ( [facility]) Heart rate 71 /min 71 /min [facility] ([facility]) Diastolic blood pressure 70 mm[Hg] 70 mm[Hg] [facility] ([facility], [facility]) Systolic blood pressure 161 mm[Hg] 161 mm[Hg] M [facility] ([facility], [facility]) Body mass index (BMI) [Ratio] 27.4 kg/m2 27.4 k g/m2 [facility]) Body height 62 [in_i] 62 [in_i] [facility] 5'2" Body weight 150.00 [lb_av] 150.00 [lb_av] MEDEN T ([facility]) Body temperature 97.7 [degF] 97.7 [degF] [facility] Oxygen saturation in Arterial blood by Pulse oximetry 97 % 97 % [facility] ([facility]) Respiratory rate 18 /min 18 /min [facility] ( [facility]) Heart rate 64 /min 64 /min [facility] ([facility]) Diastolic blood pressure 89 mm[Hg] 89 mm[Hg] [facility] ([facility], [facility]) Systolic blood pressure 166 mm[Hg] 166 mm[Hg] [facility]) Patient Treatment Plan of Care Planned Activity Planned Date Details Description Data Source (s) Betamethasone 0.0005 MG/MG Augmented Topical Ointment 09/15/2019 12:00:00 AM EDT eCW1 ([facility]) Triamcinolone Acetonide 0.001 MG/MG Topical Ointment 020 12:00:00 AM EST eCW1 ([facility])
[2020-06-23] MEDS ORDERED: LORazepam 1 MG TAB PO ONE (19:45)
--- NOTE | 2020-06-23 20:47 | ECGEPIP ---
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
--- NOTE | 2020-06-23 21:12 | ECGEPIP ---
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
[2020-06-23 22:31] VITALS: BP 177/77
== END 2020-06-23 23:26 | disposition home or self-care (01) ==
LOC: M ED 14:25
DX: R07.9 Chest pain, unspecified (principal); I10 Essential (primary) hypertension; I48.91 Unspecified atrial fibrillation; E78.5 Hyperlipidemia, unspecified; Z86.79 Personal history of other diseases of the circulatory system; Z88.1 Allergy status to other antibiotic agents

== ENCOUNTER 2020-07-10 10:41 | Observation (INO) | payer MEDICARE, MEDICAID ==
[~2020-07-10] VITALS: Ht 160 cm; Wt 74.1 kg
[~2020-07-10 10:41] MED LIST changes: +AMLO1TAB24 PO; +ELIQ5TAB PO; +LATANOPROST
--- OUTSIDE RECORDS SUMMARY | 2020-07-10 10:45 | CCD | Continuity of Care Document ---
Author Author Steffanie VALDOVINOS M.D. Organization Unknown Address [address] [place], [place] [address] Phone [phone] Problems Active Problems Provider Date Hyperlipidemia Johnson [...] Johnson Macias M.D. 01/29/2019 Loratadine 10mg Tablets Take One Tablet By Mouth @8Am 90tabs Johnson Valdovinos M.D. 12/25/[address] Take One Tablet By Mouth @8Am 30tabs Johnson Valdovinos M.D. 12/13/19 19 Amlodipine [...] every day ( glaucoma) Unknown Saline Nasal [place] 0.65% Solution 2 spray each nostril twice a day prn Unknown Eliquis 5mg Tablets 1 by mouth twice a day Unknown Latanoprost 0.005% Solution 1 gtt OU QHS for glaucoma Unknown Triamcinolone Acetonide 0.1% Ointm ent apply locally to rash on hand bid as needed Unkn own Immunizations CPT Code Status Date Vaccine Lot # [id number] Given 04/08/2017 Influenza Virus Vaccine, Quadrivalent, Slit Virus, Im Use 3Y & Up [id number] Given 04/06/2016 Influenza Virus Vaccine, Quadrivalent, Slit Virus, Im Use 3Y & Up [id number] Given 07/15/2015 Pneumococcal Immunization L0 [id number] Vital Signs Date Vital Result Comment 07/05/2020 3:07pm BP Systolic 132 mmHg BP Diastolic 66 mmHg Body Temperature 97.0 F Heart Rate 74 /min Respiratory Rate 16 /min Height 62 inches 5'2" Weight 170.00 lb [place] Body Weight 110 lb BMI (Body Mass Index) 31.1 kg/m2 O2 % BldC Oximetry 98 % 04/19/2020 10:11am BP Systolic 134 mmHg BP Diastolic 82 mmHg Body Temperature 97.4 F Heart Rate 72 /min Respiratory Rate 14 /min Height 62 inches 5'2" Weight 170.00 lb [place] Body Weight 110 lb BMI (Body Mass Index) 31.1 kg/m2 O2 % BldC Oximetry 97 % Results Test Acquired Date Facility Test Result H/L Range Note Laboratory test finding 06/23/2020 [facility] (Interface) [phone] iSTAT Troponin 0.00 NG/ML Normal 0.00-0.08 Laboratory test finding 06/23/2020 [facility] (Interface) [phone] iSTAT Troponin 0.00 NG/ML Normal 0.00-0.08 CBC With [phone] White Blood Count 16.0 10 High 4.0-10.0 Red Blood Count 5.05 10 Normal 4.00-5.40 Hemoglobin 14.3 g/dL Normal 12.0-15.5 Hematocrit 44.4 % Normal 36.0-47.0 Mean Corpuscular Volume 87.9 fl Normal 80.0-96.0 Mean Corpuscular Hemoglobin 28.3 pg Normal 27.0-33.0 Mean Corpuscular HGB Conc 32.2 g/dL Normal 32.0-36.5 Red Cell Distribution Width 15.8 % High 11.5-14.5 Platelet Count, Automated 224 10 Normal 150-450 Neutrophils % 71.1 % High 36.0-66.0 Lymph % 13.6 % Low 24.0-44.0 [place] % 12.7 % High 0.0-5.0 Eos % 1.5 % Normal 0.0-3.0 Baso % 0.5 % Normal 0.0-1.0 Immature Granulocyte % 0.6 % Normal 0-3.0 Nucleated Red Blood Cell % 0.0 % Normal 0-0 Neutrophils # 11.4 10 High 1.5-8.5 Lymph # 2.2 10 Normal 1.5-5.0 [place] # 2.0 10 High 0.0-0.8 Eos # 0.2 10 Normal 0.0-0.5 Baso # 0.1 10 Normal 0.0-0.2 Basic Metabolic Profile 06/23/2020 [facility] (Interface) [phone] Glucose, Fasting 102 mg/dL High 70-100 Blood Urea Nitrogen 19 mg/dL High 7-18 Creatinine For GFR 0.78 mg/dL Normal 0.55-1.30 Glomerular Filtration Rate > 60.0 Normal >39 1 Sodium Level 142 mEq/L Normal 136-145 Potassium Serum 4.0 mEq/L Normal 3.5-5.1 Chloride Level 104 mEq/L Normal 98-107 Carbon Dioxide Level 28 mEq/L Normal 21-32 Anion Gap 10 mEq/L Normal 8-16 Calcium Level 9.7 mg/dL Normal 8.8-10.2 CMP 04/19/2020 [facility] Glu 88 mg/dL 70 - 110 2 BUN 20 mg/dL 8 - 23 Creat [...] Gap 17 mmol/L eGFR 82 # Calc 3 eGFR Non-Afr. Bangladeshi 71 # Calc 4 Lipid Panel 04/19/2020 [facility] Chol 196 mg/dL 0 - 200 Trig 207 mg/dL High 40 - 200 HDL 50 mg/dL 45 - 65 LDL_C 104 Calc 75 - 129 Cho/HDL Ratio 3.9 Calc Hemoglobin A1c 04/19/2020 [facility] [place] Hemoglobin A1c 6.0 % High 4.8-5.6 5 1 Units are mL/min/1.73 m2 Chronic Kidney Disease Staging per NKF: Stage I & II GFR >=60 Normal to Mildly Decreased Stage III GFR 30-59 Moderately Decreased Stage IV GFR 15-29 Severely Decreased Stage V GFR <15 Very Little GFR Left ESRD GFR <15 on HAT AND CAP OPENER 2 CHRONIC KIDNEY DISEASE STAGI NG PER NKF: [...] ADOLESCENTS REPRESENTS INDIVIDUALA AGED 2-19 YEARS EXCLUSIVE. 3 CKD-EPI 4 CKD-EPI 5 Prediabetes: 5.7 - 6.4 Diabetes: >6.4 Glycemic control for adults with diabetes: <7.0 Procedures Date Code Description Status 07/18/2017 [id number] Mammogram Completed 07/20/2016 [id number] Mammogram Completed Medical Devices Description No Information Available Encounters Type Date Location Provider Dx Diagnosis Office Visit 07/05/2020 3:00p [place] [facility] Johnson Valdovinos M. D. Office Visit 04/19/2020 10:00a [place] [facility] Johnson Valdovinos M. D. I10 Essential (primary) hypertension E78.5 Hyperlipidemia, unspecified G30.9 Alzheimer's disease, unspeci fied R73.01 Impaired fasting glucose Assessments Date Code Description Provider 04/19/2020 I10 Essential (primary) hypertension Johnson Valdovinos M.D. 04/19/2020 E78.5 Hyperlipidemia, unspecified [facility] Johnson schwartz M.D. 04/19/2020 G30.9 Alzheimer's disease, unspecified Johnson Valdovinos M.D. 04/19/2020 R73.01 Impaired fasting glucose Johnson Ortiz M.D. Plan of Treatment Future Appointment(s):* 10/17/2020 8:30 am - Johnson Valdovinos M.D. at [facility] Functional Status Description No Information Available Mental Status Description No Information Available Referrals Description No Information Available
--- OUTSIDE RECORDS SUMMARY | 2020-07-10 10:45 | CCD | Continuity of Care Document ---
Author Author Steffanie VALDOVINOS M.D. Organization Unknown Address [address] [place], [place] [address] Phone [phone] Problems Active Problems Provider Date Hyperlipidemia Johnson [...] every day ( glaucoma) Unknown Saline Nasal [place] 0.65% Solution 2 spray each nostril twice a day prn Unknown Eliquis 5mg Tablets 1 by mouth twice a day Unknown Latanoprost 0.005% Solution 1 gtt OU QHS for glaucoma Unknown Triamcinolone Acetonide 0.1% Ointm ent apply locally to rash on hand bid as needed Unkn own Immunizations CPT Code Status Date Vaccine Lot # [id number] Given 04/08/2017 Influenza Virus Vaccine, Quadrivalent, Slit Virus, Im Use 3Y & Up [id number] Given 04/06/2016 Influenza Virus Vaccine, Quadrivalent, Slit Virus, Im Use 3Y & Up [id number] [id number] Given 07/15/2015 Pneumococcal Immunization L0 [id number] Vital Signs Date Vital Result Comment 07/05/2020 3:07pm BP Systolic 132 mmHg BP Diastolic 66 mmHg Body Temperature 97.0 F Heart Rate 74 /min Respiratory Rate 16 /min Height 62 inches 5'2" Weight 170.00 lb [place] Body Weight 110 lb BMI (Body Mass Index) 31.1 kg/m2 O2 % BldC Oximetry 98 % 04/19/2020 10:11am BP Systolic 134 mmHg BP Diastolic 82 mmHg Body Temperature 97.4 F Heart Rate 72 /min Respiratory Rate 14 /min Height 62 inches 5'2" Weight 170.00 lb [place] Body Weight 110 lb BMI (Body Mass Index) 31.1 kg/m2 O2 % BldC Oximetry 97 % Results Test Acquired Date Facility Test Result H/L Range Note Laboratory test finding 06/23/2020 [facility] (Interface) [phone] iSTAT Troponin 0.00 NG/ML Normal 0.00-0.08 Laboratory test finding 06/23/2020 [facility] (Interface) [phone] iSTAT Troponin 0.00 NG/ML Normal 0.00-0.08 CBC With [phone] White Blood Count 16.0 10 High 4.0-10.0 [...] 36.0-66.0 Lymph % 13.6 % Low 24.0-44.0 [place] % 12.7 % High 0.0-5.0 Eos % 1.5 % Normal 0.0-3.0 Baso % 0.5 % Normal 0.0-1.0 Immature Granulocyte % 0.6 % Normal 0-3.0 Nucleated Red Blood Cell % 0.0 % Normal 0-0 Neutrophils # 11.4 10 High 1.5-8.5 Lymph # 2.2 10 Normal 1.5-5.0 [place] # 2.0 10 High 0.0-0.8 Eos # 0.2 10 Normal 0.0-0.5 Baso # 0.1 10 Normal 0.0-0.2 Basic Metabolic Profile 06/23/2020 [facility] (Interface) [phone] Glucose, Fasting 102 mg/dL High 70-100 Blood [...] eGFR 82 # Calc 3 eGFR Non-Afr. [place]ian 71 # Calc 4 Lipid Panel 04/19/2020 [...] Little GFR Left ESRD GFR <15 on ASSISTANT PRODUCT MANAGER 2 CHRONIC KIDNEY DISEASE STAGI NG PER [...] <7.0 Procedures Date Code Description Status 07/18/2017 [id number] Mammogram Completed 07/20/2016 [id number] Mammogram Completed Medical Devices Description No Information Available Encounters Type Date Location Provider Dx Diagnosis Office Visit 07/05/2020 3:00p [place] [facility] Johnson Valdovinos M. D. I10 Essential (primary) hypertension E78.5 Hyperlipidemia, unspecified Office Visit 04/19/2020 10:00a [place] [facility] Johnson Valdovinos M. D. I10 Essential (primary) hypertension E78.5 Hyperlipidemia, unspecified G30.9 Alzheimer's disease, unspeci fied R73.01 Impaired fasting glucose Assessments Date Code Description Provider 07/05/2020 I10 Essential (primary) hypertension Johnson Valdovinos M.D. 07/05/2020 E78.5 Hyperlipidemia, unspecified Johnson Pizarro M.D. 04/19/2020 I10 Essential (primary) hypertension Johnson Valdovinos M.D. 04/19/2020 E78.5 Hyperlipidemia, unspecified [facility] Johnson schwartz M.D. 04/19/2020 G30.9 Alzheimer's disease, unspecified Johnson Valdovinos M.D. 04/19/2020 R73.01 Impaired fasting glucose Johnson Ortiz M.D. Plan of Treatment Future Appointment(s):* 10/17/2020 8:30 am - Johnson Valdovinos M.D. at [facility] Functional Status Description No Information Available Mental Status Description No Information Available Referrals Description No Information Available
--- OUTSIDE RECORDS SUMMARY | 2020-07-10 10:46 | CCD ---
Author Author [facility] Organization [facility] Address Unknown Phone Unavailable Care Team Providers Care Traffic Signal Mechanic Name Role Phone Santos SMITH MD Unavailable [...] SMITH MD Unavailable Unavailable LUIS H RYAN MD Unavailable Unavailable LUIS, H RYAN MD Unavailable Unavailable LUIS, H RYAN MD Unavailable Unavailable LUIS, H RYAN MD Unavailable Unavailable LUIS, H RYAN MD Unavailable Unavailable LUIS, H RYAN HUGHES Unavailable Unavailable LUIS, H RYAN HUGHES Unavailable Unavailable LUIS H RYAN HUGHES Unavailable Unavailable LUIS H RYAN HUGHES Unavailable Unavailable LUIS, H RYAN MD Unavailable Unavailable LUIS, H RYAN MD Unavailable Unavailable LUIS, H RYAN MD Unavailable Unavailable LUIS, H RYAN MD Unavailable Unavailable LUIS, H RYAN MD Unavailable Unavailable LUIS, H RYAN MD Unavailable Unavailable LUIS, H RYAN MD Unavailable Unavailable LUIS, H RYAN MD Unavailable Unavailable LUIS, H RYAN MD Unavailable Unavailable LUIS, H RYAN MD Unavailable Unavailable LUIS, H RYAN MD Unavailable Unavailable LUIS, H RYAN MD Unavailable Unavailable LUIS, H RYAN MD Unavailable Unavailable LUIS, H RYAN MD Unavailable Unavailable LUIS, H RYAN MD Unavailable Unavailable LUIS, H RYAN HUGHES Unavailable Unavailable Santos SMITH MD Unavailable Unavailable LUIS, H RYAN MD Unavailable Unavailable LUIS, H RYAN MD Unavailable Unavailable LUIS H RYAN MD Unavailable Unavailable LUIS, H RYAN MD Unavailable Unavailable LUIS H RYAN MD Unavailable Unavailable Santos SMITH MD Unavailable Unavailable LUIS, H RYAN HUGHES Unavailable Unavailable LUIS H RYAN HUGHES Unavailable Unavailable Santos SMITH MD Unavailable Unavailable LUIS H RYAN MD Unavailable Unavailable LUIS H RYAN MD Unavailable Unavailable LUIS H RYAN HUGHES Unavailable Unavailable LUIS H RYAN HUGHES Unavailable Unavailable Santos SMITH MD Unavailable Unavailable Santos SMITH MD Unavailable Unavailable LUIS H RYAN HUGHES Unavailable Unavailable LUIS H RYAN HUGHES Unavailable Unavailable Santos SMITH MD Unavailable Unavailable LUIS H RYAN MD [...] Unavailable Unavailable MCELHERAN, SELWYN PA Unavailable Unavailable Sutherland, Bren COMPUTER SYSTEMS ADMINISTRATOR Unavailable Unavailable Sutherland, Bren COMPUTER SYSTEMS ADMINISTRATOR Unavailable Unavailable Sutherland, Bren COMPUTER SYSTEMS ADMINISTRATOR Unavailable Unavailable Sutherland, Bren COMPUTER SYSTEMS ADMINISTRATOR Unavailable Unavailable Sutherland, Bren COMPUTER SYSTEMS ADMINISTRATOR Unavailable Unavailable Sutherland, Bren COMPUTER SYSTEMS ADMINISTRATOR Unavailable Unavailable Sutherland, Bren COMPUTER SYSTEMS ADMINISTRATOR Unavailable Unavailable Sutherland, Bren COMPUTER SYSTEMS ADMINISTRATOR Unavailable Unavailable Sutherland, Bren COMPUTER SYSTEMS ADMINISTRATOR Unavailable Unavailable Sutherland, Bren COMPUTER SYSTEMS ADMINISTRATOR Unavailable Unavailable Sutherland, Bren COMPUTER SYSTEMS ADMINISTRATOR Unavailable Unavailable Santos SMITH MD Unavailable Unavailable [...] Unavailable Santos SMITH MD Unavailable Unavailable LUIS, H RYAN MD Unavailable Unavailable LUIS, H RYAN MD Unavailable Unavailable LUIS, H RYAN MD Unavailable Unavailable LUIS, H RYAN MD Unavailable Unavailable LUIS, H RYAN MD Unavailable Unavailable LUIS, H RYAN MD Unavailable Unavailable LUIS, H RYAN MD Unavailable Unavailable LUIS, H RYAN MD Unavailable Unavailable LUIS, H RYAN MD Unavailable Unavailable LUIS, H RYAN MD Unavailable Unavailable LUIS, H RYAN MD Unavailable Unavailable LUIS, H RYAN MD Unavailable Unavailable LUIS, H RYAN MD Unavailable Unavailable LUIS, H RYAN MD Unavailable Unavailable LUIS, H RYAN MD Unavailable Unavailable LUIS, H RYAN MD Unavailable Unavailable LUIS, H RYAN MD Unavailable Unavailable LUIS, H RYAN MD Unavailable Unavailable LUIS, H RYAN MD Unavailable Unavailable LUIS, H RYAN MD Unavailable Unavailable LUIS, H RAYN MD Unavailable Unavailable LUIS, H RYAN MD Unavailable Unavailable LUIS, H RYAN MD Unavailable Unavailable LUIS, H RYAN MD Unavailable Unavailable LUIS, H RYAN MD Unavailable Unavailable LUIS, H RYAN MD Unavailable Unavailable LUIS, H RYAN MD Unavailable Unavailable LUIS, H RYAN MD Unavailable Unavailable LUIS, H RYAN MD Unavailable Unavailable LUIS, H RYAN MD Unavailable Unavailable LUIS, H RYAN MD Unavailable Unavailable LUIS, H RYAN MD Unavailable Unavailable LUIS, H RYAN MD Unavailable Unavailable LUIS, H RYAN MD Unavailable Unavailable LETTIERE, A SELWYN PA [...] A SELWYN PA Unavailable Unavailable LETTIERE, A ESLWYN PA Unavailable Unavailable LETTIERE, A SELWYN PA Unavailable Unavailable Timoteo, V GRETEL PA-C Unavailable Unavailable [place], V GRETEL PA-C Unavailable Unavailable [place], V GRETEL PA-C Unavailable Unavailable Tim[place]o, V GRETEL PA-C Unavailable Unavailable [place], V GRETEL PA-C Unavailable Unavailable [place], V GRETEL PA-C Unavailable Unavailable [place], V GRETEL PA-C Unavailable Unavailable Re-disclosure Warning [...] is protected by Article 27-F of the [facility] Public Health law. If you continue you may have access to information: Regarding HIV / AIDS; Provided by facilities licensed or operated by the [facility] Office of Mental Health; or Provided by the [facility] Office for People With Developmental Disabilities. If such information is present, then the following [facility] mandated warning applies: This information has been [...] law may result in a fine or detention sentence or both. A general authorization for the release of medical or other information is NOT sufficient authorization for further disc losure. Family History Family Member Name Family Member Gender Family Member Status Date o f Status Description Data Source(s) Unknown Unknown Problem [facility] ([facility]) Unknown Male Problem [facility] ([facility] Encounters Encounter Providers Location Date Indications Data Source(s ) Outpatient Attender: RYAN SMITH MD [facility] 01/2021 02:00:00 PM EST MED[facility] ([facility] OFFICE OUTPATIENT NEW 30 MINUTES Attender: SELWYN KING Physical Therapy 06/06/2020 12:00:00 PM EST MEDENT ([facility]) Outpatient Attender: Bren chinchilla 06/02/2020 08:30:00 AM EST MED[facility] ([facility] Outpatient Attender: RYAN SMITH MD [facility] 09:00:00 AM EST MEDENT ([facility] Outpatient Attender: GRETEL CHAVEZ.LANDY-SJPEmoryLANDY 04/2020 12:00:00 AM EST - 04/07/2020 02:31:34 PM EST [facility] [address] [place], [place] [phone] 01/20/2020 12:00:00 AM EDT [facility]CW1 [facility] Outpatient Attender: RYAN SMITH MD [place] 07/2019 01:30:00 PM EDT MEDENT ([facility] Outpatient Attender: RYAN SMITH MD [place] [facility] 01:15:00 PM EDT MED[facility] ([facility] Dermatology [address] [place] [phone] 09/15/2019 12:00:00 AM EDT eCW1 ([facility]) [facility] Dermatology [address] [place] [phone] 07/29/2019 12:00:00 AM EST eCW1 ([facility]) Outpatient Referrer: RYAN SMITH MD 06/23/2019 01:32:00 PM EST [facility] Outpatient Attender: SELWYN eubanks 06/19/2019 03:15:00 PM EST MEDENT ([facility]) Medications Medication Brand Name Start Date Product Form Dose Route Admi nistrative Instructions Pharmacy Instructions Status Indications Reaction Description Data Source(s) Clotrimazole 10 MG/ML Topical Cream Clotrimazole 01/01/2020 12:00:00 AM EDT active MEDENT ([facility] Betamethasone 0.0005 MG/MG Augmented Top ical Ointment Betamethasone Dipropionate Aug 0.05 % Betamethasone Dipropionate Aug 0.05 % 09/15/2019 12:00:00 AM EDT active 1 application eCW1 ( [facility]) Triamcinolone Acetonide 0.001 MG/MG Topi jaz Ointment Triamcinolone Acetonide 0.1 % Triamcinolone Acetonide 0.1 % 07/29/2019 12:00:00 AM EST active 1 application eCW1 ([facility]) Clotrimazole 10 MG/ML Topical Cream Clotrimazole 05/06/2019 12:00:00 AM EST completed MEDENT ([facility]) Prednisone 10 MG Oral Tablet Prednisone 05/06/2019 12:00:00 AM EST ORAL completed MEDENT ([facility]) Insurance Providers Payer name Policy type / Coverage type Policy ID Covered republican ID Covered republican's relationship to alexsi Policy Alexis Plan Information [place]/307 [id number] SP [id number] MEDICARE BLUE PPO [id number] SP [id number] EMEDNY [id number] SP [id number] [place] P[place] 302/[id number] SP [id number] MEDICARE BLUE PPO [id number] SP [id number] EMEDNY [id number] SP [id number] MEDICARE [id number] SP [id number] [id number] EXCELLUS BCBS [id number] Davina VYY [id number] MEDICARE [id number] Davina [id number] U05 BCBS [facility] MEDICAID [id number] SP [id number] MEDICARE [id number] SP [id number] U05 MEDICAID M [id number] S [id number] MEDICARE C [id number] S [id number] [id number] EXCELLUS BCBS MEDICARE [id number] Davina [id number] Medicare Part B Medicare Primary [id number] Self [id number] Medicaid Medigap Part B [id number] Self [id number] BCBS [facility] (HMO) [id number] Self [id number] Medicare Part B Medicare Primary [id number] Self [id number] [facility] Medicare Solutions Commercial [id number] Self [id number] [id number] SP [id number] MEDICARE COMPLETE [id number] SP [id number] [place] Medig[place] Part B [id number] Self [id number] BCBS/Excellus Medigap Part B [id number] Self [id number] Medicare Natl Gov't Servi Medicare Primary [id number] Self [id number] [place] P[place] [id number] SP [id number] Medicare Part B Medicare Primary [id number] Self [id number] Medicaid Medigap Part B [id number] Self [id number] BCBS [employer] (HMO) [id number] Self [id number] Medicare Part B Medicare Primary [id number] Self [id number] SECURE HORIZONS [id number] S [id number] BLUE CROSS [id number] S [id number] MCRB [id number] S [id number] A MEDICARE [id number] S [id number] MEDICAID [id number] MEDICAID PROF FEES UNAVAILABLE S UNAVAILABLE HUMANA CLAIMS MCR [id number] S [id number] MEDICARE COMPLETE [id number] SP [id number] SECURE HORIZONS [id number] S [id number] MEDICARE COMPLETE[facility] O [id number] O [id number] MEDICARE/NATIONAL GOVT SVCS [id number] A SP [id number] A MEDICARE COMPLETE [id number] S [id number] MEDICARE COMPLETE [id number] SP [id number] Problems, Conditions, and Diagnoses Code Display Name Description Problem Type Effective Dates Data Source(s) I48.91 Unspecified atrial fibrillation Unspecified atri al fibrillation Diagnosis 04/07/2020 01:28:31 PM EST [facility] Surgeries/Procedures Procedure Description Date Indications Data Source(s) ARTHROCENTESIS ASPIR&/INJECTION MAJOR JT/BURSA 021 12:00:00 AM EST MEDENT ([facility]) RADEX SHOULDER COMPLETE MINIMUM 2 VIEWS 06/06/2020 12: 00:00 AM EST MEDENT ([facility] ) DUPLEX SCAN EXTRACRANIAL ART COMPL BI STUDY 01/15/2020 12:00:00 AM EDT MEDENT ([facility]) Office Visit, Est Pt., Level 3 PC 09/15/2019 12:00:00 AM EDT eCW1 ([facility]) DESTRUCT LESION, 1-14 09/15/2019 12:00:00 AM EDT eCW1 ([facility]) DESTROY LESIONS, 2-14 07/29/2019 12:00:00 AM EST eCW1 ([facility]) DESTROY BENIGN/PREMLG LESION 07/29/2019 12:00:00 AM ES T eCW1 ([facility]) Office Visit, New Pt., Level 3 PC 07/29/2019 12:00:00 AM EST eCW1 ([facility]) DUPLEX SCAN EXTRACRANIAL ART COMPL BI STUDY 06/30/2019 12:00:00 AM EST MEDENT ([facility]) Results ID Date Data Source [id number] 06/23/2020 09:16:00 PM EST [facility] ([facility] Name Value Range Interpretation Code Description Data Chloe rce(s) Supporting Document(s) Laboratory test finding (navigational concept) 0.00 ng/mL 0 .00-0.08 Normal (applies to non-numeric results) [facility] ([facility] ID Date Data Source [id number] 06/23/2020 03:01:00 PM EST MED[facility] ([facility] Name Value Range Interpretation Code Description Data Chloe rce(s) Supporting Document(s) Laboratory test finding (navigational concept) 0.00 ng/mL 0 .00-0.08 Normal (applies to non-numeric results) MED[facility] ([facility] ID Date Data Source [id number] 06/23/2020 02:51:00 PM EST MEDENT ([facility] Name Value Range Interpretation Code Description Data Chloe rce(s) Supporting Document(s) Creatinine For GFR 0.78 mg/dL 0.55-1.30 Normal (applies to non -numeric results) MED[facility] ([facility] Blood Urea Nitrogen 19 mg/dL 7-18 Above high normal MEDENT ([facility] Glucose, Fasting 102 mg/dL 70-100 Above high normal M EDENT ([facility] Potassium Serum 4.0 meq/L 3.5-5.1 Normal (applies to non-numeric results) [facility] ([facility] Sodium Level 142 meq/L 136-145 Normal (applies to non-numeric res ults) MED[facility] ([facility] Glomerular Filtration Rate Laboratory test result Normal (applies to non- numeric results) [facility] ([facility] ) <content>Units are mL/min/1.73 m2</content>
<content></content>
<content>Chronic Kidney Disease Staging per NKF:</content>
<content></content>
<content>Stage I & II GFR >=60 Normal to Mildly Decreased</content>
<content>Stage III GFR 30-59 Moderately Decreased</content>
<content>Stage IV GFR 15-29 Severely Decreased</content>
<content>Stage V GFR <15 Very Little GFR Left</content>
<content>ESRD GFR <15 on BAND EDGER</content>
<content></content> Chloride Level 104 meq/L 98-107 Normal (applies to non-numeric r esults) MEDENT ([facility] Anion Gap 10 meq/L 8-16 Normal (applies to non-numeric resul ts) MEDENT ([facility] Carbon Dioxide Level 28 meq/L 21-32 Normal (applies to non-num jm results) MED[facility] ([facility] Calcium Level 9.7 mg/dL 8.8-10.2 Normal (applies to non-numeric re sults) MEDENT ([facility] ID Date Data Source [id number] 06/23/2020 02:51:00 PM EST MEDENT ([facility] Name Value Range Interpretation Code Description Data Chloe rce(s) Supporting Document(s) White Blood Count 16.0 10 4.0-10.0 Above high normal MEDENT ([facility] Red Blood Count 5.05 10 4.00-5.40 Normal (applies to non-numeric results) MED[facility] ([facility] Hematocrit 44.4 % 36.0-47.0 Normal (applies to non-numeric resul ts) MEDENT ([facility] Hemoglobin 14.3 g/dL 12.0-15.5 Normal (applies to non-numeric resul ts) MED[facility] ([facility] Mean Corpuscular Volume 87.9 fl 80.0-96.0 Normal ( applies to non-numeric results) MEDENT ([facility] ) Mean Corpuscular HGB Conc 32.2 g/dL 32.0-36.5 Normal (applies to non-numeric results) MEDENT ([facility] ) Mean Corpuscular Hemoglobin 28.3 pg 27.0-33.0 Norm al (applies to non-numeric results) MEDENT ([facility] ) Red Cell Distribution Width 15.8 % 11.5-14.5 Above high normal MEDENT ([facility] Platelet Count, Automated 224 10 150-450 Normal (applies to non-numeric results) MED[facility] ([facility] ) Neutrophils % 71.1 % 36.0-66.0 Above high normal MEDE NT ([facility] Eos % 1.5 % 0.0-3.0 Normal (applies to non-numeric resul ts) MEDENT ([facility] Kemper % 12.7 % 0.0-5.0 Above high normal MEDENT ([facility] Lymph % 13.6 % 24.0-44.0 Below low normal MEDENT ( [facility] Baso % 0.5 % 0.0-1.0 Normal (applies to non-numeric resul ts) MEDENT ([facility] Immature Granulocyte % 0.6 % 0-3.0 Normal (applies to non-n umeric results) MED[facility] ([facility] Nucleated Red Blood Cell % 0.0 % 0-0 Normal (applies to n on-numeric results) [facility] ([facility] Neutrophils # 11.4 10 1.5-8.5 Above high normal MEDE NT ([facility] Lymph # 2.2 10 1.5-5.0 Normal (applies to non-numeric resul ts) MEDENT ([facility] Kemper # 2.0 10 0.0-0.8 Above high normal MEDENT ([facility] Eos # 0.2 10 0.0-0.5 Normal (applies to non-numeric resul ts) MEDENT ([facility] Baso # 0.1 10 0.0-0.2 Normal (applies to non-numeric resul ts) MEDENT ([facility] ID Date Data Source [id number] 06/02/2020 12:12:00 PM EST MEDENT ([facility]) Name Value Range Interpretation Code Description Data Chloe rce(s) Supporting Document(s) Red Blood Count 5.07 10 4.00-5.40 MEDENT ([facility], [facility]) White Blood Count 12.4 10 4.0-10.0 MEDENT ([facility], [facility]) Hematocrit 45.3 % 36.0-47.0 [facility] Mean Corpuscular Volume 89.3 fl 80.0-96.0 M EDENT ([facility]) Hemoglobin 14.5 g/dL 12.0-15.5 MEDENT ([facility], [facility]) Red Cell Distribution Width 14.7 % 11.5-14.5 [facility] ([facility], [facility]) Mean Corpuscular Hemoglobin 28.6 pg 27.0-33.0 MEDENT ([facility], [facility]) Mean Corpuscular HGB Conc 32.0 g/dL 32.0-36.5 [facility] ([facility], [facility]) Nucleated Red Blood Cell % 0.0 % 0-0 MED ENT ([facility], [facility]) Platelet Count, Automated 231 10 150-450 [facility]) ID Date Data Source [id number] 04/19/2020 10:24:00 AM EST MEDENT ([facility] Name Value Range Interpretation Code Description Data Chloe rce(s) Supporting Document(s) Trig 207 mg/dL 40-200 Above high normal MEDENT ([facility] CHRONIC KIDNEY DISEASE STAGING [...] YEARS EXCLUSIVE. Chol 196 mg/dL 0-200 [facility] ([facility] CHRONIC [...] YEARS EXCLUSIVE. Cho/HDL Ratio 3.9 Calc [facility] CHRONIC KIDNEY DISEASE STAGING [...] YEARS EXCLUSIVE. LDL_C 104 Calc 75-129 MEDENT ([facility] CHRONIC KIDNEY DISEASE STAGING PER [...] 2-19 YEARS EXCLUSIVE. ID Date Data Source [id number] 04/19/2020 10:24:00 AM EST MEDENT ([facility] Name Value Range Interpretation [...] YEARS EXCLUSIVE. BUN 20 mg/dL 8-23 [facility] ([facility] CHRONIC [...] YEARS EXCLUSIVE. BUN/Creatinine Ratio 24.7 CALC MEDENT ([facility] CHRONIC KIDNEY DISEASE [...] YEARS EXCLUSIVE. Na 140 mmol/L 136-145 [facility] CHRONIC KIDNEY DISEASE STAGING [...] CL 102.5 mmol/L 98.0-107.0 MED[facility] ([facility] CHRONIC KIDNEY DISEASE STAGING PER [...] YEARS EXCLUSIVE. K 4.7 mmol/L 3.5-5.1 MED[facility] ([facility] CHRONIC KIDNEY DISEASE STAGING PER [...] YEARS EXCLUSIVE. Co2 25.5 mmol/L 22.0-29.0 [facility] ([facility] CHRONIC KIDNEY DISEASE STAGING PER [...] YEARS EXCLUSIVE. CA 9.8 mg/dL 8.6-10.2 MED[facility] ([facility] CHRONIC KIDNEY DISEASE [...] 2-19 YEARS EXCLUSIVE. TP 7.2 g/dL 6.6-8.7 [facility] ([facility] CHRONIC KIDNEY [...] 2-19 YEARS EXCLUSIVE. Globulin 2.7 CALC [facility] CHRONIC KIDNEY DISEASE [...] EXCLUSIVE. Tbili 0.55 mg/dL 0.0-1.2 MED[facility] ([facility] CHRONIC [...] 2-19 YEARS EXCLUSIVE. Anion Gap 17 mmol/L [facility] CHRONIC KIDNEY DISEASE [...] INDIVIDUALA AGED 2-19 YEARS EXCLUSIVE. eGFR Non-Afr. Tajik 71 # [facility] ([facility] [...] 2-19 YEARS EXCLUSIVE. ID Date Data Source [id number] 04/19/2020 10:22:00 AM EST MEDENT ([facility] Name Value Range Interpretation Code Description Data Chloe rce(s) Supporting Document(s) Hemoglobin A1c/Hemoglobin.total in Blood 6.0 % 4.8-5.6 Above high normal MEDENT ([facility] <content>Prediabetes: 5.7 - 6.4</content >
<content>Diabetes: >6.4</content>
<content>Glycemic control for adults with diabetes: <7.0</content>
<content></content> ID Date Data Source [id number] 01/15/2020 02:31:00 PM EDT MEDENT ([facility] Name Value Range Interpretation Code Description Data Chloe rce(s) Supporting Document(s) Carotid Ultrasound Bilateral Laboratory test result MEDENT ([facility]) ID Date Data Source [id number] 10/12/2019 01:31:00 PM EDT MED[facility] ([facility] Name Value Range Interpretation Code Description Data Chloe rce(s) Supporting Document(s) BUN 15 mg/dL 8-23 MEDENT ([facility] NORMAL RANGES Age [...] HCT IS 5% LESS SOURCE FOR DATA: [employer] 1800 OPERATION MANUAL( AUTOMATED BLOOD COUNTS AND [...] Glu 134 mg/dL 70-110 Above high normal [facility] ([facility] NORMAL RANGES Age WBC [...] HCT IS 5% LESS SOURCE FOR DATA: [employer] 1800 OPERATION MANUAL( AUTOMATED BLOOD COUNTS AND [...] 2-19 YEARS EXCLUSIVE. Creat 0.9 mg/dL 0.5-1.0 [facility] NORMAL [...] HCT IS 5% LESS SOURCE FOR DATA: [employer] 1800 OPERATION MANUAL( AUTOMATED BLOOD COUNTS [...] 2-19 YEARS EXCLUSIVE. Na 142 mmol/L 136-145 MED[facility] ([facility] NORMAL [...] HCT IS 5% LESS SOURCE FOR DATA: [employer] 1800 OPERATION MANUAL( AUTOMATED BLOOD COUNTS AND [...] 2-19 YEARS EXCLUSIVE. BUN/Creatinine Ratio 16.6 CALC [facility] ([facility] NORMAL RANGES Age WBC RBC [...] HCT IS 5% LESS SOURCE FOR DATA: [employer] [employer] 1800 OPERATION MANUAL( AUTOMATED BLOOD COUNTS AND [...] 2-19 YEARS EXCLUSIVE. K 4.6 mmol/L 3.5-5.1 [facility] ([facility] NORMAL [...] HCT IS 5% LESS SOURCE FOR DATA: [employer] 1800 OPERATION MANUAL( AUTOMATED BLOOD COUNTS AND [...] 2-19 YEARS EXCLUSIVE. CL 105.8 mmol/L 98.0-107.0 [facility] ([facility] NORMAL RANGES Age WBC RBC [...] HCT IS 5% LESS SOURCE FOR DATA: [employer] 1800 OPERATION MANUAL( AUTOMATED BLOOD COUNTS AND [...] 2-19 YEARS EXCLUSIVE. Co2 24.0 mmol/L 22.0-29.0 [facility] ([facility] NORMAL RANGES Age WBC [...] HCT IS 5% LESS SOURCE FOR DATA: [employer] 1800 OPERATION MANUAL( AUTOMATED BLOOD COUNTS AND [...] 2-19 YEARS EXCLUSIVE. CA 9.9 mg/dL 8.6-10.2 [facility] ([facility] NORMAL [...] HCT IS 5% LESS SOURCE FOR DATA: [employer] 1800 OPERATION MANUAL( AUTOMATED BLOOD COUNTS AND [...] HCT IS 5% LESS SOURCE FOR DATA: [employer] 1800 OPERATION MANUAL( AUTOMATED BLOOD COUNTS AND [...] 2-19 YEARS EXCLUSIVE. A/G Ratio 1.6 CALC [email or web address] ([facility] NORMAL RANGES [...] 2-19 YEARS EXCLUSIVE. Alb 4.0 g/dL 3.4-4.8 [facility] ([facility] NORMAL [...] HCT IS 5% LESS SOURCE FOR DATA: [employer] 1800 OPERATION MANUAL( AUTOMATED BLOOD COUNTS AND [...] 2-19 YEARS EXCLUSIVE. Alp 112.6 U/L 35-129 [facility] ([facility] NORMAL [...] HCT IS 5% LESS SOURCE FOR DATA: [employer] 1800 OPERATION MANUAL( AUTOMATED BLOOD COUNTS AND [...] HCT IS 5% LESS SOURCE FOR DATA: [employer] 1800 OPERATION MANUAL( AUTOMATED BLOOD COUNTS [...] YEARS EXCLUSIVE. Ast (Sgot) 19 U/L 0-40 [facility] NORMAL RANGES Age WBC RBC [...] HCT IS 5% LESS SOURCE FOR DATA: [employer] 1800 OPERATION MANUAL( AUTOMATED BLOOD COUNTS AND [...] YEARS EXCLUSIVE. Alt (SGPT) 19 U/L 0-41 [facility] ([facility] NORMAL [...] HCT IS 5% LESS SOURCE FOR DATA: [employer] 1800 OPERATION MANUAL( AUTOMATED BLOOD COUNTS AND [...] 2-19 YEARS EXCLUSIVE. Tbili 0.30 mg/dL 0.0-1.2 [email or web address] ([facility] NORMAL RANGES Age WBC RBC [...] HCT IS 5% LESS SOURCE FOR DATA: [employer] 1800 OPERATION MANUAL( AUTOMATED BLOOD COUNTS AND [...] 2-19 YEARS EXCLUSIVE. Anion Gap 17 mmol/L [facility] ([facility] NORMAL [...] HCT IS 5% LESS SOURCE FOR DATA: [employer] 1800 OPERATION MANUAL( AUTOMATED BLOOD COUNTS AND [...] YEARS EXCLUSIVE. Osmolality-Calculated 285.8 CALC MED [facility] ([facility] NORMAL RANGES Age WBC [...] HCT IS 5% LESS SOURCE FOR DATA: [employer] 1800 OPERATION MANUAL( AUTOMATED BLOOD COUNTS AND [...] HCT IS 5% LESS SOURCE FOR DATA: [employer] DYN 1800 OPERATION MANUAL( AUTOMATED BLOOD COUNTS [...] INDIVIDUALA AGED 2-19 YEARS EXCLUSIVE. eGFR Non-Afr. Tajik 61 # [facility] ([facility] [...] HCT IS 5% LESS SOURCE FOR DATA: [employer] 1800 OPERATION MANUAL( AUTOMATED BLOOD COUNTS AND [...] 2-19 YEARS EXCLUSIVE. ID Date Data Source [id number] 10/12/2019 01:31:00 PM EDT [facility] ([facility] Name Value Range Interpretation Code Description Data Chloe rce(s) Supporting Document(s) Trig 245 mg/dL 40-200 Above high normal [facility] ([facility] NORMAL RANGES Age WBC [...] HCT IS 5% LESS SOURCE FOR DATA: [employer] 1800 OPERATION MANUAL( AUTOMATED BLOOD COUNTS AND [...] 2-19 YEARS EXCLUSIVE. Chol 167 mg/dL 0-200 [facility] ([facility] NORMAL [...] HCT IS 5% LESS SOURCE FOR DATA: [employer] 1800 OPERATION MANUAL( AUTOMATED BLOOD COUNTS AND [...] HCT IS 5% LESS SOURCE FOR DATA: [employer] 1800 OPERATION MANUAL( AUTOMATED BLOOD COUNTS AND [...] LDL_C 71 Calc 75-129 Below low normal [facility] ( [facility] NORMAL RANGES Age WBC [...] HCT IS 5% LESS SOURCE FOR DATA: [employer] 1800 OPERATION MANUAL( AUTOMATED BLOOD COUNTS AND [...] 2-19 YEARS EXCLUSIVE. Cho/HDL Ratio 3.6 CALC [email or web address] ([facility] NORMAL RANGES Age WBC RBC HGB [...] HCT IS 5% LESS SOURCE FOR DATA: [employer] 1800 OPERATION MANUAL( AUTOMATED BLOOD COUNTS AND [...] 2-19 YEARS EXCLUSIVE. ID Date Data Source [id number] 10/12/2019 01:31:00 PM EDT [facility] ([facility] [...] HCT IS 5% LESS SOURCE FOR DATA: [employer] 1800 OPERATION MANUAL( AUTOMATED BLOOD COUNTS AND [...] 2-19 YEARS EXCLUSIVE. WBC 9.4 10E3/uL 4.1-10.9 [facility] NORMAL RANGES Age WBC [...] HCT IS 5% LESS SOURCE FOR DATA: [employer] 1800 OPERATION MANUAL( AUTOMATED BLOOD COUNTS AND [...] HCT IS 5% LESS SOURCE FOR DATA: [employer] 1800 OPERATION MANUAL( AUTOMATED BLOOD COUNTS AND [...] 2-19 YEARS EXCLUSIVE. HCT 42.1 % 37.0-51.0 [facility] ([facility] NORMAL RANGES Age WBC [...] HCT IS 5% LESS SOURCE FOR DATA: [employer] DYN 1800 OPERATION MANUAL( AUTOMATED BLOOD COUNTS [...] 2-19 YEARS EXCLUSIVE. HGB 13.9 g/dL 12.0-18.0 [facility] ([facility] NORMAL RANGES [...] HCT IS 5% LESS SOURCE FOR DATA: [employer] 1800 OPERATION MANUAL( AUTOMATED BLOOD COUNTS AND [...] 2-19 YEARS EXCLUSIVE. MCHC 33.0 g/dL 31.0-36.0 [facility] ([facility] NORMAL [...] HCT IS 5% LESS SOURCE FOR DATA: [employer]YN 1800 OPERATION MANUAL( AUTOMATED BLOOD COUNTS [...] HCT IS 5% LESS SOURCE FOR DATA: [employer] 1800 OPERATION MANUAL( AUTOMATED BLOOD COUNTS AND [...] 2-19 YEARS EXCLUSIVE. Lym% 25.8 % 10.0-58.5 [facility] ([facility] NORMAL RANGES [...] HCT IS 5% LESS SOURCE FOR DATA: [employer]YN 1800 OPERATION MANUAL( AUTOMATED BLOOD COUNTS [...] 2-19 YEARS EXCLUSIVE. RDW-CV 14.5 % 11.5-14.5 [facility] ([facility] NORMAL [...] HCT IS 5% LESS SOURCE FOR DATA: [employer] 1800 OPERATION MANUAL( AUTOMATED BLOOD COUNTS AND [...] 2-19 YEARS EXCLUSIVE. PLT 216 10E3/uL 140-440 [facility] ([facility] NORMAL [...] HCT IS 5% LESS SOURCE FOR DATA: [employer] 1800 OPERATION MANUAL( AUTOMATED BLOOD COUNTS AND [...] 2-19 YEARS EXCLUSIVE. Lym# 2.4 10E3/uL 0.6-4.1 [facility] ([facility] NORMAL RANGES Age WBC [...] HCT IS 5% LESS SOURCE FOR DATA: [employer] 1800 OPERATION MANUAL( AUTOMATED BLOOD COUNTS AND [...] 2-19 YEARS EXCLUSIVE. Neut% 62.7 % 37.0-92.0 [facility] ([facility] NORMAL [...] HCT IS 5% LESS SOURCE FOR DATA: [employer] 1800 OPERATION MANUAL( AUTOMATED BLOOD COUNTS AND [...] 2-19 YEARS EXCLUSIVE. MXD% 11.5 % 0.1-24.0 [facility] ([facility] NORMAL RANGES Age [...] 2-19 YEARS EXCLUSIVE. Neut# 5.9 % 2.0-7.8 [facility] ([facility] NORMAL RANGES [...] HCT IS 5% LESS SOURCE FOR DATA: [employer] 1800 OPERATION MANUAL( AUTOMATED BLOOD COUNTS AND [...] 2-19 YEARS EXCLUSIVE. MXD# 1.1 10E3/uL 0.0-1.8 [facility] ([facility] NORMAL RANGES Age WBC [...] HCT IS 5% LESS SOURCE FOR DATA: [employer] 1800 OPERATION MANUAL( AUTOMATED BLOOD COUNTS AND [...] MPV 14.1 fL 9.0-13.0 Above high normal [facility] ([facility] NORMAL RANGES [...] 2-19 YEARS EXCLUSIVE. ID Date Data Source [id number] 06/30/2019 03:01:00 PM EST [facility] ([facility]) Name Value Range Interpretation Code Description Data Chloe rce(s) Supporting Document(s) Carotid Ultrasound Bilateral <pending> M EDENT ([facility]) Procedure Social History Code Duration Value Status Description Data Source(s ) Smoking 06/02/2020 12:00:00 AM EST Patient has never smoked co mpleted Patient has never smoked [facility] ([facility], [facility]) Smoking 06/30/2019 12:00:00 AM EST Never Smoked Cigarettes com pleted Never Smoked Cigarettes [facility] ([facility]) Vital Signs ID Date Data Source UNK Name Value Range Interpretation Code Description Data Source(s) Oxygen saturation in Arterial blood by Pulse oximetry 98 % 98 % [facility] ([facility] Body mass index (BMI) [Ratio] 31.1 kg/m2 31.1 k g/m2 [facility] ([facility] Rogers body weight 110 [lb_av] 110 [lb_av] MED[facility] T ([facility] Body weight 170.00 [lb_av] 170.00 [lb_av] [facility] T ([facility] Body height 62 [in_i] 62 [in_i] [facility] ([facility] 5'2" Respiratory rate 16 /min 16 /min [facility] ( [facility] Heart rate 74 /min 74 /min [facility] ([facility] Body temperature 97.0 [degF] 97.0 [degF] [facility] ([facility] Diastolic blood pressure 66 mm[Hg] 66 mm[Hg] [facility] ([facility] Systolic blood pressure 132 mm[Hg] 132 mm[Hg] M EDENT ([facility] Oxygen saturation in Arterial blood by Pulse oximetry 97 % 97 % [facility] ([facility] Body mass index (BMI) [Ratio] 31.1 kg/m2 31.1 k g/m2 [facility] ([facility] Rogers body weight 110 [lb_av] 110 [lb_av] MED[facility] T ([facility] Body weight 170.00 [lb_av] 170.00 [lb_av] MED[facility] T ([facility] Body height 62 [in_i] 62 [in_i] [facility] ([facility] 5'2" Respiratory rate 14 /min 14 /min [facility] ( [facility] Heart rate 72 /min 72 /min [facility] ([facility] Body temperature 97.4 [degF] 97.4 [degF] [facility] ([facility] Diastolic blood pressure 82 mm[Hg] 82 mm[Hg] [facility] ([facility] Systolic blood pressure 134 mm[Hg] 134 mm[Hg] M EDENT ([facility] Body mass index (BMI) [Ratio] 23.8 kg/m2 23.8 k g/m2 [facility] ([facility]) Body weight 58.968 kg 58.968 kg [facility] ([facility]) Body weight 130.00 [lb_av] 130.00 [lb_av] MEDEN T ([facility]) Body height 62 [in_i] 62 [in_i] [facility] ([facility]) 5'2" Diastolic blood pressure 60 mm[Hg] 60 mm[Hg] [facility] ([facility]) Systolic blood pressure 90 mm[Hg] 90 mm[Hg] M EDENT ([facility]) Diastolic blood pressure 60 mm[Hg] 60 mm[Hg] [facility] ([facility]) Systolic blood pressure 90 mm[Hg] 90 mm[Hg] M EDENT ([facility]) Oxygen saturation in Arterial blood by Pulse oximetry 97 % 97 % [facility] ([facility] Body mass index (BMI) [Ratio] 29.3 kg/m2 29.3 k g/m2 [facility] ([facility] Rogers body weight 110 [lb_av] 110 [lb_av] MEDEN T ([facility] Body weight 160.00 [lb_av] 160.00 [lb_av] MEDEN T ([facility] Body height 62 [in_i] 62 [in_i] [facility] ([facility] 5'2" Respiratory rate 16 /min 16 /min [facility] ( [facility] Heart rate 72 /min 72 /min [facility] ([facility] Body temperature 97.7 [degF] 97.7 [degF] [facility] ([facility] Diastolic blood pressure 78 mm[Hg] 78 mm[Hg] [facility] ([facility] Systolic blood pressure 136 mm[Hg] 136 mm[Hg] M EDENT ([facility] Oxygen saturation in Arterial blood by Pulse oximetry 96 % 96 % [facility] ([facility] Body mass index (BMI) [Ratio] 29.3 kg/m2 29.3 k g/m2 [facility] ([facility] Body weight 160.38 [lb_av] 160.38 [lb_av] MED[facility] T ([facility] Body height 62 [in_i] 62 [in_i] [facility] ([facility] 5'2" Respiratory rate [...] pressure 126 mm[Hg] 126 mm[Hg] e CW1 ([facility]) Body mass index (BMI) [Ratio] 27.70 kg/m2 27.70 kg/m2 eCW1 ([facility]) Body height [in_us] eCW1 ([facility]) Body weight Measured 161.4 [lb_av] 161.4 [lb_av ] W1 ([facility]) Diastolic blood pressure 74 mm[Hg] 74 mm[Hg] eCW1 ([facility]) Body weight Measured 164.2 [lb_av] 164.2 [lb_av ] eCW1 ([facility]) Body height [in_us] eCW1 ([facility]) Body mass index (BMI) [Ratio] 28.18 kg/m2 28.18 kg/m2 eCW1 ([facility]) Systolic blood pressure 134 mm[Hg] 134 mm[Hg] e CW1 ([facility]) Diastolic blood pressure 82 mm[Hg] 82 mm[Hg] eCW1 ([facility]) Body mass index (BMI) [Ratio] 24.7 kg/m2 [...] [Ratio] 26.5 kg/m2 26.5 k g/m2 [facility] ([facility], [facility]) Body height 62 [in_i] 62 [in_i] [facility] ([facility], [facility]) 5'2" Body weight 145.00 [lb_av] 145.00 [lb_av] MEDEN T ([facility], [facility]) Body temperature 97.9 [degF] 97.9 [degF] [facility] ([facility], [facility]) Oxygen saturation in Arterial blood by Pulse oximetry 96 % 96 % [facility], [facility]) Respiratory rate 17 /min 17 /min [facility] ( [facility], [facility]) Heart rate 71 /min 71 /min [facility] ([facility], [facility]) Diastolic blood pressure 70 mm[Hg] 70 mm[Hg] [facility] ([facility], [facility]) Systolic blood pressure 161 mm[Hg] 161 mm[Hg] M EDENT ([facility], [facility]) Patient Treatment Plan of Care Planned Activity Planned Date Details Description Data Source (s) Betamethasone 0.0005 MG/MG Augmented Topical Ointment 09/15/2019 12:00:00 AM EDT eCW1 ([facility]) Triamcinolone Acetonide 0.001 MG/MG Topical Ointment 020 12:00:00 AM EST eCW1 ([facility])
--- OUTSIDE RECORDS SUMMARY | 2020-07-10 11:23 | CCD ---
Author Author [facility] Organization [facility] Address Unknown Phone Unavailable Care Team Providers Care Vice President Of Development Name Role Phone Santos SMITH MD Unavailable [...] Santos SMITH MD Unavailable Unavailable LUIS H YRAN HUGHES Unavailable Unavailable LUIS H RYAN HUGHES [...] MCELHERAN, SELWYN PA Unavailable Unavailable Sutherland, Bren SUPERINTENDENT LAUNDRY Unavailable Unavailable Sutherland, Bren SUPERINTENDENT LAUNDRY Unavailable Unavailable Sutherland, Bren SUPERINTENDENT LAUNDRY Unavailable Unavailable Sutherland, Bren SUPERINTENDENT LAUNDRY Unavailable Unavailable Sutherland, Bren SUPERINTENDENT LAUNDRY Unavailable Unavailable Sutherland, Bren SUPERINTENDENT LAUNDRY Unavailable Unavailable Sutherland, Bren SUPERINTENDENT LAUNDRY Unavailable Unavailable Sutherland, Bren SUPERINTENDENT LAUNDRY Unavailable Unavailable Sutherland, Bren SUPERINTENDENT LAUNDRY Unavailable Unavailable Sutherland, Bren SUPERINTENDENT LAUNDRY Unavailable Unavailable Sutherland, Bren SUPERINTENDENT LAUNDRY Unavailable Unavailable Santos SMITH MD Unavailable Unavailable [...] Unavailable LUIS, H RYAN MD Unavailable Unavailable LIUS, H RYAN MD Unavailable Unavailable LUIS, H [...] Unavailable Timoteo, V GRETEL PA-C Unavailable Unavailable [place], V GRETEL PA-C Unavailable Unavailable [place], V GRETEL PA-C Unavailable Unavailable Timoteo, V GRETEL PA-C Unavailable Unavailable [place], V GRETEL PA-C Unavailable Unavailable [place], V GRETEL PA-C Unavailable Unavailable [place], V GRETEL PA-C Unavailable Unavailable Re-disclosure Warning [...] is protected by Article 27-F of the [place] Public Health law. If you continue you may have access to information: Regarding HIV / AIDS; Provided by facilities licensed or operated by the [place] Office of Mental Health; or Provided by the [place] Office for People With Developmental Disabilities. If such information is present, then the following [place] mandated warning applies: This information has been [...] law may result in a fine or chcf sentence or both. A general authorization for [...] Source(s ) Outpatient Attender: RYAN SMITH MD [facility] 01/2021 02:00:00 PM EST MEDENT ([facility] OFFICE OUTPATIENT NEW 30 MINUTES Attender: SELWYN KING Physical Therapy 06/06/2020 12:00:00 PM EST MEDENT ([facility]) Outpatient Attender: Bren chinchilla 06/02/2020 08:30:00 AM EST MEDENT ([facility] Outpatient Attender: RYAN SMITH MD [facility] 09:00:00 AM EST MEDENT ([facility] Outpatient Attender: GRETEL CHAVEZ.LANDY-SJPEmoryLANDY 04/2020 12:00:00 AM EST - 04/07/2020 02:31:34 PM EST [facility] [address] [place], [place] [id number] 01/20/2020 12:00:00 AM EDT eCW1 ([facility]) Outpatient Attender: RYAN SMITH MD [facility] 07/2019 01:30:00 PM EDT MEDENT ([facility] Outpatient Attender: RYAN SMITH MD [facility] 01:15:00 PM EDT MEDENT ([facility] Dermatology [address] [place] [phone] 09/15/2019 12:00:00 AM EDT eCW1 ([facility]) [facility] Dermatology [address] [place] [phone] 07/29/2019 12:00:00 AM EST eCW1 ([facility]) Outpatient Referrer: RYAN SMITH MD 06/23/2019 01:32:00 PM EST [facility] Outpatient Attender: SELWYN eubanks 06/19/2019 03:15:00 PM EST MEDENT ([facility]) Medications Medication Brand Name Start Date Product Form Dose Route Admi nistrative Instructions Pharmacy Instructions Status Indications Reaction Description Data Source(s) Clotrimazole 10 MG/ML Topical Cream Clotrimazole 01/01/2020 12:00:00 AM EDT active MEDENT ([facility] Betamethasone 0.0005 MG/MG Augmented Top ical Ointment Betamethasone Dipropionate Aug 0.05 % Betamethasone Dipropionate Aug 0.05 % 09/15/2019 12:00:00 AM EDT active 1 application eCW1 ( [facility]) Triamcinolone Acetonide 0.001 MG/MG Topi jaz Ointment Triamcinolone Acetonide 0.1 % Triamcinolone Acetonide 0.1 % 07/29/2019 12:00:00 AM EST active 1 application eCW1 ([facility]) Clotrimazole 10 MG/ML Topical Cream Clotrimazole 05/06/2019 12:00:00 AM EST completed MEDENT ([facility]) Prednisone 10 MG Oral Tablet Prednisone 05/06/2019 12:00:00 AM EST ORAL completed MEDENT ([facility]) Insurance Providers Payer name Policy type / Coverage type Policy ID Covered alliance party ID Covered alliance party's relationship to alexis Policy Alexis Plan Information MEDICARE BLUE PPO 306 [id number] SP [id number] EMEDNY [id number] SP [id number] [place] P[place] [id number] SP [id number] [place] PPO 302/[id number] SP [id number] MEDICARE BLUE PPO 306 [id number] SP [id number] EMEDNY [id number] SP [id number] MEDICARE [id number] SP [id number] [id number] EXCELLUS BCBS [id number] Davina VYY [id number] MEDICARE [id number] Davina [id number] U05 BCBS EMPIRNicole [facility] MEDICAID [id number] SP [id number] MEDICARE [id number] SP [id number] U05 MEDICAID M [id number] S [id number] MEDICARE C [id number] S [id number] U05 EXCELLUS BCBS MEDICARE [id number] Davina [id number] Medicare Part B Medicare Primary [id number] Self [id number] Medicaid Medigap Part B [id number] Self [id number] BCBS Facets Health Maintenance Organization (HMO) [id number] Self [id number] Medicare Part B Medicare Primary [id number] Self [id number] [facility] Medicare Solutions Commercial [id number] Self [id number] MEDICAID [id number] SP [id number] MEDICARE COMPLETE [id number] SP [id number] [place] Medig[place] Part B [id number] Self [id number] BCBS/Excellus Medigap Part B [id number] Self [id number] Medicare [place] Gov't Servi Medicare Primary [id number] Self [id number] [place] PPO 302/[phone] [id number] SP [id number] Medicare Part B Medicare Primary [id number] Self [id number] Medicaid Medigap Part B [id number] Self [id number] BCBS Facets Health Maintenance Organization (HMO) [id number] Self [id number] Medicare Part B Medicare Primary [id number] Self [id number] SECURE HORIZONS [id number] S [id number] BLUE CROSS [id number] S [id number] [id number] [id number] S [id number] A MEDICARE [id number] S [id number] A MEDICAID [id number] S [id number] MEDICAID PROF FEES UNAVAILABLE S UNAVAILABLE HUMANA CLAIMS MCR [id number] S [id number] MEDICARE COMPLETE [id number] SP [id number] SECURE HORIZONS [id number] S [id number] MEDICARE COMPLETE[facility] O [id number] O [id number] MEDICARE/NATIONAL GOVT SVCS [id number] SP [id number] A MEDICARE COMPLETE [id number] S [id number] MEDICARE COMPLETE [id number] SP [id number] Problems, Conditions, and Diagnoses Code Display Name Description Problem Type Effective Dates Data Source(s) I48.91 Unspecified atrial fibrillation Unspecified atri al fibrillation Diagnosis 04/07/2020 01:28:31 PM EST [facility] Surgeries/Procedures Procedure Description Date Indications Data Source(s) ARTHROCENTESIS ASPIR&/INJECTION MAJOR JT/BURSA 021 12:00:00 AM EST MEDENT ([facility]) RADEX SHOULDER COMPLETE MINIMUM 2 VIEWS 06/06/2020 12: 00:00 AM EST MEDENT ([facility] ) DUPLEX SCAN EXTRACRANIAL ART COMPL BI STUDY 01/15/2020 12:00:00 AM EDT MEDENT ([facility]) Office Visit, Est Pt., Level 3 PC 09/15/2019 12:00:00 AM EDT eCW1 ([facility]) DESTRUCT LESION, 1-14 09/15/2019 12:00:00 AM EDT eCW1 ([facility]) DESTROY LESIONS, 2-14 07/29/2019 12:00:00 AM EST eCW1 ([facility]) DESTROY BENIGN/PREMLG LESION 07/29/2019 12:00:00 AM ES T eCW1 ([facility]) Office Visit, New Pt., Level 3 PC 07/29/2019 12:00:00 AM EST eCW1 ([facility]) DUPLEX SCAN EXTRACRANIAL ART COMPL BI STUDY 06/30/2019 12:00:00 AM EST MEDENT ([facility]) Results ID Date Data Source [id number] 06/23/2020 09:16:00 PM EST [facility] ([facility] Name Value Range Interpretation Code Description Data Chloe rce(s) Supporting Document(s) Laboratory test finding (navigational concept) 0.00 ng/mL 0 .00-0.08 Normal (applies to non-numeric results) MED[facility] ([facility] ID Date Data Source [id number] 06/23/2020 03:01:00 PM EST MEDENT ([facility] Name Value Range Interpretation Code Description Data Chloe rce(s) Supporting Document(s) Laboratory test finding (navigational concept) 0.00 ng/mL 0 .00-0.08 Normal (applies to non-numeric results) MEDENT ([facility] ID Date Data Source [id number] 06/23/2020 02:51:00 PM EST MEDENT ([facility] Name Value Range Interpretation Code Description Data Chloe rce(s) Supporting Document(s) Creatinine For GFR 0.78 mg/dL 0.55-1.30 Normal (applies to non -numeric results) MEDENT ([facility] Blood Urea Nitrogen 19 mg/dL 7-18 Above high normal MEDENT ([facility] Glucose, Fasting 102 mg/dL 70-100 Above high normal M EDENT ([facility] Potassium Serum 4.0 meq/L 3.5-5.1 Normal (applies to non-numeric results) MEDENT ([facility] Sodium Level 142 meq/L 136-145 Normal (applies to non-numeric res ults) MEDENT ([facility] Glomerular Filtration Rate Laboratory test result Normal (applies to non- numeric results) [facility] ([facility] ) <content>Units are mL/min/1.73 m2</content>
<content></content>
<content>Chronic Kidney Disease Staging per NKF:</content>
<content></content>
<content>Stage I & II GFR >=60 Normal to Mildly Decreased</content>
<content>Stage III GFR 30-59 Moderately Decreased</content>
<content>Stage IV GFR 15-29 Severely Decreased</content>
<content>Stage V GFR <15 Very Little GFR Left</content>
<content>ESRD GFR <15 on AIRPORT OPERATIONS DUTY MANAGER</content>
<content></content> Chloride Level 104 meq/L 98-107 Normal (applies to non-numeric r esults) MEDENT ([facility] Anion Gap 10 meq/L 8-16 Normal (applies to non-numeric resul ts) MEDENT ([facility] Carbon Dioxide Level 28 meq/L 21-32 Normal (applies to non-num jm results) MEDENT ([facility] Calcium Level 9.7 mg/dL 8.8-10.2 Normal (applies to non-numeric re sults) MEDENT ([facility] ID Date Data Source [id number] 06/23/2020 02:51:00 PM EST MEDENT ([facility] Name Value Range Interpretation Code Description Data Chloe rce(s) Supporting Document(s) White Blood Count 16.0 10 4.0-10.0 Above high normal MEDENT ([facility] Red Blood Count 5.05 10 4.00-5.40 Normal (applies to non-numeric results) MEDENT ([facility] Hematocrit 44.4 % 36.0-47.0 Normal (applies to non-numeric resul ts) MEDENT ([facility] Hemoglobin 14.3 g/dL 12.0-15.5 Normal (applies to non-numeric resul ts) MEDENT ([facility] Mean Corpuscular Volume 87.9 fl 80.0-96.0 Normal ( applies to non-numeric results) MEDENT ([facility] ) Mean Corpuscular HGB Conc 32.2 g/dL 32.0-36.5 Normal (applies to non-numeric results) MEDENT ([facility] ) Mean Corpuscular Hemoglobin 28.3 pg 27.0-33.0 Norm al (applies to non-numeric results) MEDENT ([facility] ) Red Cell Distribution Width 15.8 % 11.5-14.5 Above high normal MEDENT ([facility] Platelet Count, Automated 224 10 150-450 Normal (applies to non-numeric results) MEDENT ([facility] ) Neutrophils % 71.1 % 36.0-66.0 Above high normal MEDE NT ([facility] Eos % 1.5 % 0.0-3.0 Normal (applies to non-numeric resul ts) MEDENT ([facility] [place] % 12.7 % 0.0-5.0 Above high normal MEDENT ([facility] Lymph % 13.6 % 24.0-44.0 Below low normal MEDENT ( [facility] Baso % 0.5 % 0.0-1.0 Normal (applies to non-numeric resul ts) MEDENT ([facility] Immature Granulocyte % 0.6 % 0-3.0 Normal (applies to non-n umeric results) MEDENT ([facility] Nucleated Red Blood Cell % 0.0 % 0-0 Normal (applies to n on-numeric results) MEDENT ([facility] Neutrophils # 11.4 10 1.5-8.5 Above high normal MEDE NT ([facility] Lymph # 2.2 10 1.5-5.0 Normal (applies to non-numeric resul ts) MEDENT ([facility] [place] # 2.0 10 0.0-0.8 Above high normal MEDENT ([facility] Eos # 0.2 10 0.0-0.5 Normal (applies to non-numeric resul ts) MEDENT ([facility] Baso # 0.1 10 0.0-0.2 Normal (applies to non-numeric resul ts) MEDENT ([facility] ID Date Data Source [id number] 06/02/2020 12:12:00 PM EST MEDENT ([facility]) Name Value Range Interpretation Code Description Data Chloe rce(s) Supporting Document(s) Red Blood Count 5.07 10 4.00-5.40 MEDENT ([facility], [facility]) White Blood Count 12.4 10 4.0-10.0 MEDENT ([facility], [facility]) Hematocrit 45.3 % 36.0-47.0 MEDENT [facility]) Mean Corpuscular Volume 89.3 fl 80.0-96.0 M EDENT ([facility], [facility]) Hemoglobin 14.5 g/dL 12.0-15.5 MEDENT ([facility], [facility]) Red Cell Distribution Width 14.7 % 11.5-14.5 [facility] ([facility], [facility]) Mean Corpuscular Hemoglobin 28.6 pg 27.0-33.0 MEDENT ([facility], [facility]) Mean Corpuscular HGB Conc 32.0 g/dL 32.0-36.5 [facility] ([facility], [facility]) Nucleated Red Blood Cell % 0.0 % 0-0 MED ENT ([facility], [facility]) Platelet Count, Automated 231 10 150-450 [facility], [facility]) ID Date Data Source [id number] 04/19/2020 10:24:00 AM EST MEDENT ([facility] Name Value Range Interpretation Code Description Data Chloe rce(s) Supporting Document(s) Trig 207 mg/dL 40-200 Above high normal MEDENT ([facility] CHRONIC KIDNEY [...] YEARS EXCLUSIVE. Cho/HDL Ratio 3.9 Calc [facility] CHRONIC KIDNEY DISEASE STAGING [...] YEARS EXCLUSIVE. LDL_C 104 Calc 75-129 MED[facility] ([facility] CHRONIC KIDNEY DISEASE STAGING PER [...] 2-19 YEARS EXCLUSIVE. ID Date Data Source [id number] 04/19/2020 10:24:00 AM EST MEDENT ([facility] Name Value Range Interpretation [...] YEARS EXCLUSIVE. BUN/Creatinine Ratio 24.7 CALC MEDENT ([facility] CHRONIC KIDNEY [...] YEARS EXCLUSIVE. Na 140 mmol/L 136-145 MEDENT ([facility] CHRONIC KIDNEY DISEASE [...] YEARS EXCLUSIVE. CA 9.8 mg/dL 8.6-10.2 MEDENT ([facility] CHRONIC KIDNEY DISEASE [...] 2-19 YEARS EXCLUSIVE. Globulin 2.7 CALC [facility] CHRONIC KIDNEY DISEASE [...] YEARS EXCLUSIVE. Anion Gap 17 mmol/L MANE ([facility] CHRONIC KIDNEY DISEASE [...] INDIVIDUALA AGED 2-19 YEARS EXCLUSIVE. eGFR Non-Afr. Gabonese 71 # MEDCURTIS ([facility] [...] 2-19 YEARS EXCLUSIVE. ID Date Data Source [id number] 04/19/2020 10:22:00 AM EST MEDENT ([facility] Name Value Range Interpretation Code Description Data Chloe rce(s) Supporting Document(s) Hemoglobin A1c/Hemoglobin.total in Blood 6.0 % 4.8-5.6 Above high normal MEDENT ([facility] <content>Prediabetes: 5.7 - 6.4</content >
<content>Diabetes: >6.4</content>
<content>Glycemic control for adults with diabetes: <7.0</content>
<content></content> ID Date Data Source [id number] 01/15/2020 02:31:00 PM EDT MEDENT ([facility]) Name Value Range Interpretation Code Description Data Chloe rce(s) Supporting Document(s) Carotid Ultrasound Bilateral Laboratory test result MEDENT ([facility]) ID Date Data Source [id number] 10/12/2019 01:31:00 PM EDT MEDENT ([facility] Name Value Range Interpretation Code Description Data Chloe rce(s) Supporting Document(s) BUN 15 mg/dL 8-23 MEDENT ([facility] NORMAL RANGES Age WBC [...] HCT IS 5% LESS SOURCE FOR DATA: [facility] ([place]) 1800 OPERATION MANUAL( AUTOMATED BLOOD COUNTS AND [...] Glu 134 mg/dL 70-110 Above high normal [facility] ([facility] NORMAL RANGES [...] HCT IS 5% LESS SOURCE FOR DATA: [facility] ([place]) 1800 OPERATION MANUAL( AUTOMATED BLOOD COUNTS AND [...] 2-19 YEARS EXCLUSIVE. Creat 0.9 mg/dL 0.5-1.0 [facility] NORMAL [...] HCT IS 5% LESS SOURCE FOR DATA: [employer] DYN 1800 OPERATION MANUAL( AUTOMATED BLOOD COUNTS [...] HCT IS 5% LESS SOURCE FOR DATA: [facility] ([place]) 1800 OPERATION MANUAL( AUTOMATED BLOOD COUNTS AND [...] 2-19 YEARS EXCLUSIVE. BUN/Creatinine Ratio 16.6 CALC [facility] ([facility] NORMAL RANGES Age WBC RBC [...] HCT IS 5% LESS SOURCE FOR DATA: [facility] ([place]) 1800 OPERATION MANUAL( AUTOMATED BLOOD COUNTS AND [...] 2-19 YEARS EXCLUSIVE. K 4.6 mmol/L 3.5-5.1 [facility] ([facility] NORMAL RANGES [...] HCT IS 5% LESS SOURCE FOR DATA: [employer] ([place]) 1800 OPERATION MANUAL( AUTOMATED BLOOD COUNTS AND [...] 2-19 YEARS EXCLUSIVE. CL 105.8 mmol/L 98.0-107.0 [facility] ([facility] NORMAL RANGES Age WBC [...] HCT IS 5% LESS SOURCE FOR DATA: [employer] ([place]) 1800 OPERATION MANUAL( AUTOMATED BLOOD COUNTS AND [...] 2-19 YEARS EXCLUSIVE. Co2 24.0 mmol/L 22.0-29.0 [facility] ([facility] NORMAL RANGES Age WBC RBC [...] HCT IS 5% LESS SOURCE FOR DATA: [facility] ([place]) 1800 OPERATION MANUAL( AUTOMATED BLOOD COUNTS AND [...] 2-19 YEARS EXCLUSIVE. CA 9.9 mg/dL 8.6-10.2 [facility] ([facility] NORMAL [...] HCT IS 5% LESS SOURCE FOR DATA: [facility] ([place]) 1800 OPERATION MANUAL( AUTOMATED BLOOD COUNTS AND [...] HCT IS 5% LESS SOURCE FOR DATA: [facility] ([place]) 1800 OPERATION MANUAL( AUTOMATED BLOOD COUNTS AND [...] 2-19 YEARS EXCLUSIVE. A/G Ratio 1.6 CALC [employer] ([facility] NORMAL RANGES [...] 2-19 YEARS EXCLUSIVE. Alb 4.0 g/dL 3.4-4.8 [facility] ([facility] NORMAL [...] HCT IS 5% LESS SOURCE FOR DATA: [facility] ([place]) 1800 OPERATION MANUAL( AUTOMATED BLOOD COUNTS AND [...] HCT IS 5% LESS SOURCE FOR DATA: [facility] ([place]) 1800 OPERATION MANUAL( AUTOMATED BLOOD COUNTS AND [...] HCT IS 5% LESS SOURCE FOR DATA: [employer] DYN 1800 OPERATION MANUAL( AUTOMATED BLOOD COUNTS [...] YEARS EXCLUSIVE. Ast (Sgot) 19 U/L 0-40 [facility] NORMAL RANGES Age [...] HCT IS 5% LESS SOURCE FOR DATA: [facility] ([place]) 1800 OPERATION MANUAL( AUTOMATED BLOOD COUNTS AND [...] HCT IS 5% LESS SOURCE FOR DATA: [facility] ([place]) 1800 OPERATION MANUAL( AUTOMATED BLOOD COUNTS AND [...] 2-19 YEARS EXCLUSIVE. Tbili 0.30 mg/dL 0.0-1.2 [employer] ([facility] NORMAL RANGES Age [...] HCT IS 5% LESS SOURCE FOR DATA: [facility] ([place]) 1800 OPERATION MANUAL( AUTOMATED BLOOD COUNTS AND [...] 2-19 YEARS EXCLUSIVE. Anion Gap 17 mmol/L [facility] ([facility] NORMAL [...] HCT IS 5% LESS SOURCE FOR DATA: [facility] ([place]) 1800 OPERATION MANUAL( AUTOMATED BLOOD COUNTS AND [...] YEARS EXCLUSIVE. Osmolality-Calculated 285.8 CALC MED ENT ([facility] NORMAL RANGES Age WBC RBC [...] HCT IS 5% LESS SOURCE FOR DATA: [facility] ([place]) 1800 OPERATION MANUAL( AUTOMATED BLOOD COUNTS AND [...] HCT IS 5% LESS SOURCE FOR DATA: [employer] DYN 1800 OPERATION MANUAL( AUTOMATED BLOOD COUNTS [...] INDIVIDUALA AGED 2-19 YEARS EXCLUSIVE. eGFR Non-Afr. Gabonese 61 # MEDENT ([facility] [...] HCT IS 5% LESS SOURCE FOR DATA: [facility] ([place]) 1800 OPERATION MANUAL( AUTOMATED BLOOD COUNTS AND [...] 2-19 YEARS EXCLUSIVE. ID Date Data Source [id number] 10/12/2019 01:31:00 PM EDT MEDENT ([facility] Name Value Range Interpretation Code Description Data Chloe rce(s) Supporting Document(s) Trig 245 mg/dL 40-200 Above high normal [facility] ([facility] NORMAL RANGES Age WBC RBC [...] HCT IS 5% LESS SOURCE FOR DATA: [employer] ([place]) 1800 OPERATION MANUAL( AUTOMATED BLOOD COUNTS AND [...] 2-19 YEARS EXCLUSIVE. Chol 167 mg/dL 0-200 [facility] ([facility] NORMAL [...] HCT IS 5% LESS SOURCE FOR DATA: [employer] ([place]) 1800 OPERATION MANUAL( AUTOMATED BLOOD COUNTS AND [...] HCT IS 5% LESS SOURCE FOR DATA: [employer] ([place]) 1800 OPERATION MANUAL( AUTOMATED BLOOD COUNTS AND [...] LDL_C 71 Calc 75-129 Below low normal [facility] ( [facility] NORMAL RANGES [...] HCT IS 5% LESS SOURCE FOR DATA: [employer] ([place]) 1800 OPERATION MANUAL( AUTOMATED BLOOD COUNTS AND [...] 2-19 YEARS EXCLUSIVE. Cho/HDL Ratio 3.6 CALC [employer] ([facility] NORMAL RANGES Age WBC RBC HGB [...] HCT IS 5% LESS SOURCE FOR DATA: [employer] ([place]) 1800 OPERATION MANUAL( AUTOMATED BLOOD COUNTS AND [...] 2-19 YEARS EXCLUSIVE. ID Date Data Source [id number] 10/12/2019 01:31:00 PM EDT MEDENT ([facility]amil y [...] HCT IS 5% LESS SOURCE FOR DATA: [employer] ([place]) 1800 OPERATION MANUAL( AUTOMATED BLOOD COUNTS AND [...] 2-19 YEARS EXCLUSIVE. WBC 9.4 10E3/uL 4.1-10.9 [facility] NORMAL RANGES Age WBC RBC [...] HCT IS 5% LESS SOURCE FOR DATA: [facility] ([place]) 1800 OPERATION MANUAL( AUTOMATED BLOOD COUNTS AND [...] HCT IS 5% LESS SOURCE FOR DATA: [facility] ([place]) 1800 OPERATION MANUAL( AUTOMATED BLOOD COUNTS AND [...] EXCLUSIVE. HCT 42.1 % 37.0-51.0 [facility] ([facility] NORMAL RANGES Age WBC [...] HCT IS 5% LESS SOURCE FOR DATA: [employer] DYN 1800 OPERATION MANUAL( AUTOMATED BLOOD COUNTS [...] 2-19 YEARS EXCLUSIVE. HGB 13.9 g/dL 12.0-18.0 [facility] ([facility] NORMAL RANGES [...] HCT IS 5% LESS SOURCE FOR DATA: [facility] ([place]) 1800 OPERATION MANUAL( AUTOMATED BLOOD COUNTS AND [...] HCT IS 5% LESS SOURCE FOR DATA: [employer] DYN 1800 OPERATION MANUAL( AUTOMATED BLOOD COUNTS [...] HCT IS 5% LESS SOURCE FOR DATA: [facility] ([place]) 1800 OPERATION MANUAL( AUTOMATED BLOOD COUNTS AND [...] 2-19 YEARS EXCLUSIVE. Lym% 25.8 % 10.0-58.5 [facility] ([facility] NORMAL RANGES [...] HCT IS 5% LESS SOURCE FOR DATA: [employer] DYN 1800 OPERATION MANUAL( AUTOMATED BLOOD COUNTS [...] HCT IS 5% LESS SOURCE FOR DATA: [facility] ([place]) 1800 OPERATION MANUAL( AUTOMATED BLOOD COUNTS AND [...] 2-19 YEARS EXCLUSIVE. PLT 216 10E3/uL 140-440 [facility] NORMAL RANGES Age WBC RBC HGB [...] HCT IS 5% LESS SOURCE FOR DATA: [facility] ([place]) 1800 OPERATION MANUAL( AUTOMATED BLOOD COUNTS AND [...] 2-19 YEARS EXCLUSIVE. Lym# 2.4 10E3/uL 0.6-4.1 [facility] ([facility] NORMAL RANGES Age WBC RBC [...] HCT IS 5% LESS SOURCE FOR DATA: [facility] ([place]) 1800 OPERATION MANUAL( AUTOMATED BLOOD COUNTS AND [...] HCT IS 5% LESS SOURCE FOR DATA: [facility] ([place]) 1800 OPERATION MANUAL( AUTOMATED BLOOD COUNTS AND [...] 2-19 YEARS EXCLUSIVE. MXD% 11.5 % 0.1-24.0 [facility] ([facility] NORMAL [...] 2-19 YEARS EXCLUSIVE. Neut# 5.9 % 2.0-7.8 [facility] ([facility] NORMAL RANGES [...] HCT IS 5% LESS SOURCE FOR DATA: [facility] ([place]) 1800 OPERATION MANUAL( AUTOMATED BLOOD COUNTS AND [...] YEARS EXCLUSIVE. MXD# 1.1 10E3/uL 0.0-1.8 [facility] ([facility] NORMAL RANGES Age WBC RBC [...] HCT IS 5% LESS SOURCE FOR DATA: [facility] ([place]) 1800 OPERATION MANUAL( AUTOMATED BLOOD COUNTS AND [...] MPV 14.1 fL 9.0-13.0 Above high normal [facility] ([facility] NORMAL RANGES Age [...] 2-19 YEARS EXCLUSIVE. ID Date Data Source [id number] 06/30/2019 03:01:00 PM EST [facility] ([facility]) Name Value Range Interpretation Code Description Data Chloe rce(s) Supporting Document(s) Carotid Ultrasound Bilateral <pending> M EDENT ([facility]) Procedure Social History Code Duration Value Status Description Data Source(s ) Smoking 06/02/2020 12:00:00 AM EST Patient has never smoked co mpleted Patient has never smoked [facility] ([facility], [facility]) Smoking 06/30/2019 12:00:00 AM EST Never Smoked Cigarettes com pleted Never Smoked Cigarettes [facility] ([facility]) Vital Signs ID Date Data Source UNK Name Value Range Interpretation Code Description Data Source(s) Oxygen saturation in Arterial blood by Pulse oximetry 98 % 98 % [facility] ([facility] Body mass index (BMI) [Ratio] 31.1 kg/m2 31.1 k g/m2 [facility] ([facility] [place] body weight 110 [lb_av] 110 [lb_av] MED[facility] T ([facility] Body weight 170.00 [lb_av] 170.00 [lb_av] [facility] T ([facility] Body height 62 [in_i] 62 [in_i] [facility] ([facility] 5'2" Respiratory rate [...] k g/m2 [facility] ([facility] [place] body weight 110 [lb_av] 110 [lb_av] MED[facility] T ([facility] Body weight 170.00 [lb_av] 170.00 [lb_av] MED[facility] T ([facility] Body height 62 [in_i] 62 [in_i] [facility] ([facility] 5'2" Respiratory rate [...] 23.8 k g/m2 [facility] ([facility]) Body weight 58.968 kg 58.968 kg [facility] ([facility] Body weight 130.00 [lb_av] 130.00 [lb_av] MEDEN T ([facility]) Body height 62 [in_i] 62 [in_i] [facility] ([facility]) 5'2" Diastolic blood pressure 60 mm[Hg] 60 mm[Hg] [facility] ([facility]) Systolic blood pressure 90 mm[Hg] 90 mm[Hg] M EDENT ([facility]) Diastolic blood pressure 60 mm[Hg] 60 mm[Hg] [facility] ([facility]) Systolic blood pressure 90 mm[Hg] 90 mm[Hg] M EDENT ([facility]) Oxygen saturation in Arterial blood by Pulse oximetry 97 % 97 % [facility] ([facility] Body mass index (BMI) [Ratio] 29.3 kg/m2 29.3 k g/m2 [facility] ([facility] [place] body weight 110 [lb_av] 110 [lb_av] MEDEN T ([facility] Body weight 160.00 [lb_av] 160.00 [lb_av] MEDEN T ([facility] Body height 62 [in_i] 62 [in_i] [facility] ([facility] 5'2" Respiratory rate 16 /min 16 /min [facility] ( [facility] Heart rate 72 /min 72 /min [facility] ([facility] Body temperature 97.7 [degF] 97.7 [degF] [facility] ([facility] Diastolic blood pressure 78 mm[Hg] 78 mm[Hg] [facility] ([facility] Systolic blood pressure 136 mm[Hg] 136 mm[Hg] M EDENT ([facility] Oxygen saturation in Arterial blood by Pulse oximetry 96 % 96 % [facility] ([facility] Body mass index (BMI) [Ratio] 29.3 kg/m2 29.3 k g/m2 [facility] ([facility] Body weight 160.38 [lb_av] 160.38 [lb_av] MEDEN T ([facility] Body height 62 [in_i] 62 [in_i] [facility] ([facility] 5'2" Respiratory rate [...] pressure 126 mm[Hg] 126 mm[Hg] e CW1 ([facility]) Body mass index (BMI) [Ratio] 27.70 kg/m2 27.70 kg/m2 eCW1 ([facility]) Body height [in_us] eCW1 ([facility]) Body weight Measured 161.4 [lb_av] 161.4 [lb_av ] W1 ([facility]) Diastolic blood pressure 74 mm[Hg] 74 mm[Hg] eCW1 ([facility]) Body weight Measured 164.2 [lb_av] 164.2 [lb_av ] eCW1 ([facility]) Body height [in_us] eCW1 ([facility]) Body mass index (BMI) [Ratio] 28.18 kg/m2 28.18 kg/m2 eCW1 ([facility]) Systolic blood pressure 134 mm[Hg] 134 mm[Hg] e CW1 ([facility]) Diastolic blood pressure 82 mm[Hg] 82 mm[Hg] eCW1 ([facility]) Body mass index (BMI) [Ratio] 24.7 kg/m2 [...] [Ratio] 26.5 kg/m2 26.5 k g/m2 [facility] ([facility], [facility]) Body height 62 [in_i] 62 [in_i] [facility] ([facility], [facility]) 5'2" Body weight 145.00 [lb_av] 145.00 [lb_av] MEDEN T ([facility], [facility]) Body temperature 97.9 [degF] 97.9 [degF] [facility] ([facility], [facility]) Oxygen saturation in Arterial blood by Pulse oximetry 96 % 96 % [facility], [facility]) Respiratory rate 17 /min 17 /min [facility] ( [facility], [facility]) Heart rate 71 /min 71 /min [facility] ([facility], [facility]) Diastolic blood pressure 70 mm[Hg] 70 mm[Hg] [facility] ([facility], [facility]) Systolic blood pressure 161 mm[Hg] 161 mm[Hg] M EDENT ([facility], [facility]) Patient Treatment Plan of Care Planned Activity Planned Date Details Description Data Source (s) Betamethasone 0.0005 MG/MG Augmented Topical Ointment 09/15/2019 12:00:00 AM EDT eCW1 ([facility]) Triamcinolone Acetonide 0.001 MG/MG Topical Ointment 020 12:00:00 AM EST eCW1 ([facility])
[2020-07-10] MEDS ORDERED: ELIQ5TAB PO (11:31)
[2020-07-10] MEDS ORDERED: ECOT81TA5 PO (11:31)
[2020-07-10] MEDS ORDERED: LORA24TA PO (11:31)
[2020-07-10 11:39] LABS: BASO # 0.1 10^3/uL (0.0-0.2); BASO % 1.3 % (0.0-1.0); EOS # 0.4 10^3/uL (0.0-0.5); EOS % 5.5 % (0.0-3.0); HEMATOCRIT 45.5 % (36.0-47.0); HEMOGLOBIN 14.5 g/dl (12.0-15.5); LYMPH # 1.5 10^3/uL (1.5-5.0); LYMPH % 18.8 % (24.0-44.0); MEAN CORPUSCULAR HEMOGLOBIN 27.9 pg (27.0-33.0); MEAN CORPUSCULAR HGB CONC 31.9 g/dl (32.0-36.5); MEAN CORPUSCULAR VOLUME 87.7 fl (80.0-96.0); MONO # 1.4 10^3/uL (0.0-0.8); MONO % 17.3 % (2.0-8.0); NEUTROPHILS # 4.5 10^3/uL (1.5-8.5); NEUTROPHILS % 56.3 % (36.0-66.0); PLATELET COUNT, AUTOMATED 191 10^3/uL (150-450); RED BLOOD COUNT 5.19 10^6/uL (4.00-5.40)
[2020-07-10] MEDS ORDERED: ISTA0.5S OP (11:40)
[2020-07-10] MEDS ORDERED: OCUVTAB PO (11:40)
[2020-07-10 11:54] LABS: CALCIUM LEVEL 9.6 MG/DL (8.8-10.2); CREATININE FOR GFR 1.03 MG/DL (0.55-1.30); GLOMERULAR FILTRATION RATE 55.2 (>39); POTASSIUM SERUM 3.8 MEQ/L (3.5-5.1)
[2020-07-10 12:09] LABS: CK-MB VALUE MASS < 1.0 NG/ML (<3.6); CPK CREATINE PHOSPHOKINASE 58 U/L (26-192); MB/CK RELATIVE INDEX 1.72 (< OR =4); TROPONIN I < 0.02 NG/ML (< 0.10)
--- NOTE | 2020-07-10 12:52 | REP ---
INDICATION: syncope. COMPARISON: Comparison head CT study 01 June 2018.. TECHNIQUE: Helical scanning is acquired. 5 mm axial images were reformatted. Coronal MPR images were generated. FINDINGS: Bone window settings demonstrate an intact bony calvarium. There is no evidence of skull fracture or incidental bony calvarial lesion. The visualized paranasal sinuses appear clear. No intraorbital abnormality is seen. On soft tissue window setting images; the lateral, third, and fourth ventricles are normal in size and position. Keith-white differentiation pattern is normal above and below the tentorium. There are is no evidence of intracranial hemorrhage. No mass, edema, infarction, or midline shift is seen. No extra-axial fluid collection is appreciated. There is mild generalized volume loss. Small vessel changes are noted mild in degree. Vascular calcification is noted extensively in the distal vertebral and distal internal carotid arteries bilaterally. IMPRESSION: Generalized volume loss and vascular calcification. No acute intracranial abnormality.. <Electronically signed by Leeroy Matos > 07/10/20 1306
[2020-07-10] MEDS ORDERED: TIMO0.5S29 OU (14:22)
[2020-07-10] MEDS ORDERED: LATA0.0015 OU (14:22)
[2020-07-10] MEDS ORDERED: FLUTISP NARES (14:22)
[2020-07-10] MEDS ORDERED: OCUVTAB4 PO (14:22)
[2020-07-10 14:26] LABS: RSV AMPLIFICATION NEGATIVE (NEGATIVE)
[2020-07-10] MEDS ORDERED: ACETAMINOPHEN TAB 650MG DOSE (2X325MG) PO PRN (14:45)
[2020-07-10] MEDS ORDERED: FLUTICASONE PROP 0.05% NASAL SPRAY 16 GM (FLONASE) NARES PRN (14:45)
--- NOTE | 2020-07-10 14:56 | HPEPDOC ---
[facility] Medical History & Physical Date of Admission Jul 10, 2020 Date of Service: Jul 10, 2020 History and Physical Chief complaint: Presents to the ER after she had syncopized while at [facility] History of present illness: Patient is a 79-year-old female who presented to the emergency room brought in by ambulance after she had syncopized while sitting in [facility]. Patient has baseline dementia and is usually only oriented to person and a little to time. Patient has a fellow sister from the home that is present at the bedside providing details to her history. Patient was sitting up at [facility] and then slumped over while in the chair, did not have any tonic-clonic activity of her muscles do not have any loss of control over bowel or bladder, did not have any frothing of her mouth or tongue biting. Patient was placed in a wheelchair and taken to the [facility]. While she was there, patient was confused and was unsure of how she had gotten there. EMS was then called and patient was brought to the emergency room for further evaluation. Upon arrival to emergency room, patient was back to her baseline level of mentation. Hospital services called for further evaluation. Currently patient denies any nausea, vomiting, chest pain, shortness of breath, palpitations, abdominal pain, constipation, diarrhea, or urinary discomfort. Patient has not experience any recent fevers or chills. Patients fellow sister has reported that she has received a second dose of her Moderna COVID19 vaccine yesterday. She reports her appetite is fairly normal and his unaware of any recent changes in her weight. Past Medical History: Dementia A. fib (on Eliquis) HTN DLP GERD Past Surgical History: Carotid aneurysm (s/p repair [address] Cardona in [place]) Appendectomy Left foot surgery Left knee surgery Allergies: See below Medications: See below Family History: - Reviewed on non-contributory Social History: - Denies the use of alcohol, tobacco or illicit drugs - Denies recent travel or sick contacts - Lives at [facility] in [place], [place] Review of Systems: 10 point review of systems complete, all negative otherwise stated in HPI Physical exam: - Vitals: BP [159/71], HR [66], RR [16], Sat [97%RA], Temp [96.8F] - General: Lying in bed, Speaking in full sentences, AAOx1 (Person, Year, Not to place) - HEENT: NC, AT, PERRLA - CVS: RRR, +S1S2, - Murmurs / rubs / gallops - Lungs: Fair air entry bilaterally, No appreciable wheezing / rales / rhonchi - Abdomen: Soft, Non-distended, Non-tender - Extremities: No lower extremity edema, No calf tenderness - Neuro: Moving all four extremities - Skin: No visible rashes Labs: See below Imaging: CT head 07/10: Generalized volume loss and vascular calcification. No acute intracranial abnormality. EKG: See below Assessment and Plan: Syncope - possibly 2/2 vasovagal episode, less likely 2/2 seizure history, less likely 2/2 cardiac etiology - Presented to the ER after she had passed out while at [facility] - No seizure like activity noted, no bowel / bladder incontinence / tongue biting - Recovered to baseline reactively rapidly; suggesting seizure activity is less likely - Denied any CP, SOB, palpitations - Previous history of Phenytoin use; but was stopped ~2 years ago - Previous EEG was essentially negative - Returned to baseline upon arrival to ED - Currently hemodynamically stable; will check orthostatic vital signs - Lab work benign; Troponin x 1 negative - Imaging noted - EKG reviewed - Will start telemetry / troponin trend / ECHO / EEG / MRI brain - Will order PT Elevated Cr from baseline - Cr of 0.7 at baseline - Cr on admission of 1.0 - Will avoid nephrotoxic medications - Will start gentle IV fluid hydration for 1 liter only Dementia - Lives at [facility] in [place] with her sisters - Oriented to person; not always to time / place - No mobility equipment used - History of delirium and combative state - Will place bedside sitter Paroxysmal A. fib - c/w rate control with metoprolol - c/w full anticoagulation with Eliquis History of Carotid artery Aneurysm - s/p Repair ~[address] Cardona in [place] - Was taken off Plavix; Eliquis was started - c/w ASA and Eliquis HTN - BP mildly elevated - c/w Amlodipine and Metoprolol with holding parameters DLP - c/w Atorvastatin and ASA 81 GERD / Hiatal hernia - Currently not on any medications DVT prophylaxis - Will c/w full anticoagulation with Eliquis Vital Signs Vital Signs Date Time Temp Pulse Resp B/P (MAP) Pulse Ox O2 Delivery O2 Flow Rate FiO2 07/10/20 13:00 66 159/71 (100) 97 Room Air 07/10/20 10:56 96.8 16 Laboratory Data Labs 24H Laboratory Tests 2 07/10/20 11:17: Immature Granulocyte % (Auto) 0.8, Neutrophils (%) (Auto) 56.3, Lymphocytes (%) (Auto) 18.8L, Monocytes (%) (Auto) 17.3H, Eosinophils (%) (Auto) 5.5H, Basophils (%) (Auto) 1.3H, Neutrophils # (Auto) 4.5, Lymphocytes # (Auto) 1.5, Monocytes # (Auto) 1.4H, Eosinophils # (Auto) 0.4, Basophils # (Auto) 0.1, Nucleated Red Blood Cells % (auto) 0.0, Anion Gap 7L, Glomerular Filtration Rate 55.2, Calcium Level 9.6, Total Creatine Kinase 58, Creatine Kinase MB < 1.0, Creatine Kinase MB Relative Index 1.72, Troponin I < 0.02 07/10/20 13:42: Coronavirus (COVID-19)(PCR) NEGATIVE, Influenza Type A (RT-PCR) NEGATIVE, Influ gail Type B (RT-PCR) NEGATIVE, Respiratory Syncytial Virus (PCR) NEGATIVE CBC/BMP Laboratory Tests 07/10/20 11:17 Home Medications Scheduled Amlodipine Besylate (Amlodipine Besylate) 5 Mg Tablet, 5 MG PO DAILY Apixaban (Eliquis) 5 Mg Tablet, 5 MG PO BID Aspirin (Ecotrin) 81 Mg Tablet.dr, 81 MG PO DAILY Atorvastatin Calcium (Atorvastatin Calcium) 80 Mg Tab, 80 MG PO DAILY Latanoprost/Pf (Latanoprost 0.005% Eye Drop) 7.5 Ml Drops, 1 DROP OU QHS Metoprolol Succinate (Metoprolol Succinate) 25 Mg Tab, 25 MG PO DAILY Timolol Maleate (Timolol Maleate) 0.5% 5ML Drops, 1 DROP OU BID Vit A/Vit C/Vit E/Zinc/Copper (Preservision Areds Tablet) 1 Each Tablet, 1 TAB PO BID Scheduled PRN Fluticasone Propionate (Fluticasone Propionate) 16 Gm [place].susp, 2 SPRAYS NARES DAILY PRN for ALLERGIES Allergies Coded Allergies: levofloxacin (Verified Adverse Reaction, Mild, NAUSEA, VOMITING, LEG MUSCLE PAIN, 09/06/18) AMY NAVARRO MD Jul 10, 2020 14:56
[2020-07-10] MEDS ORDERED: NS 1,000 ML IV SCH (15:00)
--- OUTSIDE RECORDS SUMMARY | 2020-07-10 15:07 | CCD ---
Author Author [facility] Organization [facility] Address Unknown Phone Unavailable Care Team Providers Care Test Inspection Engineer Name Role Phone Santos SMITH MD Unavailable [...] SMITH MD Unavailable Unavailable LUIS H RYAN UHGHES Unavailable Unavailable LUIS H RYAN HUGHES Unavailable [...] Unavailable MCELHERAN, SELWYN PA Unavailable Unavailable MCELHERAN, ESLWYN PA Unavailable Unavailable Sutherland, Bren SECONDARY ART TEACHER Unavailable Unavailable Sutherland, Bren SECONDARY ART TEACHER Unavailable Unavailable Sutherland, Bren SECONDARY ART TEACHER Unavailable Unavailable Sutherland, Bren SECONDARY ART TEACHER Unavailable Unavailable Sutherland, Bren SECONDARY ART TEACHER Unavailable Unavailable Sutherland, Bren SECONDARY ART TEACHER Unavailable Unavailable Sutherland, Bren SECONDARY ART TEACHER Unavailable Unavailable Sutherland, Bren SECONDARY ART TEACHER Unavailable Unavailable Sutherland, Bren SECONDARY ART TEACHER Unavailable Unavailable Sutherland, Bren SECONDARY ART TEACHER Unavailable Unavailable Sutherland, Bren SECONDARY ART TEACHER Unavailable Unavailable Santos SMITH MD Unavailable Unavailable [...] Unavailable Unavailable Santos SMITH MD Unavailable Unavailable aSntos SMITH MD Unavailable Unavailable Santos SMITH MD [...] A SELWYN PA Unavailable Unavailable LETTIERE, A SEWLYN PA Unavailable Unavailable LETTIERE, A SELWYN PA Unavailable Unavailable LETTIERE, A SELWYN PA Unavailable Unavailable LETTIERE, A SELWYN PA Unavailable Unavailable LETTIERE, A SELWYN PA Unavailable Unavailable LETTIERE, A SELWYN PA Unavailable Unavailable Timoteo, V GRETEL PA-C Unavailable Unavailable Stanley, V GRETEL PA-C Unavailable Unavailable Stanley, V GRETEL PA-C Unavailable Unavailable Timoteo, V GRETEL PA-C Unavailable Unavailable Stanley, V GRETEL PA-C Unavailable Unavailable Stanley, V GRETEL PA-C Unavailable Unavailable Stanley, V GRETEL PA-C Unavailable Unavailable Re-disclosure Warning [...] is protected by Article 27-F of the [facility] Public Health law. If you continue you may have access to information: Regarding HIV / AIDS; Provided by facilities licensed or operated by the [facility] Office of Mental Health; or Provided by the [facility] Office for People With Developmental Disabilities. If such information is present, then the following [facility] mandated warning applies: This information has been [...] law may result in a fine or long term sentence or both. A general authorization for [...] Source(s ) Outpatient Attender: RYAN SMITH MD [facility] 01/2021 02:00:00 PM EST MED[facility] ([facility] OFFICE OUTPATIENT NEW 30 MINUTES Attender: SELWYN KING Physical Therapy 06/06/2020 12:00:00 PM EST MEDENT ([facility]) Outpatient Attender: Bren chinchilla 06/02/2020 08:30:00 AM EST MEDENT ([facility] Outpatient Attender: RYAN SMITH MD [facility] 09:00:00 AM EST MED[facility] ([facility] Outpatient Attender: GRETEL CHAVEZ.LANDY-SJPEmoryLANDY 04/2020 12:00:00 AM EST - 04/07/2020 02:31:34 PM EST [facility] [address] [place], [place] [id number] 01/20/2020 12:00:00 AM EDT [facility]CW1 [facility] Outpatient Attender: RYAN SMITH MD [facility] 07/2019 01:30:00 PM EDT MEDENT ([facility] Outpatient Attender: RYAN SMITH MD [facility] 01:15:00 PM EDT MEDENT ([facility] [address] [place] [phone] 09/15/2019 12:00:00 AM EDT eCW1 ([facility]) [facility] [address] [place] [phone] 07/29/2019 12:00:00 AM EST eCW1 ([facility]) Outpatient Referrer: RYAN SMITH MD 06/23/2019 01:32:00 PM EST [facility] Outpatient Attender: SELWYN eubanks 06/19/2019 03:15:00 PM EST MEDENT ([facility]) Medications Medication Brand Name Start Date Product Form Dose Route Admi nistrative Instructions Pharmacy Instructions Status Indications Reaction Description Data Source(s) Clotrimazole 10 MG/ML Topical Cream Clotrimazole 01/01/2020 12:00:00 AM EDT active MEDENT ([facility] Betamethasone 0.0005 MG/MG Augmented Top ical Ointment Betamethasone Dipropionate Aug 0.05 % Betamethasone Dipropionate Aug 0.05 % 09/15/2019 12:00:00 AM EDT active 1 application eCW1 ( [facility]) Triamcinolone Acetonide 0.001 MG/MG Topi jaz Ointment Triamcinolone Acetonide 0.1 % Triamcinolone Acetonide 0.1 % 07/29/2019 12:00:00 AM EST active 1 application eCW1 ([facility]) Clotrimazole 10 MG/ML Topical Cream Clotrimazole 05/06/2019 12:00:00 AM EST completed MEDENT ([facility]) Prednisone 10 MG Oral Tablet Prednisone 05/06/2019 12:00:00 AM EST ORAL completed MEDENT ([facility]) Insurance Providers Payer name Policy type / Coverage type Policy ID Covered republican ID Covered republican's relationship to alexis Policy Alexis Plan Information MEDICARE BLUE PPO 306 [id number] SP [id number] EMEDNY [id number] SP [id number] [place] P[place] 302/307 [id number] SP [id number] [place] PPO 302/307 [id number] SP [id number] MEDICARE BLUE PPO 306 [id number] SP [id number] EMEDNY [id number] SP [id number] MEDICARE [id number] SP [id number] EXCELLUS BCBS [id number] Davina VYY [id number] MEDICARE [id number] Davina [id number] U05 BCBS EMPIRNicole [facility] MEDICAID [id number] SP [id number] MEDICARE [id number] SP [id number] [id number] MEDICAID M [id number] S [id number] MEDICARE C [id number] S [id number] [id number] EXCELLUS BCBS MEDICARE [id number] Davina [id number] Medicare Part B Medicare Primary [id number] Self [id number] Medicaid Medigap Part B [id number] Self [id number] BCBS Facets Health Maintenance Organization (HMO) [id number] Self [id number] Medicare Part B Medicare Primary [id number] Self [id number] [facility] Medicare Solutions Commercial [id number] Self [id number] MEDICAID [id number] SP [id number] MEDICARE COMPLETE [id number] SP [id number] [place] Medig[place] Part B [id number] Self [id number] BCBS/Excellus Medigap Part B [id number] Self [id number] Medicare Natl Gov't Servi Medicare Primary [id number] Self [id number] [place] PPO 302/[phone] [id number] SP [id number] Medicare Part B Medicare Primary [id number] Self [id number] Medicaid Medigap Part B [id number] Self [id number] BCBS Facets Health Maintenance Organization (HMO) [id number] Self [id number] Medicare Part B Medicare Primary [id number] Self [id number] [employer]URE [employer]ORIZONS [id number] S [id number] BLUE CROSS [id number] S [id number] MCRB [id number] S [id number] A MEDICARE [id number] S [id number] A MEDICAID [id number] S [id number] MEDICAID PROF FEES UNAVAILABLE S UNAVAILABLE HUMANA CLAIMS MCR [id number] S [id number] MEDICARE COMPLETE [id number] SP [id number] SECURE HORIZONS [id number] S [id number] MEDICARE COMPLETE-[facility] O [id number] O [id number] MEDICARE/NATIONAL GOVT SVCS [id number] A SP [id number] A MEDICARE COMPLETE [id number] S [id number] MEDICARE COMPLETE [id number] SP [id number] Problems, Conditions, and Diagnoses Code Display Name Description Problem Type Effective Dates Data Source(s) I48.91 Unspecified atrial fibrillation Unspecified atri al fibrillation Diagnosis 04/07/2020 01:28:31 PM EST [facility] Surgeries/Procedures Procedure Description Date Indications Data Source(s) ARTHROCENTESIS ASPIR&/INJECTION MAJOR JT/BURSA 021 12:00:00 AM EST MEDENT ([facility]) RADEX SHOULDER COMPLETE MINIMUM 2 VIEWS 06/06/2020 12: 00:00 AM EST MEDENT ([facility] ) DUPLEX SCAN EXTRACRANIAL ART COMPL BI STUDY 01/15/2020 12:00:00 AM EDT MED[facility] ([facility]) Office Visit, Est Pt., Level 3 PC 09/15/2019 12:00:00 AM EDT eCW1 ([facility]) DESTRUCT LESION, 1-14 09/15/2019 12:00:00 AM EDT eCW1 ([facility]) DESTROY LESIONS, 2-14 07/29/2019 12:00:00 AM EST eCW1 ([facility]) DESTROY BENIGN/PREMLG LESION 07/29/2019 12:00:00 AM ES T eCW1 ([facility]) Office Visit, New Pt., Level 3 PC 07/29/2019 12:00:00 AM EST eCW1 ([facility]) DUPLEX SCAN EXTRACRANIAL ART COMPL BI STUDY 06/30/2019 12:00:00 AM EST MED[facility] ([facility]) Results ID Date Data Source [id number] 06/23/2020 09:16:00 PM EST [facility] ([facility] Name Value Range Interpretation Code Description Data Chloe rce(s) Supporting Document(s) Laboratory test finding (navigational concept) 0.00 ng/mL 0 .00-0.08 Normal (applies to non-numeric results) [facility] ([facility] ID Date Data Source [id number] 06/23/2020 03:01:00 PM EST MEDENT ([facility] Name Value Range Interpretation Code Description Data Chloe rce(s) Supporting Document(s) Laboratory test finding (navigational concept) 0.00 ng/mL 0 .00-0.08 Normal (applies to non-numeric results) MEDENT ([facility] ID Date Data Source [id number] 06/23/2020 02:51:00 PM EST MEDENT ([facility] Name Value Range Interpretation Code Description Data Chloe rce(s) Supporting Document(s) Creatinine For GFR 0.78 mg/dL 0.55-1.30 Normal (applies to non -numeric results) MEDENT ([facility] Blood Urea Nitrogen 19 mg/dL 7-18 Above high normal MEDENT ([facility] Glucose, Fasting 102 mg/dL 70-100 Above high normal M EDENT ([facility] Potassium Serum 4.0 meq/L 3.5-5.1 Normal (applies to non-numeric results) MED[facility] ([facility] Sodium Level 142 meq/L 136-145 Normal (applies to non-numeric res ults) MED[facility] ([facility] Glomerular Filtration Rate Laboratory test result Normal (applies to non- numeric results) [facility] ([facility] ) <content>Units are mL/min/1.73 m2</content>
<content></content>
<content>Chronic Kidney Disease Staging per NKF:</content>
<content></content>
<content>Stage I & II GFR >=60 Normal to Mildly Decreased</content>
<content>Stage III GFR 30-59 Moderately Decreased</content>
<content>Stage IV GFR 15-29 Severely Decreased</content>
<content>Stage V GFR <15 Very Little GFR Left</content>
<content>ESRD GFR <15 on INJECTION WAX MOLDER</content>
<content></content> Chloride Level 104 meq/L 98-107 Normal (applies to non-numeric r esults) MED[facility] ([facility] Anion Gap 10 meq/L 8-16 Normal (applies to non-numeric resul ts) MED[facility] ([facility] Carbon Dioxide Level 28 meq/L 21-32 Normal (applies to non-num jm results) [facility] ([facility] Calcium Level 9.7 mg/dL 8.8-10.2 Normal (applies to non-numeric re sults) MEDENT ([facility] ID Date Data Source [id number] 06/23/2020 02:51:00 PM EST MEDENT ([facility] Name Value Range Interpretation Code Description Data Chloe rce(s) Supporting Document(s) White Blood Count 16.0 10 4.0-10.0 Above high normal MEDENT ([facility] Red Blood Count 5.05 10 4.00-5.40 Normal (applies to non-numeric results) MED[facility] ([facility] Hematocrit 44.4 % 36.0-47.0 Normal (applies to non-numeric resul ts) MEDENT ([facility] Hemoglobin 14.3 g/dL 12.0-15.5 Normal (applies to non-numeric resul ts) MED[facility] ([facility] Mean Corpuscular Volume 87.9 fl 80.0-96.0 Normal ( applies to non-numeric results) MEDENT ([facility] ) Mean Corpuscular HGB Conc 32.2 g/dL 32.0-36.5 Normal (applies to non-numeric results) MED[facility] ([facility] ) Mean Corpuscular Hemoglobin 28.3 pg 27.0-33.0 Norm al (applies to non-numeric results) [facility] ([facility] ) Red Cell Distribution Width 15.8 % 11.5-14.5 Above high normal MEDENT ([facility] Platelet Count, Automated 224 10 150-450 Normal (applies to non-numeric results) MED[facility] ([facility] ) Neutrophils % 71.1 % 36.0-66.0 Above high normal MEDE NT ([facility] Eos % 1.5 % 0.0-3.0 Normal (applies to non-numeric resul ts) MED[facility] ([facility] [place] % 12.7 % 0.0-5.0 Above high normal MEDENT ([facility] Lymph % 13.6 % 24.0-44.0 Below low normal MEDENT ( [facility] Baso % 0.5 % 0.0-1.0 Normal (applies to non-numeric resul ts) MED[facility] ([facility] Immature Granulocyte % 0.6 % 0-3.0 Normal (applies to non-n umeric results) MED[facility] ([facility] Nucleated Red Blood Cell % 0.0 % 0-0 Normal (applies to n on-numeric results) MED[facility] ([facility] Neutrophils # 11.4 10 1.5-8.5 Above high normal MEDE NT ([facility] Lymph # 2.2 10 1.5-5.0 Normal (applies to non-numeric resul ts) MEDENT ([facility] [place] # 2.0 10 0.0-0.8 Above high normal MEDENT ([facility] Eos # 0.2 10 0.0-0.5 Normal (applies to non-numeric resul ts) MEDENT ([facility] Baso # 0.1 10 0.0-0.2 Normal (applies to non-numeric resul ts) MEDENT ([facility] ID Date Data Source [id number] 06/02/2020 12:12:00 PM EST MEDENT ([facility]) Name Value Range Interpretation Code Description Data Chloe rce(s) Supporting Document(s) Red Blood Count 5.07 10 4.00-5.40 MEDENT ([facility]) White Blood Count 12.4 10 4.0-10.0 MEDENT ([facility]) Hematocrit 45.3 % 36.0-47.0 MED[facility] Mean Corpuscular Volume 89.3 fl 80.0-96.0 M EDENT ([facility], [facility]) Hemoglobin 14.5 g/dL 12.0-15.5 MEDENT ([facility], [facility]) Red Cell Distribution Width 14.7 % 11.5-14.5 [facility] ([facility], [facility]) Mean Corpuscular Hemoglobin 28.6 pg 27.0-33.0 MEDENT ([facility], [facility]) Mean Corpuscular HGB Conc 32.0 g/dL 32.0-36.5 [facility] ([facility], [facility]) Nucleated Red Blood Cell % 0.0 % 0-0 MED ENT ([facility], [facility]) Platelet Count, Automated 231 10 150-450 [facility] ([facility]) ID Date Data Source [id number] 04/19/2020 10:24:00 AM EST MEDENT ([facility] Name Value Range Interpretation Code Description Data Chloe rce(s) Supporting Document(s) Trig 207 mg/dL 40-200 Above high normal MEDENT ([facility] CHRONIC KIDNEY DISEASE [...] YEARS EXCLUSIVE. Cho/HDL Ratio 3.9 Calc [facility] ([facility] CHRONIC KIDNEY DISEASE STAGING PER [...] YEARS EXCLUSIVE. LDL_C 104 Calc 75-129 MEDENT ([facility] CHRONIC KIDNEY DISEASE STAGING PER [...] 2-19 YEARS EXCLUSIVE. ID Date Data Source [id number] 04/19/2020 10:24:00 AM EST MEDENT ([facility] Name Value Range Interpretation [...] YEARS EXCLUSIVE. BUN/Creatinine Ratio 24.7 CALC MEDENT ([facility] CHRONIC KIDNEY [...] YEARS EXCLUSIVE. Na 140 mmol/L 136-145 [facility] CHRONIC KIDNEY DISEASE [...] YEARS EXCLUSIVE. CA 9.8 mg/dL 8.6-10.2 MED[facility] ([facility] CHRONIC KIDNEY [...] 2-19 YEARS EXCLUSIVE. Globulin 2.7 CALC [facility] CHRONIC KIDNEY DISEASE [...] YEARS EXCLUSIVE. Anion Gap 17 mmol/L MANE [facility] CHRONIC KIDNEY DISEASE [...] INDIVIDUALA AGED 2-19 YEARS EXCLUSIVE. eGFR Non-Afr. [place]er 71 # MEDCURTIS ([facility] [...] 2-19 YEARS EXCLUSIVE. ID Date Data Source [id number] 04/19/2020 10:22:00 AM EST MEDENT ([facility] Name Value Range Interpretation Code Description Data Chloe rce(s) Supporting Document(s) Hemoglobin A1c/Hemoglobin.total in Blood 6.0 % 4.8-5.6 Above high normal MEDENT ([facility] <content>Prediabetes: 5.7 - 6.4</content >
<content>Diabetes: >6.4</content>
<content>Glycemic control for adults with diabetes: <7.0</content>
<content></content> ID Date Data Source [id number] 01/15/2020 02:31:00 PM EDT MEDENT ([facility]) Name Value Range Interpretation Code Description Data Chloe rce(s) Supporting Document(s) Carotid Ultrasound Bilateral Laboratory test result MEDENT ([facility]) ID Date Data Source [id number] 10/12/2019 01:31:00 PM EDT MEDENT ([facility] Name Value Range Interpretation Code Description Data Chloe rce(s) Supporting Document(s) BUN 15 mg/dL 8-23 MEDENT ([facility] NORMAL RANGES Age WBC [...] HCT IS 5% LESS SOURCE FOR DATA: [email or web address] 1800 OPERATION MANUAL( AUTOMATED BLOOD COUNTS AND [...] Glu 134 mg/dL 70-110 Above high normal [facility] ([facility] NORMAL RANGES Age [...] HCT IS 5% LESS SOURCE FOR DATA: [email or web address] 1800 OPERATION MANUAL( AUTOMATED BLOOD COUNTS AND [...] 2-19 YEARS EXCLUSIVE. Creat 0.9 mg/dL 0.5-1.0 [facility] ([facility] NORMAL [...] HCT IS 5% LESS SOURCE FOR DATA: [employer] DYN 1800 OPERATION MANUAL( AUTOMATED BLOOD COUNTS [...] HCT IS 5% LESS SOURCE FOR DATA: [email or web address] 1800 OPERATION MANUAL( AUTOMATED BLOOD COUNTS AND [...] 2-19 YEARS EXCLUSIVE. BUN/Creatinine Ratio 16.6 CALC [facility] ([facility] NORMAL RANGES Age WBC RBC [...] HCT IS 5% LESS SOURCE FOR DATA: [email or web address] 1800 OPERATION MANUAL( AUTOMATED BLOOD COUNTS AND [...] 2-19 YEARS EXCLUSIVE. K 4.6 mmol/L 3.5-5.1 [facility] ([facility] NORMAL [...] HCT IS 5% LESS SOURCE FOR DATA: [employer] 1800 OPERATION MANUAL( AUTOMATED BLOOD COUNTS AND [...] 2-19 YEARS EXCLUSIVE. CL 105.8 mmol/L 98.0-107.0 [facility] ([facility] NORMAL RANGES Age WBC RBC [...] HCT IS 5% LESS SOURCE FOR DATA: [employer] 1800 OPERATION MANUAL( AUTOMATED BLOOD COUNTS AND [...] 2-19 YEARS EXCLUSIVE. Co2 24.0 mmol/L 22.0-29.0 [facility] ([facility] NORMAL RANGES Age WBC [...] HCT IS 5% LESS SOURCE FOR DATA: [employer] 1800 OPERATION MANUAL( AUTOMATED BLOOD COUNTS AND [...] 2-19 YEARS EXCLUSIVE. CA 9.9 mg/dL 8.6-10.2 [facility] ([facility] NORMAL [...] HCT IS 5% LESS SOURCE FOR DATA: [email or web address] 1800 OPERATION MANUAL( AUTOMATED BLOOD COUNTS AND [...] HCT IS 5% LESS SOURCE FOR DATA: [employer] 1800 OPERATION MANUAL( AUTOMATED BLOOD COUNTS AND [...] 2-19 YEARS EXCLUSIVE. A/G Ratio 1.6 CALC [employer] ([facility] NORMAL RANGES [...] 2-19 YEARS EXCLUSIVE. Alb 4.0 g/dL 3.4-4.8 [facility] ([facility] NORMAL [...] HCT IS 5% LESS SOURCE FOR DATA: [email or web address] 1800 OPERATION MANUAL( AUTOMATED BLOOD COUNTS AND [...] HCT IS 5% LESS SOURCE FOR DATA: [email or web address] 1800 OPERATION MANUAL( AUTOMATED BLOOD COUNTS AND [...] HCT IS 5% LESS SOURCE FOR DATA: [employer] DYN 1800 OPERATION MANUAL( AUTOMATED BLOOD COUNTS [...] YEARS EXCLUSIVE. Ast (Sgot) 19 U/L 0-40 [facility] ([facility] NORMAL RANGES Age [...] HCT IS 5% LESS SOURCE FOR DATA: [email or web address] 1800 OPERATION MANUAL( AUTOMATED BLOOD COUNTS AND [...] HCT IS 5% LESS SOURCE FOR DATA: [employer] 1800 OPERATION MANUAL( AUTOMATED BLOOD COUNTS AND [...] 2-19 YEARS EXCLUSIVE. Tbili 0.30 mg/dL 0.0-1.2 [employer] ([facility] NORMAL RANGES Age [...] HCT IS 5% LESS SOURCE FOR DATA: [employer] 1800 OPERATION MANUAL( AUTOMATED BLOOD COUNTS AND [...] 2-19 YEARS EXCLUSIVE. Anion Gap 17 mmol/L [facility] ([facility] NORMAL [...] HCT IS 5% LESS SOURCE FOR DATA: [employer] 1800 OPERATION MANUAL( AUTOMATED BLOOD COUNTS AND [...] YEARS EXCLUSIVE. Osmolality-Calculated 285.8 CALC MED ENT ([facility] NORMAL RANGES Age WBC [...] HCT IS 5% LESS SOURCE FOR DATA: [email or web address] 1800 OPERATION MANUAL( AUTOMATED BLOOD COUNTS AND [...] HCT IS 5% LESS SOURCE FOR DATA: [employer] DYN 1800 OPERATION MANUAL( AUTOMATED BLOOD COUNTS [...] INDIVIDUALA AGED 2-19 YEARS EXCLUSIVE. eGFR Non-Afr. [place] 61 # MEDENT ([facility] [...] HCT IS 5% LESS SOURCE FOR DATA: [email or web address] 1800 OPERATION MANUAL( AUTOMATED BLOOD COUNTS AND [...] 2-19 YEARS EXCLUSIVE. ID Date Data Source [id number] 10/12/2019 01:31:00 PM EDT MEDENT ([facility] Name Value Range Interpretation Code Description Data Chloe rce(s) Supporting Document(s) Trig 245 mg/dL 40-200 Above high normal [facility] ([facility] NORMAL RANGES Age WBC [...] HCT IS 5% LESS SOURCE FOR DATA: [employer] 1800 OPERATION MANUAL( AUTOMATED BLOOD COUNTS AND [...] 2-19 YEARS EXCLUSIVE. Chol 167 mg/dL 0-200 [facility] ([facility] NORMAL [...] HCT IS 5% LESS SOURCE FOR DATA: [employer] 1800 OPERATION MANUAL( AUTOMATED BLOOD COUNTS AND [...] HCT IS 5% LESS SOURCE FOR DATA: [email or web address] 1800 OPERATION MANUAL( AUTOMATED BLOOD COUNTS AND [...] LDL_C 71 Calc 75-129 Below low normal [facility] ( [facility] NORMAL RANGES Age [...] HCT IS 5% LESS SOURCE FOR DATA: [employer] 1800 OPERATION MANUAL( AUTOMATED BLOOD COUNTS AND [...] 2-19 YEARS EXCLUSIVE. Cho/HDL Ratio 3.6 CALC [employer] ([facility] NORMAL RANGES Age WBC RBC HGB [...] HCT IS 5% LESS SOURCE FOR DATA: [employer] 1800 OPERATION MANUAL( AUTOMATED BLOOD COUNTS AND [...] 2-19 YEARS EXCLUSIVE. ID Date Data Source [id number] 10/12/2019 01:31:00 PM EDT MEDENT ([facility] [...] HCT IS 5% LESS SOURCE FOR DATA: [employer] 1800 OPERATION MANUAL( AUTOMATED BLOOD COUNTS AND [...] 2-19 YEARS EXCLUSIVE. WBC 9.4 10E3/uL 4.1-10.9 [facility] NORMAL RANGES Age WBC [...] HCT IS 5% LESS SOURCE FOR DATA: [employer] 1800 OPERATION MANUAL( AUTOMATED BLOOD COUNTS AND [...] HCT IS 5% LESS SOURCE FOR DATA: [employer] 1800 OPERATION MANUAL( AUTOMATED BLOOD COUNTS AND [...] EXCLUSIVE. HCT 42.1 % 37.0-51.0 MANE ([facility] NORMAL RANGES Age WBC [...] HCT IS 5% LESS SOURCE FOR DATA: Mem[employer] DYN 1800 OPERATION MANUAL( AUTOMATED BLOOD COUNTS [...] 2-19 YEARS EXCLUSIVE. HGB 13.9 g/dL 12.0-18.0 [facility] ([facility] NORMAL [...] HCT IS 5% LESS SOURCE FOR DATA: [email or web address] 1800 OPERATION MANUAL( AUTOMATED BLOOD COUNTS AND [...] HCT IS 5% LESS SOURCE FOR DATA: [employer] DYN 1800 OPERATION MANUAL( AUTOMATED BLOOD COUNTS [...] HCT IS 5% LESS SOURCE FOR DATA: [email or web address] 1800 OPERATION MANUAL( AUTOMATED BLOOD COUNTS AND [...] 2-19 YEARS EXCLUSIVE. Lym% 25.8 % 10.0-58.5 [facility] ([facility] NORMAL [...] HCT IS 5% LESS SOURCE FOR DATA: [employer] DYN 1800 OPERATION MANUAL( AUTOMATED BLOOD COUNTS [...] HCT IS 5% LESS SOURCE FOR DATA: [email or web address] 1800 OPERATION MANUAL( AUTOMATED BLOOD COUNTS AND [...] 2-19 YEARS EXCLUSIVE. PLT 216 10E3/uL 140-440 [facility] ([facility] NORMAL RANGES Age WBC RBC HGB [...] HCT IS 5% LESS SOURCE FOR DATA: [email or web address] 1800 OPERATION MANUAL( AUTOMATED BLOOD COUNTS AND [...] 2-19 YEARS EXCLUSIVE. Lym# 2.4 10E3/uL 0.6-4.1 [facility] ([facility] NORMAL RANGES Age WBC [...] HCT IS 5% LESS SOURCE FOR DATA: [email or web address] 1800 OPERATION MANUAL( AUTOMATED BLOOD COUNTS AND [...] HCT IS 5% LESS SOURCE FOR DATA: [email or web address] 1800 OPERATION MANUAL( AUTOMATED BLOOD COUNTS AND [...] 2-19 YEARS EXCLUSIVE. MXD% 11.5 % 0.1-24.0 [facility] ([facility] NORMAL RANGES [...] 2-19 YEARS EXCLUSIVE. Neut# 5.9 % 2.0-7.8 [facility] ([facility] NORMAL [...] HCT IS 5% LESS SOURCE FOR DATA: [email or web address] 1800 OPERATION MANUAL( AUTOMATED BLOOD COUNTS AND [...] YEARS EXCLUSIVE. MXD# 1.1 10E3/uL 0.0-1.8 [facility] ([facility] NORMAL RANGES Age WBC [...] HCT IS 5% LESS SOURCE FOR DATA: [email or web address] 1800 OPERATION MANUAL( AUTOMATED BLOOD COUNTS AND [...] MPV 14.1 fL 9.0-13.0 Above high normal [facility] ([facility] NORMAL RANGES [...] 2-19 YEARS EXCLUSIVE. ID Date Data Source [id number] 06/30/2019 03:01:00 PM EST [facility] ([facility] Name Value Range Interpretation Code Description Data Chloe rce(s) Supporting Document(s) Carotid Ultrasound Bilateral <pending> M [facility] ([facility]) Procedure Social History Code Duration Value Status Description Data Source(s ) Smoking 06/02/2020 12:00:00 AM EST Patient has never smoked co mpleted Patient has never smoked [facility] ([facility]) Smoking 06/30/2019 12:00:00 AM EST Never Smoked Cigarettes com pleted Never Smoked Cigarettes [facility] ([facility]) Vital Signs ID Date Data Source UNK Name Value Range Interpretation Code Description Data Source(s) Oxygen saturation in Arterial blood by Pulse oximetry 98 % 98 % [facility] ([facility] Body mass index (BMI) [Ratio] 31.1 kg/m2 31.1 k g/m2 [facility] ([facility] [place] body weight 110 [lb_av] 110 [lb_av] [facility] ([facility] Body weight 170.00 [lb_av] 170.00 [lb_av] [facility] ([facility] Body height 62 [in_i] 62 [in_i] [facility] ([facility] 5'2" Respiratory rate 16 [...] k g/m2 [facility] ([facility] [place] body weight 110 [lb_av] 110 [lb_av] [facility] ([facility] Body weight 170.00 [lb_av] 170.00 [lb_av] [facility] ([facility] Body height 62 [in_i] 62 [in_i] [facility] ([facility] 5'2" Respiratory rate 14 [...] 23.8 k g/m2 [facility] ([facility] Body weight 58.968 kg 58.968 kg [facility] ([facility] Body weight 130.00 [lb_av] 130.00 [lb_av] [facility] T ([facility]) Body height 62 [in_i] 62 [in_i] [facility] ([facility]) 5'2" Diastolic blood pressure 60 mm[Hg] 60 mm[Hg] [facility] ([facility]) Systolic blood pressure 90 mm[Hg] 90 mm[Hg] M EDENT ([facility]) Diastolic blood pressure 60 mm[Hg] 60 mm[Hg] [facility] ([facility]) Systolic blood pressure 90 mm[Hg] 90 mm[Hg] M [facility] ([facility]) Oxygen saturation in Arterial blood by Pulse oximetry 97 % 97 % [facility] ([facility] Body mass index (BMI) [Ratio] 29.3 kg/m2 29.3 k g/m2 [facility] ([facility] [place] body weight 110 [lb_av] 110 [lb_av] [facility] T ([facility] Body weight 160.00 [lb_av] 160.00 [lb_av] [facility] T ([facility] Body height 62 [in_i] 62 [in_i] [facility] ([facility] 5'2" Respiratory rate 16 /min 16 /min [facility] ( [facility] Heart rate 72 /min 72 /min [facility] ([facility] Body temperature 97.7 [degF] 97.7 [degF] [facility] ([facility] Diastolic blood pressure 78 mm[Hg] 78 mm[Hg] [facility] ([facility] Systolic blood pressure 136 mm[Hg] 136 mm[Hg] M EDENT ([facility] Oxygen saturation in Arterial blood by Pulse oximetry 96 % 96 % [facility] ([facility] Body mass index (BMI) [Ratio] 29.3 kg/m2 29.3 k g/m2 [facility] ([facility] Body weight 160.38 [lb_av] 160.38 [lb_av] [facility] T ([facility] Body height 62 [in_i] 62 [in_i] [facility] ([facility] 5'2" Respiratory rate 14 [...] mm[Hg] 126 mm[Hg] e CW1 ([facility]) Body mass index (BMI) [Ratio] 27.70 kg/m2 27.70 kg/m2 eCW1 ([facility]) Body height [in_us] eCW1 ([facility]) Body weight Measured 161.4 [lb_av] 161.4 [lb_av ] W1 ([facility]) Diastolic blood pressure 74 mm[Hg] 74 mm[Hg] eCW1 ([facility]) Body weight Measured 164.2 [lb_av] 164.2 [lb_av ] eCW1 ([facility]) Body height [in_us] eCW1 ([facility]) Body mass index (BMI) [Ratio] 28.18 kg/m2 28.18 kg/m2 eCW1 ([facility]) Systolic blood pressure 134 mm[Hg] 134 mm[Hg] e CW1 ([facility]) Diastolic blood pressure 82 mm[Hg] 82 mm[Hg] eCW1 ([facility]) Body mass index (BMI) [Ratio] 24.7 kg/m2 [...] [Ratio] 26.5 kg/m2 26.5 k g/m2 [facility] ([facility]) Body height 62 [in_i] 62 [in_i] [facility] ([facility]) 5'2" Body weight 145.00 [lb_av] 145.00 [lb_av] [facility] T ([facility], [facility]) Body temperature 97.9 [degF] 97.9 [degF] [facility] ([facility], [facility]) Oxygen saturation in Arterial blood by Pulse oximetry 96 % 96 % [facility] ([facility]) Respiratory rate 17 /min 17 /min [facility] ( [facility]) Heart rate 71 /min 71 /min [facility] ([facility]) Diastolic blood pressure 70 mm[Hg] 70 mm[Hg] [facility] ([facility], [facility]) Systolic blood pressure 161 mm[Hg] 161 mm[Hg] M EDENT ([facility], [facility]) Patient Treatment Plan of Care Planned Activity Planned Date Details Description Data Source (s) Betamethasone 0.0005 MG/MG Augmented Topical Ointment 09/15/2019 12:00:00 AM EDT eCW1 ([facility]) Triamcinolone Acetonide 0.001 MG/MG Topical Ointment 020 12:00:00 AM EST eCW1 ([facility])
[2020-07-10 16:05] LABS: FREE T4 0.95 NG/DL (0.76-1.46)
[2020-07-10 17:30] VITALS: BP_SYST 168; BP_SYST 172; BP_SYST 177; BP_DIAS 78; BP_DIAS 79
--- NOTE | 2020-07-10 17:58 | REPVR ---
PROCEDURE INFORMATION: Exam: MR Head Without Contrast Exam date and time: 07/10/2020 2:38 PM Age: 79 years old Clinical indication: Syncope and collapse TECHNIQUE: Imaging protocol: MR of the head without contrast. COMPARISON: MRI-Brain without Contrast 06/02/2018 12:54 PM FINDINGS: Brain: There is no restricted diffusion to suggest acute infarction. Increased signal intensity of the deep and subcortical white matter on the FLAIR and T2 weighted sequences is most consistent with microangiopathy which is similar in appearance to the prior study. There is also stable hyperintensity within the insular cortex bilaterally. There is no acute intracranial hemorrhage or mass. There appears to be prior hemorrhage due to the appearance of hemosiderin staining in the left parietal lobe series 701, image 1 frame 17. 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 Cerebral ventricles: The ventricles appear mildly enlarged, but not out of proportion to the degree of parenchymal volume loss. Bones/joints: Unremarkable. Paranasal sinuses: There is a mucous retention cyst or small fluid collection in the left maxillary antrum. The remainder of the paranasal sinuses appear clear. Mastoid air cells: Normal as visualized. No mastoid effusion. Orbital cavity: Nothing acute. Soft tissues: Unremarkable. IMPRESSION: No acute intracranial findings. The brain is stable in appearance in comparison to the prior MRI of 06/02/2018. Electronically signed by: Araceli Helm On 07/10/2020 17:58:12 PM
[2020-07-10 19:03] LABS: CK-MB VALUE MASS 1.5 NG/ML (<3.6); CPK CREATINE PHOSPHOKINASE 59 U/L (26-192); MB/CK RELATIVE INDEX 2.54 (< OR =4); TROPONIN I < 0.02 NG/ML (< 0.10)
[2020-07-10 20:00] VITALS: BP 130/60
[2020-07-10] MEDS: APIXABAN 5 MG TAB (ELIQUIS) PO SCH (20:20)
[2020-07-10] MEDS: TIMOLOL MALEATE 0.5% OPHTH SOLN 5 ML OU SCH (20:20)
[2020-07-10] MEDS: OCUVITE 1 TAB PO SCH (20:20)
--- NOTE | 2020-07-10 20:50 | ECGEPIP ---
[facility] - ED Test Date: 2020-07-10 Pat Name: RHETT SHIELDS Department: Room: Gender: Female Manager Staffing: brennan : 1940 Requested By: Jay Lara Order Number: [id number] Reading MD: Leila Merlos Measurements Intervals [place] Rate: 60 P: 44 [place]: 258 QRS: -34 QRSD: 91 T: 60 QT: 394 QTc: 395 Interpretive Statements SINUS RHYTHM WITH FIRST DEGREE AV BLOCK INFERIOR MYOCARDIAL INFARCTION, PROBABLY OLD MODERATE T-WAVE ABNORMALITY, CONSIDER ANTEROLATERAL ISCHEMIA, CLINICAL C CORRELATION COMPARED 06/23/20 Electronically Signed on 07-10-2020 20:50:27 EST by Leila Merlos
[2020-07-10] MEDS ORDERED: LATANOPROST 0.005% OPHTH SOLN 2.5 ML OU SCH (21:00)
[2020-07-10 23:53] LABS: CK-MB VALUE MASS 1.6 NG/ML (<3.6); CPK CREATINE PHOSPHOKINASE 61 U/L (26-192); MB/CK RELATIVE INDEX 2.62 (< OR =4); TROPONIN I < 0.02 NG/ML (< 0.10)
[2020-07-11] VITALS (8 sets, daily range): BP systolic 128–169; BP diastolic 47–80
[2020-07-11 04:52] LABS: BASO # 0.1 10^3/uL (0.0-0.2); BASO % 1.3 % (0.0-1.0); EOS # 0.5 10^3/uL (0.0-0.5); EOS % 6.8 % (0.0-3.0); HEMATOCRIT 41.9 % (36.0-47.0); HEMOGLOBIN 13.3 g/dl (12.0-15.5); LYMPH # 1.8 10^3/uL (1.5-5.0); LYMPH % 23.1 % (24.0-44.0); MEAN CORPUSCULAR HEMOGLOBIN 27.8 pg (27.0-33.0); MEAN CORPUSCULAR HGB CONC 31.7 g/dl (32.0-36.5); MEAN CORPUSCULAR VOLUME 87.5 fl (80.0-96.0); MONO # 1.3 10^3/uL (0.0-0.8); MONO % 17.1 % (2.0-8.0); NEUTROPHILS % 51.3 % (36.0-66.0); PLATELET COUNT, AUTOMATED 219 10^3/uL (150-450); RED BLOOD COUNT 4.79 10^6/uL (4.00-5.40); WHITE BLOOD COUNT 7.7 10^3/uL (4.0-10.0)
[2020-07-11 05:16] LABS: BLOOD UREA NITROGEN 20 MG/DL (7-18); CALCIUM LEVEL 8.5 MG/DL (8.8-10.2); CARBON DIOXIDE LEVEL 26 MEQ/L (21-32); CHLORIDE LEVEL 110 MEQ/L (98-107); CREATININE FOR GFR 0.84 MG/DL (0.55-1.30); GLOMERULAR FILTRATION RATE > 60.0 (>39); GLUCOSE, FASTING 94 MG/DL (70-100); MAGNESIUM LEVEL 2.1 MG/DL (1.8-2.4); POTASSIUM SERUM 3.8 MEQ/L (3.5-5.1); SODIUM LEVEL 144 MEQ/L (136-145)
[2020-07-11] MEDS: APIXABAN 5 MG TAB (ELIQUIS) PO SCH (08:12)
[2020-07-11] MEDS: OCUVITE 1 TAB PO SCH (08:12)
[2020-07-11] MEDS: TIMOLOL MALEATE 0.5% OPHTH SOLN 5 ML OU SCH (08:13)
[2020-07-11] MEDS ORDERED: METOPROLOL SUCC *XL* 25MG TAB (TopROL *XL*) PO SCH (09:00)
[2020-07-11] MEDS ORDERED: ATORVASTATIN 20 MG TAB PO SCH (09:00)
[2020-07-11] MEDS ORDERED: ASPIRIN 81 MG ENTERIC TAB PO SCH (09:00)
[2020-07-11] MEDS ORDERED: amLODIPine 5 MG TAB PO SCH (09:00)
[2020-07-11 10:26] LABS: TOTAL T3 84.3 NG/DL (60.0-181.0)
--- NOTE | 2020-07-11 13:15 | DS.PDOC ---
Discharge Summary General Date of Admission Jul 10, 2020 at 10:42 Date of Discharge 07/11/2020 Discharge Summary PROCEDURES PERFORMED DURING STAY: [None]. ADMITTING DIAGNOSES / DISCHARGE DIAGNOSES: Syncope - possibly 2/2 vasovagal episode, less likely 2/2 seizure history, less likely 2/2 cardiac etiology s/p Elevated Cr from baseline Dementia Paroxysmal A. fib History of Carotid artery Aneurysm HTN DLP GERD / Hiatal hernia DVT prophylaxis COMPLICATIONS/CHIEF COMPLAINT: Syncope. HISTORY OF PRESENT ILLNESS: Patient is a 79-year-old female who presented to the emergency room brought in by ambulance after she had syncopized while sitting in [facility]. Patient has baseline dementia and is usually only oriented to person and a little to time. Patient has a fellow sister from the home that is present at the bedside providing details to her history. Patient was sitting up at [facility] and then slumped over while in the chair, did not have any tonic-clonic activity of her muscles do not have any loss of control over bowel or bladder, did not have any frothing of her mouth or tongue biting. Patient was placed in a wheelchair and taken to the [facility]. While she was there, patient was confused and was unsure of how she had gotten there. EMS was then called and patient was brought to the emergency room for further evaluation. Upon arrival to emergency room, patient was back to her baseline level of mentation. Hospital services called for further evaluation. HOSPITAL COURSE: Syncope - possibly 2/2 vasovagal episode, less likely 2/2 seizure history, less likely 2/2 cardiac etiology - Presented to the ER after she had passed out while at [facility] - No seizure like activity noted, no bowel / bladder incontinence / tongue biting / Returned to baseline upon arrival to ED - Recovered to baseline reactively rapidly; suggesting seizure activity is less likely - Has remained asymptomatic while inpatient - Previous history of Phenytoin use; but was stopped ~2 years ago - Previous EEG was essentially negative in the past - Orthostatic vital signs negative - Imaging noted - Troponin trend negative - EKG reviewed - Telemetry without any abnormal findings - Will have outpatient follow up for ECHO / EEG results - Will work with PT; if cleared will DC home - Will have outpatient follow-up with primary care provider, neurology and cardiology within 7 days s/p Elevated Cr from baseline - Cr of 0.7 at baseline / Cr on admission of 1.0 - has improved - Will avoid nephrotoxic medications - s/p IV fluid hydration Dementia - Lives at [facility] in [place] with her sisters - Oriented to person; not always to time / place - No mobility equipment used - History of delirium and combative state - Will place bedside sitter Paroxysmal A. fib - c/w rate control with metoprolol - c/w full anticoagulation with Eliquis History of Carotid artery Aneurysm - s/p Repair ~[address] Cardona in [place] - Was taken off Plavix and started on Eliquis as an outpatient - c/w ASA and Eliquis HTN - BP mildly elevated - c/w Amlodipine and Metoprolol with holding parameters DLP - c/w Atorvastatin and ASA 81 GERD / Hiatal hernia - Currently not on any medications DVT prophylaxis - c/w full anticoagulation with Eliquis DISCHARGE MEDICATIONS: Please see below. ALLERGIES: Please see below. PHYSICAL EXAMINATION ON DISCHARGE: Vitals (See below) General: Lying in bed, appears comfortable, AAOx1 (person) HEENT: NC, AT CVS: +S1S2 Lungs: Fair air entry b/l, -w/r/r Abdomen: Soft, ND, NT Extremities: - Edema, - Calf tenderness LABORATORY DATA: Please see below. IMAGING: CT head 07/10: Generalized volume loss and vascular calcification. No acute intracranial abnormality. MRI Brain 07/10: No acute intracranial findings. The brain is stable in appearance in comparison to the prior MRI of 06/02/2018. ACTIVITY: [As tolerated]. DISCHARGE PLAN: Follow-up with primary care provider and Cardiology within the next 7 days Remain compliant with treatment plan and medications Return to the ER if you experience any problems DISPOSITION: Home with services DISCHARGE CONDITION: [Stable]. TIME SPENT ON DISCHARGE: 35 minutes. Vital Signs/I&Os Vital Signs Date Time Temp Pulse Resp B/P (MAP) Pulse Ox O2 Delivery O2 Flow Rate FiO2 07/11/20 12:00 97.9 60 18 128/67 (87) 97 Room Air I&O- Last 24 Hours up to 6 AM 07/11/20 06:00 Intake Total 150 ml Output Total 0 ml Balance 150 ml Laboratory Data Labs 24H Laboratory Tests 2 07/10/20 13:42: Coronavirus (COVID-19)(PCR) NEGATIVE, Influenza Type A (RT-PCR) NEGATIVE, Influenza Type B (RT-PCR) NEGATIVE, Respiratory Syncytial Virus (PCR) NEGATIVE 07/10/20 18:19: Total Creatine Kinase 59, Creatine Kinase MB 1.5, Creatine Kinase MB Relative Index 2.54, Troponin I < 0.02 07/10/20 23:13: Total Creatine Kinase 61, Creatine Kinase MB 1.6, Creatine Kinase MB Relative Index 2.62, Troponin I < 0.02 07/11/20 04:26: Immature Granulocyte % (Auto) 0.4, Neutrophils (%) (Auto) 51.3, Lymphocytes (%) (Auto) 23.1L, Monocytes (%) (Auto) 17.1H, Eosinophils (%) (Auto) 6.8H, Basophils (%) (Auto) 1.3H, Neutrophils # (Auto) 4.0, Lymphocytes # (Auto) 1.8, Monocytes # (Auto) 1.3H, Eosinophils # (Auto) 0.5, Basophils # (Auto) 0.1, Nucleated Red Blood Cells % (auto) 0.0, Anion Gap 8, Glomerular Filtration Rate > 60.0, Calcium Level 8.5L, Magnesium Level 2.1 CBC/BMP Laboratory Tests 07/11/20 04:26 Discharge Medications Scheduled Amlodipine Besylate (Amlodipine Besylate) 5 Mg Tablet, 5 MG PO DAILY, (Reported) Apixaban (Eliquis) 5 Mg Tablet, 5 MG PO BID, (Reported) Aspirin (Ecotrin) 81 Mg Tablet.dr, 81 MG PO DAILY, (Reported) Atorvastatin Calcium (Atorvastatin Calcium) 80 Mg Tab, 80 MG PO DAILY, (Reported) Latanoprost/Pf (Latanoprost 0.005% Eye Drop) 7.5 Ml Drops, 1 DROP OU QHS, (Reported) Metoprolol Succinate (Metoprolol Succinate) 25 Mg Tab, 25 MG PO DAILY, (Reported) Timolol Maleate (Timolol Maleate) 0.5% 5ML Drops, 1 DROP OU BID, (Reported) Vit A/Vit C/Vit E/Zinc/Copper (Preservision Areds Tablet) 1 Each Tablet, 1 TAB PO BID, (Reported) Scheduled PRN Fluticasone Propionate (Fluticasone Propionate) 16 Gm Festus.susp, 2 SPRAYS NARES DAILY PRN for ALLERGIES, (Reported) Allergies Coded Allergies: levofloxacin (Verified Adverse Reaction, Mild, NAUSEA, VOMITING, LEG MUSCLE PAIN, 09/06/18) AMY NAVARRO MD Jul 11, 2020 13:15
--- NOTE | 2020-07-13 12:27 | ECHO ---
DATE OF PROCEDURE: 07/11/2020 Age: 79 Gender: Female REFERRING PROVIDER: Aurelio Cuba MD. PATIENT LOCATION: Room 3225. REASON FOR STUDY: Syncope. 2D MEASUREMENTS: IVS 1.4 cm LV 4.0 cm LVPW 1.4 cm LA 2.1 cm Aorta 3.2 cm IVC 0.9 cm DOPPLER MEASUREMENT Peak velocity across the aortic valve 1.3 m/s Peak velocity across the LVOT 0.83 m/s Mitral E 0.60 Mitral A 0.73 with a ratio of 0.8 2D COMMENTS: 1. Normal left ventricular size with mildly increased left ventricular wall thickness. Left ventricular systolic function is normal, estimated at 60 to 65%. 2. Normal left atrium. Normal right atrium and right ventricle. 3. The atrial septum appeared to be normal without evidence of defect or shunt. 4. Normal aortic root. 5. No pericardial effusion seen. 6. Mildly calcified aortic valve with normal leaflet excursion. Mildly calcified mitral annulus with normal appearing mitral valve leaflet motion. Normal tricuspid valve. The pulmonic valve and proximal pulmonary artery branches were not well visualized. 7. The inferior vena cava was normal in size, central venous pressure is most likely normal. Doppler: No significant valvular abnormalities detected. Abnormal relaxation pattern was noted across the mitral valve leaflets as well as the mitral valve annulus consistent with features of grade 1 left ventricular diastolic dysfunction. IMPRESSION: 1. Normal global left ventricular systolic function with mild concentric left ventricular hypertrophy. There were some features of grade 1 left ventricular diastolic dysfunction manifested by abnormal relaxation. 2. Aortic valve sclerosis without stenosis or aortic regurgitation. 3. Mitral annulus calcification but no evidence of mitral stenosis or mitral regurgitation. MTDD
--- NOTE | 2020-07-13 12:49 | EEG ---
ELECTROENCEPHALOGRAM DATE: 07/11/2020 DIAGNOSIS: Syncope. EEG# [id number]. REFERRING PHYSICIAN: Aurelio Cuba M.D. HISTORY: Patient is a 79-year-old woman who was admitted at [facility] due to a passing out spell at [employer]. The patient had second Moderna vaccine for COVID-19 the previous day. She has a history of dementia, seizures, and heart issues. She is currently taking aspirin, Apixaban/Eliquis, atorvastatin, and metoprolol. TECHNICAL DESCRIPTION: This digital EEG was recorded by 21-scalp, ear, and two EKG electrodes and was reviewed in bipolar and referential montages following reformatting in 10-20 international electrode placement system. INTERPRETATION: Patient was noted to be in awake and drowsy states during this EEG. Resting and awake background rhythm consisted of 10 Hz alpha activity measuring 15-40 microvolts in amplitude, which was symmetric and reactive to eye opening. Attenuation of posterior dominant rhythm was seen during transition to drowsiness. No sleep was achieved. Hyperventilation could not be performed. Photic stimulation could not be performed. EKG revealed sinus rhythm. No focal, lateralizing, or epileptiform abnormalities were seen. No relevant clinical activity was noted. CONCLUSION: This EEG in awake and drowsy states is within normal limits.
== END 2020-07-11 18:24 | disposition home health service (06) ==
LOC: M ED 10:41 → M ED INP 10:42 → ENRESERV 15:46 → M PCU 17:25
PROVIDERS: ADMIT Internal Medicine; ATTEND Internal Medicine
DX: R55 Syncope and collapse (principal); R79.89 Other specified abnormal findings of blood chemistry; F03.90 Unspecified dementia, unspecified severity, without behavioral disturbance, psychotic disturbance, mood disturbance, and anxiety; I48.0 Paroxysmal atrial fibrillation; I10 Essential (primary) hypertension; E78.49 Other hyperlipidemia; K21.9 Gastro-esophageal reflux disease without esophagitis; K44.9 Diaphragmatic hernia without obstruction or gangrene; Z86.718 Personal history of other venous thrombosis and embolism; Z79.01 Long term (current) use of anticoagulants; Z79.82 Long term (current) use of aspirin; Z79.899 Other long term (current) drug therapy; Z88.1 Allergy status to other antibiotic agents
CPT/HCPCS: 36415; 70450; 70551; 80048; 82550; 82553; 83735; 84439; 84443; 84480; 84484; 85025; 87631; 93005; 93306; 95819; 96374; 97161; 97165; 99285; G0378

== ENCOUNTER → 2021-07-28 | Outpatient (REF) | payer MEDICARE, MEDICAID, BC ==
[~2021-07-28] MED LIST changes: +BETA0.0543; +CLAR10CA3 PO; +CLORTRIMAZOLE; +CLOT1CRE56 TOP; +ECOT81TA5 PO; +FLON27.5 NARES; +FLUTISP NARES; +ISTA0.5S OP; +LATA0.0015 OU; +LORA24TA PO; +NORV5TAB PO; +OCUVTAB PO; +OCUVTAB4 PO; +TIMO0.5S29 OU; +TIMO0.5S42 OP; +TOPR25TA PO; +XALA0.007 OP
[2021-07-28 09:43] LABS: HEMATOCRIT 44.1 % (36.0-47.0); HEMOGLOBIN 14.4 g/dl (12.0-15.5); MEAN CORPUSCULAR HEMOGLOBIN 28.9 pg (27.0-33.0); MEAN CORPUSCULAR HGB CONC 32.7 g/dl (32.0-36.5); MEAN CORPUSCULAR VOLUME 88.4 fl (80.0-96.0); PLATELET COUNT, AUTOMATED 201 10^3/uL (150-450); RED BLOOD COUNT 4.99 10^6/uL (4.00-5.40); WHITE BLOOD COUNT 9.8 10^3/uL (4.0-10.0)
[2021-07-28 10:12] LABS: CALCIUM LEVEL 9.1 MG/DL (8.8-10.2); CHOLESTEROL RISK RATIO 3.875 (<5); CREATININE FOR GFR 0.97 MG/DL (0.55-1.30); POTASSIUM SERUM 4.3 MEQ/L (3.5-5.1)
== END ==
LOC: M LAB REF 09:30
PROVIDERS: ATTEND Physician Assistant
DX: E78.00 Pure hypercholesterolemia, unspecified (principal)

== ENCOUNTER → 2022-11-14 | Outpatient (REF) | payer MEDICARE ==
[~2022-11-14] MED LIST changes: +ALEN70TA87 PO; +FLUT50SP17; +FLUT50SP17 NARES; -FLUTISP; -FLUTISP NARES; -FOSA70TA PO; +TIMO0.5S20 OU; -TIMO0.5S29 OU
[2022-11-14 14:21] LABS: HEMATOCRIT 43.5 % (36.0-47.0); HEMOGLOBIN 13.9 g/dl (12.0-15.5); MEAN CORPUSCULAR VOLUME 84.6 fl (80.0-96.0); PLATELET COUNT, AUTOMATED 223 10^3/uL (150-450); RED BLOOD COUNT 5.14 10^6/uL (4.00-5.40)
[2022-11-14 14:54] LABS: ALBUMIN 3.6 G/DL (3.2-5.2); ALKALINE PHOSPHATASE 102 U/L (46-116); ALT/SGPT 15 U/L (7.0-40); AST/SGOT 15 U/L (<34); BILIRUBIN,TOTAL 0.7 MG/DL (0.3-1.2); BLOOD UREA NITROGEN 16 MG/DL (9-23); CARBON DIOXIDE LEVEL 25 MMOL/L (20-31); CHLORIDE LEVEL 108 MMOL/L (98-107); CHOLESTEROL LEVEL 161 MG/DL (<200); GLOMERULAR FILTRATION RATE > 60.0 (>32); GLUCOSE, FASTING 105 MG/DL (74-106); HDL CHOLESTEROL 38.3 MG/DL (>40); LDL CHOLESTEROL 81.1 MG/DL (<100); NON-HDL-C 122.7 MG/DL; POTASSIUM SERUM 4.2 MMOL/L (3.5-5.1); SODIUM LEVEL 143 MMOL/L (136-145); TOTAL PROTEIN 6.9 G/DL (5.7-8.2); TRIGLYCERIDES LEVEL 208 MG/DL (<150)
[2022-11-14 15:44] LABS: HEMOGLOBIN A1c 5.9 % (4.0-6.0)
== END ==
LOC: M LAB REF 13:55
PROVIDERS: ATTEND Internal Medicine
DX: E78.5 Hyperlipidemia, unspecified (principal); R73.01 Impaired fasting glucose